=== PATIENT | male | born 1950 | race Caucasian/White ===

== ENCOUNTER 2019-04-25 06:00 | Outpatient (RCR) | payer OTHER, SELFPAY | END 2019-05-25 00:01 | LOC: SPT 06:00 | PROVIDERS: Family Provider Internal Medicine; Visit Provider Internal Medicine | DX: M62.81 Muscle weakness (generalized) (principal) | CPT/HCPCS: 97110 ×7; 97112 ×4 ==

== ENCOUNTER 2019-04-26 06:08 | Outpatient (RCR) | payer OTHER, SELFPAY | END 2019-05-25 00:01 | LOC: ONCMED 06:08 | PROVIDERS: Family Provider Internal Medicine; Visit Provider Internal Medicine Medical Oncology | DX: C82.38 Follicular lymphoma grade IIIa, lymph nodes of multiple sites (principal); D80.1 Nonfamilial hypogammaglobulinemia; K21.9 Gastro-esophageal reflux disease without esophagitis; N18.9 Chronic kidney disease, unspecified; D63.1 Anemia in chronic kidney disease; F32.9 Major depressive disorder, single episode, unspecified; Z94.84 Stem cells transplant status; Z86.718 Personal history of other venous thrombosis and embolism; Z79.01 Long term (current) use of anticoagulants; Z92.22 Personal history of monoclonal drug therapy ==

== ENCOUNTER 2019-05-26 06:00 | Outpatient (RCR) | payer OTHER, SELFPAY | END 2019-06-25 23:59 | disposition home or self-care (01) | LOC: SPT 06:00 | PROVIDERS: Family Provider Internal Medicine; PCP Internal Medicine; Visit Provider Internal Medicine | DX: M62.81 Muscle weakness (generalized) (principal) ==

== ENCOUNTER 2019-05-28 05:54 | Outpatient (RCR) | payer OTHER, SELFPAY | END 2019-06-25 23:59 | disposition home or self-care (01) | LOC: ONCMED 05:54 | PROVIDERS: Family Provider Internal Medicine; PCP Internal Medicine; Visit Provider Internal Medicine Medical Oncology | DX: Z45.2 Encounter for adjustment and management of vascular access device (principal) | CPT/HCPCS: 36591 ==

== ENCOUNTER 2019-06-26 06:00 | Outpatient (RCR) | payer OTHER, SELFPAY | END 2019-07-24 23:59 | disposition home or self-care (01) | LOC: SPT 06:00 | PROVIDERS: Family Provider Internal Medicine; PCP Internal Medicine; Visit Provider Internal Medicine | DX: M62.81 Muscle weakness (generalized) (principal) | CPT/HCPCS: 97110; 97112 ==

== ENCOUNTER 2019-07-02 10:22 | Outpatient (CLI) | payer OTHER, SELFPAY ==
--- NOTE | 2019-07-02 10:33 | US_ITS ---
WS: [id number] ULTRASOUND SOFT TISSUES LEFT posterior thigh HISTORY: L POSTERIOR THIGH NODULE-BRUISING, PAIN COMPARISON: None available. TECHNIQUE: 2-D and color Doppler imaging is submitted. Complex mass with cystic and solid component in the posterior LEFT thigh just above the popliteal fos sa. Thick echogenic wall with complex cystic material centrally. Mass extends over length of 3.3 cm x 1.8 x 1.0 cm. No increased vascularity. Mass is just superficial to the saphenous vein. US/US soft tissue/extremity [id number] IMPRESSION: Soft tissue mass without blood flow in the posterior LEFT thigh. Could be a res olving hematoma. Complex meniscal cyst extruded from the joint space. Metastati c deposit not completely excluded but thought less likely without increased vas cularity. For further evaluation consider follow-up MRI or knee CT.
== END 2019-07-02 10:23 | disposition home or self-care (01) ==
LOC: RAD 10:24
PROVIDERS: Family Provider Internal Medicine; PCP Internal Medicine; Visit Provider Internal Medicine Medical Oncology
DX: R22.42 Localized swelling, mass and lump, left lower limb (principal)
CPT/HCPCS: 76882

== ENCOUNTER 2019-07-05 06:01 | Outpatient (RCR) | payer OTHER, SELFPAY ==
[2019-07-05 10:37] LABS: Basophils % 0.1 %; Eosinophils % 0.4 %; Hematocrit 40.6 % (42.0-52.0); Hemoglobin 13.6 g/dL (11.7-16.6); Lymphocytes % 42.4 %; Mean Corpuscular HGB Conc 33.5 g/dL (30.0-36.0); Mean Corpuscular Hemoglobin 30.4 pg (28.0-34.0); Mean Corpuscular Volume 90.6 fL (80-94); Mean Platelet Volume 9.6 fL (7.4-10.4); Monocytes # 1.3 10^3/uL (0.2-0.9); Monocytes % 18.5 %; Neutrophils # 2.7 10^3/uL (1.8-7.7); Neutrophils % 38.3 %; Nucleated Red Blood Cells % 0 %; Platelet Count 162 10^3/cmm (130-400); Red Blood Count 4.48 10^6/uL (4.1-5.3); Red Cell Distribution Width 13.8 % (12.1-15.1)
[2019-07-05 11:22] LABS: Alanine Aminotransferase 29 U/L (0-41); Albumin Level 4.1 g/dL (3.5-5.2); Alkaline Phosphatase 86 IU/L (40-130); Anion Gap 15.2 (5-19); Aspartate Amino Transferase 17 U/L (0-40); Blood Urea Nitrogen 21 mg/dL (8-23); Calcium 9.7 mg/dL (8.5-10.5); Carbon Dioxide 26 mmol/L (22-29); Chloride 100 mmol/L (98-107); Globulin 1.9 g/dL (1.3-4.6); Glomerular Filtration Rate 50.2 mL/min (90-130); Glucose 93 mg/dL (65-115); Lactate Dehydrogenase 194 U/L (135-225); Potassium 3.2 mmol/L (3.5-5.1); Sodium 138 mmol/L (136-145); Total Bilirubin 0.4 mg/dL (0.15-1.2)
[2019-07-05 11:27] LABS: Erythrocyte Sedimentation Rate 11 mm/hr (0-10)
--- NOTE | 2019-07-05 20:04 | ONC FU_ITS ---
Dr. Mast Patient Follow-Up Note Patient: Conrad Llanos Unit #: [id number]: 1950 Dicatated By: Adrian Mast M.D.Date of Visit:Jul 05, 2019 Onc Med Follow-up/Prog Note Chief Complaint: Lymphoma/hypogammaglobulinemia. History of Present Illness: This is a 68 year-old man with transformed diffuse large B-cell lymphoma. He was also found to have severe hypogammaglobulinemia. He was initially diagnosed with grade 1-2/3 follicular lymphoma by left inguinal lymph node biopsy in 2008. He had at least stage III disease at that time. He achieved a partial response to initial treatment with rituximab, but he then had disease progression and he was treated with 6 cycles of R-CHOP from April 2012 through August 2010. He was then given maintenance rituximab at 6 month intervals, but he then had disease progression again. He had further treatment with 4 cycles of bendamustine/Rituxan from September 2011 through November 2011. He had a good response and was then in remission until April 2013 when he was found to have diffuse hyperactive lymphadenopathy by PET/CT. A left inguinal lymph node biopsy on 05/11/2013 showed grade 1-2/3 follicular lymphoma estimated at 50%, grade 3 follicular lymphoma estimated at 10%, and sheets of necrotic cells which were highly suspicious for diffuse large B-cell lymphoma. Those cells were positive for PAX-5, CD20, and BCL-2, and they were negative for Ki-67. He was then given 2 cycles of R-ESHAP in May 2013 followed by 2 cycles of R-GIFOX in July 2013. In December 2013 he underwent high-dose chemotherapy/stem cell transplant. He was given Revlimid for 3 cycles following the transplant, but he tolerated it poorly. His further treatment has included 9 cycles R-Toston Ox and maintenance rituximab. His most recent course of R-Toston Ox included 5 cycles of treatment from 04/09/2016 through 08/13/2016. He was then transitioned to maintenance rituximab, cycle 1 on 09/24/2016. His maintenance rituximab had been administered at 6-week intervals. 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 He was maintained on chronic anticoagulation with fondaparinux. He had also required treatment for Clostridium difficile colitis, and he had been chronically anemic. He was seen here initially on 11/05/2016 because he had moved back to this area and he desired to continue his treatment closer to home. At that time he complained that he felt run down and very tired. He complained of having a productive cough which had persisted for at least for 5 months. He also reported having diarrhea stools once or twice a day. He did receive his scheduled maintenance rituximab. On further evaluation, his stool was found to be negative for C. diff. A sputum culture, though, did grow beta lactamase negative Haemophilus influenzae, which persisted despite antibiotic therapy. On 12/15/2016 he presented to the emergency room with worsening diarrhea. CT abdomen/pelvis at that time showed mild bowel wall thickening thruout the colon, consistent with mild infectious colitis. There were mild inflammatory changes in the retroperitoneum with small lymph nodes, consistent with treated lymphoma. He was given empiric treatment with oral vancomycin and metronidazole. During subsequent follow-up he was found to have severe hypogammaglobulinemia with IgG 56.00 g/dL, IgA 22.00 mg/dL, and IgM less than 5.30 mg/dL. He began monthly replacement IVIG on 01/06/2017. In view of his declining performance status, I had opted not to continue his maintenance rituximab. A chest CT on 01/24/2017 showed patchy ill defined opacities in the right middle lobe and at the right lung base as well as additional scattered opacities in the left lower lobe, consistent with pneumonitis. There were small but numerous right axillary lymph nodes. There was no mediastinal adenopathy noted. His repeat sputum culture on 02/28/2017 was still positive for Haemophilus influenza. He was then referred to Dr. Johns for infectious disease consultation. He also had ENT consultation with Dr. Ann. His further evaluation included an esophagram on 03/14/2017. It showed moderate esophageal dysmotility with tertiary contractions in the mid and distal esophagus. There was a tiny esophageal hiatal hernia with reflux to the mid esophagus. A CT of the neck showed no cervical lymphadenopathy and there was no evidence of glottic or supraglottic mass. Bilateral parotid soft tissue lesions measuring 10 mm on the right and 13 mm on the left were felt to represent prominent intraparotid lymph nodes versus parotid adenomas. A few prominent right submandibular lymph nodes measuring up to 8 mm were not pathologically enlarged. With those findings, he continued monthly replacement IVIG and he continued prophylactic antibiotic coverage with Augmentin. He remained on observation/expectant management for the lymphoma. Restaging CT scans of the chest, abdomen, and pelvis on 12/03/2017 showed interval increase in size and number of bilateral axillary lymph nodes, largest in the right axilla measuring 17 mm. The abdomen showed slight increase in spleen size 12.5 cm compared to 10.5 cm in November 2016. There was also new adenopathy in the mesentery, retroperitoneum, pelvis, and inguinal regions. The retroperitoneal adenopathy was noted to encase the proximal ureters, but without evidence of renal obstruction. On 01/01/2018 he returned here for a scheduled IVIG infusion. At that time he reported that he had again been diagnosed with Clostridium difficile colitis. He started treatment with vancomycin 125 mg 4 times a day, and he stopped the Augmentin. PET/CT on 01/17/2018 showed widespread hypermetabolic lymphadenopathy from the head/neck level to the level of the pelvis. Involved areas included submandibular and jugulodigastric nodes bilaterally, axillary nodes bilaterally, superior mediastinal, right paratracheal, subcarinal, paraesophageal and left hilar lymph nodes, and prominent retroperitoneal and mesenteric lymph nodes. There was extension into the common iliac and bilateral pelvic, including inguinal and femoral nodes bilaterally. There was diffusely increased splenic activity consistent with lymphomatous involvement. Increased activity in thickened bilateral renal fascia also was strongly suspicious for lymphomatous infiltration. On 02/02/2018 he underwent right axillary lymph node biopsy. Pathology was consistent with follicular lymphoma, grade 3A. On 03/04/2018 he was seen by Dr. Bonita Garner at [facility]. He was evaluated for possible participation in the clinical trial with a bispecific antibody. He fortunately did not qualify for that particular trial because of his renal function. As an alternative, she recommended a trial therapy with a PI3K inhibitor. On 03/30/2018 he began a trial therapy with idelalisib 150 mg twice a day. With that, he was started on prophylaxis with Bactrim and valacyclovir, and I also had him continue oral vancomycin 125 mg twice a day for the recurrent Clostridium difficile colitis. During subsequent follow-up he continued idelalisib 150 mg twice a day, and he has continued his monthly IVIG infusions. He appeared to have resolution of peripheral lymphadenopathy. Restaging PET/CT on 08/15/2018 the spleen appeared less prominent and it was just slightly more hypermetabolic compared to the liver, consistent with improvement but not resolution of lymphomatous involvement. Extranodal soft tissue of the right posterior abdomen also appeared less hypermetabolic but not completely resolved. Winter improvement was evident in axillary nodes bilaterally, in bilateral inguinal and femoral nodes, and in mediastinal nodes. There was apparent progression of disease in the left perirenal fascia and there was increased activity in the right submandibular node. There was also apparent progression in the upper abdominal nodes in the celiac, gastrosplenic, and gastrohepatic territories. Right external iliac adenopathy also appeared more hypermetabolic. Overall, it was felt to show a mixed response. He was seen for a scheduled visit and an IVIG infusion on 09/14/2018. Subsequent to that treatment, he became profoundly weak, and he also developed fever, chills, sweating, and headache. He was admitted to the hospital on 09/20/2018. His blood counts were adequate and there are no significant changes in his serum chemistry studies. Chest x-ray showed no acute infiltrate. His blood cultures remained negative. His spinal fluid showed 11 WBC, 98% mononuclear cells. The CSF protein was normal. Stool tested negative for C. difficile and stool cultures were negative. Overall, no source of infection was identified. Noncontrast CT abdomen/pelvis on 09/23/2018 showed persistent extensive central mesenteric, celiac axis, retroperitoneal, pelvic and anal lymphadenopathy with marginal improvement compared to a previous CT from November 2017. There was persistent mild splenomegaly. He was discharged home on 09/24/2018. At that time he continued his prophylaxis with Bactrim and he was given empiric treatment with valganciclovir for 7 days. He had no additional antibiotic therapy. He continued to have low-grade fever and other systemic symptoms, but he did have symptomatic improvement on empiric treatment with prednisone. I had seen him for a follow-up visit on 10/14/2018. At that point he was feeling better. I had him continue the idelalisib at 150 mg twice a day and he continued prophylaxis with Bactrim, valacyclovir, and oral vancomycin. The IVIG remained on hold. He was seen for a follow-up visit on 11/02/2018. He was feeling worse. He reported increased weakness and he was having symptoms of orthostatic hypotension. He had stopped the idelalisib. He was given IV hydration, and I did have him keep the idelalisib on hold. His laboratory studies at that time included a sedimentation rate which was markedly elevated 118 mm/hour. His chest x-ray at that time showed poor inspiration with no acute findings. Bilateral renal ultrasound was normal. There was no hydronephrosis. Restaging PET/CT on 11/28/2018 showed evidence of disease progression with increase hypermetabolism within the spleen, and the bilateral retroperitoneal winter mass in the upper abdomen showed increase in SUV to 24.5 compared to 19.6 on the July 2018 study. There was similar progression in mesenteric, bilateral pelvic, gastrohepatic, and gastrosplenic lymph nodes. An index mediastinal lymph node in the subcarinal territory showed SUV 10.4 compared to 4.1 on the previous study. There was also progression evident in bilateral head/neck nodes and bilateral axillary nodes. Diffusely increased marrow activity was felt to be possibly physiologic, but marrow infiltration was not excluded. A cosyntropin stimulation test on 11/30/2018 did show adequate response, but the baseline cortisol level was unusually low at 0.73. As he was clearly showing disease progression, he then began a trial of therapy with rituximab in combination with lenalidomide, cycle 1 beginning on 12/22/2018. The rituximab was dosed at 375 mg/m??? by IV infusion day 1 and the lenalidomide at 20 mg daily on a 21/28 day schedule. He also continued his steroid therapy. He was able to tolerate the rituximab infusion, but the lenalidomide was stopped within a very short time due to multiple side effects. He then returned for cycle 2 on 01/19/2019 with the lenalidomide dosage reduced to 5 mg. He again became extremely fatigued while taking the Revlimid, even at the reduced dosage. At his follow-up visit on 03/16/2019 I opted to put his treatment on hold. Restaging PET/CT on 03/27/2019 showed subcentimeter sized lymph nodes in the cervical, axillary, and mediastinal territories without significant FDG activity. The splenic activity also appeared to have normalized. Mesenteric lymph nodes were noted to be subcentimeter in size and FDG negative. The retroperitoneal mass was seen only has FDG negative fat stranding. Pelvic adenopathy was noted to have resolved. Overall, the findings were consistent with a complete metabolic response to therapy. His other medical illnesses include GERD, chronic kidney disease, and depression. He is a nonsmoker. INTERIM HISTORY: He had called last week to report a new lump in his left leg. He had a firm mass palpable in the posterior left thigh just above the knee. There was associated ecchymosis. Ultrasound showed a complex soft tissue mass with cystic and solid component but without blood flow. The appearance was most consistent with resolving hematoma, though metastatic deposit was not completely excluded. He is seen for a follow-up visit. He has been feeling pretty good generally. He has not really had any pain or other symptoms associated with the leg mass, and he has not been aware of any specific injury in that area. It has not been getting any bigger. He is on chronic anticoagulation with fondaparinux, and he has always been prone to bruising easily, especially in the left leg. His energy has been improving gradually with physical therapy. He is able to do light work. ECOG score is 1. His appetite has been good. He has not had fever or night sweats. He has lightheadedness just occasionally now. He has started to gradually taper off prednisone, and he currently is taking 5 mg in the morning and 5 mg in the early afternoon. He does not complain of shortness of breath, cough, or chest pain. He has no GI complaints. He has frequent urination at night. He has some pain in his back and knees, but that is not new. He has no focal neurologic symptoms. He indicates that he does tend to get blisters in the scrotal area intermittently. They resolve within a few days with acyclovir. Medications: Acetaminophen Extra Strength Tablet Oral PRN, Arixtra 7.5 mg (of 7.5 mg/0.6mL) Subcutaneous daily, Dulcolax 1 Tablet (of 5 mg) Tablet, enteric coated Oral daily PRN, MiraLax Powder Oral PRN, oxyCODONE HCl 5 mg (of 5 mg) Tablet Oral PRN, Potassium Chloride ER 1 Tablet (of 10 meq) Tablet, controlled release Oral daily, predniSONE 1 Tablet (of 5 mg) Oral b.i.d., Prevacid 1 (30 mg) Capsule Delayed Release Oral daily Allergies: Ciprofloxacin HCl Review of Systems: Constitutional - His energy has improved somewhat with physical therapy. His does light work at home. His appetite is good, but his weight is down a couple of pounds. No fever, chills, hot flashes, or night sweats. ECOG score is 1, ENMT - No sinus congestion/drainage. No mouth sores. No sore throat or difficulty swallowing, Hematologic/Lymphatic - He bruises easily, mainly in his left leg, Respiratory - No shortness of breath. No cough. No pleuritic pain or hemoptysis, Cardiovascular - No angina pain. No palpitations, Gastrointestinal - No nausea or vomiting. No heartburn or acid reflux. His bowels are managed well with stool softeners. No blood in the stool or black stools, Genitourinary (M) - No dysuria or hematuria. He has urinary frequency at night. No urgency or incontinence, Musculoskeletal - He has occasional pain in his back and in both knees, Integumentary - No skin complications, Neurologic - No headache. He has occasional spells of light-headedness. No numbness/paresthesias or other focal neurologic symptoms, Psychiatric - He has pretty bad anxiety around crowds. No depression. No insomnia. Vital Signs: Performed on Jul 05, 2019 11:45 Height - 71.00 in Weight - 184.6 lbs (LOW) BSA - 2.04 sq.m BMI - 25.75 Temperature - 98.0 F (LOW) Pulse - 93 /min Respiration - 22 /min BP - 122/72 mm(hg) O2 Sat - 98 % Pain - 4 Physical Examination: Constitutional - He looks pretty good generally. He does appear slightly cushingoid in the face, Eyes - Sclerae nonicteric. Conjunctivae clear, ENMT - There are no lesions noted in the oral cavity, Hematologic/Lymphatic - There is no cervical, clavicular, or axillary adenopathy noted, Respiratory - Lungs sound clear with good air movement bilaterally, Cardiovascular - Heart rhythm is regular. There is no murmur, gallop, or rub noted, Abdomen - Soft. Liver and spleen are not enlarged. There is no abdominal mass or ascites noted. There is no inguinal adenopathy noted, Extremities - No edema. There is a firm mass palpable in the posterior left thigh just above the knee. There is associated ecchymosis, Neurologic - No focal neurologic deficits noted. Lab/Imaging: Test performed on Jul 05, 2019 10:20 LDH (Total) 194 U/L Sodium 138 mmol/L Potassium 3.2 mmol/L Chloride 100 mmol/L CO2 26 mmol/L Anion Gap 15.2 BUN 21 mg/dL Creatinine 1.4 mg/dL Cr Clearance (Est) 54.8300 mL/min eGFR 50.2 mL/min Glucose 93 mg/dL Calcium 9.7 mg/dL Protein, Total 6.0 g/dL Albumin 4.1 g/dL Globulin 1.9 g/dL Bilirubin, Total 0.4 mg/dL ALT (SGPT) 29 U/L AST (SGOT) 17 U/L Alkaline Phosphatase 86 IU/L WBC 7.0 10 3/uL RBC 4.48 10 6/uL HGB 13.6 g/dL HCT 40.6 % MCV 90.6 fL MCH 30.4 pg MCHC 33.5 g/dL RDW 13.8 % Platelet Count 162 10 3/cmm MPV 9.6 fL Neutrophils 2.7 10 3/uL Lymphocytes 3.0 10 3/uL Monocytes 1.3 10 3/uL Eosinophils 0.0 10 3/uL Basophils 0.0 10 3/uL Neutrophil % 38.3 % Lymphocyte % 42.4 % Monocyte % 18.5 % Eosinophil % 0.4 % Basophils % 0.1 % Test performed on Jul 05, 2019 03:18 ESR (Sed Rate) 11 mm/hr Impression: 1. Patient with grade 1-2/3 follicular lymphoma, at least stage III, initially diagnosed by left inguinal lymph node biopsy in 2008. His treatments included rituximab, R-CHOP, and bendamustine/Rituxan. 2. In April 2013 he was confirmed by left inguinal lymph node biopsy to have transformed diffuse large B-cell lymphoma. His disease was again at least stage III. 3. His subsequent treatment included R-ESHAP x 2 and R-GIFOX x 2 followed by stem cell transplant in December 2013. 4. He had 3 cycles of Revlimid following the stem cell transplant, tolerated poorly. 5. His subsequent treatment included R-Toston Ox at 6-week intervals and maintenance rituximab. His final course included 5 cycles of R-Toston Ox from 04/09/2016 through 08/13/2016. 6. He began maintenance rituximab at 6 week intervals beginning 09/24/2016. It was stopped following his treatment in October 2016 due to persistent Haemophilus influenza respiratory tract infection. 7. He was then found to have severe hypogammaglobulinemia, for which he began monthly replacement IVIG in December 2016. 8. He also has had recurrent episodes of Clostridium difficile colitis. His other medical illnesses include: 9. Recurrent episodes of lower extremity deep vein thrombosis and pulmonary emboli, on chronic anticoagulation with fondaparinux. 10. GERD. 11. Chronic anemia. 12. Chronic kidney disease. 13. Depression. He had significant improvement in his performance status after starting replacement IVIG. As of his followup visit in October 2017 he was doing well clinically with gradual improvement in his performance status and no obvious progression of the lymphoma. His restaging CT scans in November 2017 did show significant progression of lymphadenopathy, particularly in the mesenteric/retroperitoneal areas. In the meantime, he was again diagnosed with Clostridium difficile colitis. He had symptomatic improvement on treatment with oral vancomycin, but his diarrhea recurred as his vancomycin dosage was tapered to 125 mg daily. His staging PET/CT on 01/17/2018 showed diffuse lymph node involvement from the head/neck level down to the pelvis as well as suspected involvement in the spleen and in the renal fascia bilaterally. Right axillary lymph node biopsy on 02/02/2018 was consistent with follicular lymphoma grade 3A. On 03/04/2018 he was seen by Dr. Bonita Garner at [facility]. Outside the context of a clinical, she recommended a trial therapy with a PI3K inhibitor. On 03/30/2018 he began a trial therapy with idelalisib 150 mg twice a day. During subsequent follow-up he had been tolerating it well, and by clinical assessment he appeared to be showing a response. He also continued monthly IVIG infusions, though he had complained of increased fatigue for at least a week following the infusions. Restaging PET/CT on 08/15/2018 showed evidence of mixed response. He continued treatment with idelalisib 150 mg twice a day. He received his scheduled IVIG infusion on 09/14/2018. He became profoundly weak following that treatment, and he also developed fever, chills, sweating, and headache. His symptoms were severe enough that he required hospital admission, but there was no source of infection identified. During subsequent follow-up he had gradual improvement in his symptoms on empiric steroid therapy with prednisone, though he still had significant fatigue. As of his follow-up visit on 10/14/2018 he had continued treatment with idelalisib 150 mg twice a day, but the IVIG remained on hold. During follow-up he then felt worse again and he stopped the idelalisib. He continued to have generalized weakness and very limited activity tolerance. He also had symptoms of orthostatic hypotension. He had markedly elevated sedimentation rate. His restaging PET/CT on 11/28/2018 showed evidence of disease progression in multiple areas, though not bulky. He did show some symptomatic improvement on prednisone, but his overall condition at that point was poor, and there was clearly evidence of progression of the underlying lymphoma. On 12/22/2018 he began a trial therapy with rituximab in combination with lenalidomide. He was able to tolerate the initial rituximab infusion, but he had multiple side effects with lenalidomide at the 20 mg dosage, and it was stopped within a short time. He then proceeded with cycle 2 on 01/19/2019 with the lenalidomide dosage reduced to 5 mg. He tolerated it poorly, even at the reduced dosage, and his treatment was put on hold. His restaging PET/CT on 03/27/2019 was consistent with a complete response to treatment. During subsequent follow-up he has been showing some very gradual improvement in his performance status. He has now been able to taper down his prednisone dosage from 15 to 10 mg daily. He presented recently with a palpable mass in the posterior left thigh just above the knee. By ultrasound this appears to me most likely due to hematoma. It is not overtly symptomatic, and there has been no indication that it is progressing. By clinical evaluation, there appears to be no evidence of progression of the lymphoma. Plan: He will remain on observation/expectant management for the lymphoma. He will continue anticoagulation with fondaparinux at the current dosage. He is to call immediately if there is any indication that the left leg hematoma is worsening. He will continue to gradually taper prednisone as he is able to tolerate. I will have him restart acyclovir prophylactically at 400 mg daily. He will return for a port flush in 1 month and for a follow-up visit in 2 months. Signed By: Adrian Mast M.D. <<Signature on File>>
== END 2019-07-24 23:59 | disposition home or self-care (01) ==
LOC: ONCMED 06:01
PROVIDERS: Family Provider Internal Medicine; PCP Internal Medicine; Visit Provider Internal Medicine Medical Oncology
DX: C82.18 Follicular lymphoma grade II, lymph nodes of multiple sites (principal); C80.1 Malignant (primary) neoplasm, unspecified; K21.9 Gastro-esophageal reflux disease without esophagitis; N18.9 Chronic kidney disease, unspecified; F32.9 Major depressive disorder, single episode, unspecified; Z94.84 Stem cells transplant status; Z79.52 Long term (current) use of systemic steroids; Z79.899 Other long term (current) drug therapy; Z79.01 Long term (current) use of anticoagulants; Z79.891 Long term (current) use of opiate analgesic; Z92.21 Personal history of antineoplastic chemotherapy; Z92.25 Personal history of immunosuppression therapy; Z86.718 Personal history of other venous thrombosis and embolism; Z86.711 Personal history of pulmonary embolism
CPT/HCPCS: 36591; 80053; 83615; 85025; 85651; 99214

== ENCOUNTER 2019-08-03 06:03 | Outpatient (RCR) | payer OTHER, SELFPAY | END 2019-08-24 23:59 | disposition home or self-care (01) | LOC: ONCMED 06:03 | PROVIDERS: Family Provider Internal Medicine; PCP Internal Medicine; Visit Provider Internal Medicine Medical Oncology | DX: Z45.2 Encounter for adjustment and management of vascular access device (principal) | CPT/HCPCS: 96523 ==

== ENCOUNTER 2019-09-17 08:01 | Outpatient (RCR) | payer OTHER, SELFPAY ==
[2019-09-02 12:19] LABS: Basophils % 0.4 %; Eosinophils # 0.1 10^3/uL (0.0-0.8); Eosinophils % 0.7 %; Hematocrit 46.2 % (42.0-52.0); Hemoglobin 15.4 g/dL (11.7-16.6); Lymphocytes % 35.6 %; Mean Corpuscular HGB Conc 33.3 g/dL (30.0-36.0); Mean Corpuscular Hemoglobin 30.8 pg (28.0-34.0); Mean Corpuscular Volume 92.4 fL (80-94); Mean Platelet Volume 10.3 fL (7.4-10.4); Monocytes # 1.2 10^3/uL (0.2-0.9); Neutrophils # 4.1 10^3/uL (1.8-7.7); Neutrophils % 48.9 %; Nucleated Red Blood Cells % 0 %; Platelet Count 157 10^3/cmm (130-400); Red Cell Distribution Width 12.6 % (12.1-15.1); White Blood Count 8.4 10^3/uL (4.0-10.0)
[2019-09-02 12:39] LABS: Alanine Aminotransferase 101 U/L (0-41); Albumin Level 4.5 g/dL (3.5-5.2); Alkaline Phosphatase 104 IU/L (40-130); Anion Gap 16.7 (5-19); Aspartate Amino Transferase 44 U/L (0-40); Blood Urea Nitrogen 21 mg/dL (8-23); Calcium 9.9 mg/dL (8.5-10.5); Carbon Dioxide 25 mmol/L (22-29); Chloride 98 mmol/L (98-107); Globulin 1.9 g/dL (1.3-4.6); Glomerular Filtration Rate 46.4 mL/min (90-130); Glucose 117 mg/dL (65-115); Lactate Dehydrogenase 181 U/L (135-225); Osmolality Calculated 280 mOsm/kg (285-295); Potassium 3.7 mmol/L (3.5-5.1); Sodium 136 mmol/L (136-145); Total Bilirubin 0.4 mg/dL (0.15-1.2); Total Protein 6.4 g/dL (6.6-8.7)
--- NOTE | 2019-09-02 14:17 | ONC FU_ITS ---
Dr. Mast Patient Follow-Up Note Patient: Conrad Llanos Unit #: [id number]: 1950 Dicatated By: Adrian Mast M.D.Date of Visit:Sep 02, 2019 Onc Med Follow-up/Prog Note Chief Complaint: Lymphoma/hypogammaglobulinemia. History of Present Illness: This is a 68 year-old man with transformed diffuse large B-cell lymphoma. He was also found to have severe hypogammaglobulinemia. He was initially diagnosed with grade 1-2/3 follicular lymphoma by left inguinal lymph node biopsy in 2008. He had at least stage III disease at that time. He achieved a partial response to initial treatment with rituximab, but he then had disease progression and he was treated with 6 cycles of R-CHOP from April 2012 through August 2010. He was then given maintenance rituximab at 6 month intervals, but he then had disease progression again. He had further treatment with 4 cycles of bendamustine/Rituxan from September 2011 through November 2011. He had a good response and was then in remission until April 2013 when he was found to have diffuse hyperactive lymphadenopathy by PET/CT. A left inguinal lymph node biopsy on 05/11/2013 showed grade 1-2/3 follicular lymphoma estimated at 50%, grade 3 follicular lymphoma estimated at 10%, and sheets of necrotic cells which were highly suspicious for diffuse large B-cell lymphoma. Those cells were positive for PAX-5, CD20, and BCL-2, and they were negative for Ki-67. He was then given 2 cycles of R-ESHAP in May 2013 followed by 2 cycles of R-GIFOX in July 2013. In December 2013 he underwent high-dose chemotherapy/stem cell transplant. He was given Revlimid for 3 cycles following the transplant, but he tolerated it poorly. His further treatment has included 9 cycles R-[place] Ox and maintenance rituximab. His most recent course of R-[place] Ox included 5 cycles of treatment from 04/09/2016 through 08/13/2016. He was then transitioned to maintenance rituximab, cycle 1 on 09/24/2016. His maintenance rituximab had been administered at 6-week intervals. 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 He was maintained on chronic anticoagulation with fondaparinux. He had also required treatment for Clostridium difficile colitis, and he had been chronically anemic. He was seen here initially on 11/05/2016 because he had moved back to this area and he desired to continue his treatment closer to home. At that time he complained that he felt run down and very tired. He complained of having a productive cough which had persisted for at least for 5 months. He also reported having diarrhea stools once or twice a day. He did receive his scheduled maintenance rituximab. On further evaluation, his stool was found to be negative for C. diff. A sputum culture, though, did grow beta lactamase negative Haemophilus influenzae, which persisted despite antibiotic therapy. On 12/15/2016 he presented to the emergency room with worsening diarrhea. CT abdomen/pelvis at that time showed mild bowel wall thickening thruout the colon, consistent with mild infectious colitis. There were mild inflammatory changes in the retroperitoneum with small lymph nodes, consistent with treated lymphoma. He was given empiric treatment with oral vancomycin and metronidazole. During subsequent follow-up he was found to have severe hypogammaglobulinemia with IgG 56.00 g/dL, IgA 22.00 mg/dL, and IgM less than 5.30 mg/dL. He began monthly replacement IVIG on 01/06/2017. In view of his declining performance status, I had opted not to continue his maintenance rituximab. A chest CT on 01/24/2017 showed patchy ill defined opacities in the right middle lobe and at the right lung base as well as additional scattered opacities in the left lower lobe, consistent with pneumonitis. There were small but numerous right axillary lymph nodes. There was no mediastinal adenopathy noted. His repeat sputum culture on 02/28/2017 was still positive for Haemophilus influenza. He was then referred to Dr. Johns for infectious disease consultation. He also had ENT consultation with Dr. Ann. His further evaluation included an esophagram on 03/14/2017. It showed moderate esophageal dysmotility with tertiary contractions in the mid and distal esophagus. There was a tiny esophageal hiatal hernia with reflux to the mid esophagus. A CT of the neck showed no cervical lymphadenopathy and there was no evidence of glottic or supraglottic mass. Bilateral parotid soft tissue lesions measuring 10 mm on the right and 13 mm on the left were felt to represent prominent intraparotid lymph nodes versus parotid adenomas. A few prominent right submandibular lymph nodes measuring up to 8 mm were not pathologically enlarged. With those findings, he continued monthly replacement IVIG and he continued prophylactic antibiotic coverage with Augmentin. He remained on observation/expectant management for the lymphoma. Restaging CT scans of the chest, abdomen, and pelvis on 12/03/2017 showed interval increase in size and number of bilateral axillary lymph nodes, largest in the right axilla measuring 17 mm. The abdomen showed slight increase in spleen size 12.5 cm compared to 10.5 cm in November 2016. There was also new adenopathy in the mesentery, retroperitoneum, pelvis, and inguinal regions. The retroperitoneal adenopathy was noted to encase the proximal ureters, but without evidence of renal obstruction. On 01/01/2018 he returned here for a scheduled IVIG infusion. At that time he reported that he had again been diagnosed with Clostridium difficile colitis. He started treatment with vancomycin 125 mg 4 times a day, and he stopped the Augmentin. PET/CT on 01/17/2018 showed widespread hypermetabolic lymphadenopathy from the head/neck level to the level of the pelvis. Involved areas included submandibular and jugulodigastric nodes bilaterally, axillary nodes bilaterally, superior mediastinal, right paratracheal, subcarinal, paraesophageal and left hilar lymph nodes, and prominent retroperitoneal and mesenteric lymph nodes. There was extension into the common iliac and bilateral pelvic, including inguinal and femoral nodes bilaterally. There was diffusely increased splenic activity consistent with lymphomatous involvement. Increased activity in thickened bilateral renal fascia also was strongly suspicious for lymphomatous infiltration. On 02/02/2018 he underwent right axillary lymph node biopsy. Pathology was consistent with follicular lymphoma, grade 3A. On 03/04/2018 he was seen by Dr. Bonita Garner at [facility]. He was evaluated for possible participation in the clinical trial with a bispecific antibody. He fortunately did not qualify for that particular trial because of his renal function. As an alternative, she recommended a trial therapy with a PI3K inhibitor. On 03/30/2018 he began a trial therapy with idelalisib 150 mg twice a day. With that, he was started on prophylaxis with Bactrim and valacyclovir, and I also had him continue oral vancomycin 125 mg twice a day for the recurrent Clostridium difficile colitis. During subsequent follow-up he continued idelalisib 150 mg twice a day, and he has continued his monthly IVIG infusions. He appeared to have resolution of peripheral lymphadenopathy. Restaging PET/CT on 08/15/2018 the spleen appeared less prominent and it was just slightly more hypermetabolic compared to the liver, consistent with improvement but not resolution of lymphomatous involvement. Extranodal soft tissue of the right posterior abdomen also appeared less hypermetabolic but not completely resolved. Winter improvement was evident in axillary nodes bilaterally, in bilateral inguinal and femoral nodes, and in mediastinal nodes. There was apparent progression of disease in the left perirenal fascia and there was increased activity in the right submandibular node. There was also apparent progression in the upper abdominal nodes in the celiac, gastrosplenic, and gastrohepatic territories. Right external iliac adenopathy also appeared more hypermetabolic. Overall, it was felt to show a mixed response. He was seen for a scheduled visit and an IVIG infusion on 09/14/2018. Subsequent to that treatment, he became profoundly weak, and he also developed fever, chills, sweating, and headache. He was admitted to the hospital on 09/20/2018. His blood counts were adequate and there are no significant changes in his serum chemistry studies. Chest x-ray showed no acute infiltrate. His blood cultures remained negative. His spinal fluid showed 11 WBC, 98% mononuclear cells. The CSF protein was normal. Stool tested negative for C. difficile and stool cultures were negative. Overall, no source of infection was identified. Noncontrast CT abdomen/pelvis on 09/23/2018 showed persistent extensive central mesenteric, celiac axis, retroperitoneal, pelvic and anal lymphadenopathy with marginal improvement compared to a previous CT from November 2017. There was persistent mild splenomegaly. He was discharged home on 09/24/2018. At that time he continued his prophylaxis with Bactrim and he was given empiric treatment with valganciclovir for 7 days. He had no additional antibiotic therapy. He continued to have low-grade fever and other systemic symptoms, but he did have symptomatic improvement on empiric treatment with prednisone. I had seen him for a follow-up visit on 10/14/2018. At that point he was feeling better. I had him continue the idelalisib at 150 mg twice a day and he continued prophylaxis with Bactrim, valacyclovir, and oral vancomycin. The IVIG remained on hold. He was seen for a follow-up visit on 11/02/2018. He was feeling worse. He reported increased weakness and he was having symptoms of orthostatic hypotension. He had stopped the idelalisib. He was given IV hydration, and I did have him keep the idelalisib on hold. His laboratory studies at that time included a sedimentation rate which was markedly elevated 118 mm/hour. His chest x-ray at that time showed poor inspiration with no acute findings. Bilateral renal ultrasound was normal. There was no hydronephrosis. Restaging PET/CT on 11/28/2018 showed evidence of disease progression with increase hypermetabolism within the spleen, and the bilateral retroperitoneal winter mass in the upper abdomen showed increase in SUV to 24.5 compared to 19.6 on the July 2018 study. There was similar progression in mesenteric, bilateral pelvic, gastrohepatic, and gastrosplenic lymph nodes. An index mediastinal lymph node in the subcarinal territory showed SUV 10.4 compared to 4.1 on the previous study. There was also progression evident in bilateral head/neck nodes and bilateral axillary nodes. Diffusely increased marrow activity was felt to be possibly physiologic, but marrow infiltration was not excluded. A cosyntropin stimulation test on 11/30/2018 did show adequate response, but the baseline cortisol level was unusually low at 0.73. As he was clearly showing disease progression, he then began a trial of therapy with rituximab in combination with lenalidomide, cycle 1 beginning on 12/22/2018. The rituximab was dosed at 375 mg/m??? by IV infusion day 1 and the lenalidomide at 20 mg daily on a 21/28 day schedule. He also continued his steroid therapy. He was able to tolerate the rituximab infusion, but the lenalidomide was stopped within a very short time due to multiple side effects. He then returned for cycle 2 on 01/19/2019 with the lenalidomide dosage reduced to 5 mg. He again became extremely fatigued while taking the Revlimid, even at the reduced dosage. At his follow-up visit on 03/16/2019 I opted to put his treatment on hold. Restaging PET/CT on 03/27/2019 showed subcentimeter sized lymph nodes in the cervical, axillary, and mediastinal territories without significant FDG activity. The splenic activity also appeared to have normalized. Mesenteric lymph nodes were noted to be subcentimeter in size and FDG negative. The retroperitoneal mass was seen only has FDG negative fat stranding. Pelvic adenopathy was noted to have resolved. Overall, the findings were consistent with a complete metabolic response to therapy. His other medical illnesses include GERD, chronic kidney disease, and depression. He is a nonsmoker. INTERIM HISTORY: In June 2019 he had presented with a firm mass palpable in the posterior left thigh just above the knee. There was associated ecchymosis. Ultrasound showed a complex soft tissue mass with cystic and solid component but without blood flow. The appearance was most consistent with resolving hematoma, though metastatic deposit was not completely excluded. With those findings, he continued observation/symptomatic management. He is seen for a follow-up visit. He has been feeling okay, recently had developed a cold about 4 months ago. He has had eventually resolved, but then developed cough again about 1 month ago. It has been productive of clear to light yellow sputum. He has not had fever with it. He has been on antibiotic coverage with Augmentin. He says his energy is okay, but not high. ECOG score is 1. He has good appetite. He has not had night sweating. He has had no mouth sores. He has no shortness of breath or chest pain. He has a little bit of nausea at times. His acid reflux is adequately managed with Prevacid. He has had constipation, but bowel function has been adequate with a stool softener. He has not had any diarrhea. Bladder function is the same. He has pain in his right knee. His left hip bothers him occasionally. He does not complain of headache or dizziness. He has no focal neurologic symptoms. He has been able to taper his prednisone to 5 mg in the morning and 2.5 mg at noon. Medications: Acetaminophen Extra Strength Tablet Oral PRN, Arixtra 7.5 mg (of 7.5 mg/0.6mL) Subcutaneous daily, Dulcolax 1 Tablet (of 5 mg) Tablet, enteric coated Oral daily PRN, oxyCODONE HCl 5 mg (of 5 mg) Tablet Oral PRN, Potassium Chloride ER 1 Tablet (of 10 meq) Tablet, controlled release Oral daily, predniSONE 7 mg (of 5 mg) Tablet Oral daily, Prevacid 1 (30 mg) Capsule Delayed Release Oral daily, valACYclovir HCl Tablet Oral PRN Allergies: Ciprofloxacin HCl Review of Systems: Constitutional - His energy level is OK, but not high. He is doing some light work. His appetite is good and weight is stable. No fever, chills, hot flashes, or night sweats. ECOG score is 1, ENMT - No sinus congestion/drainage. No mouth sores. No sore throat or difficulty swallowing, Hematologic/Lymphatic - No abnormal bruising or bleeding, Respiratory - No shortness of breath. He has a cough that produces a clear to yellow phlegm. No pleuritic pain or hemoptysis, Cardiovascular - No angina pain. No palpitations, Gastrointestinal - No nausea or vomiting. His acid reflux is well controlled with Prevacid. No diarrhea. He has had constipation, but bowels are moving adequately with stool softener. No blood in the stool or black stools, Genitourinary (M) - No dysuria or hematuria. No urinary frequency. No urgency or incontinence, Musculoskeletal - His has pain in his right knee and has occasional pain in his left hip, Integumentary - No skin complications, Neurologic - No headache or dizziness. No numbness/paresthesias or other focal neurologic symptoms, Psychiatric - No anxiety or depression. No insomnia. Vital Signs: Performed on Sep 02, 2019 13:36 Height - 71.00 in Weight - 187.6 lbs (HIGH) BSA - 2.05 sq.m BMI - 26.17 Temperature - 98.4 F Pulse - 93 /min Respiration - 24 /min BP - 121/82 mm(hg) O2 Sat - 95 % (LOW) Pain - 0 Physical Examination: Constitutional - He looks pretty good generally, Eyes - Sclerae nonicteric. Conjunctivae clear, ENMT - There are no lesions noted in the oral cavity, Hematologic/Lymphatic - There is no cervical, clavicular, or axillary adenopathy noted, Respiratory - Lungs sound clear with good air movement bilaterally, Cardiovascular - Heart rhythm is regular. There is no murmur, gallop, or rub noted, Abdomen - Soft. Liver and spleen are not enlarged. There is no abdominal mass or ascites noted. There is no inguinal adenopathy noted, Extremities - No edema, Neurologic - No focal neurologic deficits noted. Lab/Imaging: Test performed on Sep 02, 2019 12:00 LDH (Total) 181 U/L Sodium 136 mmol/L Potassium 3.7 mmol/L Chloride 98 mmol/L CO2 25 mmol/L Anion Gap 16.7 BUN 21 mg/dL Creatinine 1.5 mg/dL Cr Clearance (Est) 51.1700 mL/min eGFR 46.4 mL/min Glucose 117 mg/dL Calcium 9.9 mg/dL Protein, Total 6.4 g/dL Albumin 4.5 g/dL Globulin 1.9 g/dL Bilirubin, Total 0.4 mg/dL ALT (SGPT) 101 U/L AST (SGOT) 44 U/L Alkaline Phosphatase 104 IU/L WBC 8.4 10 3/uL RBC 5.00 10 6/uL HGB 15.4 g/dL HCT 46.2 % MCV 92.4 fL MCH 30.8 pg MCHC 33.3 g/dL RDW 12.6 % Platelet Count 157 10 3/cmm MPV 10.3 fL Neutrophils 4.1 10 3/uL Lymphocytes 3.0 10 3/uL Monocytes 1.2 10 3/uL Eosinophils 0.1 10 3/uL Basophils 0.0 10 3/uL Neutrophil % 48.9 % Lymphocyte % 35.6 % Monocyte % 14.0 % Eosinophil % 0.7 % Basophils % 0.4 % Impression: 1. Patient with grade 1-2/3 follicular lymphoma, at least stage III, initially diagnosed by left inguinal lymph node biopsy in 2008. His treatments included rituximab, R-CHOP, and bendamustine/Rituxan. 2. In April 2013 he was confirmed by left inguinal lymph node biopsy to have transformed diffuse large B-cell lymphoma. His disease was again at least stage III. 3. His subsequent treatment included R-ESHAP x 2 and R-GIFOX x 2 followed by stem cell transplant in December 2013. 4. He had 3 cycles of Revlimid following the stem cell transplant, tolerated poorly. 5. His subsequent treatment included R-[place] Ox at 6-week intervals and maintenance rituximab. His final course included 5 cycles of R-[place] Ox from 04/09/2016 through 08/13/2016. 6. He began maintenance rituximab at 6 week intervals beginning 09/24/2016. It was stopped following his treatment in October 2016 due to persistent Haemophilus influenza respiratory tract infection. 7. He was then found to have severe hypogammaglobulinemia, for which he began monthly replacement IVIG in December 2016. 8. He also has had recurrent episodes of Clostridium difficile colitis. His other medical illnesses include: 9. Recurrent episodes of lower extremity deep vein thrombosis and pulmonary emboli, on chronic anticoagulation with fondaparinux. 10. GERD. 11. Chronic anemia. 12. Chronic kidney disease. 13. Depression. He had significant improvement in his performance status after starting replacement IVIG. As of his followup visit in October 2017 he was doing well clinically with gradual improvement in his performance status and no obvious progression of the lymphoma. His restaging CT scans in November 2017 did show significant progression of lymphadenopathy, particularly in the mesenteric/retroperitoneal areas. In the meantime, he was again diagnosed with Clostridium difficile colitis. He had symptomatic improvement on treatment with oral vancomycin, but his diarrhea recurred as his vancomycin dosage was tapered to 125 mg daily. His staging PET/CT on 01/17/2018 showed diffuse lymph node involvement from the head/neck level down to the pelvis as well as suspected involvement in the spleen and in the renal fascia bilaterally. Right axillary lymph node biopsy on 02/02/2018 was consistent with follicular lymphoma grade 3A. On 03/04/2018 he was seen by Dr. Bonita Garner at [facility]. Outside the context of a clinical, she recommended a trial therapy with a PI3K inhibitor. On 03/30/2018 he began a trial therapy with idelalisib 150 mg twice a day. During subsequent follow-up he had been tolerating it well, and by clinical assessment he appeared to be showing a response. He also continued monthly IVIG infusions, though he had complained of increased fatigue for at least a week following the infusions. Restaging PET/CT on 08/15/2018 showed evidence of mixed response. He continued treatment with idelalisib 150 mg twice a day. He received his scheduled IVIG infusion on 09/14/2018. He became profoundly weak following that treatment, and he also developed fever, chills, sweating, and headache. His symptoms were severe enough that he required hospital admission, but there was no source of infection identified. During subsequent follow-up he had gradual improvement in his symptoms on empiric steroid therapy with prednisone, though he still had significant fatigue. As of his follow-up visit on 10/14/2018 he had continued treatment with idelalisib 150 mg twice a day, but the IVIG remained on hold. During follow-up he then felt worse again and he stopped the idelalisib. He continued to have generalized weakness and very limited activity tolerance. He also had symptoms of orthostatic hypotension. He had markedly elevated sedimentation rate. His restaging PET/CT on 11/28/2018 showed evidence of disease progression in multiple areas, though not bulky. He did show some symptomatic improvement on prednisone, but his overall condition at that point was poor, and there was clearly evidence of progression of the underlying lymphoma. On 12/22/2018 he began a trial therapy with rituximab in combination with lenalidomide. He was able to tolerate the initial rituximab infusion, but he had multiple side effects with lenalidomide at the 20 mg dosage, and it was stopped within a short time. He then proceeded with cycle 2 on 01/19/2019 with the lenalidomide dosage reduced to 5 mg. He tolerated it poorly, even at the reduced dosage, and his treatment was put on hold. His restaging PET/CT on 03/27/2019 was consistent with a complete response to treatment. During subsequent follow-up he had very gradual improvement in his performance status. In June 2019 he had presented with a palpable mass in the posterior left thigh just above the knee. By ultrasound this appeared to me most likely due to hematoma. His only other significant complaint is that for the past month he has been having cough again. His current laboratory studies show mildly elevated liver enzymes. The cause/clinical significance is uncertain. Overall, he appears stable clinically with no obvious progression of the lymphoma. Plan: For now he will continue antibiotic coverage with Augmentin. He will remain on observation/expectant management for the lymphoma. He continues anticoagulation with fondaparinux. For the time being he will continue prednisone at the same dosage. I will continue to monitor his lab studies monthly. I will just plan to see him again in 3 months. Signed By: Adrian Mast M.D. <<Signature on File>>
== END 2019-09-23 23:59 | disposition home or self-care (01) ==
LOC: ONCMED 08:01
PROVIDERS: Family Provider Internal Medicine; PCP Internal Medicine; Visit Provider Internal Medicine Medical Oncology
DX: C82.18 Follicular lymphoma grade II, lymph nodes of multiple sites (principal); D80.1 Nonfamilial hypogammaglobulinemia; I82.509 Chronic embolism and thrombosis of unspecified deep veins of unspecified lower extremity; K21.9 Gastro-esophageal reflux disease without esophagitis; D64.9 Anemia, unspecified; N18.9 Chronic kidney disease, unspecified; F32.9 Major depressive disorder, single episode, unspecified; Z79.01 Long term (current) use of anticoagulants; Z92.21 Personal history of antineoplastic chemotherapy; Z79.899 Other long term (current) drug therapy
CPT/HCPCS: 36591; 80053; 83615; 85025; 99214

== ENCOUNTER 2019-09-17 08:33 | Outpatient (CLI) | payer OTHER, SELFPAY ==
--- NOTE | 2019-09-17 08:45 | XR_ITS ---
WS: [id number] PROCEDURE: XR chest 2V* [id number] CLINICAL INFORMATION: COUGHING COMPARISON: November 02, 2018 FINDINGS: Left Port-A-Cath with tip in the SVC. Cholecystectomy clips. Heart: Normal cardiac silhouette. Lungs: Lungs are clear. No consolidation or pleural fluid. Bones: Normal visualized bony structures. XR/XR chest 2V* [id number] IMPRESSION: Left Port-A-Cath with tip in the SVC. No acute parenchymal infiltrates.
== END 2019-09-17 08:34 | disposition home or self-care (01) ==
LOC: RAD 08:40
PROVIDERS: Family Provider Internal Medicine; PCP Internal Medicine; Visit Provider Internal Medicine Medical Oncology
DX: Z45.2 Encounter for adjustment and management of vascular access device (principal); R05 Cough
CPT/HCPCS: 71046; 87070; 87205

== ENCOUNTER 2019-10-01 06:59 | Outpatient (RCR) | payer OTHER, SELFPAY ==
[2019-10-01 10:22] LABS: Basophils % 0.2 %; Eosinophils # 0.2 10^3/uL (0.0-0.8); Eosinophils % 1.7 %; Hematocrit 42.1 % (42.0-52.0); Hemoglobin 14.1 g/dL (11.7-16.6); Lymphocytes # 3.3 10^3/uL (0.8-4.8); Lymphocytes % 36.8 %; Mean Corpuscular HGB Conc 33.5 g/dL (30.0-36.0); Mean Corpuscular Hemoglobin 30.1 pg (28.0-34.0); Mean Corpuscular Volume 89.8 fL (80-94); Mean Platelet Volume 10.8 fL (7.4-10.4); Monocytes # 1.7 10^3/uL (0.2-0.9); Monocytes % 19.1 %; Neutrophils # 3.7 10^3/uL (1.8-7.7); Neutrophils % 41.7 %; Nucleated Red Blood Cells % 0 %; Platelet Count 186 10^3/cmm (130-400); Red Blood Count 4.69 10^6/uL (4.1-5.3); Red Cell Distribution Width 12.1 % (12.1-15.1); White Blood Count 8.8 10^3/uL (4.0-10.0)
[2019-10-01 10:52] LABS: Alanine Aminotransferase 26 U/L (0-41); Albumin Level 4.2 g/dL (3.5-5.2); Alkaline Phosphatase 88 IU/L (40-130); Anion Gap 16.2 (5-19); Aspartate Amino Transferase 18 U/L (0-40); Blood Urea Nitrogen 17 mg/dL (8-23); Calcium 9.1 mg/dL (8.5-10.5); Carbon Dioxide 26 mmol/L (22-29); Chloride 98 mmol/L (98-107); Globulin 1.8 g/dL (1.3-4.6); Glomerular Filtration Rate 46.4 mL/min (90-130); Glucose 96 mg/dL (65-115); Osmolality Calculated 280 mOsm/kg (285-295); Potassium 3.2 mmol/L (3.5-5.1); Sodium 137 mmol/L (136-145); Total Bilirubin 0.4 mg/dL (0.15-1.2)
== END 2019-10-24 23:59 | disposition home or self-care (01) ==
LOC: ONCMED 06:59
PROVIDERS: PCP Internal Medicine; Visit Provider Internal Medicine Medical Oncology
DX: C82.18 Follicular lymphoma grade II, lymph nodes of multiple sites (principal); D80.1 Nonfamilial hypogammaglobulinemia
CPT/HCPCS: 36415; 36591; 80053; 85025

== ENCOUNTER 2019-11-01 06:01 | Outpatient (RCR) | payer OTHER, SELFPAY ==
[2019-11-01 13:20] LABS: Basophils # 0.1 10^3/uL (0.0-0.1); Basophils % 0.5 %; Eosinophils # 0.3 10^3/uL (0.0-0.8); Eosinophils % 2.7 %; Hematocrit 41.8 % (42.0-52.0); Hemoglobin 13.7 g/dL (11.7-16.6); Lymphocytes # 3.1 10^3/uL (0.8-4.8); Lymphocytes % 32.4 %; Mean Corpuscular HGB Conc 32.8 g/dL (30.0-36.0); Mean Corpuscular Hemoglobin 29.7 pg (28.0-34.0); Mean Corpuscular Volume 90.5 fL (80-94); Mean Platelet Volume 10.4 fL (7.4-10.4); Neutrophils # 5.2 10^3/uL (1.8-7.7); Neutrophils % 54.1 %; Nucleated Red Blood Cells % 0 %; Platelet Count 195 10^3/cmm (130-400); Red Blood Count 4.62 10^6/uL (4.1-5.3); Red Cell Distribution Width 13.2 % (12.1-15.1); White Blood Count 9.5 10^3/uL (4.0-10.0)
[2019-11-01 13:42] LABS: Alanine Aminotransferase 33 U/L (0-41); Albumin Level 4.2 g/dL (3.5-5.2); Alkaline Phosphatase 94 IU/L (40-130); Anion Gap 16.5 (5-19); Aspartate Amino Transferase 25 U/L (0-40); Blood Urea Nitrogen 16 mg/dL (8-23); Carbon Dioxide 27 mmol/L (22-29); Chloride 97 mmol/L (98-107); Glomerular Filtration Rate 50.2 mL/min (90-130); Glucose 133 mg/dL (65-115); Osmolality Calculated 282 mOsm/kg (285-295); Potassium 3.5 mmol/L (3.5-5.1); Sodium 137 mmol/L (136-145); Total Bilirubin 0.4 mg/dL (0.15-1.2); Total Protein 6.2 g/dL (6.6-8.7)
== END 2019-11-23 23:59 | disposition home or self-care (01) ==
LOC: ONCMED 06:01
PROVIDERS: PCP Internal Medicine; Visit Provider Internal Medicine Medical Oncology
DX: C82.18 Follicular lymphoma grade II, lymph nodes of multiple sites (principal); D80.1 Nonfamilial hypogammaglobulinemia
CPT/HCPCS: 36591; 80053; 85025

== ENCOUNTER 2019-12-02 07:02 | Outpatient (RCR) | payer OTHER, SELFPAY ==
[2019-12-02 11:56] LABS: Basophils % 0.4 %; Eosinophils # 0.2 10^3/uL (0.0-0.8); Eosinophils % 2.2 %; Hematocrit 41.9 % (42.0-52.0); Hemoglobin 13.4 g/dL (11.7-16.6); Mean Corpuscular Hemoglobin 29.3 pg (28.0-34.0); Mean Corpuscular Volume 91.5 fL (80-94); Mean Platelet Volume 10.9 fL (7.4-10.4); Monocytes # 1.4 10^3/uL (0.2-0.9); Monocytes % 13.2 %; Neutrophils # 6.01 10^3/uL (1.8-7.7); Neutrophils % 55.8 %; Nucleated Red Blood Cells % 0 %; Platelet Count 194 10^3/cmm (130-400); Red Blood Count 4.58 10^6/uL (4.1-5.3); Red Cell Distribution Width 13.1 % (12.1-15.1); White Blood Count 10.8 10^3/uL (4.0-10.0)
[2019-12-02 12:12] LABS: Alanine Aminotransferase 22 U/L (0-41); Albumin Level 4.3 g/dL (3.5-5.2); Alkaline Phosphatase 84 IU/L (40-130); Anion Gap 15.1 (5-19); Aspartate Amino Transferase 17 U/L (0-40); Blood Urea Nitrogen 15 mg/dL (8-23); Calcium 10.2 mg/dL (8.5-10.5); Carbon Dioxide 28 mmol/L (22-29); Chloride 97 mmol/L (98-107); Glomerular Filtration Rate 54.6 mL/min (90-130); Glucose 155 mg/dL (65-115); Lactate Dehydrogenase 169 U/L (135-225); Osmolality Calculated 283 mOsm/kg (285-295); Potassium 3.1 mmol/L (3.5-5.1); Sodium 137 mmol/L (136-145); Total Bilirubin 0.5 mg/dL (0.15-1.2); Total Protein 6.3 g/dL (6.6-8.7)
--- NOTE | 2019-12-04 15:28 | ONC FU_ITS ---
Dr. Mast Patient Follow-Up Note Patient: Conrad Llanos Unit #: [id number]: 1950 Dicatated By: Adrian Mast M.D.Date of Visit:Dec 02, 2019 Onc Med Follow-up/Prog Note Chief Complaint: Lymphoma/hypogammaglobulinemia. History of Present Illness: This is a 69 year-old man with transformed diffuse large B-cell lymphoma. He was also found to have severe hypogammaglobulinemia. He was initially diagnosed with grade 1-2/3 follicular lymphoma by left inguinal lymph node biopsy in 2008. He had at least stage III disease at that time. He achieved a partial response to initial treatment with rituximab, but he then had disease progression and he was treated with 6 cycles of R-CHOP from April 2012 through August 2010. He was then given maintenance rituximab at 6 month intervals, but he then had disease progression again. He had further treatment with 4 cycles of bendamustine/Rituxan from September 2011 through November 2011. He had a good response and was then in remission until April 2013 when he was found to have diffuse hyperactive lymphadenopathy by PET/CT. A left inguinal lymph node biopsy on 05/11/2013 showed grade 1-2/3 follicular lymphoma estimated at 50%, grade 3 follicular lymphoma estimated at 10%, and sheets of necrotic cells which were highly suspicious for diffuse large B-cell lymphoma. Those cells were positive for PAX-5, CD20, and BCL-2, and they were negative for Ki-67. He was then given 2 cycles of R-ESHAP in May 2013 followed by 2 cycles of R-GIFOX in July 2013. In December 2013 he underwent high-dose chemotherapy/stem cell transplant. He was given Revlimid for 3 cycles following the transplant, but he tolerated it poorly. His further treatment has included 9 cycles R-Hume Ox and maintenance rituximab. His most recent course of R-Hume Ox included 5 cycles of treatment from 04/09/2016 through 08/13/2016. He was then transitioned to maintenance rituximab, cycle 1 on 09/24/2016. His maintenance rituximab had been administered at 6-week intervals. 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 He was maintained on chronic anticoagulation with fondaparinux. He had also required treatment for Clostridium difficile colitis, and he had been chronically anemic. He was seen here initially on 11/05/2016 because he had moved back to this area and he desired to continue his treatment closer to home. At that time he complained that he felt run down and very tired. He complained of having a productive cough which had persisted for at least for 5 months. He also reported having diarrhea stools once or twice a day. He did receive his scheduled maintenance rituximab. On further evaluation, his stool was found to be negative for C. diff. A sputum culture, though, did grow beta lactamase negative Haemophilus influenzae, which persisted despite antibiotic therapy. On 12/15/2016 he presented to the emergency room with worsening diarrhea. CT abdomen/pelvis at that time showed mild bowel wall thickening thruout the colon, consistent with mild infectious colitis. There were mild inflammatory changes in the retroperitoneum with small lymph nodes, consistent with treated lymphoma. He was given empiric treatment with oral vancomycin and metronidazole. During subsequent follow-up he was found to have severe hypogammaglobulinemia with IgG 56.00 g/dL, IgA 22.00 mg/dL, and IgM less than 5.30 mg/dL. He began monthly replacement IVIG on 01/06/2017. In view of his declining performance status, I had opted not to continue his maintenance rituximab. A chest CT on 01/24/2017 showed patchy ill defined opacities in the right middle lobe and at the right lung base as well as additional scattered opacities in the left lower lobe, consistent with pneumonitis. There were small but numerous right axillary lymph nodes. There was no mediastinal adenopathy noted. His repeat sputum culture on 02/28/2017 was still positive for Haemophilus influenza. He was then referred to Dr. Johns for infectious disease consultation. He also had ENT consultation with Dr. Ann. His further evaluation included an esophagram on 03/14/2017. It showed moderate esophageal dysmotility with tertiary contractions in the mid and distal esophagus. There was a tiny esophageal hiatal hernia with reflux to the mid esophagus. A CT of the neck showed no cervical lymphadenopathy and there was no evidence of glottic or supraglottic mass. Bilateral parotid soft tissue lesions measuring 10 mm on the right and 13 mm on the left were felt to represent prominent intraparotid lymph nodes versus parotid adenomas. A few prominent right submandibular lymph nodes measuring up to 8 mm were not pathologically enlarged. With those findings, he continued monthly replacement IVIG and he continued prophylactic antibiotic coverage with Augmentin. He remained on observation/expectant management for the lymphoma. Restaging CT scans of the chest, abdomen, and pelvis on 12/03/2017 showed interval increase in size and number of bilateral axillary lymph nodes, largest in the right axilla measuring 17 mm. The abdomen showed slight increase in spleen size 12.5 cm compared to 10.5 cm in November 2016. There was also new adenopathy in the mesentery, retroperitoneum, pelvis, and inguinal regions. The retroperitoneal adenopathy was noted to encase the proximal ureters, but without evidence of renal obstruction. On 01/01/2018 he returned here for a scheduled IVIG infusion. At that time he reported that he had again been diagnosed with Clostridium difficile colitis. He started treatment with vancomycin 125 mg 4 times a day, and he stopped the Augmentin. PET/CT on 01/17/2018 showed widespread hypermetabolic lymphadenopathy from the head/neck level to the level of the pelvis. Involved areas included submandibular and jugulodigastric nodes bilaterally, axillary nodes bilaterally, superior mediastinal, right paratracheal, subcarinal, paraesophageal and left hilar lymph nodes, and prominent retroperitoneal and mesenteric lymph nodes. There was extension into the common iliac and bilateral pelvic, including inguinal and femoral nodes bilaterally. There was diffusely increased splenic activity consistent with lymphomatous involvement. Increased activity in thickened bilateral renal fascia also was strongly suspicious for lymphomatous infiltration. On 02/02/2018 he underwent right axillary lymph node biopsy. Pathology was consistent with follicular lymphoma, grade 3A. On 03/04/2018 he was seen by Dr. Bonita Garner at [facility]. He was evaluated for possible participation in the clinical trial with a bispecific antibody. He fortunately did not qualify for that particular trial because of his renal function. As an alternative, she recommended a trial therapy with a PI3K inhibitor. On 03/30/2018 he began a trial therapy with idelalisib 150 mg twice a day. With that, he was started on prophylaxis with Bactrim and valacyclovir, and I also had him continue oral vancomycin 125 mg twice a day for the recurrent Clostridium difficile colitis. During subsequent follow-up he continued idelalisib 150 mg twice a day, and he has continued his monthly IVIG infusions. He appeared to have resolution of peripheral lymphadenopathy. Restaging PET/CT on 08/15/2018 the spleen appeared less prominent and it was just slightly more hypermetabolic compared to the liver, consistent with improvement but not resolution of lymphomatous involvement. Extranodal soft tissue of the right posterior abdomen also appeared less hypermetabolic but not completely resolved. Winter improvement was evident in axillary nodes bilaterally, in bilateral inguinal and femoral nodes, and in mediastinal nodes. There was apparent progression of disease in the left perirenal fascia and there was increased activity in the right submandibular node. There was also apparent progression in the upper abdominal nodes in the celiac, gastrosplenic, and gastrohepatic territories. Right external iliac adenopathy also appeared more hypermetabolic. Overall, it was felt to show a mixed response. He was seen for a scheduled visit and an IVIG infusion on 09/14/2018. Subsequent to that treatment, he became profoundly weak, and he also developed fever, chills, sweating, and headache. He was admitted to the hospital on 09/20/2018. His blood counts were adequate and there are no significant changes in his serum chemistry studies. Chest x-ray showed no acute infiltrate. His blood cultures remained negative. His spinal fluid showed 11 WBC, 98% mononuclear cells. The CSF protein was normal. Stool tested negative for C. difficile and stool cultures were negative. Overall, no source of infection was identified. Noncontrast CT abdomen/pelvis on 09/23/2018 showed persistent extensive central mesenteric, celiac axis, retroperitoneal, pelvic and anal lymphadenopathy with marginal improvement compared to a previous CT from November 2017. There was persistent mild splenomegaly. He was discharged home on 09/24/2018. At that time he continued his prophylaxis with Bactrim and he was given empiric treatment with valganciclovir for 7 days. He had no additional antibiotic therapy. He continued to have low-grade fever and other systemic symptoms, but he did have symptomatic improvement on empiric treatment with prednisone. I had seen him for a follow-up visit on 10/14/2018. At that point he was feeling better. I had him continue the idelalisib at 150 mg twice a day and he continued prophylaxis with Bactrim, valacyclovir, and oral vancomycin. The IVIG remained on hold. He was seen for a follow-up visit on 11/02/2018. He was feeling worse. He reported increased weakness and he was having symptoms of orthostatic hypotension. He had stopped the idelalisib. He was given IV hydration, and I did have him keep the idelalisib on hold. His laboratory studies at that time included a sedimentation rate which was markedly elevated 118 mm/hour. His chest x-ray at that time showed poor inspiration with no acute findings. Bilateral renal ultrasound was normal. There was no hydronephrosis. Restaging PET/CT on 11/28/2018 showed evidence of disease progression with increase hypermetabolism within the spleen, and the bilateral retroperitoneal winter mass in the upper abdomen showed increase in SUV to 24.5 compared to 19.6 on the July 2018 study. There was similar progression in mesenteric, bilateral pelvic, gastrohepatic, and gastrosplenic lymph nodes. An index mediastinal lymph node in the subcarinal territory showed SUV 10.4 compared to 4.1 on the previous study. There was also progression evident in bilateral head/neck nodes and bilateral axillary nodes. Diffusely increased marrow activity was felt to be possibly physiologic, but marrow infiltration was not excluded. A cosyntropin stimulation test on 11/30/2018 did show adequate response, but the baseline cortisol level was unusually low at 0.73. As he was clearly showing disease progression, he then began a trial of therapy with rituximab in combination with lenalidomide, cycle 1 beginning on 12/22/2018. The rituximab was dosed at 375 mg/m??? by IV infusion day 1 and the lenalidomide at 20 mg daily on a 21/28 day schedule. He also continued his steroid therapy. He was able to tolerate the rituximab infusion, but the lenalidomide was stopped within a very short time due to multiple side effects. He then returned for cycle 2 on 01/19/2019 with the lenalidomide dosage reduced to 5 mg. He again became extremely fatigued while taking the Revlimid, even at the reduced dosage. At his follow-up visit on 03/16/2019 I opted to put his treatment on hold. Restaging PET/CT on 03/27/2019 showed subcentimeter sized lymph nodes in the cervical, axillary, and mediastinal territories without significant FDG activity. The splenic activity also appeared to have normalized. Mesenteric lymph nodes were noted to be subcentimeter in size and FDG negative. The retroperitoneal mass was seen only has FDG negative fat stranding. Pelvic adenopathy was noted to have resolved. Overall, the findings were consistent with a complete metabolic response to therapy. His other medical illnesses include GERD, chronic kidney disease, and depression. He is a nonsmoker. INTERIM HISTORY: In June 2019 he had presented with a firm mass palpable in the posterior left thigh just above the knee. There was associated ecchymosis. Ultrasound showed a complex soft tissue mass with cystic and solid component but without blood flow. The appearance was most consistent with resolving hematoma, though metastatic deposit was not completely excluded. With those findings, he continued observation/symptomatic management. He is seen for a follow-up visit. He has now been able to taper his prednisone to 2.5 mg twice daily. He initially had significant decline in his energy/activity tolerance, but that has been getting better. He is able to do some light work now, for 1-1/2 to 2 hours. His ECOG score is 1. He has good appetite, but his weight is down 7 pounds. He occasionally has light fever. He has not been having night sweating. He still has cough. He had gone back on antibiotic therapy, but that did not help. He has had some improvement, though, taking Claritin. He does not complain of shortness of breath or chest pain. He occasionally has nausea. His acid reflux is managed adequately with Prevacid. He has having diarrhea, though not severe. He has some urinary frequency and nocturia, which is unchanged. He has pain in his right knee, but that is not new. He occasionally has light headache. He has no focal neurologic symptoms. Medications: Acetaminophen Extra Strength Tablet Oral PRN, Arixtra 7.5 mg (of 7.5 mg/0.6mL) Subcutaneous daily, Claritin 1 Tablet (of 10 mg) Oral daily, Dulcolax 1 Tablet (of 5 mg) Tablet, enteric coated Oral daily PRN, oxyCODONE HCl 5 mg (of 5 mg) Tablet Oral PRN, Potassium Chloride ER 1 Tablet (of 10 meq) Tablet, controlled release Oral daily on Every Other Day, predniSONE 1 Tablet (of 2.5 mg) Oral b.i.d., Prevacid 1 (30 mg) Capsule Delayed Release Oral daily Allergies: Ciprofloxacin HCl Review of Systems: Constitutional - He feels okay, his energy is okay but he does get tired more quickly since decreasing his prednisone. His appetite is good, but his weight is down 7 pounds from last visit. No fever, night sweats, or hot flashes. ECOG score is 1, ENMT - He has constant sinus congestion/drainage, he is using Claritin daily. No mouth sores. No sore throat or difficulty swallowing, Hematologic/Lymphatic - No abnormal bruising or bleeding, Respiratory - No shortness of breath. No cough. No pleuritic pain or hemoptysis, Cardiovascular - No angina pain. No palpitations, Gastrointestinal - No nausea or vomiting. His heartburn is adequately managed with Prevacid. He is having loose stools. No constipation. No blood in the stool or black stools, Genitourinary (M) - No dysuria or hematuria. No urinary frequency. No urgency or incontinence, Musculoskeletal - No joint or bone pain, Integumentary - No skin complications, Neurologic - No headache. He has occasional dizziness. No numbness or tingling. No other focal neurologic symptoms, Psychiatric - No anxiety or depression. He does not sleep well. Vital Signs: Performed on Dec 02, 2019 12:49 Height - 71.00 in Weight - 180.4 lbs (LOW) BSA - 2.02 sq.m BMI - 25.16 Temperature - 97.9 F (LOW) Pulse - 90 /min Respiration - 20 /min BP - 95/63 mm(hg) O2 Sat - 98 % Pain - 4 Physical Examination: Constitutional - He looks pretty good generally, Eyes - Sclerae nonicteric. Conjunctivae clear, ENMT - There are no lesions noted in the oral cavity, Hematologic/Lymphatic - There is no cervical, clavicular, or axillary adenopathy noted, Respiratory - Lungs sound clear but with some decrease in air movement bilaterally, Cardiovascular - Heart rhythm is regular. There is no murmur, gallop, or rub noted, Abdomen - Soft. Liver and spleen are not enlarged. There is no abdominal mass or ascites noted. There is no inguinal adenopathy noted, Extremities - No edema, Neurologic - No focal neurologic deficits noted. Lab/Imaging: Test performed on Dec 02, 2019 11:25 LDH (Total) 169 U/L Sodium 137 mmol/L Potassium 3.1 mmol/L Chloride 97 mmol/L CO2 28 mmol/L Anion Gap 15.1 BUN 15 mg/dL Creatinine 1.3 mg/dL Cr Clearance (Est) 58.2100 mL/min eGFR 54.6 mL/min Glucose 155 mg/dL Calcium 10.2 mg/dL Protein, Total 6.3 g/dL Albumin 4.3 g/dL Globulin 2.0 g/dL Bilirubin, Total 0.5 mg/dL ALT (SGPT) 22 U/L AST (SGOT) 17 U/L Alkaline Phosphatase 84 IU/L WBC 10.8 10 3/uL RBC 4.58 10 6/uL HGB 13.4 g/dL HCT 41.9 % MCV 91.5 fL MCH 29.3 pg MCHC 32.0 g/dL RDW 13.1 % Platelet Count 194 10 3/cmm MPV 10.9 fL Neutrophils 6.01 10 3/uL Lymphocytes 3.0 10 3/uL Monocytes 1.4 10 3/uL Eosinophils 0.2 10 3/uL Basophils 0.0 10 3/uL Neutrophil % 55.8 % Lymphocyte % 28.0 % Monocyte % 13.2 % Eosinophil % 2.2 % Basophils % 0.4 % NRBC % 0 % Impression: 1. Patient with grade 1-2/3 follicular lymphoma, at least stage III, initially diagnosed by left inguinal lymph node biopsy in 2008. His treatments included rituximab, R-CHOP, and bendamustine/Rituxan. 2. In April 2013 he was confirmed by left inguinal lymph node biopsy to have transformed diffuse large B-cell lymphoma. His disease was again at least stage III. 3. His subsequent treatment included R-ESHAP x 2 and R-GIFOX x 2 followed by stem cell transplant in December 2013. 4. He had 3 cycles of Revlimid following the stem cell transplant, tolerated poorly. 5. His subsequent treatment included R-Hume Ox at 6-week intervals and maintenance rituximab. His final course included 5 cycles of R-Hume Ox from 04/09/2016 through 08/13/2016. 6. He began maintenance rituximab at 6 week intervals beginning 09/24/2016. It was stopped following his treatment in October 2016 due to persistent Haemophilus influenza respiratory tract infection. 7. He was then found to have severe hypogammaglobulinemia, for which he began monthly replacement IVIG in December 2016. 8. He also has had recurrent episodes of Clostridium difficile colitis. His other medical illnesses include: 9. Recurrent episodes of lower extremity deep vein thrombosis and pulmonary emboli, on chronic anticoagulation with fondaparinux. 10. GERD. 11. Chronic anemia. 12. Chronic kidney disease. 13. Depression. He had significant improvement in his performance status after starting replacement IVIG. As of his followup visit in October 2017 he was doing well clinically with gradual improvement in his performance status and no obvious progression of the lymphoma. His restaging CT scans in November 2017 did show significant progression of lymphadenopathy, particularly in the mesenteric/retroperitoneal areas. In the meantime, he was again diagnosed with Clostridium difficile colitis. He had symptomatic improvement on treatment with oral vancomycin, but his diarrhea recurred as his vancomycin dosage was tapered to 125 mg daily. His staging PET/CT on 01/17/2018 showed diffuse lymph node involvement from the head/neck level down to the pelvis as well as suspected involvement in the spleen and in the renal fascia bilaterally. Right axillary lymph node biopsy on 02/02/2018 was consistent with follicular lymphoma grade 3A. On 03/04/2018 he was seen by Dr. Bonita Garner at [facility]. Outside the context of a clinical, she recommended a trial therapy with a PI3K inhibitor. On 03/30/2018 he began a trial therapy with idelalisib 150 mg twice a day. During subsequent follow-up he had been tolerating it well, and by clinical assessment he appeared to be showing a response. He also continued monthly IVIG infusions, though he had complained of increased fatigue for at least a week following the infusions. Restaging PET/CT on 08/15/2018 showed evidence of mixed response. He continued treatment with idelalisib 150 mg twice a day. He received his scheduled IVIG infusion on 09/14/2018. He became profoundly weak following that treatment, and he also developed fever, chills, sweating, and headache. His symptoms were severe enough that he required hospital admission, but there was no source of infection identified. During subsequent follow-up he had gradual improvement in his symptoms on empiric steroid therapy with prednisone, though he still had significant fatigue. As of his follow-up visit on 10/14/2018 he had continued treatment with idelalisib 150 mg twice a day, but the IVIG remained on hold. During follow-up he then felt worse again and he stopped the idelalisib. He continued to have generalized weakness and very limited activity tolerance. He also had symptoms of orthostatic hypotension. He had markedly elevated sedimentation rate. His restaging PET/CT on 11/28/2018 showed evidence of disease progression in multiple areas, though not bulky. He did show some symptomatic improvement on prednisone, but his overall condition at that point was poor, and there was clearly evidence of progression of the underlying lymphoma. On 12/22/2018 he began a trial therapy with rituximab in combination with lenalidomide. He was able to tolerate the initial rituximab infusion, but he had multiple side effects with lenalidomide at the 20 mg dosage, and it was stopped within a short time. He then proceeded with cycle 2 on 01/19/2019 with the lenalidomide dosage reduced to 5 mg. He tolerated it poorly, even at the reduced dosage, and his treatment was put on hold. His restaging PET/CT on 03/27/2019 was consistent with a complete response to treatment. During subsequent follow-up he has continued to have very limited activity tolerance. He has been able to gradually taper his prednisone, now to 2.5 mg twice daily. He has had recurrence of cough, but thus far with no documented pneumonia/bacterial infection. He also is having some diarrhea again. Thus far there has been no obvious progression of his lymphoma. Plan: He remains on observation/expectant management for the lymphoma. He continues anticoagulation with fondaparinux. He will continue prednisone 2.5 mg bid. He will now start taking his potassium supplement every day. I will see him again in 3 months, or sooner as needed. Signed By: Adrian Mast M.D. <<Signature on File>>
== END 2019-12-24 23:59 | disposition home or self-care (01) ==
LOC: ONCMED 07:02
PROVIDERS: PCP Internal Medicine; Visit Provider Internal Medicine Medical Oncology
DX: Z08 Encounter for follow-up examination after completed treatment for malignant neoplasm (principal); Z85.72 Personal history of non-Hodgkin lymphomas; D80.1 Nonfamilial hypogammaglobulinemia; D64.9 Anemia, unspecified; K21.9 Gastro-esophageal reflux disease without esophagitis; N18.9 Chronic kidney disease, unspecified; F32.9 Major depressive disorder, single episode, unspecified; Z94.84 Stem cells transplant status; Z92.25 Personal history of immunosuppression therapy; Z86.718 Personal history of other venous thrombosis and embolism; Z86.711 Personal history of pulmonary embolism; Z79.01 Long term (current) use of anticoagulants; Z79.52 Long term (current) use of systemic steroids; Z79.891 Long term (current) use of opiate analgesic; Z92.21 Personal history of antineoplastic chemotherapy
CPT/HCPCS: 36591; 80053; 83615; 85025; 99214

== ENCOUNTER 2020-01-06 08:54 | Outpatient (RCR) | payer OTHER, SELFPAY | END 2020-01-24 23:59 | disposition home or self-care (01) | LOC: ONCMED 08:54 | PROVIDERS: PCP Internal Medicine; Visit Provider Internal Medicine Medical Oncology | DX: C82.18 Follicular lymphoma grade II, lymph nodes of multiple sites (principal); D80.1 Nonfamilial hypogammaglobulinemia; Z45.2 Encounter for adjustment and management of vascular access device | CPT/HCPCS: 87070; 87077; 87186; 96523 ==

== ENCOUNTER 2020-01-28 06:18 | Outpatient (RCR) | payer OTHER, SELFPAY | END 2020-02-23 23:59 | disposition home or self-care (01) | LOC: ONCMED 06:18 | PROVIDERS: PCP Internal Medicine; Visit Provider Internal Medicine Medical Oncology | DX: Z45.2 Encounter for adjustment and management of vascular access device (principal) | CPT/HCPCS: 96523 ==

== ENCOUNTER 2020-02-10 12:56 | Outpatient (CLI) | payer OTHER, SELFPAY ==
--- NOTE | 2020-02-10 13:19 | CT_ITS ---
WS: [id number] CT CHEST WITHOUT INTRAVENOUS CONTRAST HISTORY: CHRONIC COUGH TECHNIQUE: Contiguous 5 mm axial imaging performed on the thorax. Coronal and sagittal reformats are submitted. All CT scans at [facility] use at least one of these dose optimization techniq ues: automated exposure control; mA and/or kV adjustment per patient size (includes targeted exams wh ere dose is matched to clinical indication); or iterative reconstruction. CONTRAST: None DLP: 625.71 mGy.cm COMPARISON: 12/03/2017 and 01/24/2017 Lungs and central airway: Tree-in-bud airspace disease at the RIGHT lung base. Small layering LEFT pl eural effusion is new. LEFT subclavian Port-A-Cath with tip in the distal SVC. No enlarging mediastin al or hilar lymph nodes. There are small shoddy lymph nodes in the axilla bilaterally decreased in si ze since the prior study. Mild atherosclerosis aorta. Normal size pulmonary artery. Coronary artery c alcifications. Pleura: Small layering LEFT pleural effusion. Heart and pericardium: Normal size heart with coronary artery calcifications and probable stents. Mediastinum and alice: No adenopathy. Vessels: Mild atherosclerosis aorta. Chest wall and lower neck: Left-sided Port-A-Cath. Upper abdomen: There is soft tissue thickening in the retrocrural region. This is in the area of prio r lymphoma and treated disease. This may be residual and treated lymphoma. Cannot exclude recurrent d isease as there have been no interval studies since the PET/CT of 11/28/2018. Cholecystectomy. Osseous structures: No destructive process. CT/CT chest wo con [id number] IMPRESSION: 1. Small new LEFT pleural effusion. 2. Soft tissue retrocrural thickening bilaterally. This is in the area of a tr eated lymphoma. This may be treated residual disease. No prior studies since e PET/CT of 11/28/2018. As the soft tissue thickening appears slightly more promi nent and the effusion is new follow-up with oncology and PET/CT should be consi dered for recurrent disease. 3. Endobronchial tree-in-bud inflammatory disease RIGHT lower lobe.
== END 2020-02-10 12:57 | disposition home or self-care (01) ==
LOC: RAD 12:58
PROVIDERS: PCP Internal Medicine; Visit Provider Student in an Organized Health Care Education/Training Program
DX: R05 Cough (principal); J90 Pleural effusion, not elsewhere classified
CPT/HCPCS: 71250

== ENCOUNTER 2020-03-13 05:26 | Outpatient (RCR) | payer OTHER, SELFPAY ==
[2020-03-06 13:40] LABS: Basophils % 0.3 %; Eosinophils # 0.1 10^3/uL (0.0-0.8); Eosinophils % 0.6 %; Hematocrit 40.4 % (42.0-52.0); Lymphocytes # 2.5 10^3/uL (0.8-4.8); Lymphocytes % 21.6 %; Mean Corpuscular HGB Conc 32.2 g/dL (30.0-36.0); Mean Corpuscular Hemoglobin 29.3 pg (28.0-34.0); Mean Platelet Volume 10.4 fL (7.4-10.4); Monocytes # 1.2 10^3/uL (0.2-0.9); Monocytes % 10.2 %; Neutrophils # 7.59 10^3/uL (1.8-7.7); Neutrophils % 65.7 %; Nucleated Red Blood Cells % 0 %; Platelet Count 213 10^3/cmm (130-400); Red Blood Count 4.44 10^6/uL (4.1-5.3); Red Cell Distribution Width 13.1 % (12.1-15.1); White Blood Count 11.5 10^3/uL (4.0-10.0)
[2020-03-06 14:02] LABS: Alanine Aminotransferase 16 U/L (0-41); Albumin Level 4.3 g/dL (3.5-5.2); Alkaline Phosphatase 77 IU/L (40-130); Anion Gap 15.7 (5-19); Aspartate Amino Transferase 18 U/L (0-40); Blood Urea Nitrogen 24 mg/dL (8-23); Calcium 10.2 mg/dL (8.5-10.5); Carbon Dioxide 26 mmol/L (22-29); Chloride 99 mmol/L (98-107); Globulin 1.8 g/dL (1.3-4.6); Glucose 131 mg/dL (65-115); Lactate Dehydrogenase 284 U/L (135-225); Osmolality Calculated 290 mOsm/kg (285-295); Potassium 3.7 mmol/L (3.5-5.1); Sodium 137 mmol/L (136-145); Total Bilirubin 0.4 mg/dL (0.15-1.2); Total Protein 6.1 g/dL (6.6-8.7)
--- NOTE | 2020-03-17 17:06 | ONC FU_ITS ---
Dr. Mast Patient Follow-Up Note Patient: Conrad Llanos Unit #: [id number]: 1950 Dicatated By: Adrian Mast M.D.Date of Visit:Mar 13, 2020 Onc Med Follow-up/Prog Note Chief Complaint: Lymphoma/hypogammaglobulinemia. History of Present Illness: This is a 69 year-old man with transformed diffuse large B-cell lymphoma. He was also found to have severe hypogammaglobulinemia. He was initially diagnosed with grade 1-2/3 follicular lymphoma by left inguinal lymph node biopsy in 2008. He had at least stage III disease at that time. He achieved a partial response to initial treatment with rituximab, but he then had disease progression and he was treated with 6 cycles of R-CHOP from April 2012 through August 2010. He was then given maintenance rituximab at 6 month intervals, but he then had disease progression again. He had further treatment with 4 cycles of bendamustine/Rituxan from September 2011 through November 2011. He had a good response and was then in remission until April 2013 when he was found to have diffuse hyperactive lymphadenopathy by PET/CT. A left inguinal lymph node biopsy on 05/11/2013 showed grade 1-2/3 follicular lymphoma estimated at 50%, grade 3 follicular lymphoma estimated at 10%, and sheets of necrotic cells which were highly suspicious for diffuse large B-cell lymphoma. Those cells were positive for PAX-5, CD20, and BCL-2, and they were negative for Ki-67. He was then given 2 cycles of R-ESHAP in May 2013 followed by 2 cycles of R-GIFOX in July 2013. In December 2013 he underwent high-dose chemotherapy/stem cell transplant. He was given Revlimid for 3 cycles following the transplant, but he tolerated it poorly. His further treatment has included 9 cycles R-[facility] Johns Ox and maintenance rituximab. His most recent course of R-[facility] Johns Ox included 5 cycles of treatment from 04/09/2016 through 08/13/2016. He was then transitioned to maintenance rituximab, cycle 1 on 09/24/2016. His maintenance rituximab had been administered at 6-week intervals. 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 He was maintained on chronic anticoagulation with fondaparinux. He had also required treatment for Clostridium difficile colitis, and he had been chronically anemic. He was seen here initially on 11/05/2016 because he had moved back to this area and he desired to continue his treatment closer to home. At that time he complained that he felt run down and very tired. He complained of having a productive cough which had persisted for at least for 5 months. He also reported having diarrhea stools once or twice a day. He did receive his scheduled maintenance rituximab. On further evaluation, his stool was found to be negative for C. diff. A sputum culture, though, did grow beta lactamase negative Haemophilus influenzae, which persisted despite antibiotic therapy. On 12/15/2016 he presented to the emergency room with worsening diarrhea. CT abdomen/pelvis at that time showed mild bowel wall thickening thruout the colon, consistent with mild infectious colitis. There were mild inflammatory changes in the retroperitoneum with small lymph nodes, consistent with treated lymphoma. He was given empiric treatment with oral vancomycin and metronidazole. During subsequent follow-up he was found to have severe hypogammaglobulinemia with IgG 56.00 g/dL, IgA 22.00 mg/dL, and IgM less than 5.30 mg/dL. He began monthly replacement IVIG on 01/06/2017. In view of his declining performance status, I had opted not to continue his maintenance rituximab. A chest CT on 01/24/2017 showed patchy ill defined opacities in the right middle lobe and at the right lung base as well as additional scattered opacities in the left lower lobe, consistent with pneumonitis. There were small but numerous right axillary lymph nodes. There was no mediastinal adenopathy noted. His repeat sputum culture on 02/28/2017 was still positive for Haemophilus influenza. He was then referred to Dr. Johns for infectious disease consultation. He also had ENT consultation with Dr. Ann. His further evaluation included an esophagram on 03/14/2017. It showed moderate esophageal dysmotility with tertiary contractions in the mid and distal esophagus. There was a tiny esophageal hiatal hernia with reflux to the mid esophagus. A CT of the neck showed no cervical lymphadenopathy and there was no evidence of glottic or supraglottic mass. Bilateral parotid soft tissue lesions measuring 10 mm on the right and 13 mm on the left were felt to represent prominent intraparotid lymph nodes versus parotid adenomas. A few prominent right submandibular lymph nodes measuring up to 8 mm were not pathologically enlarged. With those findings, he continued monthly replacement IVIG and he continued prophylactic antibiotic coverage with Augmentin. He remained on observation/expectant management for the lymphoma. Restaging CT scans of the chest, abdomen, and pelvis on 12/03/2017 showed interval increase in size and number of bilateral axillary lymph nodes, largest in the right axilla measuring 17 mm. The abdomen showed slight increase in spleen size 12.5 cm compared to 10.5 cm in November 2016. There was also new adenopathy in the mesentery, retroperitoneum, pelvis, and inguinal regions. The retroperitoneal adenopathy was noted to encase the proximal ureters, but without evidence of renal obstruction. On 01/01/2018 he returned here for a scheduled IVIG infusion. At that time he reported that he had again been diagnosed with Clostridium difficile colitis. He started treatment with vancomycin 125 mg 4 times a day, and he stopped the Augmentin. PET/CT on 01/17/2018 showed widespread hypermetabolic lymphadenopathy from the head/neck level to the level of the pelvis. Involved areas included submandibular and jugulodigastric nodes bilaterally, axillary nodes bilaterally, superior mediastinal, right paratracheal, subcarinal, paraesophageal and left hilar lymph nodes, and prominent retroperitoneal and mesenteric lymph nodes. There was extension into the common iliac and bilateral pelvic, including inguinal and femoral nodes bilaterally. There was diffusely increased splenic activity consistent with lymphomatous involvement. Increased activity in thickened bilateral renal fascia also was strongly suspicious for lymphomatous infiltration. On 02/02/2018 he underwent right axillary lymph node biopsy. Pathology was consistent with follicular lymphoma, grade 3A. On 03/04/2018 he was seen by Dr. Bonita Garner at [facility]. He was evaluated for possible participation in the clinical trial with a bispecific antibody. He fortunately did not qualify for that particular trial because of his renal function. As an alternative, she recommended a trial therapy with a PI3K inhibitor. On 03/30/2018 he began a trial therapy with idelalisib 150 mg twice a day. With that, he was started on prophylaxis with Bactrim and valacyclovir, and I also had him continue oral vancomycin 125 mg twice a day for the recurrent Clostridium difficile colitis. During subsequent follow-up he continued idelalisib 150 mg twice a day, and he has continued his monthly IVIG infusions. He appeared to have resolution of peripheral lymphadenopathy. Restaging PET/CT on 08/15/2018 the spleen appeared less prominent and it was just slightly more hypermetabolic compared to the liver, consistent with improvement but not resolution of lymphomatous involvement. Extranodal soft tissue of the right posterior abdomen also appeared less hypermetabolic but not completely resolved. Winter improvement was evident in axillary nodes bilaterally, in bilateral inguinal and femoral nodes, and in mediastinal nodes. There was apparent progression of disease in the left perirenal fascia and there was increased activity in the right submandibular node. There was also apparent progression in the upper abdominal nodes in the celiac, gastrosplenic, and gastrohepatic territories. Right external iliac adenopathy also appeared more hypermetabolic. Overall, it was felt to show a mixed response. He was seen for a scheduled visit and an IVIG infusion on 09/14/2018. Subsequent to that treatment, he became profoundly weak, and he also developed fever, chills, sweating, and headache. He was admitted to the hospital on 09/20/2018. His blood counts were adequate and there are no significant changes in his serum chemistry studies. Chest x-ray showed no acute infiltrate. His blood cultures remained negative. His spinal fluid showed 11 WBC, 98% mononuclear cells. The CSF protein was normal. Stool tested negative for C. difficile and stool cultures were negative. Overall, no source of infection was identified. Noncontrast CT abdomen/pelvis on 09/23/2018 showed persistent extensive central mesenteric, celiac axis, retroperitoneal, pelvic and anal lymphadenopathy with marginal improvement compared to a previous CT from November 2017. There was persistent mild splenomegaly. He was discharged home on 09/24/2018. At that time he continued his prophylaxis with Bactrim and he was given empiric treatment with valganciclovir for 7 days. He had no additional antibiotic therapy. He continued to have low-grade fever and other systemic symptoms, but he did have symptomatic improvement on empiric treatment with prednisone. I had seen him for a follow-up visit on 10/14/2018. At that point he was feeling better. I had him continue the idelalisib at 150 mg twice a day and he continued prophylaxis with Bactrim, valacyclovir, and oral vancomycin. The IVIG remained on hold. He was seen for a follow-up visit on 11/02/2018. He was feeling worse. He reported increased weakness and he was having symptoms of orthostatic hypotension. He had stopped the idelalisib. He was given IV hydration, and I did have him keep the idelalisib on hold. His laboratory studies at that time included a sedimentation rate which was markedly elevated 118 mm/hour. His chest x-ray at that time showed poor inspiration with no acute findings. Bilateral renal ultrasound was normal. There was no hydronephrosis. Restaging PET/CT on 11/28/2018 showed evidence of disease progression with increase hypermetabolism within the spleen, and the bilateral retroperitoneal winter mass in the upper abdomen showed increase in SUV to 24.5 compared to 19.6 on the July 2018 study. There was similar progression in mesenteric, bilateral pelvic, gastrohepatic, and gastrosplenic lymph nodes. An index mediastinal lymph node in the subcarinal territory showed SUV 10.4 compared to 4.1 on the previous study. There was also progression evident in bilateral head/neck nodes and bilateral axillary nodes. Diffusely increased marrow activity was felt to be possibly physiologic, but marrow infiltration was not excluded. A cosyntropin stimulation test on 11/30/2018 did show adequate response, but the baseline cortisol level was unusually low at 0.73. As he was clearly showing disease progression, he then began a trial of therapy with rituximab in combination with lenalidomide, cycle 1 beginning on 12/22/2018. The rituximab was dosed at 375 mg/m??? by IV infusion day 1 and the lenalidomide at 20 mg daily on a 21/28 day schedule. He also continued his steroid therapy. He was able to tolerate the rituximab infusion, but the lenalidomide was stopped within a very short time due to multiple side effects. He then returned for cycle 2 on 01/19/2019 with the lenalidomide dosage reduced to 5 mg. He again became extremely fatigued while taking the Revlimid, even at the reduced dosage. At his follow-up visit on 03/16/2019 I opted to put his treatment on hold. Restaging PET/CT on 03/27/2019 showed subcentimeter sized lymph nodes in the cervical, axillary, and mediastinal territories without significant FDG activity. The splenic activity also appeared to have normalized. Mesenteric lymph nodes were noted to be subcentimeter in size and FDG negative. The retroperitoneal mass was seen only has FDG negative fat stranding. Pelvic adenopathy was noted to have resolved. Overall, the findings were consistent with a complete metabolic response to therapy. His other medical illnesses include GERD, chronic kidney disease, and depression. He is a nonsmoker. INTERIM HISTORY: In June 2019 he had presented with a firm mass palpable in the posterior left thigh just above the knee. There was associated ecchymosis. Ultrasound showed a complex soft tissue mass with cystic and solid component but without blood flow. The appearance was most consistent with resolving hematoma, though metastatic deposit was not completely excluded. With those findings, he continued observation/symptomatic management. During subsequent follow-up he had complained of worsening cough. Chest x-ray on 09/17/2019 was unrevealing. However, sputum culture at that time grew moderate mixed upper respiratory cornelia. A repeat sputum culture on 01/06/2020 grew Pseudomonas aeruginosa. It was quinolone sensitive, but he was not able to be treated with oral therapy due to quinolone allergy. His chest CT on 02/10/2020 showed a new small left pleural effusion. There was evidence of soft tissue retrocrural thickening bilaterally in the area of treated lymphoma, possibly due to residual disease. It appeared slightly more prominent compared to the PET/CT from November 2018. The effusion was noted to be new. There was evidence of endobronchial tree in bud inflammatory disease in the right lower lobe. During this time, he did see Dr. Alicia for infectious disease consultation. Thus far he has not had any antibiotic therapy other than Augmentin. He is seen for a follow-up visit. He has been steadily feeling worse. He has no energy and his activity now is very limited, basically confined to bed and recliner. ECOG score is 3. Appetite is poor. His weight is down about 10 pounds. He intermittently has low-grade fever up to 100 degrees. He does not have night sweating. He continues to have cough productive of sticky yellow mucus. The cough does keep him up at night. He does not complain of shortness of breath or chest pain. He does have some nausea with the cough and he continues to have acid reflux despite taking Prevacid. His bowel function is variable. Bladder function remains adequate, though he has some hesitancy he also is having nocturia. He has some joint pain in the right knee and right hip, which is not new. He has been having headache and he is prone to having lightheadedness. He has no focal neurologic symptoms. Medications: Acetaminophen Extra Strength Tablet Oral PRN, Amoxicillin-Pot Clavulanate 1 Tablet (of 875-125 mg) Oral b.i.d., Arixtra 7.5 mg (of 7.5 mg/0.6mL) Subcutaneous daily, Benzonatate 1 Capsule (of 200 mg) Oral t.i.d., Claritin 1 Tablet (of 10 mg) Oral daily, Dulcolax 1 Tablet (of 5 mg) Tablet, enteric coated Oral daily PRN, Latanoprost 1 Drop(s) (of 0.005 %) Solution Ophthalmic at bedtime, oxyCODONE HCl 5 mg (of 5 mg) Tablet Oral PRN, Potassium Chloride ER 1 Tablet (of 10 meq) Tablet, controlled release Oral daily on Every Other Day, predniSONE 1 Tablet (of 2.5 mg) Oral b.i.d., Prevacid 1 (30 mg) Capsule Delayed Release Oral daily, Promethazine HCl 1 - 2 tsp (of 6.25 mg/5mL) Syrup Oral q 6 to 8 hours PRN, Timolol Hemihydrate 1 Drop(s) (of 0.5 %) Solution Ophthalmic b.i.d. Allergies: Ciprofloxacin HCl Review of Systems: Constitutional - He has no energy and his activity now is the limited. He is basically restricted to his bed and recliner. Appetite is poor. His weight is down about 10 pounds. He intermittently has low-grade fever up to 100 degrees. He is not having night sweating. ECOG score is 3, ENMT - No sinus congestion/drainage. No mouth sores. He occasionally has sore throat. No difficulty swallowing, Hematologic/Lymphatic - No abnormal bruising or bleeding, Respiratory - No shortness of breath. He has persistent cough productive of sticky, yellow mucus. No pleuritic pain or hemoptysis, Cardiovascular - No angina pain. No palpitations, Gastrointestinal - He has nausea with prolonged coughing. He still has acid reflux despite taking Prevacid. Bowel function is variable. No blood in the stool or black stools, Genitourinary (M) - No dysuria or hematuria. He has some hesitancy and he has nocturia. No urgency or incontinence, Musculoskeletal - He has pain in his right knee and hip, Integumentary - No skin rash, Neurologic - He has headaches and he has episodes of lightheadedness. No numbness or tingling. No other focal neurologic symptoms, Psychiatric - No anxiety or depression. He is having difficulty sleeping because of the cough. Vital Signs: Performed on Mar 13, 2020 15:59 Height - 71.00 in Weight - 176.0 lbs (LOW) BSA - 2.00 sq.m BMI - 24.55 Temperature - 98.8 F Pulse - 90 /min Respiration - 18 /min BP - 123/69 mm(hg) O2 Sat - 98 % Pain - 5 Physical Examination: Constitutional - He appears generally weak, Eyes - Sclerae nonicteric. Conjunctivae clear, ENMT - There are no lesions noted in the oral cavity, Hematologic/Lymphatic - There is no cervical, clavicular, or axillary adenopathy noted, Respiratory - Lungs show some decrease in air movement bilaterally. There are bibasilar rales present, more prominent on the right than the left, Cardiovascular - Heart rhythm is regular. There is no murmur, gallop, or rub noted, Abdomen - Soft. Liver and spleen are not enlarged. There is no abdominal mass or ascites noted. There is no inguinal adenopathy noted, Extremities - No edema, Neurologic - No focal neurologic deficits noted. Lab/Imaging: Test performed on Mar 06, 2020 13:29 LDH (Total) 284 U/L Sodium 137 mmol/L Potassium 3.7 mmol/L Chloride 99 mmol/L CO2 26 mmol/L Anion Gap 15.7 BUN 24 mg/dL Creatinine 1.7 mg/dL Cr Clearance (Est) 44.5200 mL/min eGFR 40.0 mL/min Glucose 131 mg/dL Osmolality - Calculated 290 mOsm/kg Calcium 10.2 mg/dL Protein, Total 6.1 g/dL Albumin 4.3 g/dL Globulin 1.8 g/dL Bilirubin, Total 0.4 mg/dL ALT (SGPT) 16 U/L AST (SGOT) 18 U/L Alkaline Phosphatase 77 IU/L WBC 11.5 10 3/uL RBC 4.44 10 6/uL HGB 13.0 g/dL HCT 40.4 % MCV 91.0 fL MCH 29.3 pg MCHC 32.2 g/dL RDW 13.1 % Platelet Count 213 10 3/cmm MPV 10.4 fL Neutrophils 7.59 10 3/uL Lymphocytes 2.5 10 3/uL Monocytes 1.2 10 3/uL Eosinophils 0.1 10 3/uL Basophils 0.0 10 3/uL Neutrophil % 65.7 % Lymphocyte % 21.6 % Monocyte % 10.2 % Eosinophil % 0.6 % Basophils % 0.3 % NRBC % 0 % Impression: 1. Patient with grade 1-2/3 follicular lymphoma, at least stage III, initially diagnosed by left inguinal lymph node biopsy in 2008. His treatments included rituximab, R-CHOP, and bendamustine/Rituxan. 2. In April 2013 he was confirmed by left inguinal lymph node biopsy to have transformed diffuse large B-cell lymphoma. His disease was again at least stage III. 3. His subsequent treatment included R-ESHAP x 2 and R-GIFOX x 2 followed by stem cell transplant in December 2013. 4. He had 3 cycles of Revlimid following the stem cell transplant, tolerated poorly. 5. His subsequent treatment included R-[facility] Johns Ox at 6-week intervals and maintenance rituximab. His final course included 5 cycles of R-[facility] Johns Ox from 04/09/2016 through 08/13/2016. 6. He began maintenance rituximab at 6 week intervals beginning 09/24/2016. It was stopped following his treatment in October 2016 due to persistent Haemophilus influenza respiratory tract infection. 7. He was then found to have severe hypogammaglobulinemia, for which he began monthly replacement IVIG in December 2016. 8. He also has had recurrent episodes of Clostridium difficile colitis. His other medical illnesses include: 9. Recurrent episodes of lower extremity deep vein thrombosis and pulmonary emboli, on chronic anticoagulation with fondaparinux. 10. GERD. 11. Chronic anemia. 12. Chronic kidney disease. 13. Depression. He had significant improvement in his performance status after starting replacement IVIG. As of his followup visit in October 2017 he was doing well clinically with gradual improvement in his performance status and no obvious progression of the lymphoma. His restaging CT scans in November 2017 did show significant progression of lymphadenopathy, particularly in the mesenteric/retroperitoneal areas. In the meantime, he was again diagnosed with Clostridium difficile colitis. He had symptomatic improvement on treatment with oral vancomycin, but his diarrhea recurred as his vancomycin dosage was tapered to 125 mg daily. His staging PET/CT on 01/17/2018 showed diffuse lymph node involvement from the head/neck level down to the pelvis as well as suspected involvement in the spleen and in the renal fascia bilaterally. Right axillary lymph node biopsy on 02/02/2018 was consistent with follicular lymphoma grade 3A. On 03/04/2018 he was seen by Dr. Bonita Garner at [facility]. Outside the context of a clinical, she recommended a trial therapy with a PI3K inhibitor. On 03/30/2018 he began a trial therapy with idelalisib 150 mg twice a day. During subsequent follow-up he had been tolerating it well, and by clinical assessment he appeared to be showing a response. He also continued monthly IVIG infusions, though he had complained of increased fatigue for at least a week following the infusions. Restaging PET/CT on 08/15/2018 showed evidence of mixed response. He continued treatment with idelalisib 150 mg twice a day. He received his scheduled IVIG infusion on 09/14/2018. He became profoundly weak following that treatment, and he also developed fever, chills, sweating, and headache. His symptoms were severe enough that he required hospital admission, but there was no source of infection identified. During subsequent follow-up he had gradual improvement in his symptoms on empiric steroid therapy with prednisone, though he still had significant fatigue. As of his follow-up visit on 10/14/2018 he had continued treatment with idelalisib 150 mg twice a day, but the IVIG remained on hold. During follow-up he then felt worse again and he stopped the idelalisib. He continued to have generalized weakness and very limited activity tolerance. He also had symptoms of orthostatic hypotension. He had markedly elevated sedimentation rate. His restaging PET/CT on 11/28/2018 showed evidence of disease progression in multiple areas, though not bulky. He did show some symptomatic improvement on prednisone, but his overall condition at that point was poor, and there was clearly evidence of progression of the underlying lymphoma. On 12/22/2018 he began a trial therapy with rituximab in combination with lenalidomide. He was able to tolerate the initial rituximab infusion, but he had multiple side effects with lenalidomide at the 20 mg dosage, and it was stopped within a short time. He then proceeded with cycle 2 on 01/19/2019 with the lenalidomide dosage reduced to 5 mg. He tolerated it poorly, even at the reduced dosage, and his treatment was put on hold. His restaging PET/CT on 03/27/2019 was consistent with a complete response to treatment. During subsequent follow-up he has developed persistent cough and his sputum cultures have grown Pseudomonas aeruginosa. It is reportedly quinolone sensitive, but he has been unable to treated with oral therapy due to quinolone allergy. Thus far there has been no obvious progression of his lymphoma, but his chest CT in January did show some tree-in-bud inflammatory changes in the right lower lobe, which does correlate with his physical findings. Plan: We unfortunately have limited ability to treat this respiratory infection with oral antibiotic, but I do not think that is really the major issue, as the underlying problem is likely the hypogammaglobulinemia/immunodeficiency. His further management will be problematic, as he had previously developed significant side effects on his replacement IVIG. At this point I would like to repeat his sputum culture to verify that he still has a Pseudomonas infection. If that is the case I will talk to Dr. Alicia about options for antibiotic therapy and I also look into the possibility of a trial of replacement IVIG by subcutaneous rather than IV infusion. Signed By: Adrian Mast M.D. <<Signature on File>>
== END 2020-03-25 23:59 | disposition home or self-care (01) ==
LOC: ONCMED 05:26
PROVIDERS: PCP Internal Medicine; Visit Provider Internal Medicine Medical Oncology
DX: D80.1 Nonfamilial hypogammaglobulinemia (principal); C83.38 Diffuse large B-cell lymphoma, lymph nodes of multiple sites; R06.02 Shortness of breath; R53.83 Other fatigue; J98.8 Other specified respiratory disorders; B96.5 Pseudomonas (aeruginosa) (mallei) (pseudomallei) as the cause of diseases classified elsewhere; K21.9 Gastro-esophageal reflux disease without esophagitis; N18.9 Chronic kidney disease, unspecified; D63.1 Anemia in chronic kidney disease; F32.9 Major depressive disorder, single episode, unspecified; Z86.718 Personal history of other venous thrombosis and embolism; Z79.01 Long term (current) use of anticoagulants
CPT/HCPCS: 36591; 80053; 83615; 85025; 87070; 87077; 87186; 99214

== ENCOUNTER → 2020-04-04 09:03 | Day surgery (SDC) | payer OTHER, SELFPAY ==
[2020-04-04 10:23] VITALS: BP 131/73; PULSE 85; RESP 18; TEMP 37.1; O2SAT 97; BMI 25.1
== END ==
PROVIDERS: PCP Internal Medicine; Visit Provider Family Medicine
DX: C83.38 Diffuse large B-cell lymphoma, lymph nodes of multiple sites (principal); B96.5 Pseudomonas (aeruginosa) (mallei) (pseudomallei) as the cause of diseases classified elsewhere
CPT/HCPCS: 96365; J0743

== ENCOUNTER → 2020-06-20 08:24 | Outpatient (BNVA) | payer OTHER, SELFPAY | PROVIDERS: PCP Family Medicine; Visit Provider Urology | DX: R97.20 Elevated prostate specific antigen [PSA] (principal); R35.1 Nocturia | CPT/HCPCS: 81003; 84153 ==

== ENCOUNTER → 2020-08-10 11:06 | Outpatient (BNVA) | payer OTHER, SELFPAY | PROVIDERS: PCP Family Medicine; Referring Provider Family Medicine; Visit Provider Specialist | DX: M25.561 Pain in right knee (principal); M17.11 Unilateral primary osteoarthritis, right knee | CPT/HCPCS: 73560; 73565 ==

== ENCOUNTER 2020-08-28 14:06 | Outpatient (CLI) | payer OTHER, SELFPAY | END 2020-08-28 14:07 | disposition home or self-care (01) | LOC: SPT 14:07 | PROVIDERS: PCP Family Medicine; Visit Provider Specialist | DX: Z46.89 Encounter for fitting and adjustment of other specified devices (principal); M25.561 Pain in right knee | CPT/HCPCS: 97760; L1851 ==

== ENCOUNTER 2020-09-25 08:27 | Outpatient (CLI) | payer OTHER, SELFPAY ==
[2020-09-25 09:07] LABS: Basophils % 0.4 %; Eosinophils # 0.1 10^3/uL (0.0-0.8); Hematocrit 42.2 % (42.0-52.0); Hemoglobin 13.6 g/dL (11.7-16.6); Lymphocytes # 2.6 10^3/uL (0.8-4.8); Lymphocytes % 36.7 %; Mean Corpuscular HGB Conc 32.2 g/dL (30.0-36.0); Mean Corpuscular Hemoglobin 29.9 pg (28.0-34.0); Mean Corpuscular Volume 92.7 fL (80-94); Monocytes # 1.2 10^3/uL (0.2-0.9); Monocytes % 16.3 %; Neutrophils # 3.17 10^3/uL (1.8-7.7); Neutrophils % 44.2 %; Nucleated Red Blood Cells % 0 %; Platelet Count 92 10^3/cmm (130-400); Red Blood Count 4.55 10^6/uL (4.1-5.3); Red Cell Distribution Width 14.1 % (12.1-15.1); White Blood Count 7.2 10^3/uL (4.0-10.0)
[2020-09-25 09:41] LABS: Alanine Aminotransferase 18 U/L (0-41); Albumin Level 3.8 g/dL (3.5-5.2); Alkaline Phosphatase 68 IU/L (40-130); Anion Gap 13.7 (5-19); Aspartate Amino Transferase 20 U/L (0-40); Blood Urea Nitrogen 21 mg/dL (8-23); Calcium 10.1 mg/dL (8.5-10.5); Carbon Dioxide 27 mmol/L (22-29); Chloride 101 mmol/L (98-107); Globulin 2.8 g/dL (1.3-4.6); Glomerular Filtration Rate 54.6 mL/min (90-130); Glucose 83 mg/dL (65-115); Osmolality Calculated 288 mOsm/kg (285-295); Potassium 3.7 mmol/L (3.5-5.1); Sodium 138 mmol/L (136-145); Total Bilirubin 0.4 mg/dL (0.15-1.2); Total Protein 6.6 g/dL (6.6-8.7)
[2020-09-25 13:34] LABS: Lactate Dehydrogenase 124 U/L (135-225)
--- NOTE | 2020-09-28 07:51 | ONC FU_ITS ---
Dr. Mast Patient Follow-Up Note Patient: Conrad Llanos Unit #: [id number]: 1950 Dicatated By: Adrian Mast M.D.Date of Visit:September 25, 2020 Onc Med Follow-up/Prog Note Chief Complaint: Lymphoma/hypogammaglobulinemia. History of Present Illness: This is a 69 year-old man with transformed diffuse large B-cell lymphoma. He was also found to have severe hypogammaglobulinemia. He was initially diagnosed with grade 1-2/3 follicular lymphoma by left inguinal lymph node biopsy in 2008. He had at least stage III disease at that time. He achieved a partial response to initial treatment with rituximab, but he then had disease progression and he was treated with 6 cycles of R-CHOP from April 2012 through August 2010. He was then given maintenance rituximab at 6 month intervals, but he then had disease progression again. He had further treatment with 4 cycles of bendamustine/Rituxan from September 2011 through November 2011. He had a good response and was then in remission until April 2013 when he was found to have diffuse hyperactive lymphadenopathy by PET/CT. A left inguinal lymph node biopsy on 05/11/2013 showed grade 1-2/3 follicular lymphoma estimated at 50%, grade 3 follicular lymphoma estimated at 10%, and sheets of necrotic cells which were highly suspicious for diffuse large B-cell lymphoma. Those cells were positive for PAX-5, CD20, and BCL-2, and they were negative for Ki-67. He was then given 2 cycles of R-ESHAP in May 2013 followed by 2 cycles of R-GIFOX in July 2013. In December 2013 he underwent high-dose chemotherapy/stem cell transplant. He was given Revlimid for 3 cycles following the transplant, but he tolerated it poorly. His further treatment has included 9 cycles R-Garita Ox and maintenance rituximab. His most recent course of R-Garita Ox included 5 cycles of treatment from 04/09/2016 through 08/13/2016. He was then transitioned to maintenance rituximab, cycle 1 on 09/24/2016. His maintenance rituximab had been administered at 6-week intervals. 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 He was maintained on chronic anticoagulation with fondaparinux. He had also required treatment for Clostridium difficile colitis, and he had been chronically anemic. He was seen here initially on 11/05/2016 because he had moved back to this area and he desired to continue his treatment closer to home. At that time he complained that he felt run down and very tired. He complained of having a productive cough which had persisted for at least for 5 months. He also reported having diarrhea stools once or twice a day. He did receive his scheduled maintenance rituximab. On further evaluation, his stool was found to be negative for C. diff. A sputum culture, though, did grow beta lactamase negative Haemophilus influenzae, which persisted despite antibiotic therapy. On 12/15/2016 he presented to the emergency room with worsening diarrhea. CT abdomen/pelvis at that time showed mild bowel wall thickening thruout the colon, consistent with mild infectious colitis. There were mild inflammatory changes in the retroperitoneum with small lymph nodes, consistent with treated lymphoma. He was given empiric treatment with oral vancomycin and metronidazole. During subsequent follow-up he was found to have severe hypogammaglobulinemia with IgG 56.00 g/dL, IgA 22.00 mg/dL, and IgM less than 5.30 mg/dL. He began monthly replacement IVIG on 01/06/2017. In view of his declining performance status, I had opted not to continue his maintenance rituximab. During subsequent follow-up he had gradual improvement in his performance status. He initially continued expectant management for the lymphoma. Restaging CT scans of the chest, abdomen, and pelvis on 12/03/2017 showed interval increase in size and number of bilateral axillary lymph nodes, largest in the right axilla measuring 17 mm. The abdomen showed slight increase in spleen size 12.5 cm compared to 10.5 cm in November 2016. There was also new adenopathy in the mesentery, retroperitoneum, pelvis, and inguinal regions. The retroperitoneal adenopathy was noted to encase the proximal ureters, but without evidence of renal obstruction. On 01/01/2018 he returned here for a scheduled IVIG infusion. At that time he reported that he had again been diagnosed with Clostridium difficile colitis. He started treatment with vancomycin 125 mg 4 times a day, and he stopped the Augmentin. PET/CT on 01/17/2018 showed widespread hypermetabolic lymphadenopathy from the head/neck level to the level of the pelvis. Involved areas included submandibular and jugulodigastric nodes bilaterally, axillary nodes bilaterally, superior mediastinal, right paratracheal, subcarinal, paraesophageal and left hilar lymph nodes, and prominent retroperitoneal and mesenteric lymph nodes. There was extension into the common iliac and bilateral pelvic, including inguinal and femoral nodes bilaterally. There was diffusely increased splenic activity consistent with lymphomatous involvement. Increased activity in thickened bilateral renal fascia also was strongly suspicious for lymphomatous infiltration. On 02/02/2018 he underwent right axillary lymph node biopsy. Pathology was consistent with follicular lymphoma, grade 3A. On 03/04/2018 he was seen by Dr. Bonita Garner at [facility]. He was evaluated for possible participation in the clinical trial with a bispecific antibody. He fortunately did not qualify for that particular trial because of his renal function. As an alternative, she recommended a trial therapy with a PI3K inhibitor. On 03/30/2018 he began treatment with idelalisib 150 mg twice a day. With that, he was started on prophylaxis with Bactrim and valacyclovir, and I also had him continue oral vancomycin 125 mg twice a day for the recurrent Clostridium difficile colitis. During subsequent follow-up he continued idelalisib 150 mg twice a day, and he has continued his monthly IVIG infusions. He appeared to have resolution of peripheral lymphadenopathy. Restaging PET/CT on 08/15/2018 the spleen appeared less prominent and it was just slightly more hypermetabolic compared to the liver, consistent with improvement but not resolution of lymphomatous involvement. Extranodal soft tissue of the right posterior abdomen also appeared less hypermetabolic but not completely resolved. Winter improvement was evident in axillary nodes bilaterally, in bilateral inguinal and femoral nodes, and in mediastinal nodes. There was apparent progression of disease in the left perirenal fascia and there was increased activity in the right submandibular node. There was also apparent progression in the upper abdominal nodes in the celiac, gastrosplenic, and gastrohepatic territories. Right external iliac adenopathy also appeared more hypermetabolic. Overall, it was felt to show a mixed response. He was seen for a scheduled visit and an IVIG infusion on 09/14/2018. Subsequent to that treatment, he became profoundly weak, and he also developed fever, chills, sweating, and headache. He was admitted to the hospital on 09/20/2018. His blood counts were adequate and there are no significant changes in his serum chemistry studies. Chest x-ray showed no acute infiltrate. His blood cultures remained negative. His spinal fluid showed 11 WBC, 98% mononuclear cells. The CSF protein was normal. Stool tested negative for C. difficile and stool cultures were negative. Overall, no source of infection was identified. Noncontrast CT abdomen/pelvis on 09/23/2018 showed persistent extensive central mesenteric, celiac axis, retroperitoneal, pelvic and anal lymphadenopathy with marginal improvement compared to a previous CT from November 2017. There was persistent mild splenomegaly. He was discharged home on 09/24/2018. At that time he continued his prophylaxis with Bactrim and he was given empiric treatment with valganciclovir for 7 days. He had no additional antibiotic therapy. He continued to have low-grade fever and other systemic symptoms, but he did have symptomatic improvement on empiric treatment with prednisone. I had seen him for a follow-up visit on 10/14/2018. At that point he was feeling better. I had him continue the idelalisib at 150 mg twice a day and he continued prophylaxis with Bactrim, valacyclovir, and oral vancomycin. The IVIG remained on hold. He was seen for a follow-up visit on 11/02/2018. He was feeling worse. He reported increased weakness and he was having symptoms of orthostatic hypotension. He had stopped the idelalisib. He was given IV hydration, and I did have him keep the idelalisib on hold. His laboratory studies at that time included a sedimentation rate which was markedly elevated 118 mm/hour. His chest x-ray at that time showed poor inspiration with no acute findings. Bilateral renal ultrasound was normal. There was no hydronephrosis. Restaging PET/CT on 11/28/2018 showed evidence of disease progression with increase hypermetabolism within the spleen, and the bilateral retroperitoneal winter mass in the upper abdomen showed increase in SUV to 24.5 compared to 19.6 on the July 2018 study. There was similar progression in mesenteric, bilateral pelvic, gastrohepatic, and gastrosplenic lymph nodes. An index mediastinal lymph node in the subcarinal territory showed SUV 10.4 compared to 4.1 on the previous study. There was also progression evident in bilateral head/neck nodes and bilateral axillary nodes. Diffusely increased marrow activity was felt to be possibly physiologic, but marrow infiltration was not excluded. A cosyntropin stimulation test on 11/30/2018 did show adequate response, but the baseline cortisol level was unusually low at 0.73. As he was clearly showing disease progression, he then began a trial of therapy with rituximab in combination with lenalidomide, cycle 1 beginning on 12/22/2018. The rituximab was dosed at 375 mg/m??? by IV infusion day 1 and the lenalidomide at 20 mg daily on a 21/ day schedule. He also continued his steroid therapy. He was able to tolerate the rituximab infusion, but the lenalidomide was stopped within a very short time due to multiple side effects. He then returned for cycle 2 on 01/19/2019 with the lenalidomide dosage reduced to 5 mg. He again became extremely fatigued while taking the Revlimid, even at the reduced dosage. At his follow-up visit on 03/16/2019 I opted to put his treatment on hold. Restaging PET/CT on 03/27/2019 showed subcentimeter sized lymph nodes in the cervical, axillary, and mediastinal territories without significant FDG activity. The splenic activity also appeared to have normalized. Mesenteric lymph nodes were noted to be subcentimeter in size and FDG negative. The retroperitoneal mass was seen only has FDG negative fat stranding. Pelvic adenopathy was noted to have resolved. Overall, the findings were consistent with a complete metabolic response to therapy. His other medical illnesses include GERD, chronic kidney disease, and depression. He is a nonsmoker. INTERIM HISTORY: In June 2019 he had presented with a firm mass palpable in the posterior left thigh just above the knee. There was associated ecchymosis. Ultrasound showed a complex soft tissue mass with cystic and solid component but without blood flow. The appearance was most consistent with resolving hematoma, though metastatic deposit was not completely excluded. With those findings, he continued observation/symptomatic management. During subsequent follow-up he had complained of worsening cough. Chest x-ray on 09/17/2019 was unrevealing. However, sputum culture at that time grew moderate mixed upper respiratory cornelia. A repeat sputum culture on 01/06/2020 grew Pseudomonas aeruginosa. It was quinolone sensitive, but he was not able to be treated with oral therapy due to quinolone allergy. His chest CT on 02/10/2020 showed a new small left pleural effusion. There was evidence of soft tissue retrocrural thickening bilaterally in the area of treated lymphoma, possibly due to residual disease. It appeared slightly more prominent compared to the PET/CT from November 2018. The effusion was noted to be new. There was evidence of endobronchial tree in bud inflammatory disease in the right lower lobe. During this time, he did see Dr. Alicia for infectious disease consultation. He ultimately [facility] and he also restarted replacement IVIG, but with subcutaneous administration as opposed to IV infusion, which he has been able to tolerate better. He is seen for a follow-up visit. He indicates that 2 months ago he had to have treatment again for Clostridium difficile. However, with the antibiotic therapy and IVIG, his cough has resolved and his breathing is better. He still has limited activity tolerance. He is able to do some work, but he gets exhausted after about an hour and a half of activity. He also says he falls asleep very easily. His ECOG score is 1. He has pretty good appetite. He is not having fever or night sweats. He does not, complain of sinus congestion or drainage, and he has not having sore mouth or throat. He does have ongoing stomach problems, a tends to blow up in the late evening. He still has a lot of diarrhea, up to 4 stools a day. Bladder function has been okay. He has pain in his right hip and right knee, but that is chronic. He does not complain of headache. He has just occasional lightheadedness. He has no focal neurologic symptoms. Medications: Acetaminophen Extra Strength Tablet Oral PRN, Amoxicillin-Pot Clavulanate 1 Tablet (of 875-125 mg) Oral b.i.d., Arixtra 7.5 mg (of 7.5 mg/0.6mL) Subcutaneous daily, Benzonatate 1 Capsule (of 200 mg) Oral t.i.d., Claritin 1 Tablet (of 10 mg) Oral daily, Dulcolax 1 Tablet (of 5 mg) Tablet, enteric coated Oral daily PRN, Latanoprost 1 Drop(s) (of 0.005 %) Solution Ophthalmic at bedtime, oxyCODONE HCl 5 mg (of 5 mg) Tablet Oral PRN, Potassium Chloride ER 1 Tablet (of 10 meq) Tablet, controlled release Oral daily on Every Other Day, predniSONE 1 Tablet (of 2.5 mg) Oral b.i.d., Prevacid 1 (30 mg) Capsule Delayed Release Oral daily, Promethazine HCl 1 - 2 tsp (of 6.25 mg/5mL) Syrup Oral q 6 to 8 hours PRN, Timolol Hemihydrate 1 Drop(s) (of 0.5 %) Solution Ophthalmic b.i.d. Allergies: Ciprofloxacin HCl Vital Signs: Performed on September 25, 2020 10:13 Height - 71.00 in Weight - 177.8 lbs (HIGH) BSA - 2.01 sq.m BMI - 24.80 Temperature - 98.1 F (LOW) Pulse - 100 /min Respiration - 18 /min BP - 123/71 mm(hg) O2 Sat - 99 % Pain - 4 Fatigue - 8 Physical Examination: Constitutional - He appears somewhat weak generally, Eyes - Sclerae nonicteric. Conjunctivae clear, ENMT - No lesions noted in the oral cavity, Hematologic/Lymphatic - There is no cervical, clavicular, or axillary adenopathy noted, Respiratory - Lungs sound clear at this time, Cardiovascular - Heart rhythm is regular. There is no murmur, gallop, or rub noted, Abdomen - Soft. Liver and spleen are not enlarged. There is no abdominal mass or ascites noted. There is no inguinal adenopathy noted, Extremities - No edema, Neurologic - No focal neurologic deficits noted. Lab/Imaging: Test performed on September 25, 2020 08:45 LDH (Total) 124 U/L Sodium 138 mmol/L Potassium 3.7 mmol/L Chloride 101 mmol/L CO2 27 mmol/L Anion Gap 13.7 BUN 21 mg/dL Creatinine 1.3 mg/dL Cr Clearance (Est) 58.2100 mL/min eGFR 54.6 mL/min Glucose 83 mg/dL Osmolality - Calculated 288 mOsm/kg Calcium 10.1 mg/dL Protein, Total 6.6 g/dL Albumin 3.8 g/dL Globulin 2.8 g/dL Bilirubin, Total 0.4 mg/dL ALT (SGPT) 18 U/L AST (SGOT) 20 U/L Alkaline Phosphatase 68 IU/L WBC 7.2 10 3/uL RBC 4.55 10 6/uL HGB 13.6 g/dL HCT 42.2 % MCV 92.7 fL MCH 29.9 pg MCHC 32.2 g/dL RDW 14.1 % Platelet Count 92 10 3/cmm MPV 11.0 fL Neutrophils 3.17 10 3/uL Lymphocytes 2.6 10 3/uL Monocytes 1.2 10 3/uL Eosinophils 0.1 10 3/uL Basophils 0.0 10 3/uL Neutrophil % 44.2 % Lymphocyte % 36.7 % Monocyte % 16.3 % Eosinophil % 2.0 % Basophils % 0.4 % NRBC % 0 % Problem List: 1. Grade 1-2/3 follicular lymphoma, at least stage III, initially diagnosed by left inguinal lymph node biopsy in 2008. 2. In April 2013 he was confirmed by left inguinal lymph node biopsy to have transformed diffuse large B-cell lymphoma. His disease was at least stage III. 3. He was found to have severe hypogammaglobulinemia, for which he began monthly replacement IVIG in December 2016. 4. He has had recurrent episodes of Clostridium difficile colitis. 5. 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 6. GERD. 7. Chronic anemia. 8. Chronic kidney disease. 9. Depression. Problems Addressed with this Encounter and Plan: 1. Patient with grade 1-2/3 follicular lymphoma, at least stage III, initially diagnosed by left inguinal lymph node biopsy in 2008. His treatments included rituximab, R-CHOP, and bendamustine/Rituxan. In April 2013 he was confirmed by left inguinal lymph node biopsy to have transformed diffuse large B-cell lymphoma. His disease was at least stage III. His subsequent treatment included R-ESHAP x 2 and R-GIFOX x 2 followed by stem cell transplant in December 2013. He had 3 cycles of Revlimid following the stem cell transplant, tolerated poorly. His subsequent treatment included R-Garita Ox at 6-week intervals and maintenance rituximab. His final course included 5 cycles of R-Garita Ox from 04/09/2016 through 08/13/2016. He began maintenance rituximab at 6 week intervals beginning 09/24/2016. It was stopped following his treatment in October 2016 due to persistent Haemophilus influenza respiratory tract infection. His staging PET/CT on 01/17/2018 showed diffuse lymph node involvement from the head/neck level down to the pelvis as well as suspected involvement in the spleen and in the renal fascia bilaterally. Right axillary lymph node biopsy on 02/02/2018 was consistent with follicular lymphoma grade 3A. On 03/30/2018 he began a trial therapy with idelalisib 150 mg twice a day in March 2018. During subsequent follow-up he had been tolerating it well, and by clinical assessment he appeared to be showing a response. Restaging PET/CT on 08/15/2018 showed evidence of mixed response. He continued treatment with idelalisib 150 mg twice a day. It was stopped as of October 2018 following a hospitalization for a febrile illness the preceding month. His restaging PET/CT on 11/28/2018 showed evidence of disease progression in multiple areas, though not bulky. He did show some symptomatic improvement on prednisone, but his overall condition at that point was poor, and there was clearly evidence of progression of the underlying lymphoma. On 12/22/2018 he began a trial therapy with rituximab in combination with lenalidomide. He was able to tolerate the initial rituximab infusion, but he had multiple side effects with lenalidomide at the 20 mg dosage, and it was stopped within a short time. He then proceeded with cycle 2 on 01/19/2019 with the lenalidomide dosage reduced to 5 mg. He tolerated it poorly, even at the reduced dosage, and his treatment was put on hold. However, his restaging PET/CT on 03/27/2019 was consistent with a complete response to treatment. He has since then remained on expectant management.. At this point he continues to have marginal performance status, but thus far there has been no documented progression of the lymphoma. As such, he will continue on observation/expectant management. He will return monthly for port flushes. I will see him again in 3 months, or sooner as needed. 2. He has severe hypogammaglobulinemia. He initially had significant improvement in his performance status after restarting replacement IVIG. He eventually began having significant side effects following the IV infusions and his replacement therapy was put on hold. During subsequent follow-up he developed recurrence of persistent cough, and in December 2019 he was confirmed to have a positive sputum culture for Pseudomonas aeruginosa. He eventually had improvement with additional [facility] and with resumption of replacement IVIG administered by subcutaneous infusion. As long as he is able to tolerate it, he will continue the IVIG by subcutaneous infusion at the same dosage and schedule. 3. He has had recurrent episodes of C. difficile colitis. At this point he is continuing to have diarrhea. I recommended that he go back on his oral vancomycin, initially at 125 mg 4 times daily for 2 weeks, then tapering to twice daily for 2 weeks and then to 125 mg daily. He also will continue colestipol for symptomatic management. Signed By: Adrian Mast M.D. <<Signature on File>>
== END 2020-09-25 08:28 | disposition home or self-care (01) ==
LOC: ONCMED 08:29
PROVIDERS: PCP Family Medicine; Visit Provider Internal Medicine Medical Oncology
DX: C83.35 Diffuse large B-cell lymphoma, lymph nodes of inguinal region and lower limb (principal); D80.1 Nonfamilial hypogammaglobulinemia; A04.71 Enterocolitis due to Clostridium difficile, recurrent; I26.99 Other pulmonary embolism without acute cor pulmonale; K21.9 Gastro-esophageal reflux disease without esophagitis; D50.9 Iron deficiency anemia, unspecified; N18.9 Chronic kidney disease, unspecified; F32.9 Major depressive disorder, single episode, unspecified; Z79.01 Long term (current) use of anticoagulants; Z79.899 Other long term (current) drug therapy
CPT/HCPCS: 36591; 80053; 83615; 85025; 99214

== ENCOUNTER 2020-10-30 13:48 | Outpatient (CLI) | payer OTHER, SELFPAY ==
[2020-10-30 14:40] LABS: Basophils % 0.2 %; Eosinophils # 0.1 10^3/uL (0.0-0.8); Eosinophils % 0.9 %; Hematocrit 40.5 % (42.0-52.0); Hemoglobin 13.3 g/dL (11.7-16.6); Lymphocytes # 2.7 10^3/uL (0.8-4.8); Lymphocytes % 26.8 %; Mean Corpuscular HGB Conc 32.8 g/dL (30.0-36.0); Mean Corpuscular Hemoglobin 30.4 pg (28.0-34.0); Mean Corpuscular Volume 92.7 fL (80-94); Mean Platelet Volume 11.9 fL (7.4-10.4); Monocytes # 1.1 10^3/uL (0.2-0.9); Monocytes % 10.5 %; Neutrophils # 6.22 10^3/uL (1.8-7.7); Neutrophils % 61.2 %; Nucleated Red Blood Cells % 0 %; Platelet Count 124 10^3/cmm (130-400); Red Blood Count 4.37 10^6/uL (4.1-5.3); Red Cell Distribution Width 13.7 % (12.1-15.1); White Blood Count 10.2 10^3/uL (4.0-10.0)
== END 2020-10-30 13:49 | disposition home or self-care (01) ==
LOC: ONCMED 13:50
PROVIDERS: PCP Family Medicine; Visit Provider Nurse Practitioner
DX: C83.30 Diffuse large B-cell lymphoma, unspecified site (principal); D80.1 Nonfamilial hypogammaglobulinemia
CPT/HCPCS: 36591; 85025

== ENCOUNTER 2020-11-28 13:45 | Outpatient (CLI) | payer OTHER, SELFPAY ==
[2020-11-28 14:53] LABS: Basophils # 0.1 10^3/uL (0.0-0.1); Basophils % 0.5 %; Eosinophils # 0.1 10^3/uL (0.0-0.8); Eosinophils % 0.9 %; Hematocrit 41.7 % (42.0-52.0); Hemoglobin 13.7 g/dL (11.7-16.6); Lymphocytes # 3.2 10^3/uL (0.8-4.8); Lymphocytes % 30.8 %; Mean Corpuscular HGB Conc 32.9 g/dL (30.0-36.0); Mean Corpuscular Hemoglobin 30.4 pg (28.0-34.0); Mean Corpuscular Volume 92.5 fL (80-94); Mean Platelet Volume 11.4 fL (7.4-10.4); Monocytes # 1.5 10^3/uL (0.2-0.9); Neutrophils # 5.55 10^3/uL (1.8-7.7); Neutrophils % 53.3 %; Nucleated Red Blood Cells % 0 %; Platelet Count 135 10^3/cmm (130-400); Red Blood Count 4.51 10^6/uL (4.1-5.3); Red Cell Distribution Width 13.2 % (12.1-15.1); White Blood Count 10.4 10^3/uL (4.0-10.0)
== END 2020-11-28 13:46 | disposition home or self-care (01) ==
LOC: ONCMED 13:49
PROVIDERS: PCP Family Medicine; Visit Provider Nurse Practitioner
DX: C83.30 Diffuse large B-cell lymphoma, unspecified site (principal); D80.1 Nonfamilial hypogammaglobulinemia
CPT/HCPCS: 36415; 36591; 85025

== ENCOUNTER 2021-01-01 12:56 | Outpatient (CLI) | payer OTHER, SELFPAY ==
[2021-01-01 13:44] LABS: Basophils % 0.3 %; Eosinophils # 0.1 10^3/uL (0.0-0.8); Eosinophils % 0.7 %; Hematocrit 43.3 % (42.0-52.0); Hemoglobin 13.8 g/dL (11.7-16.6); Lymphocytes # 2.8 10^3/uL (0.8-4.8); Lymphocytes % 24.8 %; Mean Corpuscular HGB Conc 31.9 g/dL (30.0-36.0); Mean Corpuscular Hemoglobin 30.2 pg (28.0-34.0); Mean Corpuscular Volume 94.7 fL (80-94); Mean Platelet Volume 11.9 fL (7.4-10.4); Monocytes # 1.4 10^3/uL (0.2-0.9); Monocytes % 12.6 %; Neutrophils # 6.81 10^3/uL (1.8-7.7); Neutrophils % 61.1 %; Nucleated Red Blood Cells % 0 %; Platelet Count 107 10^3/cmm (130-400); Red Blood Count 4.57 10^6/uL (4.1-5.3); Red Cell Distribution Width 13.3 % (12.1-15.1); White Blood Count 11.2 10^3/uL (4.0-10.0)
[2021-01-01 13:56] LABS: Alanine Aminotransferase 52 U/L (0-41); Albumin Level 3.9 g/dL (3.5-5.2); Alkaline Phosphatase 105 IU/L (40-130); Anion Gap 12.3 (5-19); Aspartate Amino Transferase 38 U/L (0-40); Blood Urea Nitrogen 24 mg/dL (8-23); Carbon Dioxide 28 mmol/L (22-29); Chloride 98 mmol/L (98-107); Globulin 2.4 g/dL (1.3-4.6); Glucose 103 mg/dL (65-115); Lactate Dehydrogenase 144 U/L (135-225); Osmolality Calculated 282 mOsm/kg (285-295); Potassium 4.3 mmol/L (3.5-5.1); Sodium 134 mmol/L (136-145); Total Bilirubin 0.3 mg/dL (0.15-1.2); Total Protein 6.3 g/dL (6.6-8.7)
[2021-01-01 16:46] LABS: Erythrocyte Sedimentation Rate 31 mm/hr (0-10)
--- NOTE | 2021-01-01 17:23 | ONC FU_ITS ---
Dr. Mast Patient Follow-Up Note Patient: Conrad Llanos Unit #: [id number]: 1950 Dicatated By: Adrian Mast M.D.Date of Visit:Jan 01, 2021 Onc Med Follow-up/Prog Note Chief Complaint: Lymphoma/hypogammaglobulinemia. History of Present Illness: This is a 70 year-old man with transformed diffuse large B-cell lymphoma. He was also found to have severe hypogammaglobulinemia. He was initially diagnosed with grade 1-2/3 follicular lymphoma by left inguinal lymph node biopsy in 2008. He had at least stage III disease at that time. He achieved a partial response to initial treatment with rituximab, but he then had disease progression and he was treated with 6 cycles of R-CHOP from April 2012 through August 2010. He was then given maintenance rituximab at 6 month intervals, but he then had disease progression again. He had further treatment with 4 cycles of bendamustine/Rituxan from September 2011 through November 2011. He had a good response and was then in remission until April 2013 when he was found to have diffuse hyperactive lymphadenopathy by PET/CT. A left inguinal lymph node biopsy on 05/11/2013 showed grade 1-2/3 follicular lymphoma estimated at 50%, grade 3 follicular lymphoma estimated at 10%, and sheets of necrotic cells which were highly suspicious for diffuse large B-cell lymphoma. Those cells were positive for PAX-5, CD20, and BCL-2, and they were negative for Ki-67. He was then given 2 cycles of R-ESHAP in May 2013 followed by 2 cycles of R-GIFOX in July 2013. In December 2013 he underwent high-dose chemotherapy/stem cell transplant. He was given Revlimid for 3 cycles following the transplant, but he tolerated it poorly. His further treatment has included 9 cycles R-[place] Ox and maintenance rituximab. His most recent course of R-[place] Ox included 5 cycles of treatment from 04/09/2016 through 08/13/2016. He was then transitioned to maintenance rituximab, cycle 1 on 09/24/2016. His maintenance rituximab had been administered at 6-week intervals. 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 He was maintained on chronic anticoagulation with fondaparinux. He had also required treatment for Clostridium difficile colitis, and he had been chronically anemic. He was seen here initially on 11/05/2016 because he had moved back to this area and he desired to continue his treatment closer to home. At that time he complained that he felt run down and very tired. He complained of having a productive cough which had persisted for at least for 5 months. He also reported having diarrhea stools once or twice a day. He did receive his scheduled maintenance rituximab. On further evaluation, his stool was found to be negative for C. diff. A sputum culture, though, did grow beta lactamase negative Haemophilus influenzae, which persisted despite antibiotic therapy. On 12/15/2016 he presented to the emergency room with worsening diarrhea. CT abdomen/pelvis at that time showed mild bowel wall thickening thruout the colon, consistent with mild infectious colitis. There were mild inflammatory changes in the retroperitoneum with small lymph nodes, consistent with treated lymphoma. He was given empiric treatment with oral vancomycin and metronidazole. During subsequent follow-up he was found to have severe hypogammaglobulinemia with IgG 56.00 g/dL, IgA 22.00 mg/dL, and IgM less than 5.30 mg/dL. He began monthly replacement IVIG on 01/06/2017. In view of his declining performance status, I had opted not to continue his maintenance rituximab. During subsequent follow-up he had gradual improvement in his performance status. He initially continued expectant management for the lymphoma. Restaging CT scans of the chest, abdomen, and pelvis on 12/03/2017 showed interval increase in size and number of bilateral axillary lymph nodes, largest in the right axilla measuring 17 mm. The abdomen showed slight increase in spleen size 12.5 cm compared to 10.5 cm in November 2016. There was also new adenopathy in the mesentery, retroperitoneum, pelvis, and inguinal regions. The retroperitoneal adenopathy was noted to encase the proximal ureters, but without evidence of renal obstruction. On 01/01/2018 he returned here for a scheduled IVIG infusion. At that time he reported that he had again been diagnosed with Clostridium difficile colitis. He started treatment with vancomycin 125 mg 4 times a day, and he stopped the Augmentin. PET/CT on 01/17/2018 showed widespread hypermetabolic lymphadenopathy from the head/neck level to the level of the pelvis. Involved areas included submandibular and jugulodigastric nodes bilaterally, axillary nodes bilaterally, superior mediastinal, right paratracheal, subcarinal, paraesophageal and left hilar lymph nodes, and prominent retroperitoneal and mesenteric lymph nodes. There was extension into the common iliac and bilateral pelvic, including inguinal and femoral nodes bilaterally. There was diffusely increased splenic activity consistent with lymphomatous involvement. Increased activity in thickened bilateral renal fascia also was strongly suspicious for lymphomatous infiltration. On 02/02/2018 he underwent right axillary lymph node biopsy. Pathology was consistent with follicular lymphoma, grade 3A. On 03/04/2018 he was seen by Dr. Bonita Garner at [facility]. He was evaluated for possible participation in the clinical trial with a bispecific antibody. He fortunately did not qualify for that particular trial because of his renal function. As an alternative, she recommended a trial therapy with a PI3K inhibitor. On 03/30/2018 he began treatment with idelalisib 150 mg twice a day. With that, he was started on prophylaxis with Bactrim and valacyclovir, and I also had him continue oral vancomycin 125 mg twice a day for the recurrent Clostridium difficile colitis. During subsequent follow-up he continued idelalisib 150 mg twice a day, and he has continued his monthly IVIG infusions. He appeared to have resolution of peripheral lymphadenopathy. Restaging PET/CT on 08/15/2018 the spleen appeared less prominent and it was just slightly more hypermetabolic compared to the liver, consistent with improvement but not resolution of lymphomatous involvement. Extranodal soft tissue of the right posterior abdomen also appeared less hypermetabolic but not completely resolved. Winter improvement was evident in axillary nodes bilaterally, in bilateral inguinal and femoral nodes, and in mediastinal nodes. There was apparent progression of disease in the left perirenal fascia and there was increased activity in the right submandibular node. There was also apparent progression in the upper abdominal nodes in the celiac, gastrosplenic, and gastrohepatic territories. Right external iliac adenopathy also appeared more hypermetabolic. Overall, it was felt to show a mixed response. He was seen for a scheduled visit and an IVIG infusion on 09/14/2018. Subsequent to that treatment, he became profoundly weak, and he also developed fever, chills, sweating, and headache. He was admitted to the hospital on 09/20/2018. His blood counts were adequate and there are no significant changes in his serum chemistry studies. Chest x-ray showed no acute infiltrate. His blood cultures remained negative. His spinal fluid showed 11 WBC, 98% mononuclear cells. The CSF protein was normal. Stool tested negative for C. difficile and stool cultures were negative. Overall, no source of infection was identified. Noncontrast CT abdomen/pelvis on 09/23/2018 showed persistent extensive central mesenteric, celiac axis, retroperitoneal, pelvic and anal lymphadenopathy with marginal improvement compared to a previous CT from November 2017. There was persistent mild splenomegaly. He was discharged home on 09/24/2018. At that time he continued his prophylaxis with Bactrim and he was given empiric treatment with valganciclovir for 7 days. He had no additional antibiotic therapy. He continued to have low-grade fever and other systemic symptoms, but he did have symptomatic improvement on empiric treatment with prednisone. I had seen him for a follow-up visit on 10/14/2018. At that point he was feeling better. I had him continue the idelalisib at 150 mg twice a day and he continued prophylaxis with Bactrim, valacyclovir, and oral vancomycin. The IVIG remained on hold. He was seen for a follow-up visit on 11/02/2018. He was feeling worse. He reported increased weakness and he was having symptoms of orthostatic hypotension. He had stopped the idelalisib. He was given IV hydration, and I did have him keep the idelalisib on hold. His laboratory studies at that time included a sedimentation rate which was markedly elevated 118 mm/hour. His chest x-ray at that time showed poor inspiration with no acute findings. Bilateral renal ultrasound was normal. There was no hydronephrosis. Restaging PET/CT on 11/28/2018 showed evidence of disease progression with increase hypermetabolism within the spleen, and the bilateral retroperitoneal winter mass in the upper abdomen showed increase in SUV to 24.5 compared to 19.6 on the July 2018 study. There was similar progression in mesenteric, bilateral pelvic, gastrohepatic, and gastrosplenic lymph nodes. An index mediastinal lymph node in the subcarinal territory showed SUV 10.4 compared to 4.1 on the previous study. There was also progression evident in bilateral head/neck nodes and bilateral axillary nodes. Diffusely increased marrow activity was felt to be possibly physiologic, but marrow infiltration was not excluded. A cosyntropin stimulation test on 11/30/2018 did show adequate response, but the baseline cortisol level was unusually low at 0.73. As he was clearly showing disease progression, he then began a trial of therapy with rituximab in combination with lenalidomide, cycle 1 beginning on 12/22/2018. The rituximab was dosed at 375 mg/m??? by IV infusion day 1 and the lenalidomide at 20 mg daily on a 21/ day schedule. He also continued his steroid therapy. He was able to tolerate the rituximab infusion, but the lenalidomide was stopped within a very short time due to multiple side effects. He then returned for cycle 2 on 01/19/2019 with the lenalidomide dosage reduced to 5 mg. He again became extremely fatigued while taking the Revlimid, even at the reduced dosage. At his follow-up visit on 03/16/2019 I opted to put his treatment on hold. Restaging PET/CT on 03/27/2019 showed subcentimeter sized lymph nodes in the cervical, axillary, and mediastinal territories without significant FDG activity. The splenic activity also appeared to have normalized. Mesenteric lymph nodes were noted to be subcentimeter in size and FDG negative. The retroperitoneal mass was seen only has FDG negative fat stranding. Pelvic adenopathy was noted to have resolved. Overall, the findings were consistent with a complete metabolic response to therapy. His other medical illnesses include GERD, chronic kidney disease, and depression. He is a nonsmoker. INTERIM HISTORY: In June 2019 he had presented with a firm mass palpable in the posterior left thigh just above the knee. There was associated ecchymosis. Ultrasound showed a complex soft tissue mass with cystic and solid component but without blood flow. The appearance was most consistent with resolving hematoma, though metastatic deposit was not completely excluded. With those findings, he continued observation/symptomatic management. During subsequent follow-up he had complained of worsening cough. Chest x-ray on 09/17/2019 was unrevealing. However, sputum culture at that time grew moderate mixed upper respiratory cornelia. A repeat sputum culture on 01/06/2020 grew Pseudomonas aeruginosa. It was quinolone sensitive, but he was not able to be treated with oral therapy due to quinolone allergy. His chest CT on 02/10/2020 showed a new small left pleural effusion. There was evidence of soft tissue retrocrural thickening bilaterally in the area of treated lymphoma, possibly due to residual disease. It appeared slightly more prominent compared to the PET/CT from November 2018. The effusion was noted to be new. There was evidence of endobronchial tree in bud inflammatory disease in the right lower lobe. During this time, he did see Dr. Alicia for infectious disease consultation. He ultimately [facility] and he also restarted replacement IVIG, but with subcutaneous administration as opposed to IV infusion, which he was able to tolerate better. In July he was again treated for Clostridium difficile. He is seen for a follow-up visit. He has not been feeling good. He says that he now has major weakness and fatigue. His activity is very limited. He is still getting physical therapy twice a week and doing some exercises, but he is mostly sedentary. He has been prone to falling. He is not sure exactly why he falls, but in addition to the weakness he does have some balance issues, and he also complains that his right knee has a tendency to give out. His ECOG score is 3. Appetite is not good. He has been supplementing with boost daily. He does not have fever or night sweats. He says his mouth has been kind of sore and that his tongue cherry. He has no difficulty swallowing. He has no shortness of breath, cough, or chest pain. He does not complain of nausea. His acid reflux is adequately managed with Prevacid. He still has some diarrhea, but not as much since he has been taking colestipol. Bladder function is the same. He has urinary frequency and nocturia. He has some pain in his right knee and right hip. He has no other joint or bone pain. He has been having a lot of headaches, mainly in the frontal area. He has no numbness/paresthesia or other focal neurologic symptoms. He has some anxiety/depression, but not bad. Medications: Acetaminophen Extra Strength Tablet Oral PRN, Amoxicillin-Pot Clavulanate 1 Tablet (of 875-125 mg) Oral b.i.d., Arixtra 7.5 mg (of 7.5 mg/0.6mL) Subcutaneous daily, Benzonatate 1 Capsule (of 200 mg) Oral t.i.d., Claritin 1 Tablet (of 10 mg) Oral daily, Dulcolax 1 Tablet (of 5 mg) Tablet, enteric coated Oral daily PRN, Latanoprost 1 Drop(s) (of 0.005 %) Solution Ophthalmic at bedtime, oxyCODONE HCl 5 mg (of 5 mg) Tablet Oral PRN, Potassium Chloride ER 1 Tablet (of 10 meq) Tablet, controlled release Oral daily on Every Other Day, predniSONE 1 Tablet (of 2.5 mg) Oral b.i.d., Prevacid 1 (30 mg) Capsule Delayed Release Oral daily, Promethazine HCl 1 - 2 tsp (of 6.25 mg/5mL) Syrup Oral q 6 to 8 hours PRN, Timolol Hemihydrate 1 Drop(s) (of 0.5 %) Solution Ophthalmic b.i.d. Allergies: Ciprofloxacin HCl Vital Signs: Performed on Jan 01, 2021 14:40 Height - 71.00 in Weight - 175.6 lbs (LOW) BSA - 2.00 sq.m BMI - 24.49 Temperature - 98.2 F (LOW) Pulse - 97 /min Respiration - 18 /min BP - 137/72 mm(hg) O2 Sat - 97 % Pain - 5 Fatigue - 2 Physical Examination: Constitutional - He appears generally weak, Eyes - Sclerae nonicteric. Conjunctivae clear, ENMT - No lesions noted in the oral cavity, Hematologic/Lymphatic - I do not feel any cervical, clavicular, or axillary lymphadenopathy, Respiratory - Lungs sound clear, Cardiovascular - Heart rhythm is regular. There is no murmur, gallop, or rub noted, Abdomen - Soft. Liver and spleen are not enlarged. There is no abdominal mass or ascites noted. There is no inguinal adenopathy noted, Extremities - No edema, Neurologic - No focal neurologic deficits noted. Lab/Imaging: Test performed on Jan 01, 2021 13:11 LDH (Total) 144 U/L Sodium 134 mmol/L Potassium 4.3 mmol/L Chloride 98 mmol/L CO2 28 mmol/L Anion Gap 12.3 BUN 24 mg/dL Creatinine 1.4 mg/dL Cr Clearance (Est) 53.2800 mL/min Glucose 103 mg/dL Osmolality - Calculated 282 mOsm/kg Calcium 12.0 mg/dL Protein, Total 6.3 g/dL Albumin 3.9 g/dL Globulin 2.4 g/dL Bilirubin, Total 0.3 mg/dL ALT (SGPT) 52 U/L AST (SGOT) 38 U/L Alkaline Phosphatase 105 IU/L WBC 11.2 10 3/uL RBC 4.57 10 6/uL HGB 13.8 g/dL HCT 43.3 % MCV 94.7 fL MCH 30.2 pg MCHC 31.9 g/dL RDW 13.3 % Platelet Count 107 10 3/cmm MPV 11.9 fL Neutrophils 6.81 10 3/uL Lymphocytes 2.8 10 3/uL Monocytes 1.4 10 3/uL Eosinophils 0.1 10 3/uL Basophils 0.0 10 3/uL Neutrophil % 61.1 % Lymphocyte % 24.8 % Monocyte % 12.6 % Eosinophil % 0.7 % Basophils % 0.3 % NRBC % 0 % Problem List: 1. Grade 1-2/3 follicular lymphoma, at least stage III, initially diagnosed by left inguinal lymph node biopsy in 2008. 2. In April 2013 he was confirmed by left inguinal lymph node biopsy to have transformed diffuse large B-cell lymphoma. His disease was at least stage III. 3. He was found to have severe hypogammaglobulinemia, for which he began monthly replacement IVIG in December 2016. 4. He has had recurrent episodes of Clostridium difficile colitis. 5. 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 6. GERD. 7. Chronic anemia. 8. Chronic kidney disease. 9. Depression. Problems Addressed with this Encounter and Plan: 1. Patient with grade 1-2/3 follicular lymphoma, at least stage III, initially diagnosed by left inguinal lymph node biopsy in 2008. His treatments included rituximab, R-CHOP, and bendamustine/Rituxan. In April 2013 he was confirmed by left inguinal lymph node biopsy to have transformed diffuse large B-cell lymphoma. His disease was at least stage III. His subsequent treatment included R-ESHAP x 2 and R-GIFOX x 2 followed by stem cell transplant in December 2013. He had 3 cycles of Revlimid following the stem cell transplant, tolerated poorly. His subsequent treatment included R-[place] Ox at 6-week intervals and maintenance rituximab. His final course included 5 cycles of R-[place] Ox from 04/09/2016 through 08/13/2016. He began maintenance rituximab at 6 week intervals beginning 09/24/2016. It was stopped following his treatment in October 2016 due to persistent Haemophilus influenza respiratory tract infection. His staging PET/CT on 01/17/2018 showed diffuse lymph node involvement from the head/neck level down to the pelvis as well as suspected involvement in the spleen and in the renal fascia bilaterally. Right axillary lymph node biopsy on 02/02/2018 was consistent with follicular lymphoma grade 3A. On 03/30/2018 he began a trial therapy with idelalisib 150 mg twice a day in March 2018. During subsequent follow-up he had been tolerating it well, and by clinical assessment he appeared to be showing a response. Restaging PET/CT on 08/15/2018 showed evidence of mixed response. He continued treatment with idelalisib 150 mg twice a day. It was stopped as of October 2018 following a hospitalization for a febrile illness the preceding month. His restaging PET/CT on 11/28/2018 showed evidence of disease progression in multiple areas, though not bulky. He did show some symptomatic improvement on prednisone, but his overall condition at that point was poor, and there was clearly evidence of progression of the underlying lymphoma. On 12/22/2018 he began a trial therapy with rituximab in combination with lenalidomide. He was able to tolerate the initial rituximab infusion, but he had multiple side effects with lenalidomide at the 20 mg dosage, and it was stopped within a short time. He then proceeded with cycle 2 on 01/19/2019 with the lenalidomide dosage reduced to 5 mg. He tolerated it poorly, even at the reduced dosage, and his treatment was put on hold. However, his restaging PET/CT on 03/27/2019 was consistent with a complete response to treatment. He was then followed on expectant management. During followup he has continued to have somewhat marginal performance status, and that now appears to be declining even further. As yet he has not had any obvious recurrence of peripheral lymphadenopathy, and his blood counts and renal function have remained stable. However, he has now developed significant hypercalcemia, which is very worrisome for progression of the lymphoma. He is having frequent headaches, which is also very concerning. He will be scheduled for restaging PET/CT and he will then have further evaluation as indicated. In the meantime, I will give him a temporary increase in his steroid dosage with prednisone 10 mg twice daily for 1 week then decreasing to 10 mg in the morning and 5 mg in the evening. 2. He has severe hypogammaglobulinemia. He initially had significant improvement in his performance status after restarting replacement IVIG. He eventually began having significant side effects following the IV infusions and his replacement therapy was put on hold. During subsequent follow-up he developed recurrence of persistent cough, and in December 2019 he was confirmed to have a positive sputum culture for Pseudomonas aeruginosa. He eventually had improvement with additional [facility] and with resumption of replacement IVIG administered by subcutaneous infusion. He continues IVIG by subcutaneous infusion at the same dosage and schedule. 3. He has chronic diarrhea. He is getting some symptomatic benefit with colestipol. 4. He has a history of recurrent thromboembolism. He has been stable on chronic anticoagulation with fondaparinux, but he would like to change to an oral medication. [facility] will check with [facility] and see if we get him transitioned to apixaban or rivaroxaban. Signed By: Adrian Mast M.D. <<Signature on File>>
== END 2021-01-01 12:57 | disposition home or self-care (01) ==
LOC: ONCMED 13:00
PROVIDERS: PCP Family Medicine; Visit Provider Internal Medicine Medical Oncology
DX: Z08 Encounter for follow-up examination after completed treatment for malignant neoplasm (principal); Z85.72 Personal history of non-Hodgkin lymphomas; D80.1 Nonfamilial hypogammaglobulinemia; A04.71 Enterocolitis due to Clostridium difficile, recurrent; I82.593 Chronic embolism and thrombosis of other specified deep vein of lower extremity, bilateral; Z79.01 Long term (current) use of anticoagulants; K21.9 Gastro-esophageal reflux disease without esophagitis; D64.9 Anemia, unspecified; N18.9 Chronic kidney disease, unspecified; F32.9 Major depressive disorder, single episode, unspecified; Z79.899 Other long term (current) drug therapy; Z92.21 Personal history of antineoplastic chemotherapy
CPT/HCPCS: 36415; 36591; 80053; 83615; 85025; 85651; 99215

== ENCOUNTER → 2021-01-25 09:33 | Outpatient (BNVA) | payer OTHER, SELFPAY | PROVIDERS: PCP Family Medicine; Visit Provider Specialist | DX: M17.11 Unilateral primary osteoarthritis, right knee (principal); M25.561 Pain in right knee | CPT/HCPCS: 73560; 73565 ==

== ENCOUNTER 2021-01-25 11:41 | Outpatient (CLI) | payer OTHER, SELFPAY | END 2021-01-25 11:42 | disposition home or self-care (01) | LOC: SPT 11:41 | PROVIDERS: PCP Family Medicine; Visit Provider Specialist | DX: Z46.89 Encounter for fitting and adjustment of other specified devices (principal); M17.11 Unilateral primary osteoarthritis, right knee | CPT/HCPCS: 97760; L1812 ==

== ENCOUNTER 2021-02-20 05:58 | Day surgery (SDC) | payer OTHER, SELFPAY ==
[2021-02-16 11:27] VITALS: BMI 24.3
[2021-02-20] VITALS (10 sets, daily range): BP systolic 117–136; BP diastolic 67–79; PULSE 74–83; RESP 14–18; TEMP 36.1–36.6; O2SAT 97–100
[2021-02-20] MEDS: sodium chloride 0.9% 1,000 ML 30 ML IV (06:11)
--- NOTE | 2021-02-20 06:24 | US_ITS ---
WS: [id number] ULTRASOUND GUIDED BIOPSY MESENTERIC LYMPH NODE. HISTORY: History of B-cell lymphoma. Possible recurrence. Procedure, risks, and complications are explained to the patient. Consent was obtained. Skin is clean sed with ChloraPrep and anesthetized with 1% buffered lidocaine. Lymph nodes are identified within the central mesentery. There is a superficial lymph node which will be safe to biopsy. Multiple core biopsies are performed with 20-gauge Temno needle. Specimen is plac ed in saline. No complications throughout the examination. Patient will be discharged and one hour if no complications. US/US biopsy lymph node [id number] IMPRESSION: 1. Uncomplicated ultrasound-guided biopsy of a mesenteric lymph node. Multiple biopsies are performed with specimen placed in saline. 2. If this specimen does not yield sufficient material for pathology endoscopi c biopsy may be necessary.
[2021-02-20 06:38] LABS: INR 0.87 (0.8-1.2)
[2021-02-20] MEDS: midazolam 1 mg/mL INJ 2 mL IVP (08:00)
[2021-02-20] MEDS: fentaNYL 50 mcg/mL INJ 2mL 25 MCG IVP ×2 (08:01→08:14)
--- NOTE | 2021-02-20 08:07 | SUR.OPER ---
patient having ultrasound bx patient was given 17 ml of lidocaine for local per radiologist.
--- NOTE | 2021-02-20 08:15 | SUR.OPER ---
During procedure total of 50 mcg Fentanyl 1 mg Versed given to the patient.
--- NOTE | 2021-02-20 08:31 | PC.NURSE ---
patient has dressing on LLQ no sign of bleeding. Dressing is intact. Patient will be monitored for an hour if vital signs are stable and no bleeding patient may leave.
== END 2021-02-20 09:25 | disposition home or self-care (01) ==
PROVIDERS: Radiology Diagnostic Radiology; PCP Family Medicine; Visit Provider Internal Medicine Medical Oncology
DX: C85.10 Unspecified B-cell lymphoma, unspecified site (principal)
CPT/HCPCS: 36415; 38505; 76942; 85610; 88305; 96361; 96374; 96375; J2250; J3010; J7030

== ENCOUNTER 2021-02-20 13:20 | Outpatient (CLI) | payer OTHER, SELFPAY ==
[2021-02-22 09:13] LABS: Miscellaneous Test See Scanned Lab Rpt
== END 2021-02-20 13:21 | disposition home or self-care (01) ==
PROVIDERS: PCP Family Medicine; Visit Provider Internal Medicine Medical Oncology
DX: Z45.2 Encounter for adjustment and management of vascular access device (principal)
CPT/HCPCS: 88184; 88185; 96523

== ENCOUNTER 2021-05-10 12:18 | Outpatient (CLI) | payer OTHER, SELFPAY ==
[2021-05-10 13:24] LABS: Basophils % 0.1 %; Eosinophils % 0.5 %; Hematocrit 38.2 % (42.0-52.0); Hemoglobin 12.6 g/dL (11.7-16.6); Lymphocytes # 2.1 10^3/uL (0.8-4.8); Lymphocytes % 24.8 %; Mean Corpuscular Hemoglobin 30.4 pg (28.0-34.0); Mean Corpuscular Volume 92.3 fl (80-94); Mean Platelet Volume 11.5 fL (7.4-10.4); Monocytes # 1.1 10^3/uL (0.2-0.9); Monocytes % 13.3 %; Neutrophils # 5.22 10^3/uL (1.8-7.7); Neutrophils % 60.9 %; Nucleated Red Blood Cells % 0 %; Platelet Count 75 10^3/cmm (130-400); Red Blood Count 4.14 10^6/uL (4.1-5.3); Red Cell Distribution Width 13.2 % (12.1-15.1); White Blood Count 8.6 10^3/uL (4.0-10.0)
[2021-05-10 13:40] LABS: Alanine Aminotransferase 18 U/L (0-41); Albumin Level 3.6 g/dL (3.5-5.2); Alkaline Phosphatase 80 IU/L (40-130); Anion Gap 18.5 (5-19); Aspartate Amino Transferase 21 U/L (0-40); Blood Urea Nitrogen 22 mg/dL (8-23); Calcium 9.4 mg/dL (8.5-10.5); Carbon Dioxide 22 mmol/L (22-29); Chloride 99 mmol/L (98-107); Glucose 84 mg/dL (65-115); Osmolality Calculated 285 mOsm/kg (285-295); Potassium 3.5 mmol/L (3.5-5.1); Sodium 136 mmol/L (136-145); Total Bilirubin 0.2 mg/dL (0.15-1.2); Total Protein 5.6 g/dL (6.6-8.7)
== END 2021-05-10 12:19 | disposition home or self-care (01) ==
PROVIDERS: PCP Family Medicine; Visit Provider Nurse Practitioner Family
DX: M17.11 Unilateral primary osteoarthritis, right knee (principal); R35.1 Nocturia; R97.20 Elevated prostate specific antigen [PSA]; K21.9 Gastro-esophageal reflux disease without esophagitis; I82.409 Acute embolism and thrombosis of unspecified deep veins of unspecified lower extremity; D80.1 Nonfamilial hypogammaglobulinemia; C82.90 Follicular lymphoma, unspecified, unspecified site; R05.3 Chronic cough
CPT/HCPCS: 36591; 80053; 85025; 99214

== ENCOUNTER 2021-05-24 10:53 | Outpatient (CLI) | payer OTHER, SELFPAY ==
[2021-05-24 11:42] LABS: Basophils % 0.2 %; Eosinophils # 0.1 10^3/uL (0.0-0.8); Eosinophils % 0.9 %; Lymphocytes # 2.7 10^3/uL (0.8-4.8); Lymphocytes % 27.7 %; Mean Corpuscular HGB Conc 32.5 g/dL (30.0-36.0); Mean Corpuscular Hemoglobin 29.6 pg (28.0-34.0); Mean Corpuscular Volume 91.1 fl (80-94); Mean Platelet Volume 10.1 fL (7.4-10.4); Monocytes # 1.3 10^3/uL (0.2-0.9); Neutrophils # 5.62 10^3/uL (1.8-7.7); Neutrophils % 57.5 %; Nucleated Red Blood Cells % 0 %; Platelet Count 93 10^3/cmm (130-400); Red Blood Count 4.39 10^6/uL (4.1-5.3); White Blood Count 9.8 10^3/uL (4.0-10.0)
[2021-05-24 12:03] LABS: Alanine Aminotransferase 28 U/L (0-41); Albumin Level 3.8 g/dL (3.5-5.2); Alkaline Phosphatase 103 IU/L (40-130); Anion Gap 17.7 (5-19); Aspartate Amino Transferase 27 U/L (0-40); Blood Urea Nitrogen 22 mg/dL (8-23); Calcium 10.4 mg/dL (8.5-10.5); Carbon Dioxide 24 mmol/L (22-29); Chloride 100 mmol/L (98-107); Globulin 2.6 g/dL (1.3-4.6); Glucose 89 mg/dL (65-115); Osmolality Calculated 289 mOsm/kg (285-295); Potassium 3.7 mmol/L (3.5-5.1); Sodium 138 mmol/L (136-145); Total Bilirubin 0.3 mg/dL (0.15-1.2); Total Protein 6.4 g/dL (6.6-8.7)
== END 2021-05-24 10:54 | disposition home or self-care (01) ==
LOC: ONCMED 10:58
PROVIDERS: Internal Medicine Medical Oncology; PCP Family Medicine; Visit Provider Nurse Practitioner Family
DX: C82.25 Follicular lymphoma grade III, unspecified, lymph nodes of inguinal region and lower limb (principal); D80.1 Nonfamilial hypogammaglobulinemia; A04.71 Enterocolitis due to Clostridium difficile, recurrent; I82.503 Chronic embolism and thrombosis of unspecified deep veins of lower extremity, bilateral; I26.99 Other pulmonary embolism without acute cor pulmonale; K21.9 Gastro-esophageal reflux disease without esophagitis; N18.9 Chronic kidney disease, unspecified; D63.1 Anemia in chronic kidney disease; F32.9 Major depressive disorder, single episode, unspecified; Z79.01 Long term (current) use of anticoagulants; Z79.899 Other long term (current) drug therapy; Z79.811 Long term (current) use of aromatase inhibitors
CPT/HCPCS: 36591; 80053; 85025; 99214

== ENCOUNTER 2021-06-14 11:56 | Outpatient (CLI) | payer OTHER, SELFPAY ==
[2021-06-14 12:31] LABS: Eosinophils # 0.1 10^3/uL (0.0-0.8); Eosinophils % 0.6 %; Hematocrit 35.1 % (42.0-52.0); Hemoglobin 11.5 g/dL (11.7-16.6); Lymphocytes % 25.6 %; Mean Corpuscular HGB Conc 32.8 g/dL (30.0-36.0); Mean Corpuscular Hemoglobin 29.9 pg (28.0-34.0); Mean Corpuscular Volume 91.4 fl (80-94); Mean Platelet Volume 10.5 fL (7.4-10.4); Monocytes # 0.6 10^3/uL (0.2-0.9); Monocytes % 7.3 %; Neutrophils # 5.15 10^3/uL (1.8-7.7); Neutrophils % 66.1 %; Nucleated Red Blood Cells % 0 %; Platelet Count 97 10^3/cmm (130-400); Red Blood Count 3.84 10^6/uL (4.1-5.3); Red Cell Distribution Width 13.5 % (12.1-15.1); White Blood Count 7.8 10^3/uL (4.0-10.0)
[2021-06-14 13:09] LABS: Alanine Aminotransferase 56 U/L (0-41); Albumin Level 3.8 g/dL (3.5-5.2); Alkaline Phosphatase 122 IU/L (40-130); Anion Gap 18.5 (5-19); Aspartate Amino Transferase 42 U/L (0-40); Blood Urea Nitrogen 21 mg/dL (8-23); Calcium 9.1 mg/dL (8.5-10.5); Carbon Dioxide 21 mmol/L (22-29); Chloride 102 mmol/L (98-107); Globulin 2.3 g/dL (1.3-4.6); Glucose 89 mg/dL (65-115); Osmolality Calculated 288 mOsm/kg (285-295); Potassium 3.5 mmol/L (3.5-5.1); Sodium 138 mmol/L (136-145); Total Bilirubin 0.2 mg/dL (0.15-1.2); Total Protein 6.1 g/dL (6.6-8.7)
--- NOTE | 2021-06-18 08:23 | ONC FU_ITS ---
Dr. Mast Patient Follow-Up Note Patient: Conrad Llanos Unit #: [id number]: 1950 Dicatated By: Adrian Mast M.D.Date of Visit:Jun 14, 2021 Onc Med Follow-up/Prog Note Chief Complaint: Lymphoma/hypogammaglobulinemia. History of Present Illness: This is a 70 year-old man with transformed diffuse large B-cell lymphoma. He was also found to have severe hypogammaglobulinemia. He was initially diagnosed with grade 1-2/3 follicular lymphoma by left inguinal lymph node biopsy in 2008. His treatments included: rituximab monotherapy with partial response R-CHOP for 6 cycles, completed in August 2020 bendamustine/Rituxan for 4 cycles, completed in November 2011, reportedly with good response In April 2013 he was found to have diffuse hyperactive lymphadenopathy by PET/CT. A left inguinal lymph node biopsy on 05/11/2013 showed grade 1-2/3 follicular lymphoma estimated at 50%, grade 3 follicular lymphoma estimated at 10%, and sheets of necrotic cells which were highly suspicious for diffuse large B-cell lymphoma. Those cells were positive for PAX-5, CD20, and BCL-2, and they were negative for Ki-67. His disease was at least stage III. His subsequent treatment included: R-ESHAP x 2 and R-GIFOX x 2 followed by stem cell transplant in December 2013. Revlimid monotherapy for 3 cycles, tolerated poorly R-[place] Ox at 6-week intervals for a total of 9 cycles of R-[place] Ox, completed in July 2016 He then began maintenance rituximab. 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 He was maintained on chronic anticoagulation with fondaparinux. He had also required treatment for Clostridium difficile colitis, and he had been chronically anemic. Following his treatment in October 2016 his maintenance rituximab was put on hold, as he had been having recurrent/persistent Haemophilus influenza pneumonia, and that that point he was also found to have severe hypogammaglobulinemia. In December 2016 he began replacement IVIG, and he continued expectant management for the lymphoma. He had significant improvement in his performance status, but during that time he continued to have recurrent episodes of C. difficile colitis. Restaging PET/CT on 01/17/2018 showed widespread hypermetabolic lymphadenopathy from the head/neck level to the level of the pelvis. Involved areas included submandibular and jugulodigastric nodes bilaterally, axillary nodes bilaterally, superior mediastinal, right paratracheal, subcarinal, paraesophageal and left hilar lymph nodes, and prominent retroperitoneal and mesenteric lymph nodes. There was extension into the common iliac and bilateral pelvic, including inguinal and femoral nodes bilaterally. There was diffusely increased splenic activity consistent with lymphomatous involvement. Increased activity in thickened bilateral renal fascia also was strongly suspicious for lymphomatous infiltration. Right axillary lymph node biopsy on 02/02/2018 was consistent with follicular lymphoma, grade 3A. In March 2018 he began treatment with idelalisib 150 mg twice a day. It was stopped in October 2018 following a hospitalization for a febrile illness the preceding month. A specific cause for diagnosis was never determined, but it resulted in a significant decline in his performance status. He did show some improvement on empiric steroid therapy with prednisone. A cosyntropin stimulation test showed adequate adrenal response, but his baseline cortisol level was low. At that point his IVIG infusions were also put on hold, as he was having increasing side effects with him He then had further treatment with rituximab in combination with lenalidomide beignning in December 2018. It was stopped after 3 cycles due to poor tolerance for lenalidomide, even at reduced dosage (5mg). However, his restaging PET/CT on 03/27/2019 was consistent with a complete response to treatment, and he was then followed on expectant management. During subsequent follow-up he had complained of worsening cough. Chest x-ray on 09/17/2019 was unrevealing. However, sputum culture at that time grew moderate mixed upper respiratory cornelia. A repeat sputum culture on 01/06/2020 grew Pseudomonas aeruginosa. It was quinolone sensitive, but he was not able to be treated with oral therapy due to quinolone allergy. His chest CT on 02/10/2020 showed a new small left pleural effusion. There was evidence of soft tissue retrocrural thickening bilaterally in the area of treated lymphoma, possibly due to residual disease. It appeared slightly more prominent compared to the PET/CT from November 2018. The effusion was noted to be new. There was evidence of endobronchial tree in bud inflammatory disease in the right lower lobe. During this time, he was seen by Dr. Alicia for infectious disease consultation. He ultimately did [facility] and he also restarted replacement IVIG, but with weekly subcutaneous administration as opposed to monthly IV infusions, which he was able to tolerate better. Restaging PET/CT on 01/06/2021 showed extensive FDG positive lymph nodes from the level of the head/neck to the level of the pelvis, consistent with recurrent malignancy. A dominant, poorly defined central mesenteric mass measured 3.9 x 10.2 cm with SUV 25.4. An FDG positive focus in the proximal right femur was felt to be consistent with extranodal disease, SUV 6.1. There were similar but less prominent lesions present in the humeral heads bilaterally. An ultrasound directed core needle biopsy of the mesenteric mass was attempted on 02/20/2021, but there was no malignancy identified in the specimen. He was then seen for follow-up by Dr. Garner at [facility] on 04/12/2021. He was not eligible for clinical trial due to his renal function. As such, he was given the option to have a trial of therapy with the oral EZH2 inhibitor, tazemetostat. He was also recommended to see Dr. Schilling for consideration of CAR-T therapy. His other medical illnesses include GERD, chronic kidney disease, and depression. He is a nonsmoker. INTERIM HISTORY: Following his visit on 05/10/2021 he began treatment with tazemetostat at the standard dosage of 800 mg twice daily. Initially he had tolerated it well, but he then had to stop taking it due to severe diarrhea. With the diarrhea resolved, he tried going back on the medication at 400 mg twice daily, but it again caused severe diarrhea, and he then remained off treatment. He is seen now for a followup visit. He says his energy is not bad. He does have limited activity tolerance, but he is doing some exercising and some light work. ECOG score is 1. He has pretty good appetite. He has not had fever or night sweats. He has had some soreness on his tongue, and he is sensitive to specific foods, particularly tomatoes. He has not had sore throat or difficulty swallowing. He does not complain of cough, and he has not been having shortness of breath or chest pain. He has had abdominal cramping with the diarrhea, but since he has been off the tazemetostat the diarrhea is controlled. Bladder function remains the same. He has pain in his right knee and right hip. He has headaches. He has not been dizzy or lightheaded. He has no numbness/paresthesia or other focal neurologic symptoms. Medications: Acetaminophen Extra Strength Tablet Oral PRN, Amoxicillin-Pot Clavulanate 1 Tablet (of 875-125 mg) Oral b.i.d., Arixtra 7.5 mg (of 7.5 mg/0.6mL) Subcutaneous daily, Benzonatate 1 Capsule (of 200 mg) Oral t.i.d., Claritin 1 Tablet (of 10 mg) Oral daily, Dulcolax 1 Tablet (of 5 mg) Tablet, enteric coated Oral daily PRN, Latanoprost 1 Drop(s) (of 0.005 %) Solution Ophthalmic at bedtime, oxyCODONE HCl 5 mg (of 5 mg) Tablet Oral PRN, Potassium Chloride ER 1 Tablet (of 10 meq) Tablet, controlled release Oral daily on Every Other Day, predniSONE 1 Tablet (of 2.5 mg) Oral b.i.d., Prevacid 1 (30 mg) Capsule Delayed Release Oral daily, Promethazine HCl 1 - 2 tsp (of 6.25 mg/5mL) Syrup Oral q 6 to 8 hours PRN, Rivaroxaban 1 Tablet (of 20 mg) Oral daily, Timolol Hemihydrate 1 Drop(s) (of 0.5 %) Solution Ophthalmic b.i.d. Allergies: Ciprofloxacin HCl Vital Signs: Performed on Jun 14, 2021 14:08 Height - 71.00 in Weight - 177.2 lbs (LOW) BSA - 2.00 sq.m BMI - 24.71 Temperature - 98.0 F (LOW) Pulse - 102 /min (HIGH) Respiration - 18 /min BP - 129/68 mm(hg) O2 Sat - 98 % Pain - 5 Fatigue - 3 Physical Examination: Constitutional - He appears somewhat weak generally, Eyes - Sclerae nonicteric. Conjunctivae clear, ENMT - No lesions noted in the oral cavity, Hematologic/Lymphatic - I do not feel any cervical, clavicular, or axillary lymphadenopathy, Respiratory - Lungs sound clear, Cardiovascular - Heart rhythm is regular. There is no murmur, gallop, or rub noted, Abdomen - Soft. Liver and spleen are not enlarged. There is no abdominal mass or ascites noted. There is no inguinal adenopathy noted, Extremities - No edema, Neurologic - No focal neurologic deficits noted. Lab/Imaging: Test performed on Jun 14, 2021 12:20 Sodium 138 mmol/L Potassium 3.5 mmol/L Chloride 102 mmol/L CO2 21 mmol/L Anion Gap 18.5 BUN 21 mg/dL Creatinine 1.1 mg/dL Cr Clearance (Est) 70.03 mL/min Glucose 89 mg/dL Osmolality - Calculated 288 mOsm/kg Calcium 9.1 mg/dL Protein, Total 6.1 g/dL Albumin 3.8 g/dL Globulin 2.3 g/dL Bilirubin, Total 0.2 mg/dL ALT (SGPT) 56 U/L AST (SGOT) 42 U/L Alkaline Phosphatase 122 IU/L WBC 7.8 10 3/uL RBC 3.84 10 6/uL HGB 11.5 g/dL HCT 35.1 % MCV 91.4 fl MCH 29.9 pg MCHC 32.8 g/dL RDW 13.5 % Platelet Count 97 10 3/cmm MPV 10.5 fL Neutrophils 5.15 10 3/uL Lymphocytes 2.0 10 3/uL Monocytes 0.6 10 3/uL Eosinophils 0.1 10 3/uL Basophils 0.0 10 3/uL Neutrophil % 66.1 % Lymphocyte % 25.6 % Monocyte % 7.3 % Eosinophil % 0.6 % Basophils % 0.0 % NRBC % 0 % Problem List: 1. Grade 1-2/3 follicular lymphoma, at least stage III, initially diagnosed by left inguinal lymph node biopsy in 2008. 2. In April 2013 he was confirmed by left inguinal lymph node biopsy to have transformed diffuse large B-cell lymphoma. His disease was at least stage III. 3. He was found to have severe hypogammaglobulinemia, for which he began monthly replacement IVIG in December 2016. 4. He has had recurrent episodes of Clostridium difficile colitis. 5. 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 6. GERD. 7. Chronic anemia. 8. Chronic kidney disease. 9. Depression. Problems Addressed with this Encounter and Plan: 1. Patient with grade 1-2/3 follicular lymphoma, at least stage III, initially diagnosed by left inguinal lymph node biopsy in 2008. His treatments included: rituximab monotherapy R-CHOP for 6 cycles, completed in August 2020 bendamustine/Rituxan for 4 cycles, completed in November 2011 In April 2013 he was confirmed by left inguinal lymph node biopsy to have transformed diffuse large B-cell lymphoma. His disease was at least stage III. His subsequent treatment included: R-ESHAP x 2 and R-GIFOX x 2 followed by stem cell transplant in December 2013. Revlimid monotherapy for 3 cycles, tolerated poorly R-[place] Ox at 6-week intervals for a total of 9 cycles of R-[place] Ox, completed in July 2016 maintenance rituximab until October 2016, stopped due to persistent Haemophilus influenza respiratory tract infectiion idelalisib 150 mg twice a day from March 2018 until October 2018, stopped due to a decline in performance status following a febrile illness the preceding month rituximab in combination with lenalidomide beignning in December 2018, stopped after 3 cycles due to poor tolerance for lenalidomide, even at reduced dosage (5mg) His restaging PET/CT on 03/27/2019 was consistent with a complete response to treatment. He was then followed on expectant management. Restaging PET/CT on 01/06/2021 showed extensive FDG positive lymph nodes from the level of the head/neck to the level of the pelvis, consistent with recurrent malignancy. A dominant, poorly defined central mesenteric mass measured 3.9 x 10.2 cm with SUV 25.4. An FDG positive focus in the proximal right femur was felt to be consistent with extranodal disease, SUV 6.1. There were similar but less prominent lesions present in the humeral heads bilaterally. An ultrasound directed core needle biopsy of the mesenteric mass was attempted on 02/20/2021, but there was no malignancy identified in the specimen. He was then seen for follow-up by Dr. Garner at [facility] on 04/12/2021. He was given the option to have a trial of therapy with the oral EZH2 inhibitor, tazemetostat. Following his visit here on 05/10/2021 he began treatment with tazemetostat at the standard dosage of 800 mg twice daily. Initially he appeared to be tolerating it well, but he subsequently had to stop treatment due to diarrhea. The situation is complicated due to his having pre-existing chronic diarrhea, but he was unable to tolerate the tazemetostat even with the dosage reduced to 400 mg twice daily. Since he has been off treatment, the diarrhea has been adequately managed with colestipol. With limited options for further treatment, I am going to have him try the tazemetostat at least one more time at the 400 mg twice daily dosage, as further dose reductions are not recommended. I will tentatively plan a follow-up visit in 1 month. 2. He has severe hypogammaglobulinemia. He continues IVIG by subcutaneous infusion at the same dosage and schedule. 3. He had a significant decline in performance status following a hospital admission for febrile illness in September 2018. A specific cause for the illness was not determined, but he had symptomatic improvement with empiric steroid therapy. A cosyntropin stimulation test did show adequate adrenal response, but his baseline cortisol level was low. He has since then continued on maintenance prednisone, currently 5 mg twice daily. 4. He has a history of recurrent thromboembolism. He has been stable on chronic anticoagulation with fondaparinux, but he would like to change to an oral medication. [facility] get him transitioned to apixaban or rivaroxaban. Signed By: Adrian Mast M.D. <<Signature on File>>
== END 2021-06-14 11:57 | disposition home or self-care (01) ==
PROVIDERS: PCP Family Medicine; Visit Provider Internal Medicine Medical Oncology
DX: C83.35 Diffuse large B-cell lymphoma, lymph nodes of inguinal region and lower limb (principal); D80.1 Nonfamilial hypogammaglobulinemia; K21.9 Gastro-esophageal reflux disease without esophagitis; N18.9 Chronic kidney disease, unspecified; F32.A Depression, unspecified; Z79.899 Other long term (current) drug therapy; Z79.01 Long term (current) use of anticoagulants; Z86.711 Personal history of pulmonary embolism; Z86.718 Personal history of other venous thrombosis and embolism
CPT/HCPCS: 36591; 80053; 85025; 99215

== ENCOUNTER 2021-07-17 13:45 | Outpatient (CLI) | payer OTHER, SELFPAY ==
--- NOTE | 2021-07-17 14:43 | ONC FU_ITS ---
Clarice Eric Progress Note Patient: Conrad Llanos Unit #: [id number]: 1950 Dicatated By: Clarice Eric N.P.Date of Visit:Jul 17, 2021 Onc MED Follow-up/Prog Note Chief Complaint: Lymphoma/hypogammaglobulinemia. History of Present Illness: This is a 70 year-old man with transformed diffuse large B-cell lymphoma. He was also found to have severe hypogammaglobulinemia. He was initially diagnosed with grade 1-2/3 follicular lymphoma by left inguinal lymph node biopsy in 2008. His treatments included: rituximab monotherapy with partial response R-CHOP for 6 cycles, completed in August 2020 bendamustine/Rituxan for 4 cycles, completed in November 2011, reportedly with good response In April 2013 he was found to have diffuse hyperactive lymphadenopathy by PET/CT. A left inguinal lymph node biopsy on 05/11/2013 showed grade 1-2/3 follicular lymphoma estimated at 50%, grade 3 follicular lymphoma estimated at 10%, and sheets of necrotic cells which were highly suspicious for diffuse large B-cell lymphoma. Those cells were positive for PAX-5, CD20, and BCL-2, and they were negative for Ki-67. His disease was at least stage III. His subsequent treatment included: R-ESHAP x 2 and R-GIFOX x 2 followed by stem cell transplant in December 2013. Revlimid monotherapy for 3 cycles, tolerated poorly R-[place] Ox at 6-week intervals for a total of 9 cycles of R-[place] Ox, completed in July 2016 He then began maintenance rituximab. 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 He was maintained on chronic anticoagulation with fondaparinux. He had also required treatment for Clostridium difficile colitis, and he had been chronically anemic. Following his treatment in October 2016 his maintenance rituximab was put on hold, as he had been having recurrent/persistent Haemophilus influenza pneumonia, and that that point he was also found to have severe hypogammaglobulinemia. In December 2016 he began replacement IVIG, and he continued expectant management for the lymphoma. He had significant improvement in his performance status, but during that time he continued to have recurrent episodes of C. difficile colitis. Restaging PET/CT on 01/17/2018 showed widespread hypermetabolic lymphadenopathy from the head/neck level to the level of the pelvis. Involved areas included submandibular and jugulodigastric nodes bilaterally, axillary nodes bilaterally, superior mediastinal, right paratracheal, subcarinal, paraesophageal and left hilar lymph nodes, and prominent retroperitoneal and mesenteric lymph nodes. There was extension into the common iliac and bilateral pelvic, including inguinal and femoral nodes bilaterally. There was diffusely increased splenic activity consistent with lymphomatous involvement. Increased activity in thickened bilateral renal fascia also was strongly suspicious for lymphomatous infiltration. Right axillary lymph node biopsy on 02/02/2018 was consistent with follicular lymphoma, grade 3A. In March 2018 he began treatment with idelalisib 150 mg twice a day. It was stopped in October 2018 following a hospitalization for a febrile illness the preceding month. A specific cause for diagnosis was never determined, but it resulted in a significant decline in his performance status. He did show some improvement on empiric steroid therapy with prednisone. A cosyntropin stimulation test showed adequate adrenal response, but his baseline cortisol level was low. At that point his IVIG infusions were also put on hold, as he was having increasing side effects with him He then had further treatment with rituximab in combination with lenalidomide beignning in December 2018. It was stopped after 3 cycles due to poor tolerance for lenalidomide, even at reduced dosage (5mg). However, his restaging PET/CT on 03/27/2019 was consistent with a complete response to treatment, and he was then followed on expectant management. During subsequent follow-up he had complained of worsening cough. Chest x-ray on 09/17/2019 was unrevealing. However, sputum culture at that time grew moderate mixed upper respiratory cornelia. A repeat sputum culture on 01/06/2020 grew Pseudomonas aeruginosa. It was quinolone sensitive, but he was not able to be treated with oral therapy due to quinolone allergy. His chest CT on 02/10/2020 showed a new small left pleural effusion. There was evidence of soft tissue retrocrural thickening bilaterally in the area of treated lymphoma, possibly due to residual disease. It appeared slightly more prominent compared to the PET/CT from November 2018. The effusion was noted to be new. There was evidence of endobronchial tree in bud inflammatory disease in the right lower lobe. During this time, he was seen by Dr. Alicia for infectious disease consultation. He ultimately did [facility] and he also restarted replacement IVIG, but with weekly subcutaneous administration as opposed to monthly IV infusions, which he was able to tolerate better. Restaging PET/CT on 01/06/2021 showed extensive FDG positive lymph nodes from the level of the head/neck to the level of the pelvis, consistent with recurrent malignancy. A dominant, poorly defined central mesenteric mass measured 3.9 x 10.2 cm with SUV 25.4. An FDG positive focus in the proximal right femur was felt to be consistent with extranodal disease, SUV 6.1. There were similar but less prominent lesions present in the humeral heads bilaterally. An ultrasound directed core needle biopsy of the mesenteric mass was attempted on 02/20/2021, but there was no malignancy identified in the specimen. He was then seen for follow-up by Dr. Garner at [facility] on 04/12/2021. He was not eligible for clinical trial due to his renal function. As such, he was given the option to have a trial of therapy with the oral EZH2 inhibitor, tazemetostat. He was also recommended to see Dr. Schilling for consideration of CAR-T therapy. His other medical illnesses include GERD, chronic kidney disease, and depression. He is a nonsmoker. INTERIM HISTORY: Following his visit on 05/10/2021 he began treatment with tazemetostat at the standard dosage of 800 mg twice daily. Initially he had tolerated it well, but he then had to stop taking it due to severe diarrhea. With the diarrhea resolved, he tried going back on the medication at 400 mg twice daily, but it again caused severe diarrhea, and he then remained off treatment. Patient presents today accompanied by his for follow-up. He states he has been feeling well. He has been having a good appetite. No shortness of breath, cough, chest pain. He is having right knee pain that radiates into the hip. This is a chronic condition and he has been wearing a knee brace and also having to use a cane for ambulation. His diarrhea has been well controlled since stopping tazemetostat. He initially was prescribed tazemetostat at 800 mg twice daily but due to diarrhea it was decreased to 400 mg twice daily and eventually had to be stopped. After diarrhea subsided it was decided to try tazemetostat again at 400 mg twice daily. Review Of Symptoms: See above. Past Medical History: Anemia C. difficile colitis Chronic kidney disease Depression Gastroesophageal reflux disease Lower extremity deep vein thrombosis and pulmonary emboli Non-Hodgkin's lymphoma Past Surgical History: Cholecystectomy Partial replacement of the right knee Cancer cell removal in 2018 Left hip bone biopsy in 2018 Under right arm lymphnode biopsy in 2018 Lymph node biopsy under right arm in 2018 Stem cell transplant in 2013 Surgery for facial injuries in 2009 Left inguinal node biopsy in 2008 Cataract excision from the right eye in 1994 Partial bowel resection for shrapnel injury in 1968 Allergies: Ciprofloxacin HCl Medications: Acetaminophen Extra Strength Tablet Oral PRN Amoxicillin-Pot Clavulanate 1 Tablet (of 875-125 mg) Oral b.i.d. Arixtra 7.5 mg (of 7.5 mg/0.6mL) Subcutaneous daily Benzonatate 1 Capsule (of 200 mg) Oral t.i.d. Claritin 1 Tablet (of 10 mg) Oral daily Dulcolax 1 Tablet (of 5 mg) Tablet, enteric coated Oral daily PRN Latanoprost 1 Drop(s) (of 0.005 %) Solution Ophthalmic at bedtime oxyCODONE HCl 5 mg (of 5 mg) Tablet Oral PRN Potassium Chloride ER 1 Tablet (of 10 meq) Tablet, controlled release Oral daily on Every Other Day predniSONE 1 Tablet (of 2.5 mg) Oral b.i.d. Prevacid 1 (30 mg) Capsule Delayed Release Oral daily Promethazine HCl 1 - 2 tsp (of 6.25 mg/5mL) Syrup Oral q 6 to 8 hours PRN Rivaroxaban 1 Tablet (of 20 mg) Oral daily Timolol Hemihydrate 1 Drop(s) (of 0.5 %) Solution Ophthalmic b.i.d. Family History: Mr. Llanos's mother at age 79: Parkinson's disease. Mr. Llanos's father at age 49: coronary artery disease, and heart attack, and squamous cell skin cancer. His paternal grandfather is : squamous cell skin cancer. Mr. Llanos has 2 brothers: 2 alive. Mr. Llanos's first brother's diabetes. He has 1 sister who is alive: diabetes. Father of heart attack age 49. Mother with Parkinson's disease at age 79. One brother and one sister have diabetes. Social History: Mr. Llanos is and he is retired. Mr. Llanos has never smoked. He has no history of drinking. He is a nonsmoker. He does not drink alcohol. Physical Examination: Performed on Jul 17, 2021 14:15: Height - 71.00 in, Weight - 182.0 lbs (HIGH), BSA - 2.03 sq.m, BMI - 25.38, Temperature - 98.2 F (LOW), Pulse - 110 /min (HIGH), Respiration - 18 /min, BP - 128/67 mm(hg), O2 Sat - 97 %, Pain - 7, and Fatigue - 8. Performance Status: 1 - No physically strenuous activity, but ambulatory and able to carry out light or sedentary work (e.g. office work, light house work). (ECOG) Constitutional Alert, cooperative, oriented. Mood and affect appropriate. Appears close to chronological age. Well nourished. Well developed. Head Normocephalic; no scars. ENMT Sinuses are nontender. No oral exudates, ulcers, masses, thrush or mucositis. Oropharynx clear. Tongue normal. Respiratory Lungs are clear to auscultation without rhonchi or wheezing. Cardiovascular Regular rate and rhythm of heart without murmurs, gallops or rubs. Abdomen Non-tender, non-distended, no masses, ascites or hepatosplenomegaly. Good bowel sounds. No guarding or rebound tenderness. Extremities No visible deformities, no cyanosis, clubbing or edema. Pulses 3+ and equal bilaterally. Musculoskeletal Tenderness right knee requiring brace and cane for ambulation Psychiatric Alert and oriented times three. Coherent speech. Verbalizes understanding of our discussions today. Laboratory: Test performed on Jun 14, 2021 12:20 Sodium 138 mmol/L Potassium 3.5 mmol/L Chloride 102 mmol/L CO2 21 mmol/L Anion Gap 18.5 BUN 21 mg/dL Creatinine 1.1 mg/dL Cr Clearance (Est) 70.03 mL/min Glucose 89 mg/dL Osmolality - Calculated 288 mOsm/kg Calcium 9.1 mg/dL Protein, Total 6.1 g/dL Albumin 3.8 g/dL Globulin 2.3 g/dL Bilirubin, Total 0.2 mg/dL ALT (SGPT) 56 U/L AST (SGOT) 42 U/L Alkaline Phosphatase 122 IU/L WBC 7.8 10 3/uL RBC 3.84 10 6/uL HGB 11.5 g/dL HCT 35.1 % MCV 91.4 fl MCH 29.9 pg MCHC 32.8 g/dL RDW 13.5 % Platelet Count 97 10 3/cmm MPV 10.5 fL Neutrophils 5.15 10 3/uL Lymphocytes 2.0 10 3/uL Monocytes 0.6 10 3/uL Eosinophils 0.1 10 3/uL Basophils 0.0 10 3/uL Neutrophil % 66.1 % Lymphocyte % 25.6 % Monocyte % 7.3 % Eosinophil % 0.6 % Basophils % 0.0 % NRBC % 0 % Test performed on May 10, 2021 14:29 NRBC 0 /100 WBC Impression: 1. Grade 1-2/3 follicular lymphoma, at least stage III, initially diagnosed by left inguinal lymph node biopsy in 2008. 2. In April 2013 he was confirmed by left inguinal lymph node biopsy to have transformed diffuse large B-cell lymphoma. His disease was at least stage III. 3. He was found to have severe hypogammaglobulinemia, for which he began monthly replacement IVIG in December 2016. 4. He has had recurrent episodes of Clostridium difficile colitis. 5. 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 6. GERD. 7. Chronic anemia. 8. Chronic kidney disease. 9. Depression. Plan: 1. Patient with grade 1-2/3 follicular lymphoma, at least stage III, initially diagnosed by left inguinal lymph node biopsy in 2008. His treatments included: rituximab monotherapy R-CHOP for 6 cycles, completed in August 2020 bendamustine/Rituxan for 4 cycles, completed in November 2011 In April 2013 he was confirmed by left inguinal lymph node biopsy to have transformed diffuse large B-cell lymphoma. His disease was at least stage III. His subsequent treatment included: R-ESHAP x 2 and R-GIFOX x 2 followed by stem cell transplant in December 2013. Revlimid monotherapy for 3 cycles, tolerated poorly R-[place] Ox at 6-week intervals for a total of 9 cycles of R-[place] Ox, completed in July 2016 maintenance rituximab until October 2016, stopped due to persistent Haemophilus influenza respiratory tract infectiion idelalisib 150 mg twice a day from March 2018 until October 2018, stopped due to a decline in performance status following a febrile illness the preceding month rituximab in combination with lenalidomide beignning in December 2018, stopped after 3 cycles due to poor tolerance for lenalidomide, even at reduced dosage (5mg) His restaging PET/CT on 03/27/2019 was consistent with a complete response to treatment. He was then followed on expectant management. Restaging PET/CT on 01/06/2021 showed extensive FDG positive lymph nodes from the level of the head/neck to the level of the pelvis, consistent with recurrent malignancy. A dominant, poorly defined central mesenteric mass measured 3.9 x 10.2 cm with SUV 25.4. An FDG positive focus in the proximal right femur was felt to be consistent with extranodal disease, SUV 6.1. There were similar but less prominent lesions present in the humeral heads bilaterally. An ultrasound directed core needle biopsy of the mesenteric mass was attempted on 02/20/2021, but there was no malignancy identified in the specimen. He was then seen for follow-up by Dr. Garner at [facility] on 04/12/2021. He was given the option to have a trial of therapy with the oral EZH2 inhibitor, tazemetostat. Following his visit here on 05/10/2021 he began treatment with tazemetostat at the standard dosage of 800 mg twice daily. Initially he appeared to be tolerating it well, but he subsequently had to stop treatment due to diarrhea. The situation is complicated due to his having pre-existing chronic diarrhea, but he was unable to tolerate the tazemetostat even with the dosage reduced to 400 mg twice daily. Since he has been off treatment, the diarrhea has been adequately managed with colestipol. Although the patient has had difficulty with the tazemetostat in the past including problems with diarrhea, it was restarted at 400 mg twice a day hoping that he would have a tolerance for at this time. At this point he is tolerating it well. He has chronic diarrhea and it is managed with colestipol. At this point the diarrhea has not became any worse since starting tazemetostat. We will continue at 400 mg twice a day and reevaluate him in 1 month. 2. He has severe hypogammaglobulinemia. He continues IVIG by subcutaneous infusion at the same dosage and schedule. 3. He had a significant decline in performance status following a hospital admission for febrile illness in September 2018. A specific cause for the illness was not determined, but he had symptomatic improvement with empiric steroid therapy. A cosyntropin stimulation test did show adequate adrenal response, but his baseline cortisol level was low. He has since then continued on maintenance prednisone, currently 5 mg twice daily. 4. He has a history of recurrent thromboembolism. He has been stable on chronic anticoagulation with fondaparinux, but he would like to change to an oral medication. [facility] and [facility] get him transitioned to apixaban or rivaroxaban. Signed By: Clarice Eric N.P. <<Signature on File>>
[2021-07-17 14:51] LABS: Basophils % 0.1 %; Eosinophils % 0.3 %; Hematocrit 36.2 % (42.0-52.0); Hemoglobin 11.3 g/dL (11.7-16.6); Lymphocytes # 1.8 10^3/uL (0.8-4.8); Lymphocytes % 24.3 %; Mean Corpuscular HGB Conc 31.2 g/dL (30.0-36.0); Mean Corpuscular Hemoglobin 28.3 pg (28.0-34.0); Mean Corpuscular Volume 90.7 fl (80-94); Mean Platelet Volume 11.1 fL (7.4-10.4); Neutrophils # 4.65 10^3/uL (1.8-7.7); Neutrophils % 61.6 %; Nucleated Red Blood Cells % 0 %; Platelet Count 71 10^3/cmm (130-400); Red Blood Count 3.99 10^6/uL (4.1-5.3); Red Cell Distribution Width 13.3 % (12.1-15.1); White Blood Count 7.5 10^3/uL (4.0-10.0)
[2021-07-17 15:42] LABS: Alanine Aminotransferase 22 U/L (0-41); Alkaline Phosphatase 120 IU/L (40-130); Aspartate Amino Transferase 29 U/L (0-40); Blood Urea Nitrogen 21 mg/dL (8-23); Calcium 10.8 mg/dL (8.5-10.5); Carbon Dioxide 26 mmol/L (22-29); Chloride 101 mmol/L (98-107); Globulin 2.2 g/dL (1.3-4.6); Glucose 98 mg/dL (65-115); Osmolality Calculated 289 mOsm/kg (285-295); Sodium 138 mmol/L (136-145); Total Bilirubin 0.3 mg/dL (0.15-1.2); Total Protein 6.2 g/dL (6.6-8.7)
[2021-07-17 15:44] LABS: Anion Gap 14.8 (5-19); Potassium 3.8 mmol/L (3.5-5.1)
== END 2021-07-17 13:46 | disposition home or self-care (01) ==
PROVIDERS: PCP Family Medicine; Visit Provider Nurse Practitioner Family
DX: D80.1 Nonfamilial hypogammaglobulinemia (principal); C82.90 Follicular lymphoma, unspecified, unspecified site; K21.9 Gastro-esophageal reflux disease without esophagitis; N18.9 Chronic kidney disease, unspecified; F32.A Depression, unspecified; Z79.899 Other long term (current) drug therapy
CPT/HCPCS: 36591; 80053; 85025; 99214

== ENCOUNTER 2021-07-24 12:57 | Outpatient (CLI) | payer OTHER, SELFPAY ==
[2021-07-24 13:39] LABS: Basophils % 0.1 %; Eosinophils % 0.2 %; Hematocrit 35.7 % (42.0-52.0); Hemoglobin 11.2 g/dL (11.7-16.6); Lymphocytes # 2.5 10^3/uL (0.8-4.8); Lymphocytes % 29.3 %; Mean Corpuscular HGB Conc 31.4 g/dL (30.0-36.0); Mean Corpuscular Hemoglobin 28.4 pg (28.0-34.0); Mean Corpuscular Volume 90.4 fl (80-94); Mean Platelet Volume 10.8 fL (7.4-10.4); Monocytes # 0.8 10^3/uL (0.2-0.9); Monocytes % 8.8 %; Neutrophils % 61.2 %; Nucleated Red Blood Cells % 0 %; Platelet Count 87 10^3/cmm (130-400); Red Blood Count 3.95 10^6/uL (4.1-5.3); Red Cell Distribution Width 13.5 % (12.1-15.1); White Blood Count 8.5 10^3/uL (4.0-10.0)
[2021-07-24 13:56] LABS: Alanine Aminotransferase 20 U/L (0-41); Albumin Level 3.8 g/dL (3.5-5.2); Alkaline Phosphatase 105 IU/L (40-130); Anion Gap 14.6 (5-19); Aspartate Amino Transferase 28 U/L (0-40); Blood Urea Nitrogen 21 mg/dL (8-23); Carbon Dioxide 26 mmol/L (22-29); Chloride 100 mmol/L (98-107); Globulin 2.3 g/dL (1.3-4.6); Glucose 109 mg/dL (65-115); Osmolality Calculated 288 mOsm/kg (285-295); Potassium 3.6 mmol/L (3.5-5.1); Sodium 137 mmol/L (136-145); Total Bilirubin 0.3 mg/dL (0.15-1.2); Total Protein 6.1 g/dL (6.6-8.7)
== END 2021-07-24 12:58 | disposition home or self-care (01) ==
LOC: ONCMED 13:01
PROVIDERS: PCP Family Medicine; Visit Provider Nurse Practitioner Family
DX: C83.30 Diffuse large B-cell lymphoma, unspecified site (principal); D80.1 Nonfamilial hypogammaglobulinemia
CPT/HCPCS: 36591; 80053; 85025

== ENCOUNTER 2021-07-30 10:36 | Outpatient (CLI) | payer OTHER, SELFPAY ==
[2021-07-30 11:10] LABS: Basophils % 0.3 %; Eosinophils % 0.4 %; Hematocrit 34.5 % (42.0-52.0); Hemoglobin 10.9 g/dL (11.7-16.6); Lymphocytes % 27.8 %; Mean Corpuscular HGB Conc 31.6 g/dL (30.0-36.0); Mean Corpuscular Volume 91.8 fl (80-94); Mean Platelet Volume 10.9 fL (7.4-10.4); Monocytes # 0.7 10^3/uL (0.2-0.9); Monocytes % 9.9 %; Neutrophils # 4.31 10^3/uL (1.8-7.7); Nucleated Red Blood Cells % 0 %; Platelet Count 86 10^3/cmm (130-400); Red Blood Count 3.76 10^6/uL (4.1-5.3); Red Cell Distribution Width 13.6 % (12.1-15.1); White Blood Count 7.1 10^3/uL (4.0-10.0)
== END 2021-07-30 10:37 | disposition home or self-care (01) ==
LOC: ONCMED 10:37
PROVIDERS: PCP Family Medicine; Visit Provider Internal Medicine Medical Oncology
DX: C83.35 Diffuse large B-cell lymphoma, lymph nodes of inguinal region and lower limb (principal); D80.1 Nonfamilial hypogammaglobulinemia; K21.9 Gastro-esophageal reflux disease without esophagitis; N18.9 Chronic kidney disease, unspecified; F32.A Depression, unspecified; Z79.899 Other long term (current) drug therapy
CPT/HCPCS: 36591; 85025

== ENCOUNTER 2021-08-07 13:47 | Outpatient (CLI) | payer OTHER, SELFPAY ==
[2021-08-07 14:59] LABS: Basophils % 0.2 %; Eosinophils % 0.5 %; Hematocrit 34.9 % (42.0-52.0); Lymphocytes # 2.7 10^3/uL (0.8-4.8); Lymphocytes % 32.5 %; Mean Corpuscular HGB Conc 31.5 g/dL (30.0-36.0); Mean Corpuscular Hemoglobin 28.9 pg (28.0-34.0); Mean Corpuscular Volume 91.6 fl (80-94); Mean Platelet Volume 10.9 fL (7.4-10.4); Monocytes # 0.8 10^3/uL (0.2-0.9); Monocytes % 9.6 %; Neutrophils # 4.62 10^3/uL (1.8-7.7); Neutrophils % 56.6 %; Nucleated Red Blood Cells % 0 %; Platelet Count 85 10^3/cmm (130-400); Red Blood Count 3.81 10^6/uL (4.1-5.3); Red Cell Distribution Width 14.2 % (12.1-15.1); White Blood Count 8.2 10^3/uL (4.0-10.0)
== END 2021-08-07 13:48 | disposition home or self-care (01) ==
PROVIDERS: PCP Family Medicine; Visit Provider Internal Medicine Medical Oncology
DX: C83.30 Diffuse large B-cell lymphoma, unspecified site (principal); D80.1 Nonfamilial hypogammaglobulinemia
CPT/HCPCS: 36591; 85025

== ENCOUNTER 2021-08-15 09:18 | Outpatient (CLI) | payer OTHER, SELFPAY ==
[2021-08-15 09:53] LABS: Basophils % 0.1 %; Eosinophils # 0.1 10^3/uL (0.0-0.8); Eosinophils % 1.1 %; Hematocrit 35.1 % (42.0-52.0); Hemoglobin 11.1 g/dL (11.7-16.6); Lymphocytes # 1.9 10^3/uL (0.8-4.8); Lymphocytes % 26.8 %; Mean Corpuscular HGB Conc 31.6 g/dL (30.0-36.0); Mean Corpuscular Hemoglobin 28.5 pg (28.0-34.0); Mean Platelet Volume 9.9 fL (7.4-10.4); Monocytes # 0.7 10^3/uL (0.2-0.9); Monocytes % 10.2 %; Neutrophils # 4.37 10^3/uL (1.8-7.7); Neutrophils % 61.2 %; Nucleated Red Blood Cells % 0 %; Platelet Count 75 10^3/cmm (130-400); Red Cell Distribution Width 14.8 % (12.1-15.1); White Blood Count 7.1 10^3/uL (4.0-10.0)
[2021-08-15 10:12] LABS: Alanine Aminotransferase 18 U/L (0-41); Alkaline Phosphatase 108 IU/L (40-130); Anion Gap 13.8 (5-19); Aspartate Amino Transferase 27 U/L (0-40); Blood Urea Nitrogen 23 mg/dL (8-23); Carbon Dioxide 25 mmol/L (22-29); Chloride 102 mmol/L (98-107); Globulin 2.4 g/dL (1.3-4.6); Glucose 91 mg/dL (65-115); Osmolality Calculated 287 mOsm/kg (285-295); Potassium 3.8 mmol/L (3.5-5.1); Sodium 137 mmol/L (136-145); Total Bilirubin 0.4 mg/dL (0.15-1.2); Total Protein 6.4 g/dL (6.6-8.7)
--- NOTE | 2021-08-19 10:30 | ONC FU_ITS ---
Dr. Mast Patient Follow-Up Note Patient: Conrad Llanos Unit #: [id number]: 1950 Dicatated By: Adrian Mast M.D.Date of Visit:Aug 15, 2021 Onc Med Follow-up/Prog Note Chief Complaint: Lymphoma/hypogammaglobulinemia. History of Present Illness: This is a 70 year-old man with transformed diffuse large B-cell lymphoma. He was also found to have severe hypogammaglobulinemia. He was initially diagnosed with grade 1-2/3 follicular lymphoma by left inguinal lymph node biopsy in 2008. His treatments included: rituximab monotherapy with partial response R-CHOP for 6 cycles, completed in August 2020 bendamustine/Rituxan for 4 cycles, completed in November 2011, reportedly with good response In April 2013 he was found to have diffuse hyperactive lymphadenopathy by PET/CT. A left inguinal lymph node biopsy on 05/11/2013 showed grade 1-2/3 follicular lymphoma estimated at 50%, grade 3 follicular lymphoma estimated at 10%, and sheets of necrotic cells which were highly suspicious for diffuse large B-cell lymphoma. Those cells were positive for PAX-5, CD20, and BCL-2, and they were negative for Ki-67. His disease was at least stage III. His subsequent treatment included: R-ESHAP x 2 and R-GIFOX x 2 followed by stem cell transplant in December 2013. Revlimid monotherapy for 3 cycles, tolerated poorly R-Willacy Ox at 6-week intervals for a total of 9 cycles of R-Willacy Ox, completed in July 2016 He then began maintenance rituximab. 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 He was maintained on chronic anticoagulation with fondaparinux. He had also required treatment for Clostridium difficile colitis, and he had been chronically anemic. Following his treatment in October 2016 his maintenance rituximab was put on hold, as he had been having recurrent/persistent Haemophilus influenza pneumonia, and that that point he was also found to have severe hypogammaglobulinemia. In December 2016 he began replacement IVIG, and he continued expectant management for the lymphoma. He had significant improvement in his performance status, but during that time he continued to have recurrent episodes of C. difficile colitis. Restaging PET/CT on 01/17/2018 showed widespread hypermetabolic lymphadenopathy from the head/neck level to the level of the pelvis. Involved areas included submandibular and jugulodigastric nodes bilaterally, axillary nodes bilaterally, superior mediastinal, right paratracheal, subcarinal, paraesophageal and left hilar lymph nodes, and prominent retroperitoneal and mesenteric lymph nodes. There was extension into the common iliac and bilateral pelvic, including inguinal and femoral nodes bilaterally. There was diffusely increased splenic activity consistent with lymphomatous involvement. Increased activity in thickened bilateral renal fascia also was strongly suspicious for lymphomatous infiltration. Right axillary lymph node biopsy on 02/02/2018 was consistent with follicular lymphoma, grade 3A. In March 2018 he began treatment with idelalisib 150 mg twice a day. It was stopped in October 2018 following a hospitalization for a febrile illness the preceding month. A specific cause for diagnosis was never determined, but it resulted in a significant decline in his performance status. He did show some improvement on empiric steroid therapy with prednisone. A cosyntropin stimulation test showed adequate adrenal response, but his baseline cortisol level was low. At that point his IVIG infusions were also put on hold, as he was having increasing side effects with him He then had further treatment with rituximab in combination with lenalidomide beignning in December 2018. It was stopped after 3 cycles due to poor tolerance for lenalidomide, even at reduced dosage (5mg). However, his restaging PET/CT on 03/27/2019 was consistent with a complete response to treatment, and he was then followed on expectant management. During subsequent follow-up he had complained of worsening cough. Chest x-ray on 09/17/2019 was unrevealing. However, sputum culture at that time grew moderate mixed upper respiratory cornelia. A repeat sputum culture on 01/06/2020 grew Pseudomonas aeruginosa. It was quinolone sensitive, but he was not able to be treated with oral therapy due to quinolone allergy. His chest CT on 02/10/2020 showed a new small left pleural effusion. There was evidence of soft tissue retrocrural thickening bilaterally in the area of treated lymphoma, possibly due to residual disease. It appeared slightly more prominent compared to the PET/CT from November 2018. The effusion was noted to be new. There was evidence of endobronchial tree in bud inflammatory disease in the right lower lobe. During this time, he was seen by Dr. Alicia for infectious disease consultation. He ultimately did [facility] and he also restarted replacement IVIG, but with weekly subcutaneous administration as opposed to monthly IV infusions, which he was able to tolerate better. Restaging PET/CT on 01/06/2021 showed extensive FDG positive lymph nodes from the level of the head/neck to the level of the pelvis, consistent with recurrent malignancy. A dominant, poorly defined central mesenteric mass measured 3.9 x 10.2 cm with SUV 25.4. An FDG positive focus in the proximal right femur was felt to be consistent with extranodal disease, SUV 6.1. There were similar but less prominent lesions present in the humeral heads bilaterally. An ultrasound directed core needle biopsy of the mesenteric mass was attempted on 02/20/2021, but there was no malignancy identified in the specimen. He was then seen for follow-up by Dr. Garner at [facility] on 04/12/2021. He was not eligible for clinical trial due to his renal function. As such, he was given the option to have a trial of therapy with the oral EZH2 inhibitor, tazemetostat. He was also recommended to see Dr. Schilling for consideration of CAR-T therapy. His other medical illnesses include GERD, chronic kidney disease, and depression. He is a nonsmoker. INTERIM HISTORY: Following his visit on 05/10/2021 he began treatment with tazemetostat at the standard dosage of 800 mg twice daily. Initially he had tolerated it well, but he then had to stop taking it due to severe diarrhea. With the diarrhea resolved, he tried going back on the medication at 400 mg twice daily. It again had to be stopped because of diarrhea, but ultimately he was able to restart it and tolerate it at a reduced dosage of 400 mg daily. He is seen for a follow-up visit. During follow-up he has continued to have some diarrhea, though manageable. Recently, though, he had reported having blood in his stool, enough that he was recommended to stop the apixaban. Since then he has continued to have some slight diarrhea, but with no further bleeding. He says his energy is low, but he is able to do some light work. ECOG score is 1. He has good appetite. He has no fever or night sweats. He complains that his tongue cherry like fire. He has had some soreness on the right side of his throat. He occasionally has a little cough. He does not complain of shortness of breath or chest pain. He has no other GI complaints. Bladder function remains adequate, though he does have enlarged prostate. He has had ongoing problems with his right knee. He has been prone to falling, but he also has issues with equilibrium. He has had some headaches, attributable to bad weather. He has no numbness/paresthesia or other focal neurologic symptoms. Medications: Acetaminophen Extra Strength Tablet Oral PRN, Colestipol HCl 4 Tablet (of 1 g) Oral daily, Cuvitru Subcutaneous Take as Directed, Latanoprost 1 Drop(s) (of 0.005 %) Solution Ophthalmic at bedtime, oxyCODONE HCl 5 mg (of 5 mg) Tablet Oral PRN, Potassium Chloride ER 1 Tablet (of 10 meq) Tablet, controlled release Oral daily, predniSONE 1 Tablet (of 10 mg) Oral daily, Prevacid 1 (30 mg) Capsule Delayed Release Oral daily, Tazverik 4 Tablet (of 200 mg) Oral daily, Timolol Hemihydrate 1 Drop(s) (of 0.5 %) Solution Ophthalmic b.i.d., Vitamin D 2 Tablet (of 25 mcg ) Oral daily, Zinc 1 Tablet (of 50 mg) Oral daily Allergies: Acyclovir, Ciprofloxacin HCl, and levoFLOXacin. Vital Signs: Performed on Aug 15, 2021 11:01 Height - 71.00 in BP - 144/80 mm(hg) (HIGH) Performed on Aug 15, 2021 11:01 Height - 71.00 in Weight - 179.4 lbs (LOW) BSA - 2.01 sq.m BMI - 25.02 Temperature - 97.7 F (LOW) Pulse - 99 /min Respiration - 18 /min BP - 149/70 mm(hg) (HIGH) O2 Sat - 97 % Pain - 5 Fatigue - 10 Physical Examination: Constitutional - He appears somewhat weak generally, Eyes - Sclerae nonicteric. Conjunctivae clear, ENMT - No lesions noted in the oral cavity, Hematologic/Lymphatic - No cervical, clavicular, or axillary adenopathy noted, Respiratory - Lungs sound clear, Cardiovascular - Heart rhythm is regular. There is no murmur, gallop, or rub noted, Abdomen - Soft. Liver and spleen are not enlarged. There is no abdominal mass or ascites noted. There is no inguinal adenopathy noted, Extremities - No edema, Neurologic - No focal neurologic deficits noted. Lab/Imaging: Test performed on Aug 15, 2021 09:45 Sodium 137 mmol/L Potassium 3.8 mmol/L Chloride 102 mmol/L CO2 25 mmol/L Anion Gap 13.8 BUN 23 mg/dL Creatinine 1.2 mg/dL Cr Clearance (Est) 64.99 mL/min Glucose 91 mg/dL Osmolality - Calculated 287 mOsm/kg Calcium 11.0 mg/dL Protein, Total 6.4 g/dL Albumin 4.0 g/dL Globulin 2.4 g/dL Bilirubin, Total 0.4 mg/dL ALT (SGPT) 18 U/L AST (SGOT) 27 U/L Alkaline Phosphatase 108 IU/L WBC 7.1 10 3/uL RBC 3.90 10 6/uL HGB 11.1 g/dL HCT 35.1 % MCV 90.0 fl MCH 28.5 pg MCHC 31.6 g/dL RDW 14.8 % Platelet Count 75 10 3/cmm MPV 9.9 fL Neutrophils 4.37 10 3/uL Lymphocytes 1.9 10 3/uL Monocytes 0.7 10 3/uL Eosinophils 0.1 10 3/uL Basophils 0.0 10 3/uL Neutrophil % 61.2 % Lymphocyte % 26.8 % Monocyte % 10.2 % Eosinophil % 1.1 % Basophils % 0.1 % NRBC % 0 % Problem List: 1. Grade 1-2/3 follicular lymphoma, at least stage III, initially diagnosed by left inguinal lymph node biopsy in 2008. 2. In April 2013 he was confirmed by left inguinal lymph node biopsy to have transformed diffuse large B-cell lymphoma. His disease was at least stage III. 3. He was found to have severe hypogammaglobulinemia, for which he began monthly replacement IVIG in December 2016. 4. He has had recurrent episodes of Clostridium difficile colitis. 5. 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 6. GERD. 7. Chronic anemia. 8. Chronic kidney disease. 9. Depression. Problems Addressed with this Encounter and Plan: 1. Patient with grade 1-2/3 follicular lymphoma, at least stage III, initially diagnosed by left inguinal lymph node biopsy in 2008. His treatments included: rituximab monotherapy R-CHOP for 6 cycles, completed in August 2020 bendamustine/Rituxan for 4 cycles, completed in November 2011 In April 2013 he was confirmed by left inguinal lymph node biopsy to have transformed diffuse large B-cell lymphoma. His disease was at least stage III. His subsequent treatment included: R-ESHAP x 2 and R-GIFOX x 2 followed by stem cell transplant in December 2013. Revlimid monotherapy for 3 cycles, tolerated poorly R-Willacy Ox at 6-week intervals for a total of 9 cycles of R-Willacy Ox, completed in July 2016 maintenance rituximab until October 2016, stopped due to persistent Haemophilus influenza respiratory tract infectiion idelalisib 150 mg twice a day from March 2018 until October 2018, stopped due to a decline in performance status following a febrile illness the preceding month rituximab in combination with lenalidomide beignning in December 2018, stopped after 3 cycles due to poor tolerance for lenalidomide, even at reduced dosage (5mg) His restaging PET/CT on 03/27/2019 was consistent with a complete response to treatment. He was then followed on expectant management. Restaging PET/CT on 01/06/2021 showed extensive FDG positive lymph nodes from the level of the head/neck to the level of the pelvis, consistent with recurrent malignancy. A dominant, poorly defined central mesenteric mass measured 3.9 x 10.2 cm with SUV 25.4. An FDG positive focus in the proximal right femur was felt to be consistent with extranodal disease, SUV 6.1. There were similar but less prominent lesions present in the humeral heads bilaterally. An ultrasound directed core needle biopsy of the mesenteric mass was attempted on 02/20/2021, but there was no malignancy identified in the specimen. He was then seen for follow-up by Dr. Garner at [facility] on 04/12/2021. He was given the option to have a trial of therapy with the oral EZH2 inhibitor, tazemetostat. Following his visit here on 05/10/2021 he began treatment with tazemetostat at the standard dosage of 800 mg twice daily. Initially he appeared to be tolerating it well, but he subsequently had to stop treatment due to diarrhea. The situation is complicated due to his having pre-existing chronic diarrhea, but he was unable to tolerate the tazemetostat even with the dosage reduced to 400 mg twice daily. Ultimately, he was able to tolerate it with the dosage reduced to 400 mg daily. Since then he has continued to have some diarrhea. He recently reported having significant amounts of blood in the stool, but that seems to have resolved after stopping apixaban. At least for now he will continue tazemetostat at 400 mg daily. He is scheduled to have a colonoscopy in the first week of August. Until then he will remain off anticoagulation. I will temporally plan a follow-up visit in 1 month. 2. He has severe hypogammaglobulinemia. He continues IVIG by subcutaneous infusion at the same dosage and schedule. 3. He had a significant decline in performance status following a hospital admission for febrile illness in September 2018. A specific cause for the illness was not determined, but he had symptomatic improvement with empiric steroid therapy. A cosyntropin stimulation test did show adequate adrenal response, but his baseline cortisol level was low. He has since then continued on maintenance prednisone at 5 mg twice daily. 4. He has a history of recurrent thromboembolism. He had been stable on chronic anticoagulation, previously with fondaparinux and more recently with apixaban. His anticoagulation is currently on hold. Signed By: Adrian Mast M.D. <<Signature on File>>
== END 2021-08-15 09:19 | disposition home or self-care (01) ==
PROVIDERS: PCP Family Medicine; Visit Provider Internal Medicine Medical Oncology
DX: C83.30 Diffuse large B-cell lymphoma, unspecified site (principal); D80.1 Nonfamilial hypogammaglobulinemia; Z79.899 Other long term (current) drug therapy
CPT/HCPCS: 36591; 80053; 85025; 99214

== ENCOUNTER 2021-08-21 12:29 | Outpatient (CLI) | payer OTHER, SELFPAY ==
[2021-08-21 13:02] LABS: Basophils % 0.1 %; Eosinophils % 0.3 %; Hematocrit 35.3 % (42.0-52.0); Hemoglobin 10.7 g/dL (11.7-16.6); Lymphocytes # 2.5 10^3/uL (0.8-4.8); Lymphocytes % 26.2 %; Mean Corpuscular HGB Conc 30.3 g/dL (30.0-36.0); Mean Corpuscular Hemoglobin 27.9 pg (28.0-34.0); Mean Corpuscular Volume 92.2 fl (80-94); Mean Platelet Volume 10.5 fL (7.4-10.4); Monocytes # 0.8 10^3/uL (0.2-0.9); Neutrophils # 6.21 10^3/uL (1.8-7.7); Neutrophils % 64.9 %; Nucleated Red Blood Cells % 0 %; Platelet Count 85 10^3/cmm (130-400); Red Blood Count 3.83 10^6/uL (4.1-5.3); Red Cell Distribution Width 15.3 % (12.1-15.1); White Blood Count 9.6 10^3/uL (4.0-10.0)
== END 2021-08-21 12:30 | disposition home or self-care (01) ==
PROVIDERS: PCP Family Medicine; Visit Provider Internal Medicine Medical Oncology
DX: D80.1 Nonfamilial hypogammaglobulinemia (principal)
CPT/HCPCS: 36591; 85025

== ENCOUNTER 2021-08-30 06:13 | Day surgery (SDC) | payer OTHER, SELFPAY ==
[2021-08-28 10:10] VITALS: BMI 24.4
[2021-08-30 06:31] VITALS: BP 146/81; PULSE 96; RESP 20; TEMP 36.3; O2SAT 98
--- NOTE | 2021-08-30 06:34 | W.PM.OPSUD ---
Surgery/Procedure H&P Update DATE OF PROCEDURE: August 30, 2021 DATE H&P PERFORMED: 08/01/21 H&P UPDATE INFORMATION: I have reviewed H&P completed within last 30 days, I have examined patient prior to procedure and No changes to prior documentation PREOP DIAGNOSIS: Bloody diarrhea PRIMARY INDICATION FOR PROCEDURE: The same PLANNED PROCEDURE: Operation Date: 08/30/21 07:30 Proposed Procedures p EGD [id number](Not Applicable) - Dat Bautista MD s Colonoscopy(Not Applicable) - Dat Bautista MD
[2021-08-30] MEDS: sodium chloride 0.9% 1,000 ML 30 ML IV (06:40)
--- NOTE | 2021-08-30 06:42 | ANES.PREANE2 ---
Pre-Anesthetic Assessment Height/Weight: Height 1.8 m Weight 79.379 kg Temp Pulse Resp BP Pulse Ox 97.4 F L 96 20 H 146/81 98 08/30/21 06:31 08/30/21 06:31 08/30/21 06:31 08/30/21 06:31 08/30/21 06:31 Preop Diagnosis: Bloody diarrhea Operation Date: 08/30/21 07:30 Proposed Procedures p EGD [id number](Not Applicable) - Dat Bautista MD s Colonoscopy(Not Applicable) - Dat Bautista MD Familial anesthetic complications: NOne Was Beta Luisa taken within 24 hours: N/A Was Clonidine taken within 24 hours: N/A Last intake: Intake Last Liquid Date 08/29/21 Last Liquid Time 21:30 Last Solid Date 08/28/21 Last Solid Time 18:00 Social No alcohol and No tobacco Exam alert, oriented x 3, clear to auscultation bilaterally and regular rate & rhythm Airway Mallampati: Class III Dentition: full Pulmonary None reported CV/HEM None reported GI Gastroesophageal Reflux Disease Metabolic NHL - prednisone Anesthetic Plan ASA status: 4 Anesthesia: MAC Risk of > 500 ml blood loss (7ml/kg in children): No Medications/Allergies Home Medications Medication Instructions Recorded Confirmed Last Taken Type lansoprazole 30 mg capsule,delayed 30 mg PO DAILY 02/01/20 08/28/21 08/29/21 History release (Prevacid) potassium chloride 10 mEq 10 meq PO DAILY 02/01/20 08/28/21 08/29/21 History capsule,extended release prednisone 5 mg tablet 10 mg PO DAILY 02/01/20 08/28/21 08/29/21 History oxycodone 5 mg capsule 5 mg PO DAILY PRN cap 07/05/20 08/30/21 08/24/21 History zinc 50 mg tablet 50 mg PO DAILY 07/05/20 08/28/21 08/29/21 History colestipol 1 gram tablet 1 g PO TID 02/16/21 08/28/21 08/28/21 History rivaroxaban 20 mg tablet 20 mg PO DAILY 02/19/21 08/28/21 08/14/21 History latanoprost 0.005 % eye drops 1 drp OPHTHALMIC (EYE) DAILY 03/06/21 08/28/21 08/28/21 History timolol 0.5 % eye drops 1 drp OPHTHALMIC (EYE) BID 03/06/21 08/28/21 08/28/21 History tazemetostat 200 mg tablet 400 mg PO BID tab 07/12/21 08/28/21 08/19/21 History Allergies Allergy/AdvReac Type Severity Reaction Status Date / Time acyclovir Allergy Severe swelling Verified 08/28/21 10:02 ciprofloxacin [From Cipro] Allergy Intermediate facial Verified 08/28/21 10:02 swelling levofloxacin [From Levaquin] Allergy Intermediate very Verified 08/28/21 10:02 sleepy, eyes irritated Current Medications Generic Name Dose Route Start Last Admin Trade Name Freq PRN Reason Stop Dose Admin Sodium Chloride 1,000 mls @ 30 mls/hr 08/30/21 06:30 08/30/21 06:40 Sodium Chloride 0.9% IV 08/31/21 06:29 30 mls/hr .Q24H FROILAN Administration PFSH Anesthesia Medical History Benign prostatic hyperplasia with lower urinary tract symptoms DVT (deep venous thrombosis) Elevated PSA Follicular lymphoma GERD (gastroesophageal reflux disease) Hiatal hernia Hypogammaglobulinaemia, unspecified Lymphoma Muscle injury Non-Hodgkin lymphoma Post traumatic stress disorder Pulmonary vascular disease Surgical History Autologous bone marrow transplantation status H/O abdominal surgery History of cholecystectomy History of eye surgery History of left knee replacement History of shoulder surgery Social History Smoking and tobacco status: never smoked Alcohol intake: never Lives independently: Yes Household members: spouse Marital status: Current occupational status: retired History of recent travel: No Data Anesthesia Cardiac Studies: No Data to Display
[2021-08-30 08:09] VITALS: BP 105/68; PULSE 96; RESP 12; TEMP 36.9; O2SAT 100
[2021-08-30 08:27] VITALS: BP 130/76; PULSE 86; RESP 16; O2SAT 97
--- NOTE | 2021-08-30 13:36 | ANE.PACU2 ---
Inpatient post-anesthesia follow up: Airway intact: Yes Vital signs: Temperature 98.4 F Pulse Rate 86 Respiratory Rate 16 Blood Pressure 130/76 Pulse Oximetry 97 Oxygen Delivery Me thod Room Air Oxygen Flow Rate 2 Fraction of Inspir ed Oxygen Hydration adequate: Yes Nausea and vomiting: No Pain level: 1 Mental status: Baseline
== END 2021-08-30 08:43 | disposition home or self-care (01) ==
PROVIDERS: PCP Family Medicine; Visit Provider Surgery
PROC: 0DJ08ZZ Inspection of Upper Intestinal Tract, Via Natural or Artificial Opening Endoscopic (ICD-10-PCS; CPT 43235; principal; 2021-08-30 07:30)
PROC: 0DJD8ZZ Inspection of Lower Intestinal Tract, Via Natural or Artificial Opening Endoscopic (ICD-10-PCS; CPT 45378; 2021-08-30 07:30)
DX: K62.5 Hemorrhage of anus and rectum (principal); D12.2 Benign neoplasm of ascending colon; K21.00 Gastro-esophageal reflux disease with esophagitis, without bleeding; K29.70 Gastritis, unspecified, without bleeding; K57.30 Diverticulosis of large intestine without perforation or abscess without bleeding; Z79.52 Long term (current) use of systemic steroids; N40.1 Benign prostatic hyperplasia with lower urinary tract symptoms
CPT/HCPCS: 43239; 45385; 82274; 83630; 87493; 87506; 88305; J2704; J7030

== ENCOUNTER 2021-09-04 13:40 | Outpatient (CLI) | payer OTHER, SELFPAY ==
[2021-09-04 14:23] LABS: Basophils % 0.1 %; Eosinophils % 0.5 %; Hematocrit 34.9 % (42.0-52.0); Hemoglobin 11.1 g/dL (11.7-16.6); Lymphocytes # 2.2 10^3/uL (0.8-4.8); Lymphocytes % 27.1 %; Mean Corpuscular HGB Conc 31.8 g/dL (30.0-36.0); Mean Corpuscular Hemoglobin 28.3 pg (28.0-34.0); Mean Platelet Volume 11.7 fL (7.4-10.4); Monocytes # 0.8 10^3/uL (0.2-0.9); Neutrophils % 61.8 %; Nucleated Red Blood Cells % 0 %; Platelet Count 126 10^3/cmm (130-400); Red Blood Count 3.92 10^6/uL (4.1-5.3); Red Cell Distribution Width 15.3 % (12.1-15.1); White Blood Count 7.9 10^3/uL (4.0-10.0)
[2021-09-04 14:45] LABS: Ferritin 52 ng/mL (30-400); Iron 33 ug/dL (59-158); Percent Saturation 8.6 % (20-50); Total Iron Binding Capacity 380 mcg/dl; Unsaturated Iron Binding 347 ug/dL (112-347)
[2021-09-04 15:01] LABS: Vitamin B12 450 pg/mL (232-1245)
== END 2021-09-04 13:41 | disposition home or self-care (01) ==
LOC: ONCMED 13:43
PROVIDERS: PCP Family Medicine; Visit Provider Internal Medicine Medical Oncology
DX: C83.35 Diffuse large B-cell lymphoma, lymph nodes of inguinal region and lower limb (principal); D80.1 Nonfamilial hypogammaglobulinemia; K21.9 Gastro-esophageal reflux disease without esophagitis; D64.9 Anemia, unspecified; N18.9 Chronic kidney disease, unspecified; F32.A Depression, unspecified; Z79.01 Long term (current) use of anticoagulants
CPT/HCPCS: 36591; 82607; 82728; 83540; 83550; 85025; 87070; 87077; 87186

== ENCOUNTER → 2021-09-13 14:38 | Outpatient (BNVA) | payer OTHER, SELFPAY | PROVIDERS: PCP Family Medicine; Visit Provider Surgery | DX: Z09 Encounter for follow-up examination after completed treatment for conditions other than malignant neoplasm (principal); K57.90 Diverticulosis of intestine, part unspecified, without perforation or abscess without bleeding; K63.5 Polyp of colon; K29.70 Gastritis, unspecified, without bleeding | CPT/HCPCS: 99213 ==

== ENCOUNTER 2021-09-18 13:21 | Outpatient (CLI) | payer OTHER, SELFPAY ==
[2021-09-18 14:29] LABS: Basophils % 0.2 %; Eosinophils % 0.5 %; Hematocrit 36.4 % (42.0-52.0); Hemoglobin 11.1 g/dL (11.7-16.6); Lymphocytes # 2.5 10^3/uL (0.8-4.8); Lymphocytes % 38.3 %; Mean Corpuscular HGB Conc 30.5 g/dL (30.0-36.0); Mean Corpuscular Volume 91.7 fl (80-94); Monocytes # 1.1 10^3/uL (0.2-0.9); Monocytes % 16.3 %; Neutrophils # 2.87 10^3/uL (1.8-7.7); Neutrophils % 44.1 %; Nucleated Red Blood Cells % 0 %; Platelet Count 78 10^3/cmm (130-400); Red Blood Count 3.97 10^6/uL (4.1-5.3); Red Cell Distribution Width 14.7 % (12.1-15.1); White Blood Count 6.5 10^3/uL (4.0-10.0)
[2021-09-18 14:45] LABS: Alanine Aminotransferase 24 U/L (0-41); Alkaline Phosphatase 123 IU/L (40-130); Anion Gap 17.7 (5-19); Aspartate Amino Transferase 34 U/L (0-40); Blood Urea Nitrogen 23 mg/dL (8-23); Calcium 10.7 mg/dL (8.5-10.5); Carbon Dioxide 26 mmol/L (22-29); Chloride 97 mmol/L (98-107); Globulin 2.6 g/dL (1.3-4.6); Glucose 91 mg/dL (65-115); Lactate Dehydrogenase 146 U/L (135-225); Osmolality Calculated 287 mOsm/kg (285-295); Potassium 3.7 mmol/L (3.5-5.1); Sodium 137 mmol/L (136-145); Total Bilirubin 0.3 mg/dL (0.15-1.2); Total Protein 6.6 g/dL (6.6-8.7)
[2021-09-18 15:34] LABS: 25 Hydroxy Vitamin D 50 ng/mL (30-100)
--- NOTE | 2021-09-18 20:09 | ONC FU_ITS ---
Clarice Eric Progress Note Patient: Conrad Llanos Unit #: [id number]: 1950 Dicatated By: Clarice Eric N.P.Date of Visit:Sep 18, 2021 Onc MED Follow-up/Prog Note Chief Complaint: Lymphoma/hypogammaglobulinemia. History of Present Illness: This is a 70 year-old man with transformed diffuse large B-cell lymphoma. He was also found to have severe hypogammaglobulinemia. He was initially diagnosed with grade 1-2/3 follicular lymphoma by left inguinal lymph node biopsy in 2008. His treatments included: rituximab monotherapy with partial response R-CHOP for 6 cycles, completed in August 2020 bendamustine/Rituxan for 4 cycles, completed in November 2011, reportedly with good response In April 2013 he was found to have diffuse hyperactive lymphadenopathy by PET/CT. A left inguinal lymph node biopsy on 05/11/2013 showed grade 1-2/3 follicular lymphoma estimated at 50%, grade 3 follicular lymphoma estimated at 10%, and sheets of necrotic cells which were highly suspicious for diffuse large B-cell lymphoma. Those cells were positive for PAX-5, CD20, and BCL-2, and they were negative for Ki-67. His disease was at least stage III. His subsequent treatment included: R-ESHAP x 2 and R-GIFOX x 2 followed by stem cell transplant in December 2013. Revlimid monotherapy for 3 cycles, tolerated poorly R-Rusk Ox at 6-week intervals for a total of 9 cycles of R-Rusk Ox, completed in July 2016 He then began maintenance rituximab. 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 He was maintained on chronic anticoagulation with fondaparinux. He had also required treatment for Clostridium difficile colitis, and he had been chronically anemic. Following his treatment in October 2016 his maintenance rituximab was put on hold, as he had been having recurrent/persistent Haemophilus influenza pneumonia, and that that point he was also found to have severe hypogammaglobulinemia. In December 2016 he began replacement IVIG, and he continued expectant management for the lymphoma. He had significant improvement in his performance status, but during that time he continued to have recurrent episodes of C. difficile colitis. Restaging PET/CT on 01/17/2018 showed widespread hypermetabolic lymphadenopathy from the head/neck level to the level of the pelvis. Involved areas included submandibular and jugulodigastric nodes bilaterally, axillary nodes bilaterally, superior mediastinal, right paratracheal, subcarinal, paraesophageal and left hilar lymph nodes, and prominent retroperitoneal and mesenteric lymph nodes. There was extension into the common iliac and bilateral pelvic, including inguinal and femoral nodes bilaterally. There was diffusely increased splenic activity consistent with lymphomatous involvement. Increased activity in thickened bilateral renal fascia also was strongly suspicious for lymphomatous infiltration. Right axillary lymph node biopsy on 02/02/2018 was consistent with follicular lymphoma, grade 3A. In March 2018 he began treatment with idelalisib 150 mg twice a day. It was stopped in October 2018 following a hospitalization for a febrile illness the preceding month. A specific cause for diagnosis was never determined, but it resulted in a significant decline in his performance status. He did show some improvement on empiric steroid therapy with prednisone. A cosyntropin stimulation test showed adequate adrenal response, but his baseline cortisol level was low. At that point his IVIG infusions were also put on hold, as he was having increasing side effects with him He then had further treatment with rituximab in combination with lenalidomide beignning in December 2018. It was stopped after 3 cycles due to poor tolerance for lenalidomide, even at reduced dosage (5mg). However, his restaging PET/CT on 03/27/2019 was consistent with a complete response to treatment, and he was then followed on expectant management. During subsequent follow-up he had complained of worsening cough. Chest x-ray on 09/17/2019 was unrevealing. However, sputum culture at that time grew moderate mixed upper respiratory cornelia. A repeat sputum culture on 01/06/2020 grew Pseudomonas aeruginosa. It was quinolone sensitive, but he was not able to be treated with oral therapy due to quinolone allergy. His chest CT on 02/10/2020 showed a new small left pleural effusion. There was evidence of soft tissue retrocrural thickening bilaterally in the area of treated lymphoma, possibly due to residual disease. It appeared slightly more prominent compared to the PET/CT from November 2018. The effusion was noted to be new. There was evidence of endobronchial tree in bud inflammatory disease in the right lower lobe. During this time, he was seen by Dr. Alicia for infectious disease consultation. He ultimately [facility] and he also restarted replacement IVIG, but with weekly subcutaneous administration as opposed to monthly IV infusions, which he was able to tolerate better. Restaging PET/CT on 01/06/2021 showed extensive FDG positive lymph nodes from the level of the head/neck to the level of the pelvis, consistent with recurrent malignancy. A dominant, poorly defined central mesenteric mass measured 3.9 x 10.2 cm with SUV 25.4. An FDG positive focus in the proximal right femur was felt to be consistent with extranodal disease, SUV 6.1. There were similar but less prominent lesions present in the humeral heads bilaterally. An ultrasound directed core needle biopsy of the mesenteric mass was attempted on 02/20/2021, but there was no malignancy identified in the specimen. He was then seen for follow-up by Dr. Garner at [facility] on 04/12/2021. He was not eligible for clinical trial due to his renal function. As such, he was given the option to have a trial of therapy with the oral EZH2 inhibitor, tazemetostat. He was also recommended to see Dr. Schilling for consideration of CAR-T therapy. His other medical illnesses include GERD, chronic kidney disease, and depression. He is a nonsmoker. INTERIM HISTORY: Following his visit on 05/10/2021 he began treatment with tazemetostat at the standard dosage of 800 mg twice daily. Initially he had tolerated it well, but he then had to stop taking it due to severe diarrhea. With the diarrhea resolved, he tried going back on the medication at 400 mg twice daily. It again had to be stopped because of diarrhea, but ultimately he was able to restart it and tolerate it at a reduced dosage of 400 mg daily. Patient presents today for follow-up. He had continued to have bloody diarrhea and was tested for C. difficile which was positive. He was started on vancomycin 125 mg p.o. daily x30 days. He currently has 11 days of therapy left. He also had a colonoscopy and an EGD performed by Dr. Bautista on 08/30/2021. He had been on Xarelto 10 mg p.o. daily which was put on hold due to the bleeding. He has been having increased fatigue. His appetite is good. He denies fever, chills, night sweats. No sinus drainage or mouth sores. No shortness of breath or wheezing. He has a cough on and off it is usually worse in the morning but subsides during the day. He has had no nausea or vomiting. His diarrhea has decreased to 1 or 2 times per day and he has occasional abdominal cramping. He has right knee pain and is planning to have a total knee replacement in the future. It is very painful and at times his knee gives out and he falls. He does currently use a cane for ambulation. He denies headaches or dizziness. No numbness or tingling. Review Of Symptoms: See above Past Medical History: Anemia C. difficile colitis Chronic kidney disease Depression Gastroesophageal reflux disease Lower extremity deep vein thrombosis and pulmonary emboli Non-Hodgkin's lymphoma Past Surgical History: Cholecystectomy Partial replacement of the right knee Cancer cell removal in 2018 Left hip bone biopsy in 2018 Under right arm lymphnode biopsy in 2018 Lymph node biopsy under right arm in 2018 Stem cell transplant in 2013 Surgery for facial injuries in 2009 Left inguinal node biopsy in 2008 Cataract excision from the right eye in 1994 Partial bowel resection for shrapnel injury in 1968 Allergies: Acyclovir, Ciprofloxacin HCl, and levoFLOXacin. Medications: Acetaminophen Extra Strength Tablet Oral PRN Colestipol HCl 4 Tablet (of 1 g) Oral daily Cuvitru Subcutaneous Take as Directed Latanoprost 1 Drop(s) (of 0.005 %) Solution Ophthalmic at bedtime oxyCODONE HCl 5 mg (of 5 mg) Tablet Oral PRN Pantoprazole Sodium 1 Tablet (of 40 mg) Tablet, enteric coated Oral daily Potassium Chloride ER 1 Tablet (of 10 meq) Tablet, controlled release Oral daily predniSONE 1 Tablet (of 10 mg) Oral daily Prevacid 1 (30 mg) Capsule Delayed Release Oral daily Tazverik 4 Tablet (of 200 mg) Oral daily Timolol Hemihydrate 1 Drop(s) (of 0.5 %) Solution Ophthalmic b.i.d. Vancomycin HCl 1 Capsule (of 125 mg) Oral four times a day for 11 days Vitamin D 2 Tablet (of 25 mcg ) Oral daily Zinc 1 Tablet (of 50 mg) Oral daily Family History: Mr. Valderramas mother at age 79: Parkinson's disease. Mr. Valderramas father at age 49: coronary artery disease, and heart attack, and squamous cell skin cancer. His paternal grandfather is : squamous cell skin cancer. Mr. Llanos has 2 brothers: 2 alive. Mr. Llanos's first brother's diabetes. He has 1 sister who is alive: diabetes. Father of heart attack age 49. Mother with Parkinson's disease at age 79. One brother and one sister have diabetes. Social History: Mr. Llanos is and he is retired. Mr. Llanos has never smoked. He has no history of drinking. He is a nonsmoker. He does not drink alcohol. Physical Examination: Performed on Sep 18, 2021 14:59: Height - 71.00 in, Weight - 176.4 lbs (LOW), BSA - 2.00 sq.m, BMI - 24.60, Temperature - 97.7 F (LOW), Pulse - 104 /min (HIGH), Respiration - 18 /min, BP - 146/79 mm(hg) (HIGH), O2 Sat - 97 %, Pain - 8, and Fatigue - 8. Performance Status: 1 - No physically strenuous activity, but ambulatory and able to carry out light or sedentary work (e.g. office work, light house work). (ECOG) Constitutional Alert, cooperative, oriented. Mood and affect appropriate. Appears close to chronological age. Well nourished. Well developed. Head Normocephalic; no scars. Respiratory Lungs are clear to auscultation without rhonchi or wheezing. Cardiovascular Regular rate and rhythm of heart without murmurs, gallops or rubs. Abdomen Non-tender, non-distended, no masses, ascites or hepatosplenomegaly. Good bowel sounds. No guarding or rebound tenderness. Extremities No visible deformities, no cyanosis, clubbing or edema. Pulses 3+ and equal bilaterally. Musculoskeletal No tenderness or swelling, normal range of motion without obvious weakness. Psychiatric Alert and oriented times three. Coherent speech. Verbalizes understanding of our discussions today. Laboratory: Test performed on Sep 18, 2021 14:00 LDH (Total) 146 U/L Sodium 137 mmol/L Vitamin D (25-Hydroxy), Total 50 ng/mL Potassium 3.7 mmol/L Chloride 97 mmol/L CO2 26 mmol/L Anion Gap 17.7 BUN 23 mg/dL Creatinine 1.4 mg/dL Cr Clearance (Est) 54.77 mL/min Glucose 91 mg/dL Osmolality - Calculated 287 mOsm/kg Calcium 10.7 mg/dL Protein, Total 6.6 g/dL Albumin 4.0 g/dL Globulin 2.6 g/dL Bilirubin, Total 0.3 mg/dL ALT (SGPT) 24 U/L AST (SGOT) 34 U/L Alkaline Phosphatase 123 IU/L WBC 6.5 10 3/uL RBC 3.97 10 6/uL HGB 11.1 g/dL HCT 36.4 % MCV 91.7 fl MCH 28.0 pg MCHC 30.5 g/dL RDW 14.7 % Platelet Count 78 10 3/cmm MPV 11.0 fL Neutrophils 2.87 10 3/uL Lymphocytes 2.5 10 3/uL Monocytes 1.1 10 3/uL Eosinophils 0.0 10 3/uL Basophils 0.0 10 3/uL Neutrophil % 44.1 % Lymphocyte % 38.3 % Monocyte % 16.3 % Eosinophil % 0.5 % Basophils % 0.2 % NRBC % 0 % Test performed on Sep 04, 2021 14:10 Ferritin 52 ng/mL Iron 33 mcg/dL Vitamin B12 450 pg/mL Iron Binding Capacity (TIBC) 380 mcg/dl % Iron Saturation 8.6 % UIBC 347 mcg/dL Test performed on Sep 04, 2021 00:00 Sputum Culture O:MORMOR MORMOR Sputum Culture G Sputum Culture F Amikacin Amoxicillin/Clavulanate Ampicillin Ampicillin/Sulbactam Aztreonam Cefepime Ceftriaxone Cefuroxime Ciprofloxacin Gentamicin Imipenem Levofloxacin Tetracycline Tobramycin Trimethoprim/Sulfamethoxazole Piperacillin/Tazobactam Test performed on May 10, 2021 14:29 NRBC 0 /100 WBC Impression: 1. Grade 1-2/3 follicular lymphoma, at least stage III, initially diagnosed by left inguinal lymph node biopsy in 2008. 2. In April 2013 he was confirmed by left inguinal lymph node biopsy to have transformed diffuse large B-cell lymphoma. His disease was at least stage III. 3. He was found to have severe hypogammaglobulinemia, for which he began monthly replacement IVIG in December 2016. 4. He has had recurrent episodes of Clostridium difficile colitis. 5. 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 6. GERD. 7. Chronic anemia. 8. Chronic kidney disease. 9. Depression. Plan: 1. Patient with grade 1-2/3 follicular lymphoma, at least stage III, initially diagnosed by left inguinal lymph node biopsy in 2008. His treatments included: rituximab monotherapy R-CHOP for 6 cycles, completed in August 2020 bendamustine/Rituxan for 4 cycles, completed in November 2011 In April 2013 he was confirmed by left inguinal lymph node biopsy to have transformed diffuse large B-cell lymphoma. His disease was at least stage III. His subsequent treatment included: R-ESHAP x 2 and R-GIFOX x 2 followed by stem cell transplant in December 2013. Revlimid monotherapy for 3 cycles, tolerated poorly R-Rusk Ox at 6-week intervals for a total of 9 cycles of R-Rusk Ox, completed in July 2016 maintenance rituximab until October 2016, stopped due to persistent Haemophilus influenza respiratory tract infectiion idelalisib 150 mg twice a day from March 2018 until October 2018, stopped due to a decline in performance status following a febrile illness the preceding month rituximab in combination with lenalidomide beignning in December 2018, stopped after 3 cycles due to poor tolerance for lenalidomide, even at reduced dosage (5mg) His restaging PET/CT on 03/27/2019 was consistent with a complete response to treatment. He was then followed on expectant management. Restaging PET/CT on 01/06/2021 showed extensive FDG positive lymph nodes from the level of the head/neck to the level of the pelvis, consistent with recurrent malignancy. A dominant, poorly defined central mesenteric mass measured 3.9 x 10.2 cm with SUV 25.4. An FDG positive focus in the proximal right femur was felt to be consistent with extranodal disease, SUV 6.1. There were similar but less prominent lesions present in the humeral heads bilaterally. An ultrasound directed core needle biopsy of the mesenteric mass was attempted on 02/20/2021, but there was no malignancy identified in the specimen. He was then seen for follow-up by Dr. Garner at [facility] on 04/12/2021. He was given the option to have a trial of therapy with the oral EZH2 inhibitor, tazemetostat. Following his visit here on 05/10/2021 he began treatment with tazemetostat at the standard dosage of 800 mg twice daily. Initially he appeared to be tolerating it well, but he subsequently had to stop treatment due to diarrhea. The situation is complicated due to his having pre-existing chronic diarrhea, but he was unable to tolerate the tazemetostat even with the dosage reduced to 400 mg twice daily. It was then further decreased to 400 mg daily. Patient started having bloody diarrhea so his tazemetostat was put on hold along with his Xarelto. He was diagnosed with C. difficile and was started on vancomycin 125 mg p.o. daily x30 days. He has 11 days left of therapy with the vancomycin. He will return to the clinic in 4 weeks and possibly restart tazemetostat at 400 mg p.o. daily if diarrhea has been resolved. He had a colonoscopy and EGD performed by Dr. Bautista on 08/30/2021. It was determined on EGD that he had reflux esophagitis, GERD, intraluminal gastric blood, and gastritis. The colonoscopy showed a semipedunculated polyp in the proximal ascending colon and was excised by cold snare. In the distal sigmoid colon a single small diverticulum was present. There was no active bleeding noted in the colon. Due to the cough and sputum culture was obtained which indicated Morganella. It is highly resistant to many antibiotics. Because patient has no other symptoms other than a slight cough that comes and goes and because he is currently being treated for C. difficile we will just monitor for now. It was recommended that he take Claritin for possible allergies related to the cough. 2. He has severe hypogammaglobulinemia. He continues IVIG by subcutaneous infusion at the same dosage and schedule. 3. He had a significant decline in performance status following a hospital admission for febrile illness in September 2018. A specific cause for the illness was not determined, but he had symptomatic improvement with empiric steroid therapy. A cosyntropin stimulation test did show adequate adrenal response, but his baseline cortisol level was low. He has since then continued on maintenance prednisone at 5 mg twice daily. 4. He has a history of recurrent thromboembolism. He had been stable on chronic anticoagulation, previously with fondaparinux and more recently with Xarelto his anticoagulation therapy will be restarted today with Xarelto at 2.5 mg p.o. at bedtime. Signed By: Clarice Eric N.P. <<Signature on File>>
== END 2021-09-18 13:22 | disposition home or self-care (01) ==
LOC: ONCMED 13:23
PROVIDERS: PCP Family Medicine; Visit Provider Nurse Practitioner Family
DX: C83.35 Diffuse large B-cell lymphoma, lymph nodes of inguinal region and lower limb (principal); D80.1 Nonfamilial hypogammaglobulinemia; K21.9 Gastro-esophageal reflux disease without esophagitis; D64.9 Anemia, unspecified; N18.9 Chronic kidney disease, unspecified; F32.A Depression, unspecified; Z79.01 Long term (current) use of anticoagulants
CPT/HCPCS: 36415; 80053; 82306; 83615; 85025; 99215

== ENCOUNTER 2021-10-18 12:00 | Oncology outpatient (recurring) (ONCR) | payer OTHER, SELFPAY ==
[2021-10-10 14:56] LABS: Basophils % 0.1 %; Eosinophils % 0.1 %; Hematocrit 38.6 % (42.0-52.0); Hemoglobin 12.4 g/dL (11.7-16.6); Lymphocytes # 2.6 10^3/uL (0.8-4.8); Lymphocytes % 33.9 %; Mean Corpuscular HGB Conc 32.1 g/dL (30.0-36.0); Mean Corpuscular Hemoglobin 29.7 pg (28.0-34.0); Mean Corpuscular Volume 92.3 fl (80-94); Mean Platelet Volume 11.8 fL (7.4-10.4); Monocytes % 12.8 %; Neutrophils # 3.98 10^3/uL (1.8-7.7); Neutrophils % 52.3 %; Nucleated Red Blood Cells % 0 %; Platelet Count 81 10^3/cmm (130-400); Red Blood Count 4.18 10^6/uL (4.1-5.3); Red Cell Distribution Width 15.9 % (12.1-15.1); White Blood Count 7.6 10^3/uL (4.0-10.0)
[2021-10-10 15:16] LABS: Erythrocyte Sedimentation Rate 3 mm/hr (0-10)
[2021-10-10 15:26] LABS: Alanine Aminotransferase 20 U/L (0-41); Albumin Level 3.8 g/dL (3.5-5.2); Alkaline Phosphatase 106 IU/L (40-130); Anion Gap 16.5 (5-19); Aspartate Amino Transferase 23 U/L (0-40); Blood Urea Nitrogen 21 mg/dL (8-23); Calcium 11.8 mg/dL (8.5-10.5); Carbon Dioxide 26 mmol/L (22-29); Chloride 100 mmol/L (98-107); Globulin 1.8 g/dL (1.3-4.6); Glucose 98 mg/dL (65-115); Lactate Dehydrogenase 121 U/L (135-225); Osmolality Calculated 291 mOsm/kg (285-295); Potassium 3.5 mmol/L (3.5-5.1); Sodium 139 mmol/L (136-145); Total Bilirubin 0.3 mg/dL (0.15-1.2); Total Protein 5.6 g/dL (6.6-8.7)
== END 2021-10-23 23:59 | disposition home or self-care (01) ==
PROVIDERS: PCP Family Medicine; Visit Provider Internal Medicine Medical Oncology
DX: Z53.9 Procedure and treatment not carried out, unspecified reason (principal)
CPT/HCPCS: 36591; 80053; 83615; 85025; 85651; 99215; 99999

== ENCOUNTER → 2021-10-31 11:34 | Day surgery (SDC) | payer OTHER, SELFPAY ==
[2021-10-31 12:07] VITALS: BP 133/78; PULSE 82; RESP 18; TEMP 36.5; O2SAT 98
[2021-10-31] MEDS: cefepime 2,000 MG in sodium chloride 0.9% (plus) 50 ML 100 MG IV (12:26)
== END ==
PROVIDERS: PCP Family Medicine; Visit Provider Internal Medicine Medical Oncology
DX: J18.9 Pneumonia, unspecified organism (principal)
CPT/HCPCS: 96365; J0692

== ENCOUNTER 2021-11-22 11:49 | Oncology outpatient (recurring) (ONCR) | payer OTHER, SELFPAY ==
[2021-11-22 12:30] LABS: Basophils % 0.1 %; Eosinophils % 0.1 %; Hemoglobin 13.7 g/dL (11.7-16.6); Lymphocytes % 21.4 %; Mean Corpuscular HGB Conc 33.4 g/dL (30.0-36.0); Mean Corpuscular Hemoglobin 30.6 pg (28.0-34.0); Mean Corpuscular Volume 91.7 fl (80-94); Mean Platelet Volume 11.4 fL (7.4-10.4); Monocytes # 1.1 10^3/uL (0.2-0.9); Monocytes % 11.2 %; Neutrophils # 6.27 10^3/uL (1.8-7.7); Nucleated Red Blood Cells % 0 %; Platelet Count 80 10^3/cmm (130-400); Red Blood Count 4.47 10^6/uL (4.1-5.3); Red Cell Distribution Width 13.8 % (12.1-15.1); White Blood Count 9.5 10^3/uL (4.0-10.0)
[2021-11-22 13:21] LABS: Alanine Aminotransferase 38 U/L (0-41); Albumin Level 3.8 g/dL (3.5-5.2); Alkaline Phosphatase 112 IU/L (40-130); Blood Urea Nitrogen 23 mg/dL (8-23); Calcium 10.8 mg/dL (8.5-10.5); Carbon Dioxide 26 mmol/L (22-29); Chloride 97 mmol/L (98-107); Glucose 93 mg/dL (65-115); Osmolality Calculated 283 mOsm/kg (285-295); Sodium 135 mmol/L (136-145); Total Bilirubin 0.3 mg/dL (0.15-1.2); Total Protein 5.8 g/dL (6.6-8.7)
[2021-11-22 13:25] LABS: Aspartate Amino Transferase 32 U/L (0-40); Lactate Dehydrogenase 199 U/L (135-225)
== END 2021-11-22 23:59 | disposition home or self-care (01) ==
PROVIDERS: Nurse Practitioner Family; PCP Family Medicine; Visit Provider Internal Medicine Medical Oncology
DX: C82.30 Follicular lymphoma grade IIIa, unspecified site (principal); D80.1 Nonfamilial hypogammaglobulinemia; J15.9 Unspecified bacterial pneumonia; D50.0 Iron deficiency anemia secondary to blood loss (chronic); D69.6 Thrombocytopenia, unspecified; E83.52 Hypercalcemia
CPT/HCPCS: 36591; 80053; 83615; 85025; 99214

== ENCOUNTER 2021-12-07 08:39 | Oncology outpatient (recurring) (ONCR) | payer OTHER, SELFPAY | END 2021-12-23 23:59 | disposition home or self-care (01) | PROVIDERS: PCP Family Medicine; Visit Provider Internal Medicine Medical Oncology | DX: A04.71 Enterocolitis due to Clostridium difficile, recurrent (principal) | CPT/HCPCS: 87070; 87077; 87186; 87493 ==

== ENCOUNTER 2022-01-04 10:54 | Oncology outpatient (recurring) (ONCR) | payer OTHER, SELFPAY ==
[2021-12-24 13:11] LABS: Basophils % 0.1 %; Hematocrit 41.6 % (42.0-52.0); Hemoglobin 13.7 g/dL (11.7-16.6); Lymphocytes # 1.9 10^3/uL (0.8-4.8); Lymphocytes % 26.8 %; Mean Corpuscular HGB Conc 32.9 g/dL (30.0-36.0); Mean Corpuscular Hemoglobin 30.8 pg (28.0-34.0); Mean Corpuscular Volume 93.5 fl (80-94); Mean Platelet Volume 12.2 fL (7.4-10.4); Monocytes # 0.7 10^3/uL (0.2-0.9); Monocytes % 9.3 %; Neutrophils # 4.32 10^3/uL (1.8-7.7); Neutrophils % 62.1 %; Nucleated Red Blood Cells % 0 %; Platelet Count 72 10^3/cmm (130-400); Red Blood Count 4.45 10^6/uL (4.1-5.3); Red Cell Distribution Width 13.9 % (12.1-15.1)
[2021-12-24 13:31] LABS: Alanine Aminotransferase 58 U/L (0-41); Albumin Level 3.7 g/dL (3.5-5.2); Alkaline Phosphatase 122 IU/L (40-130); Aspartate Amino Transferase 33 U/L (0-40); Blood Urea Nitrogen 24 mg/dL (8-23); Calcium 11.3 mg/dL (8.5-10.5); Carbon Dioxide 26 mmol/L (22-29); Chloride 100 mmol/L (98-107); Glucose 122 mg/dL (65-115); Osmolality Calculated 285 mOsm/kg (285-295); Sodium 135 mmol/L (136-145); Total Bilirubin 0.3 mg/dL (0.15-1.2); Total Protein 5.7 g/dL (6.6-8.7)
[2021-12-24 13:42] LABS: Anion Gap 13.2 (5-19); Lactate Dehydrogenase 219 U/L (135-225); Potassium 4.2 mmol/L (3.5-5.1)
== END 2022-01-23 23:59 | disposition home or self-care (01) ==
PROVIDERS: Nurse Practitioner Family; PCP Family Medicine; Visit Provider Internal Medicine Medical Oncology
DX: C82.30 Follicular lymphoma grade IIIa, unspecified site (principal); J15.9 Unspecified bacterial pneumonia
CPT/HCPCS: 36591; 80053; 83615; 85025; 87070; 87077; 87186; 99214; 99215

== ENCOUNTER 2022-01-26 08:20 | Inpatient (IN) | payer OTHER, MEDICARE, SELFPAY ==
[2022-01-26] VITALS (35 sets, daily range): BP systolic 90–152; BP diastolic 57–84; PULSE 78–137; RESP 0–25; TEMP 36.4–38.6; O2SAT 93–100; BMI 24.7; BMI 24.3
--- NOTE | 2022-01-26 08:39 | CTR_ITS ---
PROCEDURE INFORMATION: Exam: CT Head Without Contrast Exam date and time: 01/26/2022 9:09 AM Age: 71 years old Clinical indication: Injury or trauma; Fall; Blunt trauma (contusions or hematomas); Prior surgery; Surgery date: 6+ months; Surgery type: Trauma from 1968; Patient HX: Lymphoma; Additional info: Fall closed head injury anticoagulants TECHNIQUE: Imaging protocol: Computed tomography of the head without contrast. Radiation optimization: All CT scans at this facility use at least one of these dose optimization techniques: automated exposure control; mA and/or kV adjustment per patient size (includes targeted exams where dose is matched to clinical indication); or iterative reconstruction. COMPARISON: CT head wo con* [id number] 09/20/2018 6:44 PM RADIATION DOSE METRICS: Total DLP (mGy-cm): 1067.3 FINDINGS: Brain: There is generalized brain parenchymal atrophy related to the patient's age. Unchanged moderate nonspecific white matter changes are seen, consistent with small vessel disease. Unchanged bilateral inferior frontal low-attenuation areas are seen. There are no intracranial masses, mass effect or midline shift. There is no cerebral edema. There is no subarachnoid hemorrhage. There are no intra-or extra-axial fluid collections, intraventricular or intraparenchymal hemorrhage. No definite areas of low attenuation or bucio-white matter junction obscuration seen on the noncontrast CT to suggest definite subacute stroke - although the white matter disease limits assessment. Unchanged bilateral vertebral intracranial atherosclerotic vascular calcifications are seen. Cerebral ventricles: The lateral, third and fourth ventricles appear unremarkable. The suprasellar and basilar cisterns appear unremarkable. Paranasal sinuses: The visualized sinuses are unremarkable. Postsurgical changes of the right anterior maxillary sinus region are seen. Mastoid air cells: The visualized mastoids are unremarkable. Orbital cavities: The visualized orbits are unremarkable. Bones/joints: No definite acute osseous or skull abnormalities seen. Soft tissues: Unremarkable. Notes: If there is further clinical concern for intracranial pathology, MRI of the brain may be performed for further assessment. CT/CT head wo con* [id number] IMPRESSION: 1. No noncontrast CT evidence of acute posttraumatic intracranial abnormality.
--- NOTE | 2022-01-26 08:56 | ECG_ITS ---
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 Measurements Intervals [place] Rate: 103 P: 47 FL: 147 QRS: -21 QRSD: 77 T: 52 QT: 283 QTc: 371 Interpretive Statements SINUS TACHYCARDIA WITH OCCASIONAL VENTRICULAR PREMATURE COMPLEXES POSSIBLE LEFT ATRIAL ENLARGEMENT [-0.1mV P-WAVE IN V1/V2] BORDERLINE LEFT AXIS DEVIATION [QRS AXIS < -20] LOW QRS VOLTAGE IN PRECORDIAL LEADS POSSIBLE LEFT VENTRICULAR HYPERTROPHY Compared to ECG 09/20/2018 22:21:41 Ventricular premature complex(es) now present Low QRS voltage now present Sinus rhythm no longer present Electronically Signed On 01-26-2022 13:13:12 CDT by Natividad Alvarez M.D. [email or web address]
--- NOTE | 2022-01-26 08:59 | ED_ITS ---
HPI - Fall General: Chief Complaint: ER Hold Stated Complaint: WEAKNESS; FALL Time Seen by Provider: 01/26/22 08:39 Source: patient Mode of arrival: ambulatory History of Present Illness: 71-year-old male with history of Hodgkin's lymphoma. Has been increasingly weak and falling frequently the last 2 days unable to bear weight. He is on Eliquis. Fell yesterday and hit his head, no LOC. He denies chest pain denies fever sweats chills abdominal pain dysuria urgency or frequency no hematochezia melena hematemesis or coffee-ground emesis no excessive shortness of breath. He is still getting treatment for his lymphoma he is getting immunoglobulins. MD complaint: fall Onset (ago): day(s) (2) Fall from: standing Place fall occurred: home Loss of consciousness: None Prolonged down time: no Symptoms prior to fall: none Location of injury: head and other Associated symptoms-after fall: Reports difficulty walking, lightheadedness and weakness; Denies abdominal pain Review of Systems ENMT: Denies: throat pain, ear or mastoid pain, nasal discharge or nasal congestion Card: Reports: lightheadedness Resp: Denies: dyspnea, productive cough or non-productive cough GI: Denies: abdominal pain, nausea, vomiting, hematemesis, coffee ground emesis, diarrhea, constipation, bloating, hematochezia or melena : Denies: flank pain, dysuria, urinary frequency or urinary urgency Skin/Breast: Denies: rash or pruritus Neuro: Reports: difficulty walking PFSH ED PFSH: Medical History Benign prostatic hyperplasia with lower urinary tract symptoms Chronic kidney disease Elevated PSA 4-5 range with benign feeling, 3+ prostate. 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 History of follicular lymphoma (2008) grade 1-2 follicular lymphoma History of pulmonary embolism History of recurrent deep vein thrombosis (DVT) Hypogammaglobulinaemia, unspecified Port-A-Cath in place (Unknown) Post traumatic stress disorder Primary osteoarthritis of right knee Recurrent bacterial pneumonia Recurrent colitis due to Clostridioides difficile Thrombocytopenia Surgical History Autologous bone marrow transplantation status H/O abdominal surgery H/O lymph node biopsy multiple lymph node biopsies History of cholecystectomy History of colonoscopy (08/30/21) History of esophagogastroduodenoscopy (08/30/21) History of eye surgery History of left knee replacement History of shoulder surgery Family History Father , AT AGE 49 CAD (coronary artery disease) Mother , AT AGE 79 Dementia Other Cancer Clotting disorder Denies family history of Diabetes Hyperlipidemia Psychiatric illness Chronic kidney disease (CKD) Suicide Anesthesia complication Bleeding disorder Lung disease Hypertension Stroke Social History Smoking and tobacco status: never smoked Alcohol intake: never Lives independently: Yes Household members: spouse Marital status: Current occupational status: retired History of recent travel: No Physical Exam Const: COMMON NORMALS: no acute distress GENERAL APPEARANCE: cooperative and comfortable ORIENTATION/CONSCIOUSNESS: Yes awake, Yes oriented to person, Yes oriented to place and Yes oriented to time HENMT: COMMON NORMALS: normocephalic, atraumatic, hearing grossly normal bilaterally, external ears normal, EAC's normal, TM's normal bilaterally, Normal nasal mucous membranes and turbinates present, moist oral mucous membranes and oropharynx normal HEAD & SCALP: normocephalic and atraumatic NOSE: Normal nasal mucous membranes and turbinates present EXTERNAL EAR: Yes external ears normal EXTERNAL AUDITORY CANAL: EAC's normal TYMPANIC MEMBRANE: TM's normal bilaterally Eye: COMMON NORMALS: Equal, round and reactive pupils present, EOMs intact bilaterally, conjunctivae normal and no scleral icterus CONJUNCTIVA: Yes conjunctivae normal PUPIL: Yes Equal, round and reactive pupils present Neck/C-Spine: COMMON NORMALS: full ROM, supple and no JVD Resp: COMMON NORMALS: normal respiratory effort, No retractions, No use of accessory muscles and clear to auscultation bilaterally AUSCULTATION: clear to auscultation bilaterally Cardio: COMMON NORMALS: no JVD, regular rate, regular rhythm and No murmurs present (Cardio) RATE: regular rate RHYTHM: regular rhythm GI: COMMON NORMALS: Soft to palpation and No hepatosplenomegaly present AUSCULTATION: Yes normoactive bowel sounds PALPATION: Yes Soft to palpation, No Tenderness to palpation present (GI), No Guarding due to palpation present (GI) and Yes No hepatosplenomegaly present Extremity: COMMON NORMALS: normal to inspection, capillary refill normal, no clubbing, cyanosis or edema, no calf tenderness and no pedal edema Neuro: SENSORIUM/ORIENTATION: Yes oriented to person, Yes oriented to place and Yes oriented to time Skin: COMMON NORMALS: no rashes or lesions noted GENERAL SKIN EXAM: no rashes or lesions noted Course Vital Signs: Vital signs: Vital Signs Temperature 98.2 F 01/30/22 15:14 Pulse Rate 116 H 01/30/22 15:14 Respiratory Rate 18 01/30/22 15:14 Blood Pressure 138/82 01/30/22 15:14 Pulse Oximetry 95 01/30/22 15:14 Oxygen Delivery Me thod 01/30/22 12:00 MDM - Fall Medical Decision Making labs and imaging reviewed. Discused with pt. NASIMA and hypercalcemia. WEakness with inability to ambulate that is relatively new. Discussed with hospitalist and will admit. Orders written. Medical Records I reviewed the patient's medical records. Lab Data I reviewed the patient's lab results. : 01/30/22 05:33 01/30/22 05:[address] 01/26/22 08:39 IMPRESSION: 1. No noncontrast CT evidence of acute posttraumatic intracranial abnormality. Chest X-Ray 01/26/22 10:07 IMPRESSION: No chest radiographic evidence of acute cardiopulmonary disease. Renal Ultrasound 01/26/22 15:06 IMPRESSION: 1. Aqta-lx-wjvfxinv right hydronephrosis. 2. 6.8 x 5.8 x 6.3 cm postvoid urinary bladder with estimated volume 131 cc. 3. Echogenic right renal cortex compared to the liver consistent with moderate bilateral medical renal disease. Gallbladder Ultrasound 01/26/22 17:46 IMPRESSION: 1. Gallbladder is not visualized. 2. Mild right hydronephrosis suspected without obstructing lesion. Abdomen/Pelvis CT 01/27/22 13:14 IMPRESSION: 1. Chopra balloon catheter in the urinary bladder. 2. Interval appearance of 5 mm right mid ureteral stone at the level of L4-L5 with mild to moderate right hydronephrosis. 3. Increased moderate to severe mesenteric adenopathy with additional cemb-pd-jbzdekuc adenopathy in the inguinal/groin bilaterally, pelvis, retroperitoneum and upper abdomen/inferior thorax. Differential diagnosis includes lymphoma versus metastatic disease versus infectious process versus autoimmune disease. Pulmonary Perfusion Imaging 01/27/22 15:13 IMPRESSION: Low likelihood ratio for pulmonary embolism. KUB X-Ray 01/29/22 06:00 IMPRESSION: Nonobstructive bowel gas pattern. Mild constipation. ADDENDUM: 01/29/22 0708 The right ureteral calculus seen on the prior CT dated 01/27/2022 is not definitively visualized. This may be related to bowel gas. Head MRI 01/29/22 09:30 IMPRESSION: 1. No acute infarct or hemorrhage. 2. Progression of confluent periventricular ischemic type changes in the white matter. 3. Mild progression of the abnormal T2 and FLAIR signal abnormalities in the an terior inferior frontal lobes and the anterior RIGHT temporal lobe. Mild progression since 2019. Probably posttraumatic in etiology. 4. Mild small vessel ischemic disease in the elizabeth. 5. Study performed without IV contrast. Cannot exclude areas of enhancement. Laboratory Results WBC 9.2 10^3/uL (4.0-10.0) 01/26/22 08:50 RBC 4.80 10^6/uL (4.1-5.3) 01/26/22 08:50 Hgb 14.9 g/dL (11.7-16.6) 01/26/22 08:50 Hct 45.3 % (42.0-52.0) 01/26/22 08:50 MCV 94.4 fl (80-94) H 01/26/22 08:50 MCH 31.0 pg (28.0-34.0) 01/26/22 08:50 MCHC 32.9 g/dL (30.0-36.0) 01/26/22 08:50 RDW 13.2 % (12.1-15.1) 01/26/22 08:50 Plt Count 105 10^3/cmm (130-400) L 01/26/22 08:50 MPV 10.9 fL (7.4-10.4) H 01/26/22 08:50 Neut % (Auto) 54.6 % 01/26/22 08:50 Lymph % (Auto) 30.6 % 01/26/22 08:50 [place] % (Auto) 12.4 % 01/26/22 08:50 Eos % (Auto) 0.0 % 01/26/22 08:50 Baso % (Auto) 0.3 % 01/26/22 08:50 Neut # (Auto) 5.00 10^3/uL (1.8-7.7) 01/26/22 08:50 Lymph # (Auto) 2.8 10^3/uL (0.8-4.8) 01/26/22 08:50 [place] # (Auto) 1.1 10^3/uL (0.2-0.9) H 01/26/22 08:50 Eos # (Auto) 0.0 10^3/uL (0.0-0.8) 01/26/22 08:50 Baso # (Auto) 0.0 10^3/uL (0.0-0.1) 01/26/22 08:50 Nucleated RBC % (auto) 0 % 01/26/22 08:50 Nucleated RBCs # 0.0 /100WBC 01/26/22 08:50 Specimen Type Arterial 01/26/22 19:50 Sample Site Brachial, right 01/26/22 19:50 ABG pH 7.42 (7.35-7.45) 01/26/22 19:50 ABG pCO2 32.9 mmHg (35-45) L 01/26/22 19:50 ABG pO2 69.3 mmHg (80.0-100.0) L 01/26/22 19:50 ABG HCO3 21.3 mmol/L (22-26) L 01/26/22 19:50 ABG O2 Saturation 94.4 01/26/22 19:50 ABG Base Excess -2.3 mmol/L (-2.0-2.0) L 01/26/22 19:50 Kenny Test N/a 01/26/22 19:50 A-a O2 Gradient 5.1 mmHg (5-10) 01/26/22 19:50 Hematocrit 45.8 % (42-52) 01/26/22 19:50 Hgb O2 Saturation 92.2 % (95-100) L 01/26/22 19:50 Carboxyhemoglobin 1.6 %THgb (0.4-20.1) 01/26/22 19:50 Methemoglobin 0.7 % (0.4-1.5) 01/26/22 19:50 Total Hemoglobin 14.9 g/dL (14-18) 01/26/22 19:50 Sodium 135.0 mmol/L (131-143) 01/26/22 19:50 Potassium 4.3 mmol/L (3.5-5.0) 01/26/22 19:50 Glucose 103.0 mg/dL (70-115) 01/26/22 19:50 Ionized Calcium 1.6 mmol/L (1.1-1.4) H 01/26/22 19:50 O2 Delivery Device Room air 01/26/22 19:50 Internal Combustion Engine Assembler ID Hinja 01/26/22 19:50 Sodium 134 mmol/L (136-145) L 01/26/22 18:26 Potassium 4.4 mmol/L (3.5-5.1) 01/26/22 18:26 Chloride 99 mmol/L (98-107) 01/26/22 18:26 Carbon Dioxide 22 mmol/L (22-29) 01/26/22 18:26 Anion Gap 17.4 (5-19) 01/26/22 18:26 BUN 51 mg/dL (8-23) H 01/26/22 18:26 Creatinine 2.4 mg/dL (0.7-1.2) H 01/26/22 18:26 GFR Calculation Not Reportable 01/26/22 18:26 Glucose 98 mg/dL (65-115) 01/26/22 18:26 POC Glucose 104 mg/dL (70-110) 01/26/22 19:42 Calculated Osmolality 292 mOsm/kg (285-295) 01/26/22 18:26 Lactic Acid 2.6 mmol/L (0.5-2.2) H 01/26/22 08:30 Lactic Acid (Sepsis) 1.8 mmol/L (0.5-2.2) 01/26/22 12:27 Calcium 11.8 mg/dL (8.5-10.5) H 01/26/22 18:26 Phosphorus 3.2 mg/dL (2.5-4.5) 01/26/22 18:26 Total Bilirubin 0.5 mg/dL (0.15-1.2) 01/26/22 18:26 AST 49 U/L (0-40) H 01/26/22 18:26 ALT 86 U/L (0-41) H 01/26/22 18:26 Alkaline Phosphatase 241 U/L (40-130) H 01/26/22 18:26 Creatine Kinase 10 U/L (39-308) L 01/26/22 08:35 Troponin T Baseline 49 ng/L (0-15) H 01/26/22 08:30 Troponin T 120 Minute 51.42 ng/L (0-15) H 01/26/22 10:54 Delta Troponin T 2.42 ABS# (0-10) 01/26/22 10:54 Troponin T Hi Sens 6Hr 47.28 ng/L (0-15) H 01/26/22 14:48 Troponin T Hi Sens 6Hr Delta -1.72 ng/L (0-12) L 01/26/22 14:48 Total Protein 5.6 g/dL (6.6-8.7) L 01/26/22 18:26 Albumin 3.0 g/dL (3.5-5.2) L 01/26/22 18:26 Globulin 2.6 g/dL (1.3-4.6) 01/26/22 18:26 Lipase 38 U/L (13-60) 01/26/22 08:30 25-OH Vitamin D Total 42 ng/mL (30-100) 01/26/22 18:26 TSH 3.62 uIU/mL (0.27-4.20) 01/26/22 14:48 Urine Color Yellow (Yellow) 01/26/22 09:50 Urine Appearance Clear (CLEAR) 01/26/22 09:50 Urine pH 5 (5-7) 01/26/22 09:50 Ur Specific [place] 1.020 (1.005-1.030) 01/26/22 09:50 Urine Protein Trace (Negative) 01/26/22 09:50 Urine Glucose (UA) Norm (Normal) 01/26/22 09:50 Urine Ketones Negative (Negative) 01/26/22 09:50 Urine Blood 2+ (Negative) H 01/26/22 09:50 Urine Nitrate Negative (Negative) 01/26/22 09:50 Urine Bilirubin Neg (Negative) 01/26/22 09:50 Urine Urobilinogen Norm mg/dL (Negative) 01/26/22 09:50 Ur Leukocyte Esterase Negative (Negative) 01/26/22 09:50 Urine RBC 0-4 /hpf (0-2) H 01/26/22 09:50 Urine WBC 0-4 /hpf (0-5) H 01/26/22 09:50 Ur Squamous Epith Cells 0-4 /hpf (0-5) H 01/26/22 09:50 Amorphous Sediment 1+ /hpf 01/26/22 09:50 Urine Bacteria Trace /hpf (NONE) 01/26/22 09:50 Discharge Plan Discharge Patient Disposition: Admitted As Inpatient Admit Provider: Tristan Dumont Clinical Impression: Hypogammaglobulinaemia, unspecified, Follicular lymphoma grade 3a, Hypercalcemia, Fall, Acute kidney injury, Weakness Condition: Stable Discharge Diet: Usual diet Discharge Activity: Increase activity as tolerated Coding Level of Care Code ED Prototype Machine Operator for Lashaun Dueñas
[2022-01-26 09:10] LABS: Lactic Sepsis W/Reflex 2.6 mmol/L (0.5-2.2)
[2022-01-26 09:13] LABS: Basophils % 0.3 %; Hematocrit 45.3 % (42.0-52.0); Hemoglobin 14.9 g/dL (11.7-16.6); Lymphocytes # 2.8 10^3/uL (0.8-4.8); Lymphocytes % 30.6 %; Mean Corpuscular HGB Conc 32.9 g/dL (30.0-36.0); Mean Corpuscular Volume 94.4 fl (80-94); Mean Platelet Volume 10.9 fL (7.4-10.4); Monocytes # 1.1 10^3/uL (0.2-0.9); Monocytes % 12.4 %; Neutrophils % 54.6 %; Nucleated Red Blood Cells % 0 %; Platelet Count 105 10^3/cmm (130-400); Red Cell Distribution Width 13.2 % (12.1-15.1); White Blood Count 9.2 10^3/uL (4.0-10.0)
[2022-01-26 09:17] LABS: Alanine Aminotransferase 83 U/L (0-41); Albumin Level 3.1 g/dL (3.5-5.2); Alkaline Phosphatase 231 U/L (40-130); Anion Gap 17.5 (5-19); Aspartate Amino Transferase 47 U/L (0-40); Blood Urea Nitrogen 56 mg/dL (8-23); Calcium 12.6 mg/dL (8.5-10.5); Carbon Dioxide 25 mmol/L (22-29); Chloride 95 mmol/L (98-107); Globulin 2.4 g/dL (1.3-4.6); Glucose 82 mg/dL (65-115); Lipase 38 U/L (13-60); Osmolality Calculated 291 mOsm/kg (285-295); Potassium 4.5 mmol/L (3.5-5.1); Sodium 133 mmol/L (136-145); Total Bilirubin 0.5 mg/dL (0.15-1.2); Total Protein 5.5 g/dL (6.6-8.7); Troponin(5th) Baseline 49 ng/L (0-15)
[2022-01-26 09:32] LABS: Slide Review Slide Review Perform
[2022-01-26 09:35] LABS: Reflex Lactate Order REFLEX LACTIC ORDERD
[2022-01-26 10:03] LABS: Bilirubin Urine Neg (Negative); Blood Urine 2+ (Negative); Glucose Urine UA Norm (Normal); Ketones Urine Negative (Negative); Leukocyte Esterase Urine Negative (Negative); Nitrate Urine Negative (Negative); Protein Urine Trace (Negative); Urine Appearance Clear (CLEAR); Urine Color Yellow (Yellow); Urobilinogen Urine Norm (Negative); pH Urine 5 (5-7)
[2022-01-26 10:04] LABS: Add Urine Culture? No; Add Urine Microscopic? YES; Amorphous Sediment Urine 1+ /hpf; Bacteria Urine TRACE /hpf; RBC Urine 0-4 /hpf (0-2); Squamous Epithelial Cell Urine 0-4 /hpf (0-5); WBC Urine 0-4 /hpf (0-5)
--- NOTE | 2022-01-26 10:07 | XRR_ITS ---
PROCEDURE INFORMATION: Exam: XR Chest Exam date and time: 01/26/2022 10:15 AM Age: 71 years old Clinical indication: Dyspnea; Additional info: Dyspnea/cough TECHNIQUE: Imaging protocol: Radiologic exam of the chest. Views: 1 view. COMPARISON: CT chest wo con [id number] 02/10/2020 1:31 PM FINDINGS: Tubes, catheters and devices: Left internal jugular Port-A-Cath is seen with tip overlying the right atrium. Lungs: There are normal lung volumes without interstitial or airspace opacities. Pleural spaces: There are no pleural effusions or pneumothorax. Heart/Mediastinum: The heart size is normal. The mediastinal contour is normal. The trachea is in the midline. Bones/joints: No acute abnormalities. Soft tissues: Multiple external densities are seen overlying the chest, limiting assessment. XR/XR chest 1V portable [id number] IMPRESSION: No chest radiographic evidence of acute cardiopulmonary disease.
[2022-01-26 10:31] LABS: Creatine Phosphokinase 10 U/L (39-308)
--- NOTE | 2022-01-26 10:41 | ECG_ITS ---
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 Measurements Intervals [place] Rate: 103 P: 39 SD: 137 QRS: -19 QRSD: 89 T: 54 QT: 299 QTc: 392 Interpretive Statements SINUS TACHYCARDIA LOW QRS VOLTAGE IN PRECORDIAL LEADS Compared to ECG 01/26/2022 08:56:14 Ventricular premature complex(es) no longer present Electronically Signed On 01-26-2022 13:17:37 CDT by Natividad Alvarez M.D. [id number]
[2022-01-26] MEDS: sodium chloride 0.9% 1,000 ML 999 ML IV ×2 (11:00→14:00)
[2022-01-26 11:22] LABS: Troponin 5 2HR 51.42 ng/L (0-15)
[2022-01-26 11:26] LABS: Troponin 5 2HR Delta 2.42 ABS# (0-10)
--- NOTE | 2022-01-26 12:09 | PC.NURSE ---
Report received from OSEAS Malone
[2022-01-26 12:46] LABS: Lactic Acid level (Lactate) 1.8 mmol/L (0.5-2.2)
--- NOTE | 2022-01-26 14:30 | PC.NURSE ---
Patient arrived via stretcher. Patient appears weak but is alert and able to answer questions appropriately. Patient has been educated infantry weapons officer miller use and safety measures. Will continue with further orders.
--- NOTE | 2022-01-26 14:50 | ECG_ITS ---
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 Measurements Intervals [place] Rate: 101 P: [place]: QRS: -28 QRSD: 70 T: 15 QT: 266 QTc: 345 Interpretive Statements Possibly sinus TACHYCARDIA Baseline artifact BORDERLINE LEFT AXIS DEVIATION [QRS AXIS < -20] LOW QRS VOLTAGE IN PRECORDIAL LEADS [QRS DEFLECTION < 1.0 mV IN CHEST LEADS] MODERATE VOLTAGE CRITERIA FOR LVH, CONSIDER NORMAL VARIANT Compared to ECG 01/26/2022 10:41:17 Sinus tachycardia no longer present Electronically Signed On 01-30-2022 17:39:05 CDT by Natividad Alvarez M.D. [id number]
--- NOTE | 2022-01-26 14:50 | PM.HP ---
Providers/Chief Complaint Admitting Physician: Tristan Dumont Primary Care Provider: Catrina Farley MD Chief Complaint: WEAKNESS; FALL History of Present Illness Pleasant 71-year-old gentleman came into ER for evaluation after collapse at home with generalized weakness. 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 Previously also with history of recurrent respiratory infections, including with Pseudomonas. As well as C. difficile infection. Reports his oral intake has not been the best. He has been managing to eat and drink some fluids. He reports due to multifocal pain he has been taking ibuprofen over the past month or so as well as Tylenol and oxycodone. He denies any diarrhea. Denies any worsening in his breathing. Denies any productive cough. He currently follows with hematology with expectant management for lymphoma due to be following up beginning of January. After a fall at home he states he stayed down for a while. In ER he is noted to with some dehydration, but also with acute kidney injury on chronic kidney disease, BUN 56, creatinine 2.7. Head CT nonacute. Chest x-ray without evidence of acute cardiopulmonary disease. Noted chronic mild sinus tachycardia unchanged. Saturation 95% on room air. He is afebrile. No erythema or swelling or abnormal appearance of left chest port. Blood cultures collected in ER. Calcium is noted elevated 12.6. CK not elevated. Troponin with mild to moderate elevation 49-51. He is not having any chest pain or pressure. Review of Systems Const: Reports: fatigue (Long standing general weakness) and other (Frail); Denies: fever(s), chills, body aches or malaise Eyes: Denies: change in vision, eye discomfort or eye redness ENMT: Denies: throat pain, oral sores or ear or mastoid pain Card: Denies: chest pain, edema, pre-syncope or dyspnea on exertion Resp: Denies: dyspnea, productive cough, change in phlegm color or hemoptysis GI: Denies: abdominal pain, nausea, vomiting, diarrhea, constipation, hematochezia or melena : Denies: flank pain, difficulty urinating, urinary frequency or hematuria Musc: Denies: back pain, joint swelling or joint redness Skin/Breast: Denies: rash or new lesions Neuro: Denies: headache(s), numbness in extremities, weakness in extremities, dizziness, confusion or seizure-like activity Endo: Denies: polyuria or polydipsia Van/Lymph: Denies: easy bleeding or tender lymph nodes All/Imm: Denies: urticaria or tongue swelling Medications/Allergies Home Medications Medication Instructions Recorded Confirmed Last Taken Type potassium chloride 10 mEq 10 meq PO DAILY 02/01/20 01/26/22 01/25/22 History capsule,extended release oxycodone 5 mg capsule 5 mg PO DAILY PRN Pain 07/05/20 01/26/22 01/26/22 History zinc 50 mg tablet 50 mg PO DAILY 07/05/20 01/26/22 01/25/22 History latanoprost 0.005 % eye drops 1 drp ophthalmic (eye) DAILY 03/06/21 01/26/22 01/25/22 History timolol 0.5 % eye drops 1 drp ophthalmic (eye) BID 03/06/21 01/26/22 01/25/22 History colestipol 1 gram tablet 1 g PO TID 09/13/21 01/26/22 01/25/22 History cholecalciferol (vitamin D3) 25 25 mcg PO DAILY 10/10/21 01/26/22 01/25/22 History mcg (1,000 unit) tablet ferrous sulfate 325 mg (65 mg 325 mg PO EVERY OTHER DAY 10/10/21 01/26/22 01/25/22 History iron) tablet (iron) Prevacid 30 mg capsule,delayed 30 mg PO BID #60 caps 11/15/21 01/26/22 01/26/22 Rx release (lansoprazole) prednisone 5 mg tablet 15 mg PO BID 11/22/21 01/26/22 01/25/22 History Allergies Allergy/AdvReac Type Severity Reaction Status Date / Time acyclovir Allergy Severe swelling Verified 12/24/21 14:17 ciprofloxacin [From Cipro] Allergy Intermediate facial Verified 12/24/21 14:17 swelling levofloxacin [From Levaquin] Allergy Intermediate very Verified 12/24/21 14:17 sleepy, eyes irritated trazodone Allergy Unknown Unknown Unverified 12/24/21 14:17 warfarin Allergy Unknown Unknown Unverified 12/24/21 14:17 Prozac Allergy Unknown ALGY-Joint Uncoded 12/24/21 14:17 Pain PFSH Acute PFSH: Medical History Benign prostatic hyperplasia with lower urinary tract symptoms Chronic kidney disease Elevated PSA Follicular lymphoma grade 3a Follicular lymphoma grade ii, lymph nodes of multiple sites GERD (gastroesophageal reflux disease) Hiatal hernia 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 History of follicular lymphoma (2008) grade 1-2 follicular lymphoma History of pulmonary embolism History of recurrent deep vein thrombosis (DVT) Hypogammaglobulinaemia, unspecified Port-A-Cath in place (Unknown) Post traumatic stress disorder Primary osteoarthritis of right knee Recurrent bacterial pneumonia Recurrent colitis due to Clostridioides difficile Thrombocytopenia Surgical History Autologous bone marrow transplantation status H/O abdominal surgery H/O lymph node biopsy multiple lymph node biopsies History of cholecystectomy History of colonoscopy (08/30/21) History of esophagogastroduodenoscopy (08/30/21) History of eye surgery History of left knee replacement History of shoulder surgery Family History Father CAD (coronary artery disease) Mother Dementia Other Cancer Clotting disorder Denies family history of Diabetes Hyperlipidemia Psychiatric illness Chronic kidney disease (CKD) Suicide Anesthesia complication Bleeding disorder Lung disease Hypertension Stroke Social History Smoking and tobacco status: never smoked Alcohol intake: never Lives independently: Yes Household members: spouse Marital status: Current occupational status: retired History of recent travel: No Vitals/I&O/Wt Last Vital Signs Temp 97.9 F 01/26/22 08:22 Pulse 102 H 01/26/22 13:07 Resp 18 01/26/22 13:07 BP 120/71 01/26/22 13:07 Pulse Ox 98 01/26/22 14:47 O2 Del Method 01/26/22 14:47 01/25/22 01/26/22 01/26/22 22:59 06:59 14:59 Intake Total 1000 / 1000 Balance 1000 / 1000 Weight last 48 hrs Weight 76.799 kg Weight 78.018 kg Physical Exam Const: COMMON NORMALS: patient oriented x3 and alert GENERAL APPEARANCE: cooperative and frail appearing ORIENTATION/CONSCIOUSNESS: Yes awake HENMT: COMMON NORMALS: oropharynx normal Neck/C-Spine: COMMON NORMALS: no JVD Chest: OTHER: L chest port w normal appearance Resp: COMMON NORMALS: normal respiratory effort and clear to auscultation bilaterally AUSCULTATION: clear to auscultation bilaterally Cardio: COMMON NORMALS: no JVD, regular rhythm, S1 normal heart sound present, S2 normal heart sound present and No murmurs present (Cardio) RHYTHM: regular rhythm HEART SOUNDS: S1 normal heart sound present and S2 normal heart sound present GI: COMMON NORMALS: Normal to inspection, nondistended, normoactive bowel sounds present, Soft to palpation and non-tender PALPATION: Yes Soft to palpation Extremity: COMMON NORMALS: no joint enlargement and no pedal edema Neuro: COMMON NORMALS: patient oriented x3 and moves all extremities SENSORIUM/ORIENTATION: Yes alert Skin: COMMON NORMALS: no rashes or lesions noted GENERAL SKIN EXAM: no rashes or lesions noted Data : 01/26/22 08:50 01/26/22 08:30 Micro: Microbiology 01/26/22 08:50 Blood Culture - Preliminary Blood SPECIMEN COLLECTED 01/26/22 09:02 Blood Culture - Preliminary Blood SPECIMEN COLLECTED A&P Assessment and plan (1) Acute kidney injury superimposed on CKD: Possibly secondary to hypercalcemia, possibly NSAID use. Possibly a component of dehydration/low oral intake. Received fluid challenge, continue with IV hydration. Treat hypercalcemia. Discussed with him to avoid NSAIDs. Recheck renal function. Check kidney ultrasound. Status: Acute (2) Hypercalcemia: Worsening of hypercalcemia to moderate, received fluid challenge, continue NS. Continue steroid due to lymphoma. Calcitonin due to NASIMA. Symptoms. Reassess renal function with consideration of bisphosphonate versus denosumab given NASIMA. Check TSH. Status: Acute (3) Fall: Protracted weakness, borderline functional status, but worsening, likely due to hypercalcemia. Reports fall was more like collapse due to weakness. Treat hypercalcemia as above. Reassess renal function. PT and OT assessment. Status: Acute (4) Generalized weakness: As above. Check TSH. Status: Acute (5) Follicular lymphoma grade 3a: Continue follow-up with hematology. Managed expectantly. Status: Acute Plan Hypogammaglobulinemia, in the past on IVIG infusions but developed intolerance. History of recurrent respiratory infections: Currently denies any worse respiratory symptoms than usual. Chest x-ray nonacute. Saturating well on room air. History of C. difficile: Denies diarrhea. More constipation. BPH CKD GERD Hiatal hernia Remote history of PE: We will assess with VQ scan, although symptoms otherwise not suggestive of PE. History of recurrent DVT Port-A-Cath in place PTSD OA Chronic thrombocytopenia Other chronic medical pulm as noted Attestations Medical Necessity Statement*: Place in observation for additional assessment management of NASIMA, dehydration, hypercalcemia, worsened generalized weakness, fall and gentleman with underlying multifocal recurrent focal lymphoma. Coding Level of Care Code Acute Safety Inspector for Chg Fwd Exam Comprehensive Diagnoses Acute kidney injury superimposed on CKD N17.9; N18.9 Hypercalcemia E83.52 Fall W19.XXXA Generalized weakness R53.1 Follicular lymphoma grade 3a C82.30
--- NOTE | 2022-01-26 15:06 | USR_ITS ---
PROCEDURE INFORMATION: Exam: US Retroperitoneal; Complete; Kidneys and Bladder Exam date and time: 01/26/2022 4:14 PM Age: 71 years old Clinical indication: Other: A; Additional info: Esau, prostate carcinoma. TECHNIQUE: Imaging protocol: Real-time ultrasound of the retroperitoneum with image documentation. Complete exam focused on the kidneys and bladder. COMPARISON: US Renal Kidney Structu* [id number] 11/03/2018 10:43 AM FINDINGS: Right kidney: [id number] right hydronephrosis. 10.5 x 5.2 x 5.7 cm right kidney with 1.5 cm right renal cortex. Echogenic right renal cortex compared to the liver consistent with moderate bilateral medical renal disease. Left kidney: 10.2 x 4.5 x 4.3 cm left kidney with 1.4 cm left renal cortex. Urinary bladder: 6.8 x 5.8 x 6.3 cm postvoid urinary bladder with estimated volume 131 cc. US/US renal BI* [id number] IMPRESSION: 1. [id number] right hydronephrosis. 2. 6.8 x 5.8 x 6.3 cm postvoid urinary bladder with estimated volume 131 cc. 3. Echogenic right renal cortex compared to the liver consistent with moderate bilateral medical renal disease.
[2022-01-26 15:15] LABS: Troponin 5 6HR 47.28 ng/L (0-15)
[2022-01-26 15:20] LABS: Troponin 5 6HR Delta -1.72 ng/L (0-12)
[2022-01-26 15:32] LABS: Thyroid Stimulating Hormone 3.62 uIU/mL (0.27-4.20)
[2022-01-26] MEDS: sodium chloride 0.9% 1,000 ML 150 ML IV (15:32)
[2022-01-26] MEDS: enoxaparin 40 mg/0.4 mL Syringe SUBCUT (15:33)
[2022-01-26] MEDS: calcitonin,salmon 200 unit/mL SDV 2mL 300 UNIT SUBCUT (15:34)
--- NOTE | 2022-01-26 16:45 | PC.NURSE ---
Physician notified of patients intense tremors, tachycardia, and increasing weakness. Physician ordered a 12 lead ekg.
--- NOTE | 2022-01-26 17:26 | ECG_ITS ---
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 Measurements Intervals Mckenney Rate: 125 P: 23 MA: 128 QRS: -16 QRSD: 72 T: 56 QT: 272 QTc: 393 Interpretive Statements SINUS TACHYCARDIA LOW QRS VOLTAGE IN PRECORDIAL LEADS NONSPECIFIC ST & T-WAVE ABNORMALITY Compared to ECG 01/26/2022 14:50:06 T-wave abnormality now present Supraventricular tachycardia no longer present Electronically Signed On 01-27-2022 13:16:27 CDT by Natividad Alvarez M.D. [id number]
--- NOTE | 2022-01-26 17:30 | PC.NURSE ---
Physician notified of patients decreased LOC, decreased ability to follow instruction and overall evidence of some confusion. Physician evaluated patient and ordered keppra IV, vancomyacin, and a steroid. Nurse will continue to monitor.
--- NOTE | 2022-01-26 17:46 | USR_ITS ---
PROCEDURE INFORMATION: Exam: US Abdomen, Limited; Right Upper Quadrant Exam date and time: 01/26/2022 9:43 PM Age: 71 years old Clinical indication: Abnormal findings; Abnormal lab test; Abnormal function test of other organs/systems; Additional info: Ap elev, poss sepsis TECHNIQUE: Imaging protocol: Real time ultrasound of the abdomen with image documentation. Limited exam focused on the right upper quadrant. COMPARISON: US renal BI* [id number] 01/26/2022 4:14 PM FINDINGS: Liver: Normal. No masses. Gallbladder: Gallbladder is not visualized. Biliary ducts: Normal. No stones. No dilation. Pancreas: Visualized pancreas is unremarkable. Right kidney: Mild right hydronephrosis suspected without obstructing lesion. US/US gall bladder [id number] IMPRESSION: 1. Gallbladder is not visualized. 2. Mild right hydronephrosis suspected without obstructing lesion.
[2022-01-26 18:05] LABS: SARS Covid-2 Antigen Negative (Negative)
--- NOTE | 2022-01-26 18:11 | PC.PHAR ---
Vancomycin is dosed at 750mg IVPB every 24 hours to produce a predicted trough level of 16.28 (population based phaarmacokinetic analysis). A trough level has been ordered from the lab to be obtained before the fourth dose to confirm and adjust if needed.
[2022-01-26] MEDS: timolol 0.5% Op Soln 5 mL Btl 1 DROP EYEAFF (18:24)
[2022-01-26] MEDS: vancomycin 750 MG in sodium chloride 0.9% 250 ML 250 MG IV (18:24)
--- NOTE | 2022-01-26 18:51 | PC.NURSE ---
Patient vomited a yellow colored emesis that appeared to be bile. Physician notified.
[2022-01-26 19:18] LABS: Alanine Aminotransferase 86 U/L (0-41); Alkaline Phosphatase 241 U/L (40-130); Anion Gap 17.4 (5-19); Aspartate Amino Transferase 49 U/L (0-40); Blood Urea Nitrogen 51 mg/dL (8-23); Calcium 11.8 mg/dL (8.5-10.5); Carbon Dioxide 22 mmol/L (22-29); Chloride 99 mmol/L (98-107); Globulin 2.6 g/dL (1.3-4.6); Glucose 98 mg/dL (65-115); Osmolality Calculated 292 mOsm/kg (285-295); Phosphorus 3.2 mg/dL (2.5-4.5); Potassium 4.4 mmol/L (3.5-5.1); Sodium 134 mmol/L (136-145); Total Bilirubin 0.5 mg/dL (0.15-1.2); Total Protein 5.6 g/dL (6.6-8.7)
[2022-01-26 19:45] LABS: Glucose Point of Care 104 mg/dL (70-110)
--- NOTE | 2022-01-26 19:45 | PC.NURSE ---
Patient LOC has severely decompensated sense arriving to the floor. Patient was able to lift both arms and hold them up upon arrival to the floor. Patient was able to lift right leg off of the bed but not left leg. Patient was alert and oriented. Now patient is unable to speak clearly, can not follow basic commands, or life either arm. Patient is responsive to verbal stimulation, however, does not always answer appropriately. Patient is very lethargic. Physician was called and received orders to transfer patient to ICU.
--- NOTE | 2022-01-26 19:51 | PC.NURSE ---
Physician orders: Narcan 0.4mg IVP ONCE
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
[2022-01-26] MEDS: sodium chloride 0.9% 1,000 ML 100 ML IV (20:44)
[2022-01-26] MEDS: naloxone 0.4 mg/ml SDV IVP (21:01)
[2022-01-26 21:52] LABS: 25 Hydroxy Vitamin D 42 ng/mL (30-100)
[2022-01-26] MEDS: AMPICILLIN IV (23:21)
[2022-01-26] MEDS: SODIUM CHLORIDE 0.9% IV (23:21)
[2022-01-26] MEDS: cefepime 1,000 MG in sodium chloride 0.9% (plus) 50 ML 100 MG IV (23:26)
[2022-01-27] VITALS (34 sets, daily range): BP systolic 97–139; BP diastolic 62–87; PULSE 85–128; RESP 4–31; TEMP 36.3–37.8; O2SAT 84–98; BMI 24.3
[2022-01-27] MEDS: acetaminophen 650 mg Supp PR (02:21)
[2022-01-27] MEDS: AMPICILLIN IV (04:08)
[2022-01-27] MEDS: SODIUM CHLORIDE 0.9% IV (04:08)
[2022-01-27 05:06] LABS: Basophils % 0.1 %; Hematocrit 41.3 % (42.0-52.0); Hemoglobin 13.2 g/dL (11.7-16.6); Lymphocytes # 1.7 10^3/uL (0.8-4.8); Lymphocytes % 15.2 %; Mean Corpuscular Hemoglobin 30.9 pg (28.0-34.0); Mean Corpuscular Volume 96.7 fl (80-94); Mean Platelet Volume 11.2 fL (7.4-10.4); Monocytes # 0.6 10^3/uL (0.2-0.9); Monocytes % 5.4 %; Neutrophils # 8.59 10^3/uL (1.8-7.7); Neutrophils % 77.5 %; Nucleated Red Blood Cells % 0 %; Platelet Count 110 10^3/cmm (130-400); Red Blood Count 4.27 10^6/uL (4.1-5.3); Red Cell Distribution Width 13.5 % (12.1-15.1); White Blood Count 11.1 10^3/uL (4.0-10.0)
[2022-01-27 05:43] LABS: Alanine Aminotransferase 99 U/L (0-41); Albumin Level 2.5 g/dL (3.5-5.2); Alkaline Phosphatase 287 U/L (40-130); Aspartate Amino Transferase 70 U/L (0-40); Blood Urea Nitrogen 54 mg/dL (8-23); Calcium 10.7 mg/dL (8.5-10.5); Carbon Dioxide 20 mmol/L (22-29); Chloride 104 mmol/L (98-107); Globulin 2.5 g/dL (1.3-4.6); Glucose 94 mg/dL (65-115); Osmolality Calculated 299 mOsm/kg (285-295); Phosphorus 4.4 mg/dL (2.5-4.5); Sodium 137 mmol/L (136-145); Total Bilirubin 0.3 mg/dL (0.15-1.2)
[2022-01-27 05:55] LABS: Calcium 10.4 mg/dL (8.5-10.5); Parathyroid Hormone 60.3 pg/mL (15-65)
--- NOTE | 2022-01-27 07:26 | PC.NURSE ---
6 am meds not charted nurse in report handed me cierra toth said it would not scan
[2022-01-27] MEDS: cefepime 1,000 MG in sodium chloride 0.9% (plus) 50 ML 100 MG IV ×2 (08:09→21:12)
[2022-01-27] MEDS: timolol 0.5% Op Soln 5 mL Btl 1 DROP EYEAFF ×2 (08:28→17:43)
[2022-01-27] MEDS: latanoprost 0.005% Op Soln 2.5 mL Btl 1 DROP EYE-BOTH (08:28)
[2022-01-27] MEDS: sodium chloride 0.9% 1,000 ML 100 ML IV (08:30)
--- NOTE | 2022-01-27 09:49 | PC.NURSE ---
at bedside nuro per doctor with minimal sensory deprivation , relates that he has been having progressive weakness and to the point now states that is difficult for him to do at this point and that is why he is here .. to vq scan per bed at this time
--- NOTE | 2022-01-27 10:09 | PC.OT ---
OT evaluation attempted. Patient is currently off unit. Nursing states that he will be transferred to [facility]-surg. Will attempt again later.
[2022-01-27] MEDS: zinc gluconate 50 mg Tablet PO (11:52)
[2022-01-27] MEDS: pantoprazole DR 40 mg Tablet PO (11:52)
--- NOTE | 2022-01-27 12:43 | PC.OT ---
Patient being transferred to [facility] floor today. Will evaluate tomorrow.
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
--- NOTE | 2022-01-27 13:14 | CTR_ITS ---
PROCEDURE INFORMATION: Exam: CT Abdomen And Pelvis Without Contrast Exam date and time: 01/27/2022 2:28 PM Age: 71 years old Clinical indication: Other: Hydronephrosis? TECHNIQUE: Imaging protocol: Computed tomography of the abdomen and pelvis without contrast. Radiation optimization: All CT scans at this facility use at least one of these dose optimization techniques: automated exposure control; mA and/or kV adjustment per patient size (includes targeted exams where dose is matched to clinical indication); or iterative reconstruction. COMPARISON: CT abdomen pelvis wo con [id number] 09/23/2018 3:36 PM RADIATION DOSE METRICS: Total DLP (mGy-cm): 574.75 FINDINGS: Heart: Severe calcified coronary artery disease. Liver: Normal. No mass. Gallbladder and bile ducts: Surgical clips in the gallbladder fossa consistent with cholecystectomy. Pancreas: Normal. No ductal dilation. Spleen: Normal. No splenomegaly. Adrenal glands: Normal. No mass. Kidneys and ureters: One or more nonobstructing right renal calyceal stones. Interval appearance of 5 mm right mid ureteral stone at the level of L4-L5 with mild to moderate right hydronephrosis. Stomach and bowel: Moderate descending and/or sigmoid colon diverticulosis without diverticulitis. Appendix: No evidence of appendicitis. Intraperitoneal space: Unremarkable. No free air. No significant fluid collection. Vasculature: Unremarkable. No abdominal aortic aneurysm. Lymph nodes: Moderate bilateral inguinal adenopathy. Moderate pelvic sidewall adenopathy. Moderate adenopathy surrounding the aorta and vena cava. Moderate to large adenopathy involving the small bowel mesentery. Mild gastrohepatic ligament adenopathy. Mild middle mediastinal adenopathy in the paraesophageal region. Abnormal 1.6 x 1.0 cm right pericardiac lymph node. Whyf-[id number] celiac axis lymphadenopathy. Urinary bladder: Chopra balloon catheter in the urinary bladder. Reproductive: Unremarkable as visualized. Bones/joints: Unremarkable. No acute fracture. Soft tissues: Unremarkable. Other findings: Severe calcified peripheral vascular disease. CT/CT kidney stone [id number] IMPRESSION: 1. Chopra balloon catheter in the urinary bladder. 2. Interval appearance of 5 mm right mid ureteral stone at the level of L4-L5 with mild to moderate right hydronephrosis. 3. Increased moderate to severe mesenteric adenopathy with additional qqhj-pl-qqwgekib adenopathy in the inguinal/groin bilaterally, pelvis, retroperitoneum and upper abdomen/inferior thorax. Differential diagnosis includes lymphoma versus metastatic disease versus infectious process versus autoimmune disease.
[2022-01-27] MEDS: enoxaparin 40 mg/0.4 mL Syringe SUBCUT (14:41)
[2022-01-27] MEDS: aspirin 81 mg EC Tablet PO (14:41)
--- NOTE | 2022-01-27 15:13 | NMR_ITS ---
PROCEDURE INFORMATION: Exam: SC Lung Ventilation and Perfusion Imaging Exam date and time: 01/27/2022 9:40 AM Age: 71 years old Clinical indication: Shortness of breath; Patient HX: SOB, HX pe, dvt; Additional info: Weak, sinus tachy, HX pe, assess poss pe. Esau. TECHNIQUE: Imaging protocol: Nuclear pulmonary ventilation with aerosol or gas was performed followed by perfusion. Views: Ventilation acquired with multiple projections. Perfusion acquired with multiple projections. The ventilation images were obtained in the anterior, posterior, LPO, RPO, left lateral and right lateral plane after DTPA aerosol inhalation. The perfusion images were obtained immediately after MAA administration sequentially in the anterior, posterior, LT lateral, RT lateral, LPO and RPO projections. Radiopharmaceutical: 5.1 mCi Tc-99m MAA (Macroaggregated Albumin), IV. 28.9 mCi Tc-99m DTPA (DTPA Aerosol), Inhalation. COMPARISON: CR (CHEST, ) 01/26/2022 10:15 AM FINDINGS: Comparison chest radiograph is unremarkable. The Tc99m DTPA aerosol images show distribution of the radiotracer to both lungs. There are no definite ventilation abnormalities seen. The pulmonary perfusion images with Tc99m MAA particles show no significant perfusion defects. Some minimal heterogeneity of perfusion is seen in the posterior lower lobe regions, right more than left. If there is further concern, CT pulmonary embolism protocol would be helpful for complete assessment. SC/SC pul vent and perfus* [id number] IMPRESSION: Low likelihood ratio for pulmonary embolism.
--- NOTE | 2022-01-27 16:42 | PC.NURSE ---
notified of transfer to room 269
--- NOTE | 2022-01-27 17:04 | PC.NURSE ---
Patient brought to floor at 1630 by ICU nurse. Patient is alert and oriented, lung sounds clear, bowel sounds present, heart tones and rhythm wnl. Call light within reach.
[2022-01-27] MEDS: vancomycin 750 MG in sodium chloride 0.9% 250 ML 250 MG IV (17:57)
[2022-01-27 22:32] LABS: Add Urine Microscopic? YES; Bilirubin Urine Neg (Negative); Blood Urine 3+ (Negative); Glucose Urine UA 2+ (Normal); Ketones Urine 1+ (Negative); Leukocyte Esterase Urine Negative (Negative); Nitrate Urine Negative (Negative); Protein Urine Trace (Negative); Urine Appearance Clear (CLEAR); Urine Color Yellow (Yellow); Urobilinogen Urine Neg (Negative); pH Urine 5 (5-7)
[2022-01-27 22:33] LABS: Add Urine Culture? No; Amorphous Sediment Urine 1+ /hpf; Bacteria Urine TRACE /hpf; Coarse Granular Casts Urine 0-4 /lpf; Mucus Urine TRACE /hpf; Squamous Epithelial Cell Urine 0-4 /hpf (0-5); WBC Urine 0-4 /hpf (0-5)
[2022-01-28] VITALS (7 sets, daily range): BP systolic 120–157; BP diastolic 66–80; PULSE 81–94; RESP 16–20; TEMP 36.4–36.8; O2SAT 93–98
[2022-01-28 05:28] LABS: Basophils % 0.1 %; Hematocrit 37.7 % (42.0-52.0); Hemoglobin 11.9 g/dL (11.7-16.6); Lymphocytes # 1.4 10^3/uL (0.8-4.8); Lymphocytes % 14.4 %; Mean Corpuscular HGB Conc 31.6 g/dL (30.0-36.0); Mean Corpuscular Hemoglobin 30.7 pg (28.0-34.0); Mean Corpuscular Volume 97.4 fl (80-94); Mean Platelet Volume 11.2 fL (7.4-10.4); Monocytes # 0.7 10^3/uL (0.2-0.9); Monocytes % 7.6 %; Neutrophils # 7.42 10^3/uL (1.8-7.7); Neutrophils % 76.9 %; Nucleated Red Blood Cells % 0 %; Platelet Count 116 10^3/cmm (130-400); Red Blood Count 3.87 10^6/uL (4.1-5.3); Red Cell Distribution Width 13.2 % (12.1-15.1); White Blood Count 9.7 10^3/uL (4.0-10.0)
[2022-01-28 05:45] LABS: Alanine Aminotransferase 76 U/L (0-41); Albumin Level 2.5 g/dL (3.5-5.2); Alkaline Phosphatase 227 U/L (40-130); Anion Gap 19.9 (5-19); Aspartate Amino Transferase 43 U/L (0-40); Blood Urea Nitrogen 60 mg/dL (8-23); Calcium 10.7 mg/dL (8.5-10.5); Carbon Dioxide 18 mmol/L (22-29); Chloride 104 mmol/L (98-107); Globulin 2.7 g/dL (1.3-4.6); Glucose 120 mg/dL (65-115); Osmolality Calculated 302 mOsm/kg (285-295); Phosphorus 4.9 mg/dL (2.5-4.5); Potassium 4.9 mmol/L (3.5-5.1); Sodium 137 mmol/L (136-145); Total Bilirubin 0.2 mg/dL (0.15-1.2); Total Protein 5.2 g/dL (6.6-8.7)
[2022-01-28] MEDS: pantoprazole DR 40 mg Tablet PO (08:51)
[2022-01-28] MEDS: aspirin 81 mg EC Tablet PO (08:51)
[2022-01-28] MEDS: ferrous sulfate EC 325 mg Tablet PO (08:51)
[2022-01-28] MEDS: latanoprost 0.005% Op Soln 2.5 mL Btl 1 DROP EYE-BOTH (08:52)
[2022-01-28] MEDS: zinc gluconate 50 mg Tablet PO (08:52)
[2022-01-28] MEDS: timolol 0.5% Op Soln 5 mL Btl 1 DROP EYEAFF ×2 (08:52→17:54)
[2022-01-28] MEDS: cefepime 1,000 MG in sodium chloride 0.9% (plus) 50 ML 100 MG IV (08:56)
--- NOTE | 2022-01-28 09:52 | XRR_ITS ---
PROCEDURE INFORMATION: Exam: XR Abdomen Exam date and time: 01/28/2022 10:29 AM Age: 71 years old Clinical indication: Abdominal pain; Flank; Right; Additional info: Right ureteral stone, followup CT 01/27 TECHNIQUE: Imaging protocol: Radiologic exam of the abdomen. Views: Frontal supine view of the abdomen. 1 View. COMPARISON: CT kidney stone [id number] 01/27/2022 2:28 PM FINDINGS: Gastrointestinal tract: No abnormally dilated air-filled bowel loops identified. Intraperitoneal space: Surgical clips in the right upper quadrant noted. Bones/joints: Previously noted right-sided mid ureteral stone is not radiographically evident or may be overlying the adjacent lower lumbar vertebral bodies. Soft tissues: Metallic foreign body in the superficial fat overlying the right anterior abdominal wall again noted in the right pelvis. Surgical clips in the left inguinal region. XR/XR KUB [id number] IMPRESSION: Previously noted right-sided mid ureteral stone is not radiographically evident. The stone may be overlying the adjacent lower lumbar vertebral bodies.
--- NOTE | 2022-01-28 09:54 | P.CONIM_ITS ---
Providers/Reason For Consult Consulting Physician/Specialty*: Urology/[place] Reason for Consult*: Right ureteral calculus, elevated creatinine Requesting Physician: Dr. Dumont Attending Physician: Tristan Dumont Primary Care Provider: Catrina Farley MD History of Present Illness History of Present Illness Conrad Llanos is a 71 year old male who I have seen once in the past and January 2018 at the request of Dr. Landrum from the [facility] for mildly elevated PSA. At that point his PSAs were running in the 5.5 range. Repeat PSA was 4.9 and BENTLEY was 3+ with benign characteristics. Overall it was felt that he was low risk for prostate cancer concerns given his longstanding history of lymphoma. He was scheduled on return to clinic as needed basis. I saw him again in May 2020 with a repeat PSA at the [facility] showing 9.7. His BENTLEY was still benign feeling. We discussed risk assessment and ultimately felt that his risk was still low and recommended repeating his PSA in 2 years. He has a scheduled appointment in May 2022. He did report that he had a recent PSA at the [facility] and it was high . Number was not remembered. This hospitalization began yesterday via an emergency department visit for increasing weakness and falling. Developed rigors. No evidence of UTI or obvious respiratory infection. Did have a history of Pseudomonas pulmonary infection and C. difficile infection. No symptoms of that currently. Baseline creatinine was 1.0 and in the emergency department it was 2.7. CT scan demonstrated evidence of increased lymphoma activity with moderate to severe mesenteric adenopathy, inguinal and pelvic as well as retroperitoneal upper abdomen and inferior thorax lymphadenopathy. This was compared though to a CT scan of 2019 and he has been under treatment for his lymphoma and followed closely by Dr. Mast. A surprise finding on the CT scan was a 5 mm right ureteral calculus located at the junction L4-L5 with mild obstructive changes. No evidence of obstructive pyelonephritis on urinalysis. His white count was mildly elevated. Was placed on empiric antibiotic therapy and hydration. This morning his creatinine had decreased to 2.2. He was feeling much better. I was consulted for evaluation of the stone. Recommended a KUB. I could see the stone I believe on the KUB from 01/26/2022. I could not see a calcification in that area today. I also could not see anything further down the likely track of the ureter distally. He is denying any right flank pain now. No fever. Chills have stopped. Recommendations: 1. Repeat KUB in the morning 2. Close monitoring of creatinine 3. Feed 4. Can schedule intervention for change in clinical status or worsening in creatinine. He has a very good chance of passing stone spontaneously based on his size. I explained all the above details to the patient and his and they are comfortable with this approach. Review of Systems Const: Reports: chills, fatigue and malaise; Denies: fever(s) Eyes: Denies: change in vision or yellow eyes ENMT: Denies: hoarseness Card: Denies: chest pain Resp: Denies: dyspnea or productive cough GI: Denies: abdominal pain : Reports: flank pain (Reports about a week before his admission he had some mild right flank pain) and difficulty urinating Musc: Denies: joint warmth Skin/Breast: Denies: rash Neuro: Reports: difficulty walking and frequent falls; Denies: confusion or Slurred speech present Psych: Denies: anxiety Endo: Denies: flushing Van/Lymph: Denies: easy bleeding All/Imm: Denies: urticaria or acute wheezing Medications/Allergies Home Medications Medication Instructions Recorded Confirmed Last Taken Type potassium chloride 10 mEq 10 meq PO DAILY 02/01/20 01/26/22 01/25/22 History capsule,extended release oxycodone 5 mg capsule 5 mg PO DAILY PRN Pain 07/05/20 01/26/22 01/26/22 History zinc 50 mg tablet 50 mg PO DAILY 07/05/20 01/26/22 01/25/22 History latanoprost 0.005 % eye drops 1 drp ophthalmic (eye) DAILY 03/06/21 01/26/22 01/25/22 History timolol 0.5 % eye drops 1 drp ophthalmic (eye) BID 03/06/21 01/26/22 01/25/22 History colestipol 1 gram tablet 1 g PO TID 09/13/21 01/26/22 01/25/22 History cholecalciferol (vitamin D3) 25 25 mcg PO DAILY 10/10/21 01/26/22 01/25/22 History mcg (1,000 unit) tablet ferrous sulfate 325 mg (65 mg 325 mg PO EVERY OTHER DAY 10/10/21 01/26/22 01/25/22 History iron) tablet (iron) Prevacid 30 mg capsule,delayed 30 mg PO BID #60 caps 11/15/21 01/26/22 01/26/22 Rx release (lansoprazole) prednisone 5 mg tablet 15 mg PO BID 11/22/21 01/26/22 01/25/22 History Allergies Allergy/AdvReac Type Severity Reaction Status Date / Time acyclovir Allergy Severe swelling Verified 12/24/21 14:17 ciprofloxacin [From Cipro] Allergy Intermediate facial Verified 12/24/21 14:17 swelling levofloxacin [From Levaquin] Allergy Intermediate very Verified 12/24/21 14:17 sleepy, eyes irritated trazodone Allergy Unknown Unknown Unverified 12/24/21 14:17 warfarin Allergy Unknown Unknown Unverified 12/24/21 14:17 Prozac Allergy Unknown ALGY-Joint Uncoded 12/24/21 14:17 Pain Current Medications Generic Name Dose Route Start Last Admin Trade Name Freq PRN Reason Stop Dose Admin Acetaminophen 650 mg 01/27/22 01:54 01/27/22 02:21 Acetaminophen 650 Mg Supp MD 650 mg ONCE PRN Administration FEVER Aspirin 81 mg 01/27/22 13:25 01/28/22 08:51 Aspirin 81 Mg Ec Tablet PO 81 mg DAILY FROILAN Administration Enoxaparin Sodium 40 mg 01/26/22 15:00 01/27/22 14:41 Enoxaparin 40 Mg/0.4 Ml Syringe SUBCUT 40 mg Q24H FROILAN Administration Ferrous Sulfate 325 mg 01/28/22 09:00 01/28/22 08:51 Ferrous Sulfate Ec 325 Mg Tablet PO 325 mg EVERY OTHER DAY FROILAN Administration Vancomycin HCl 750 mg/ Sodium 250 mls @ 250 mls/hr 01/26/22 18:00 01/27/22 19:00 Chloride IV Infused Q24H FROILAN Infusion Cefepime HCl 1,000 mg/ Sodium 50 mls @ 100 mls/hr 01/26/22 20:15 01/28/22 08:56 Chloride IV 100 mls/hr Q12H FROILAN Administration Protocol Latanoprost 1 drop 01/27/22 09:00 01/28/22 08:52 Latanoprost 0.005% Op Soln 2.5 Ml Btl EYE-BOTH 1 drop DAILY FROILAN Administration Methylprednisolone Sodium Succinate 30 mg 01/26/22 19:15 01/28/22 03:03 Methylprednisolone Sod Succ 40 Mg/Ml Inj IVP 30 mg Q8H FROILAN Administration Non-Formulary Medication 1 gm 01/26/22 21:00 01/27/22 21:14 Colestipol PO Not Given TID FROILAN Pantoprazole Sodium 40 mg 01/27/22 09:00 01/28/22 08:[address] 40 Mg Tablet PO 40 mg DAILY FROILAN Administration Timolol Maleate 1 drop 01/26/22 18:00 01/28/22 08:52 Timolol 0.5% Op Soln 5 Ml Btl EYEAFF 1 drop BID FROILAN Administration Zinc Gluconate 50 mg 01/27/22 09:00 01/28/22 08:52 Zinc Gluconate 50 Mg Tablet PO 50 mg DAILY FROILAN Administration PFSH Acute PFSH: Medical History (Updated 01/28/22 @ 11:49 by Juan Manuel [place] MD) Benign prostatic hyperplasia with lower urinary tract symptoms Chronic kidney disease Elevated PSA 4-5 range with benign feeling, 3+ prostate. 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 History of follicular lymphoma (2008) grade 1-2 follicular lymphoma History of pulmonary embolism History of recurrent deep vein thrombosis (DVT) Hypogammaglobulinaemia, unspecified Port-A-Cath in place (Unknown) Post traumatic stress disorder Primary osteoarthritis of right knee Recurrent bacterial pneumonia Recurrent colitis due to Clostridioides difficile Thrombocytopenia Surgical History Autologous bone marrow transplantation status H/O abdominal surgery H/O lymph node biopsy multiple lymph node biopsies History of cholecystectomy History of colonoscopy (08/30/21) History of esophagogastroduodenoscopy (08/30/21) History of eye surgery History of left knee replacement History of shoulder surgery Family History Father CAD (coronary artery disease) Mother Dementia Other Cancer Clotting disorder Denies family history of Diabetes Hyperlipidemia Psychiatric illness Chronic kidney disease (CKD) Suicide Anesthesia complication Bleeding disorder Lung disease Hypertension Stroke Social History Smoking and tobacco status: never smoked Alcohol intake: never Lives independently: Yes Household members: spouse Marital status: Current occupational status: retired History of recent travel: No Vitals/I&O/Wt Last Vital Signs Temp 97.5 F L 01/28/22 07:52 Pulse 90 01/28/22 07:52 Resp 18 01/28/22 07:52 BP 128/74 01/28/22 07:52 Pulse Ox 93 01/28/22 07:52 O2 Del Method 01/28/22 07:52 01/27/22 01/28/22 01/28/22 22:59 06:59 14:59 Intake Total 1450 / 3950 720 / 4670 Output Total 1000 / 1000 1100 / 2100 Balance 450 / 2950 -380 / 2570 Weight last 48 hrs Weight 169 lb 5 oz Weight 169 lb 5 oz Physical Exam Const: COMMON NORMALS: no acute distress, alert and well nourished GENERAL APPEARANCE: well kempt and well developed ORIENTATION/CONSCIOUSNESS: not confused HENMT: COMMON NORMALS: normocephalic HEAD & SCALP: normal to inspection and normocephalic Neck/C-Spine: GENERAL: Yes normal visual inspection Resp: COMMON NORMALS: normal respiratory effort EFFORT & INSPECTION: Yes able to speak in complete sentences, No labored and No Actively coughing Neuro: COMMON NORMALS: no focal motor deficits SENSORIUM/ORIENTATION: Yes alert Psych: COMMON NORMALS: mental status grossly normal APPEARANCE: Yes grossly normal and Yes well kempt ATTITUDE: Yes calm and Yes engaged Skin: COMMON NORMALS: no rashes or lesions noted and no jaundice GENERAL SKIN EXAM: no rashes or lesions noted Urinary Catheter Management: Chopra: Cath Placed During This Visit: yes Reason for Continuing Indwelling Catheter: Acute Urinary Retention or Obstruction Urinary Catheter Date of Insertion: 01/26/22 Urinary Catheter Time of Insertion: 18:21 Data : 01/28/22 04:57 01/28/22 04:57 Micro: Microbiology 01/27/22 16:28 Blood Culture - Preliminary Blood SPECIMEN COLLECTED 01/26/22 08:50 Blood Culture - Preliminary Blood NEGATIVE TO DATE 01/26/22 09:02 Blood Culture - Preliminary Blood NEGATIVE TO DATE A&P Assessment and plan (1) Right ureteral calculus: Status: Acute (2) Acute kidney injury superimposed on CKD: Etiology unclear. But could be potentially related to mild obstruction of the right kidney. Status: Acute (3) Elevated PSA: Chronically mildly elevated PSA. Due for follow-up in May. Status: Acute Plan See HPI Consult Attestations Medical Necessity Statement: See attending Coding Level of Care Code Acute Cupola Patcher Helper for Lashaun Dueñas Diagnoses Right ureteral calculus N20.1 Acute kidney injury superimposed on CKD N17.9; N18.9 Elevated PSA R97.20
[2022-01-28] MEDS: tamsulosin 0.4 mg Capsule PO (12:39)
[2022-01-28 13:23] LABS: Quest SARS-CoV-2 RNA NOT DETECTED (NOT DETECTED)
[2022-01-28] MEDS: enoxaparin 40 mg/0.4 mL Syringe SUBCUT (15:43)
[2022-01-28] MEDS: vancomycin 750 MG in sodium chloride 0.9% 250 ML 250 MG IV (17:54)
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
[2022-01-28] MEDS: temazepam 15 mg Capsule PO (21:17)
[2022-01-28] MEDS: oxyCODONE 5 mg IR Tab/Cap PO (21:17)
[2022-01-29] VITALS: BP 128/82; PULSE 96; RESP 18; TEMP 36.7; O2SAT 95
[2022-01-29 04:00] VITALS: BP 136/75; PULSE 95; RESP 22; TEMP 36.3; O2SAT 96
[2022-01-29 05:49] LABS: Basophils % 0.1 %; Hematocrit 42.5 % (42.0-52.0); Hemoglobin 14.3 g/dL (11.7-16.6); Lymphocytes # 1.2 10^3/uL (0.8-4.8); Lymphocytes % 16.4 %; Mean Corpuscular HGB Conc 33.6 g/dL (30.0-36.0); Mean Corpuscular Hemoglobin 30.7 pg (28.0-34.0); Mean Corpuscular Volume 91.2 fl (80-94); Monocytes # 0.7 10^3/uL (0.2-0.9); Monocytes % 9.7 %; Neutrophils # 5.26 10^3/uL (1.8-7.7); Neutrophils % 72.7 %; Nucleated Red Blood Cells % 0 %; Platelet Count 93 10^3/cmm (130-400); Red Blood Count 4.66 10^6/uL (4.1-5.3); White Blood Count 7.2 10^3/uL (4.0-10.0)
--- NOTE | 2022-01-29 06:00 | XRR_ITS ---
PROCEDURE INFORMATION: Exam: XR Abdomen Exam date and time: 01/29/2022 6:16 AM Age: 71 years old Clinical indication: Condition or disease; Kidney or ureter condition; Calculus (stone) in kidney; Prior surgery; Surgery type: Choley; Additional info: Follow-up right ureteral calculus TECHNIQUE: Imaging protocol: Radiologic exam of the abdomen. Views: Frontal supine view of the abdomen. 1 View. COMPARISON: CR (ABDOMEN, ) 01/28/2022 10:29 AM FINDINGS: Gastrointestinal tract: There is a non-obstructive bowel gas pattern. There is no abnormal dilatation of bowel loops. Mildly air distended stomach is seen. Some gas and fecal material is seen throughout the colon, suggestive of mild constipation. There is no pneumatosis or mass effect. There is no organomegaly. Intraperitoneal space: No definite free air on the supine view exam. Bones/joints: There are no acute osseous abnormalities noted. Soft tissues: Surgical clips are seen in the right upper quadrant of the abdomen, likely related to prior cholecystectomy. XR/XR KUB [id number] IMPRESSION: Nonobstructive bowel gas pattern. Mild constipation.
[2022-01-29 06:19] LABS: Alanine Aminotransferase 119 U/L (0-41); Albumin Level 2.7 g/dL (3.5-5.2); Alkaline Phosphatase 291 U/L (40-130); Anion Gap 16.6 (5-19); Aspartate Amino Transferase 79 U/L (0-40); Blood Urea Nitrogen 59 mg/dL (8-23); Carbon Dioxide 20 mmol/L (22-29); Chloride 102 mmol/L (98-107); Globulin 2.6 g/dL (1.3-4.6); Glucose 137 mg/dL (65-115); Osmolality Calculated 297 mOsm/kg (285-295); Phosphorus 4.6 mg/dL (2.5-4.5); Potassium 4.6 mmol/L (3.5-5.1); Sodium 134 mmol/L (136-145); Total Bilirubin 0.2 mg/dL (0.15-1.2); Total Protein 5.3 g/dL (6.6-8.7)
[2022-01-29 08:00] VITALS: BP 154/80; PULSE 86; RESP 18; TEMP 36.3; O2SAT 95
--- NOTE | 2022-01-29 08:01 | PC.NURSE ---
patient complaining of hickups. he stated that his belly is starting to hurt.
[2022-01-29] MEDS: zinc gluconate 50 mg Tablet PO (08:45)
[2022-01-29] MEDS: pantoprazole DR 40 mg Tablet PO (08:45)
[2022-01-29] MEDS: predniSONE 20 mg Tablet PO (08:45)
[2022-01-29] MEDS: tamsulosin 0.4 mg Capsule PO (08:45)
[2022-01-29] MEDS: aspirin 81 mg EC Tablet PO (08:45)
[2022-01-29] MEDS: timolol 0.5% Op Soln 5 mL Btl 1 DROP EYEAFF ×2 (08:46→17:34)
[2022-01-29] MEDS: cefepime 1,000 MG in sodium chloride 0.9% (plus) 50 ML 100 MG IV (08:52)
[2022-01-29] MEDS: acetaminophen 325 mg Tablet 650 MG PO (08:52)
--- NOTE | 2022-01-29 09:30 | MR_ITS ---
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 No evidence for acute infarct or hemorrhage. Garcia-white matter differentiation is normal. Moderate progression of confluent periventricular T2 and FLAIR signal abnormalities. Bilateral symmet dajuan increased T2 signal in the anterior inferior frontal lobes and the anterior RIGHT temporal lobe. This is a distribution suggestive of prior brain trauma, mild progression since the prior study. Smal l vessel ischemic disease in the elizabeth, bilateral. Ventricles and extra-axial spaces are normal. No inferior displacement of cerebellar tonsils. The sella turcica and pituitary gland are unremarkabl e. Dural venous sinuses and [place] of [place] demonstrate no abnormality on this unenhanced studies. Paranasal sinuses: Clear. Mastoid air cells: Normal. Calvarium and scalp: Intact. MR/MR head wo con* [id number] IMPRESSION: 1. No acute infarct or hemorrhage. 2. Progression of confluent periventricular ischemic type changes in the white matter. 3. Mild progression of the abnormal T2 and FLAIR signal abnormalities in the a nterior inferior frontal lobes and the anterior RIGHT temporal lobe. Mild progr ession since 2019. Probably posttraumatic in etiology. 4. Mild small vessel ischemic disease in the elizabeth. 5. Study performed without IV contrast. Cannot exclude areas of enhancement.
--- NOTE | 2022-01-29 10:22 | PC.SOCIAL ---
IMM update IMM updated with patient's . Verbalized an understanding. Copy Pg 2 provided. Initialled, dated, timed, and placed in chart.
[2022-01-29] MEDS: latanoprost 0.005% Op Soln 2.5 mL Btl 1 DROP EYE-BOTH (11:07)
[2022-01-29 12:00] VITALS: BP 127/77; PULSE 89; RESP 18; TEMP 36.4; O2SAT 97
--- NOTE | 2022-01-29 12:27 | P.PN_ITS ---
Subjective Subjective: Urology follow-up: Hospital day #2, right mid ureteral stone Denies any flank pain, gross hematuria, or stone passage. Still with extremity weakness and difficulty trying to stand. Reviewed the MRI of his head. Creatinine has Further decreased today to 2.0. He states that at baseline his creatinine has fluctuated between 1.0 and 1.7. KUB: I think I can see the stone approximately 1.5 to 2 inches more distal than its previous location at L4-5 junction. It appears to be located just above the sacrum. We had a good discussion regarding options related to the stone. We discussed the impact of his elevated creatinine on the decision. With his creatinine decreasing I think the impetus to treat urgently is decreased. Certainly can do it at any time with an upturn in his creatinine or increasingly symptomatic picture. No evidence of any obstructive pyelonephritis. I also reviewed with him that I do not think the stone itself is unlikely to be affecting the more systemic symptoms and his lower extremity weakness. Will discuss with Dr. dumont. Right now the patient is reluctant to consider surgery given the above data. My recommendation to him was to tentatively plan for intervention early or mid next week as long as there is no significant upturn in his creatinine, evidence of infectious concerns, or symptoms. I still think he has a reasonable chance of passing the stone. Vitals/I&O/Wt Last Vital Signs Temp 97.5 F L 01/29/22 12:00 Pulse 89 01/29/22 12:00 Resp 18 01/29/22 12:00 BP 127/77 01/29/22 12:00 Pulse Ox 97 01/29/22 12:00 O2 Del Method 01/29/22 12:00 01/28/22 01/29/22 01/29/22 22:59 06:59 14:59 Intake Total 850 / 1140 120 / 1260 50 / 50 Output Total 725 / 1325 Balance 125 / -185 120 / -65 50 / 50 Weight last 48 hrs Weight 179 lb 9.6 oz Weight 174 lb 14.4 oz Physical Exam Const: COMMON NORMALS: no acute distress, alert and well nourished GENERAL APPEARANCE: well kempt and well developed ORIENTATION/CONSCIOUSNESS: not confused HENMT: COMMON NORMALS: normocephalic HEAD & SCALP: normal to inspection and normocephalic Neck/C-Spine: GENERAL: Yes normal visual inspection Resp: COMMON NORMALS: normal respiratory effort EFFORT & INSPECTION: Yes able to speak in complete sentences, No labored and No Actively coughing Neuro: COMMON NORMALS: no focal motor deficits SENSORIUM/ORIENTATION: Yes alert Psych: COMMON NORMALS: mental status grossly normal APPEARANCE: Yes grossly normal and Yes well kempt ATTITUDE: Yes calm and Yes engaged Skin: COMMON NORMALS: no rashes or lesions noted and no jaundice GENERAL SKIN EXAM: no rashes or lesions noted Urinary Catheter Management: Chopra: Cath Placed During This Visit: yes Reason for Continuing Indwelling Catheter: Other Urinary Catheter Date of Insertion: 01/26/22 Urinary Catheter Time of Insertion: 18:21 Data : 01/29/22 05:09 01/29/22 05:09 Micro: Microbiology 01/27/22 21:50 Urine Culture - Preliminary Urine,Clean Catch 01/27/22 16:28 Blood Culture - Preliminary Blood NEGATIVE TO DATE 01/28/22 09:49 C.difficile Toxin B Gene (PCR) - Final Stool Routine Collection A&P Assessment and plan (1) Right ureteral calculus: On today's KUB it appears that the stone has progressed approximately 1.5 to 2 inches. Still asymptomatic. Creatinine has decreased somewhat. He would like to see if he could pass the stone as long as it would be considered safe. Given the above I think that still a reasonable assessment. Will review with Dr. Dumont. Status: Acute (2) Elevated PSA: Status: Acute Attestations Medical Necessity Statement*: See attending. Coding Level of Care Code Acute Compressed Gases Tester for Lashaun Dueñas Diagnoses Right ureteral calculus N20.1 Elevated PSA R97.20
--- NOTE | 2022-01-29 13:03 | PM.PN ---
Subjective Subjective: Conrad reports his weakness is about the same. is present for our conversation. History and physical was reviewed. He denies any chest discomfort. Medications: Reviewed: Yes Vitals/I&O/Wt Last Vital Signs Temp 97.5 F L 01/29/22 12:00 Pulse 89 01/29/22 12:00 Resp 18 01/29/22 12:00 BP 127/77 01/29/22 12:00 Pulse Ox 97 01/29/22 12:00 O2 Del Method 01/29/22 12:00 01/28/22 01/29/22 01/29/22 22:59 06:59 14:59 Intake Total 850 / 1140 120 / 1260 50 / 50 Output Total 725 / 1325 Balance 125 / -185 120 / -65 50 / 50 Weight last 48 hrs Weight 81.465 kg Weight 79.333 kg Physical Exam Narrative: General exam is a conversant male, in no distress Neck is supple no lymphadenopathy thyromegaly Cardiovascular regular rate and rhythm without murmur Lungs clear no wheezing or crackles Abdomen is soft with positive bowel sounds Extremities no cyanosis clubbing or edema Neuro no obvious focal deficits Urinary Catheter Management: Chopra: Cath Placed During This Visit: yes Reason for Continuing Indwelling Catheter: Other Urinary Catheter Date of Insertion: 01/26/22 Urinary Catheter Time of Insertion: 18:21 Data : 01/29/22 05:09 01/29/22 05:09 Micro: Microbiology 01/27/22 21:50 Urine Culture - Preliminary Urine,Clean Catch 01/27/22 16:28 Blood Culture - Preliminary Blood NEGATIVE TO DATE 01/28/22 09:49 C.difficile Toxin B Gene (PCR) - Final Stool Routine Collection A&P Assessment and plan (1) Sepsis: Appears to be resolved. No obvious source. LFTs elevated, gallbladder ultrasound did not delineate gallbladder well. No obvious duct dilation on CT imaging. We will check hepatitis panel. CT imaging did demonstrate right hydronephrosis and stone, now being followed by urology. This could have contributed. Cultures currently negative. Continue cefepime, vancomycin Status: Acute (2) Focal neurological deficit: Possible focal neurologic deficit. MRI did not demonstrate CVA. Some progression of ischemic changes white matter, anterior inferior frontal lobes and anterior right temporal lobe with slight progression of likely area of old trauma Status: Acute (3) Acute kidney injury superimposed on CKD: Likely secondary to dehydration, anti-inflammatory use Improved with hydration Avoid future anti-inflammatories Status: Acute (4) Hypercalcemia: Improved with hydration. Calcium level now normal TSH was checked and normal Status: Acute (5) Fall: Protracted weakness, borderline functional status, but worsening. Etiology not completely clear Could potentially benefit from outpatient neurologic referral. No etiology found on MRI. Secondary to weakness planning on long term facility placement Status: Acute (6) Generalized weakness: As above. Normal TSH. Status: Acute (7) Follicular lymphoma grade 3a: Continue follow-up with hematology. Status: Acute Plan Tremor episode: On 01/26 evening, significant tremors, lethargy at the same time, with difficult assessment, with calcitonin risk of seizure started empirically on Keppra. Subsequently spiking fever, tremors likely due to high amplitude rigors, no further episodes. Keppra was stopped. No recurrence. Hypogammaglobulinemia, in the past on IVIG infusions but developed intolerance. History of C. difficile. No symptoms currently. Multiple other medical problems as outlined in past medical history Lovenox for DVT prophylaxis Attestations Medical Necessity Statement*: Needs continued hospitalization for IV antibiotics secondary to sepsis, pending placement for severe weakness. Coding Level of Care Code Acute Player Services Representative for [facility] Fwd Diagnoses Sepsis A41.9 Focal neurological deficit R29.818 Acute kidney injury superimposed on CKD N17.9; N18.9 Hypercalcemia E83.52 Fall W19.XXXA Generalized weakness R53.1 Follicular lymphoma grade 3a C82.30
[2022-01-29 13:52] LABS: Hepatitis A Antibody IgM Non-Reactive (Nonreactive); Hepatitis B Core IgM Non-Reactive (Nonreactive); Hepatitis B Surface Antigen Non-Reactive (Nonreactive); Hepatitis C Virus Antibody Non-Reactive (Nonreactive)
[2022-01-29] MEDS: enoxaparin 40 mg/0.4 mL Syringe SUBCUT (15:17)
[2022-01-29 16:00] VITALS: BP 150/81; PULSE 93; RESP 18; TEMP 36.5; O2SAT 99
[2022-01-29 17:47] LABS: Vancomycin Trough 10.7 ug/mL (10-15)
[2022-01-29] MEDS: vancomycin 1,000 MG in sodium chloride 0.9% 250 ML 250 MG IV (19:13)
[2022-01-29 19:37] VITALS: BP 133/79; PULSE 88; RESP 17; TEMP 36.2; O2SAT 96
[2022-01-29] MEDS: temazepam 15 mg Capsule PO (21:10)
[2022-01-29 22:07] LABS: SARS Covid-2 Antigen Negative (Negative)
[2022-01-30] VITALS: BP 131/70; PULSE 95; RESP 17; TEMP 36.7; O2SAT 93
[2022-01-30 04:00] VITALS: BP 137/63; PULSE 97; RESP 17; TEMP 36.5; O2SAT 96
[2022-01-30 05:59] LABS: Basophils % 0.2 %; Hematocrit 35.5 % (42.0-52.0); Lymphocytes # 1.2 10^3/uL (0.8-4.8); Lymphocytes % 22.4 %; Mean Corpuscular HGB Conc 33.8 g/dL (30.0-36.0); Mean Corpuscular Hemoglobin 31.3 pg (28.0-34.0); Mean Corpuscular Volume 92.7 fl (80-94); Mean Platelet Volume 11.6 fL (7.4-10.4); Monocytes # 0.6 10^3/uL (0.2-0.9); Monocytes % 10.3 %; Neutrophils # 3.62 10^3/uL (1.8-7.7); Neutrophils % 65.3 %; Nucleated Red Blood Cells % 0 %; Platelet Count 115 10^3/cmm (130-400); Red Blood Count 3.83 10^6/uL (4.1-5.3); White Blood Count 5.5 10^3/uL (4.0-10.0)
[2022-01-30 06:16] LABS: Alanine Aminotransferase 128 U/L (0-41); Albumin Level 2.7 g/dL (3.5-5.2); Alkaline Phosphatase 301 U/L (40-130); Aspartate Amino Transferase 67 U/L (0-40); Blood Urea Nitrogen 51 mg/dL (8-23); Calcium 11.2 mg/dL (8.5-10.5); Carbon Dioxide 21 mmol/L (22-29); Chloride 99 mmol/L (98-107); Globulin 2.3 g/dL (1.3-4.6); Glucose 95 mg/dL (65-115); Osmolality Calculated 289 mOsm/kg (285-295); Sodium 133 mmol/L (136-145); Total Bilirubin 0.3 mg/dL (0.15-1.2)
[2022-01-30 08:00] VITALS: BP 145/81; PULSE 106; RESP 18; TEMP 36.4; O2SAT 95
[2022-01-30] MEDS: cefepime 1,000 MG in sodium chloride 0.9% (plus) 50 ML 100 MG IV (10:19)
[2022-01-30] MEDS: ferrous sulfate EC 325 mg Tablet PO (10:20)
[2022-01-30] MEDS: tamsulosin 0.4 mg Capsule PO (10:20)
[2022-01-30] MEDS: aspirin 81 mg EC Tablet PO (10:21)
[2022-01-30] MEDS: latanoprost 0.005% Op Soln 2.5 mL Btl 1 DROP EYE-BOTH (10:21)
[2022-01-30] MEDS: zinc gluconate 50 mg Tablet PO (10:21)
[2022-01-30] MEDS: timolol 0.5% Op Soln 5 mL Btl 1 DROP EYEAFF (10:21)
[2022-01-30] MEDS: predniSONE 20 mg Tablet PO (10:21)
--- NOTE | 2022-01-30 10:26 | P.PN_ITS ---
Subjective Subjective: Urology follow-up: Not much is changed since yesterday. Creatinine has stabilized out at 2.0. Still no renal colicky symptoms no gross hematuria and no change from an infectious perspective. We had a good discussion regarding options related to the stone including further conservative options versus intervention. Given the plateau of his creatinine I recommended considering intervention sooner than later if no progress over the next few days. He is comfortable with that option. Will get a KUB in the morning. Continue serial creatinines, accelerate intervention timeline for worsening of renal function, UTI symptoms, or pain. Vitals/I&O/Wt Last Vital Signs Temp 97.6 F 01/30/22 08:00 Pulse 106 H 01/30/22 08:00 Resp 18 01/30/22 08:00 BP 145/81 01/30/22 08:00 Pulse Ox 95 01/30/22 08:00 O2 Del Method 01/30/22 08:00 01/29/22 01/30/22 01/30/22 22:59 06:59 14:59 Intake Total 610 / 1140 360 / 1500 240 / 240 Output Total 1400 / 1400 850 / 2250 Balance -790 / -260 -490 / -750 240 / 240 Weight last 48 hrs Weight 178 lb 6 oz Weight 179 lb 9.6 oz Physical Exam Const: COMMON NORMALS: no acute distress, alert and well nourished GENERAL APPEARANCE: well kempt and well developed ORIENTATION/CONSCIOUSNESS: not confused Resp: COMMON NORMALS: normal respiratory effort EFFORT & INSPECTION: Yes able to speak in complete sentences, No labored and No Actively coughing Neuro: SENSORIUM/ORIENTATION: Yes alert OTHER: Extremity weakness. Slight tremor Psych: COMMON NORMALS: mental status grossly normal APPEARANCE: Yes grossly normal and Yes well kempt ATTITUDE: Yes calm and Yes engaged Skin: COMMON NORMALS: no rashes or lesions noted and no jaundice GENERAL SKIN EXAM: no rashes or lesions noted Urinary Catheter Management: Chopra: Cath Placed During This Visit: yes Reason for Continuing Indwelling Catheter: Acute Urinary Retention or Obstruction Urinary Catheter Date of Insertion: 01/26/22 Urinary Catheter Time of Insertion: 18:21 Data : 01/30/22 05:33 01/30/22 05:33 Micro: Microbiology 01/27/22 21:50 Urine Culture - Preliminary Urine,Clean Catch A&P Assessment and plan (1) Right ureteral calculus: HPI. Repeat KUB in the morning along with serial creatinines. Status: Acute (2) Elevated PSA: Pending further evaluation outpatient basis. Overall considered low risk Status: Acute Attestations Medical Necessity Statement*: See attending Coding Level of Care Code Acute Territory Account Representative for Lashaun Dueñas Diagnoses Right ureteral calculus N20.1 Elevated PSA R97.20
--- NOTE | 2022-01-30 11:58 | P.DS_ITS ---
Discharge Providers Date of Admission: 01/26/22 20:56 Date of Discharge: January 30, 2022 Attending Provider at Admission: Tristan Dumont Attending Provider at Discharge: Dany Yeung MD Primary Care Provider: Catrina Farley MD Diagnoses at Discharge Discharge Diagnosis (1) Right ureteral calculus: Status: Acute (2) Elevated PSA: Status: Acute Permanent problem details: 4-5 range with benign feeling, 3+ prostate. Elected to hold on prostate cancer screening/PSA pursued due to other more significant comorbidities Reason for Visit Reason for Visit: WEAKNESS; FALL Hospital Course Hospital Course Conrad is a 71-year-old white male who presented to the hospital with severe weakness and was found to have acute kidney injury superimposed on chronic kidn ey disease, hypercalcemia. He had had a fall but no loss of consciousness. There was concern of sepsis. He has an underlying history of lymphoma. He was placed on broad-spectrum antibiotics. Miacalcin was initially started for hypercalcemia along with hydration but this had to be discontinued soon thereafter secondary to tremor and question of seizure. He also became fluid overloaded and diuresis was performed. In further work-up, patient was found to have right hydronephrosis in renal stone. Urology was consulted, and followed expectantly. Throughout the rest of the patient's hospital course he had gradual improvement. Mental status was back to baseline at discharge. He was not running any fevers. White blood cell count did return to normal. Cultures were negative. Neurology believed he could be continued to be followed as an outpatient. Creatinine had dropped to 2.0. I discussed his case with both urology and hematology. He was given a dose of pamidronate prior to increase of calcium near end of hospital discharge. He will transition to [facility], for rehabilitation. He will follow-up with urology and hematology on Friday, February 04. He will finish her course of cefdinir. Chopra removed prior to discharge. Laboratory for follow-up in 3 to 4 days. Physical Exam Narrative: General exam is a conversant white male in no apparent distress Neck is supple Cardiovascular regular rate and rhythm Lungs clear Abdomen is soft, positive bowel sounds Extremities no cyanosis clubbing or edema Urinary Catheter Management: Chopra: Cath Placed During This Visit: yes Reason for Continuing Indwelling Catheter: Acute Urinary Retention or Obstruction Urinary Catheter Date of Insertion: 01/26/22 Urinary Catheter Time of Insertion: 18:21 Discharge Data Studies Completed and Pending Completed Studies During Hospitalization Category Date Time Status CT head wo con* [id number] Stat Cat Scan 01/26/22 08:[address] kidney stone [id number] Routine Cat Scan 01/27/22 13:14 Completed XR KUB [id number] Routine Exams 01/28/22 09:52 Completed XR KUB 40711 Routine Exams 01/29/22 06:00 Completed XR KUB portable [id number] Stat Exams 01/26/22 19:58 Completed XR chest 1V portable [id number] Stat Exams 01/26/22 10:07 Completed MR head wo con* [id number] Routine MRI 01/29/22 09:30 Completed NM pul vent and perfus* [id number] Routine Nuc Med 01/27/22 15:13 Completed US gall bladder 16142 Routine Ultrasound 01/26/22 17:46 Completed US renal BI* [id number] Routine Ultrasound 01/26/22 15:06 Completed Pending at discharge Category Date Time Status XR KUB [id number] Routine Exams 01/31/22 06:00 Ordered ABG FULL [Arterial Blood Gas Full] Stat Lab 01/26/22 19:50 Received Blood Culture Stat Lab 01/26/22 08:50 Results Blood Culture Stat Lab 01/27/22 16:28 Results PTH Related Peptide (Protein) Routine Lab 01/27/22 03:25 Received Vancomycin Trough Timed Lab 02/01/22 17:30 Ordered Radiology Impressions Head CT 01/26/22 08:39 IMPRESSION: 1. No noncontrast CT evidence of acute posttraumatic intracranial abnormality. Chest X-Ray 01/26/22 10:07 IMPRESSION: No chest radiographic evidence of acute cardiopulmonary disease. Renal Ultrasound 01/26/22 15:06 IMPRESSION: 1. Wqqn-yh-[id number] right hydronephrosis. 2. 6.8 x 5.8 x 6.3 cm postvoid urinary bladder with estimated volume 131 cc. 3. Echogenic right renal cortex compared to the liver consistent with moderate bilateral medical renal disease. Gallbladder Ultrasound 01/26/22 17:46 IMPRESSION: 1. Gallbladder is not visualized. 2. Mild right hydronephrosis suspected without obstructing lesion. Abdomen/Pelvis CT 01/27/22 13:14 IMPRESSION: 1. Chopra balloon catheter in the urinary bladder. 2. Interval appearance of 5 mm right mid ureteral stone at the level of L4-L5 with mild to moderate right hydronephrosis. 3. Increased moderate to severe mesenteric adenopathy with additional [id number]-[id number] adenopathy in the inguinal/groin bilaterally, pelvis, retroperitoneum and upper abdomen/inferior thorax. Differential diagnosis includes lymphoma versus metastatic disease versus infectious process versus autoimmune disease. Pulmonary Perfusion Imaging 01/27/22 15:13 IMPRESSION: Low likelihood ratio for pulmonary embolism. KUB X-Ray 01/29/22 06:00 IMPRESSION: Nonobstructive bowel gas pattern. Mild constipation. ADDENDUM: 01/29/22 0708 The right ureteral calculus seen on the prior CT dated 01/27/2022 is not definitively visualized. This may be related to bowel gas. Head MRI 01/29/22 09:30 IMPRESSION: 1. No acute infarct or hemorrhage. 2. Progression of confluent periventricular ischemic type changes in the white matter. 3. Mild progression of the abnormal T2 and FLAIR signal abnormalities in the anterior inferior frontal lobes and the anterior RIGHT temporal lobe. Mild progression since 2019. Probably posttraumatic in etiology. 4. Mild small vessel ischemic disease in the elizabeth. 5. Study performed without IV contrast. Cannot exclude areas of enhancement. Laboratory Results WBC 5.5 10^3/uL (4.0-10.0) 01/30/22 05:33 RBC 3.83 10^6/uL (4.1-5.3) L 01/30/22 05:33 Hgb 12.0 g/dL (11.7-16.6) 01/30/22 05:33 Hct 35.5 % (42.0-52.0) L 01/30/22 05:33 MCV 92.7 fl (80-94) 01/30/22 05:33 MCH 31.3 pg (28.0-34.0) 01/30/22 05:33 MCHC 33.8 g/dL (30.0-36.0) 01/30/22 05:33 RDW 13.0 % (12.1-15.1) 01/30/22 05:33 Plt Count 115 10^3/cmm (130-400) L 01/30/22 05:33 MPV 11.6 fL (7.4-10.4) H 01/30/22 05:33 Neut % (Auto) 65.3 % 01/30/22 05:33 Lymph % (Auto) 22.4 % 01/30/22 05:33 [place] % (Auto) 10.3 % 01/30/22 05:33 Eos % (Auto) 0.0 % 01/30/22 05:33 Baso % (Auto) 0.2 % 01/30/22 05:33 Neut # (Auto) 3.62 10^3/uL (1.8-7.7) 01/30/22 05:33 Lymph # (Auto) 1.2 10^3/uL (0.8-4.8) 01/30/22 05:33 [place] # (Auto) 0.6 10^3/uL (0.2-0.9) 01/30/22 05:33 Eos # (Auto) 0.0 10^3/uL (0.0-0.8) 01/30/22 05:33 Baso # (Auto) 0.0 10^3/uL (0.0-0.1) 01/30/22 05:33 Nucleated RBC % (auto) 0 % 01/30/22 05:33 Nucleated RBCs # 0.0 /100WBC 01/30/22 05:33 Sodium 133 mmol/L (136-145) L 01/30/22 05:33 Potassium 4.0 mmol/L (3.5-5.1) 01/30/22 05:33 Chloride 99 mmol/L (98-107) 01/30/22 05:33 Carbon Dioxide 21 mmol/L (22-29) L 01/30/22 05:33 Anion Gap 17.0 (5-19) 01/30/22 05:33 BUN 51 mg/dL (8-23) H 01/30/22 05:33 Creatinine 2.0 mg/dL (0.7-1.2) H 01/30/22 05:33 GFR Calculation Not Reportable 01/30/22 05:33 Glucose 95 mg/dL (65-115) 01/30/22 05:33 POC Glucose 104 mg/dL (70-110) 01/26/22 19:42 Calculated Osmolality 289 mOsm/kg (285-295) 01/30/22 05:33 Lactic Acid 2.6 mmol/L (0.5-2.2) H 01/26/22 08:30 Lactic Acid (Sepsis) 1.8 mmol/L (0.5-2.2) 01/26/22 12:27 Calcium 11.2 mg/dL (8.5-10.5) H 01/30/22 05:33 Phosphorus 4.6 mg/dL (2.5-4.5) H 01/29/22 05:09 Total Bilirubin 0.3 mg/dL (0.15-1.2) 01/30/22 05:33 AST 67 U/L (0-40) H 01/30/22 05:33 ALT 128 U/L (0-41) H 01/30/22 05:33 Alkaline Phosphatase 301 U/L (40-130) H 01/30/22 05:33 Creatine Kinase 10 U/L (39-308) L 01/26/22 08:35 Troponin T Baseline 49 ng/L (0-15) H 01/26/22 08:30 Troponin T 120 Minute 51.42 ng/L (0-15) H 01/26/22 10:54 Delta Troponin T 2.42 ABS# (0-10) 01/26/22 10:54 Troponin T Hi Sens 6Hr 47.28 ng/L (0-15) H 01/26/22 14:48 Troponin T Hi Sens 6Hr Delta -1.72 ng/L (0-12) L 01/26/22 14:48 Total Protein 5.0 g/dL (6.6-8.7) L 01/30/22 05:33 Albumin 2.7 g/dL (3.5-5.2) L 01/30/22 05:33 Globulin 2.3 g/dL (1.3-4.6) 01/30/22 05:33 Lipase 38 U/L (13-60) 01/26/22 08:30 25-OH Vitamin D Total 42 ng/mL (30-100) 01/26/22 18:26 TSH 3.62 uIU/mL (0.27-4.20) 01/26/22 14:48 PTH Intact 60.3 pg/mL (15-65) 01/27/22 03:25 Calcium (PTH Intact) 10.4 mg/dL (8.5-10.5) 01/27/22 03:25 Urine Color Yellow (Yellow) 01/27/22 21:50 Urine Appearance Clear (CLEAR) 01/27/22 21:50 Urine pH 5 (5-7) 01/27/22 21:50 Ur Specific [place] 1.020 (1.005-1.030) 01/27/22 21:50 Urine Protein Trace (Negative) 01/27/22 21:50 Urine Glucose (UA) 2+ (Normal) H 01/27/22 21:50 Urine Ketones 1+ (Negative) H 01/27/22 21:50 Urine Blood 3+ (Negative) H 01/27/22 21:50 Urine Nitrate Negative (Negative) 01/27/22 21:50 Urine Bilirubin Neg (Negative) 01/27/22 21:50 Urine Urobilinogen Neg mg/dL (Negative) 01/27/22 21:50 Ur Leukocyte Esterase Negative (Negative) 01/27/22 21:50 Urine RBC 5-10 /hpf (0-2) H 01/27/22 21:50 Urine WBC 0-4 /hpf (0-5) H 01/27/22 21:50 Ur Squamous Epith Cells 0-4 /hpf (0-5) H 01/27/22 21:50 Amorphous Sediment 1+ /hpf 01/27/22 21:50 Urine Bacteria Trace /hpf (NONE) 01/27/22 21:50 Coarse Granular Casts 0-4 /lpf H 01/27/22 21:50 Urine Mucus Trace /hpf 01/27/22 21:50 Vancomycin Trough 10.7 ug/mL (10-15) 01/29/22 17:07 Hepatitis A IgM Ab Non-reactive (Nonreactive) 01/27/22 03:25 Hep Bs Antigen Non-reactive (Nonreactive) 01/27/22 03:25 Hep B Core IgM Ab Non-reactive (Nonreactive) 01/27/22 03:25 Hepatitis C Antibody Non-reactive (Nonreactive) 01/27/22 03:25 SARS-CoV-2 RNA (RT-PCR) Not detected (NOT DETECTED) 01/26/22 Unknown SARS-CoV-2 Ag (Rapid) Negative (Negative) 01/29/22 20:15 Vitals Last Vital Signs Temp 97.6 F 01/30/22 08:00 Pulse 106 H 01/30/22 08:00 Resp 18 01/30/22 08:00 BP 145/81 01/30/22 08:00 Pulse Ox 95 01/30/22 08:00 O2 Del Method 01/30/22 08:00 Discharge Plan Discharge Patient Disposition: Xfer SNF Condition: Stable Prescriptions: New aspirin 81 mg Tablet,Delayed Release (Dr/Ec) 81 mg PO DAILY Qty: 30 0RF tamsulosin 0.4 mg Capsule 0.4 mg PO DAILY Qty: 30 0RF cefdinir 300 mg capsule 300 mg PO BID 7 Days Qty: 14 0RF Continued zinc 50 mg tablet 50 mg PO DAILY timolol 0.5 % drops 1 drp ophthalmic (eye) BID Rx Instructions: right eye latanoprost 0.005 % drops 1 drp ophthalmic (eye) DAILY Rx Instructions: right eye prednisone 5 mg tablet 15 mg PO BID ferrous sulfate [iron] 325 mg (65 mg iron) tablet 325 mg PO EVERY OTHER DAY cholecalciferol (vitamin D3) 25 mcg (1,000 unit) tablet 25 mcg PO DAILY lansoprazole [Prevacid] 30 mg capsule,delayed release(DR/EC) 30 mg PO BID Qty: 60 3RF colestipol 1 gram tablet 1 g PO TID oxycodone 5 mg capsule 5 mg PO DAILY PRN (Reason: Pain) Qty: 20 0RF Discontinued potassium chloride 10 mEq capsule, extended release 10 meq PO DAILY Discharge Orders: Discharge Order (Routine); Ordered 01/30/22 Ordered By: Dany Yeung Referrals: [facility] [Outside] (CBC, CMP on Friday) Juan Manuel Vail MD [Physician] - 4-7 days Catrina Farley MD [Primary Care Provider] - 4-7 days Adrian Mast MD [Hospitalist] - 4-7 days Discharge Diet: Usual diet Discharge Activity: Increase activity as tolerated Patient Instructions: Aspirin (By mouth), Tamsulosin (By mouth), Cefdinir (By mouth), GERD (Gastroesophageal Reflux Disease) (GEN), Chronic Cough (DC), Opioid Safety Activity Restrictions/Additional Instructions: Take all medicine as prescribed CBC, CMP in 3 days Follow-up with Dr. Pro Miller on Friday Follow-up with your primary care provider Return for any concerns May discharge after pamidronate infusion has been completed Discharge Attestations Time Spent in Discharge Care*: greater than 30 min Quality Metrics Clinical Quality Measures [ No reported AMI, CVA or VTE this stay] Coding Level of Care Code Acute Chg FW DC note Diagnoses Right ureteral calculus N20.1 Elevated PSA R97.20
[2022-01-30 12:00] VITALS: BP 138/82; PULSE 116; RESP 18; TEMP 36.8; O2SAT 95
--- NOTE | 2022-01-30 14:19 | PC.NURSE ---
Home meds returned to .
[2022-01-30 15:14] VITALS: BP 138/82; PULSE 116; RESP 18; TEMP 36.8; O2SAT 95
[2022-01-31 15:10] LABS: ABG PCO2 32.9 mmHg (35-45); ABG PH Result 7.42 (7.35-7.45); Alveolar-Arterial Oxygen Gradi 5.1 mmHg (5-10); Arterial Blood Gas Hematocrit 45.8 % (42-52); Base Excess ABG -2.3 mmol/L (-2.0-2.0); Blood Gas Sample Site Brachial, right; Blood Gas Sample Type Arterial; Carboxyhemoglobin 1.6 %THgb (0.4-20.1); HCO3 ABG 21.3 mmol/L (22-26); HGB O2 Sat 92.2 % (95-100); Ionized Calcium Level - ABG 1.6 mmol/L (1.1-1.4); Methemoglobin 0.7 % (0.4-1.5); Oxygen Device ROOM AIR; Oxygen Saturation ABG 94.4; PO2 ABG 69.3 mmHg (80.0-100.0); Potassium Level - ABG 4.3 mmol/L (3.5-5.0); Total Hemoglobin 14.9 g/dL (14-18)
[2022-02-01 17:22] LABS: PTH Related Peptide (Protein) 13 pg/mL (11-20)
== END 2022-01-30 15:14 | disposition skilled nursing facility (03) | DRG 871 ==
LOC: ER 10:07 → MEDSURG 12:38 → ICU 20:06 → MEDSURG 01-27 16:50
PROVIDERS: Internal Medicine; Admitting Provider Internal Medicine; Emergency Provider Family Medicine; PCP Family Medicine; Visit Provider Internal Medicine
DX: A41.9 Sepsis, unspecified organism (principal); G93.41 Metabolic encephalopathy; N13.2 Hydronephrosis with renal and ureteral calculous obstruction; C82.38 Follicular lymphoma grade IIIa, lymph nodes of multiple sites; Z94.81 Bone marrow transplant status; D80.1 Nonfamilial hypogammaglobulinemia; N17.9 Acute kidney failure, unspecified; R29.6 Repeated falls; N18.9 Chronic kidney disease, unspecified; E86.0 Dehydration; E83.52 Hypercalcemia; K21.9 Gastro-esophageal reflux disease without esophagitis; R25.1 Tremor, unspecified; K59.00 Constipation, unspecified; K44.9 Diaphragmatic hernia without obstruction or gangrene; N40.0 Benign prostatic hyperplasia without lower urinary tract symptoms; R53.1 Weakness; R97.20 Elevated prostate specific antigen [PSA]; W19.XXXA Unspecified fall, initial encounter; D69.6 Thrombocytopenia, unspecified; R79.89 Other specified abnormal findings of blood chemistry; Z79.01 Long term (current) use of anticoagulants; Z91.81 History of falling; Z79.899 Other long term (current) drug therapy; Z86.711 Personal history of pulmonary embolism; Z86.718 Personal history of other venous thrombosis and embolism; Z87.01 Personal history of pneumonia (recurrent); Z96.652 Presence of left artificial knee joint; Z79.52 Long term (current) use of systemic steroids; Z79.891 Long term (current) use of opiate analgesic; Z86.19 Personal history of other infectious and parasitic diseases
CPT/HCPCS: 36415; 36416; 36591; 36600; 51702; 70450; 70551; 71045; 74018; 74176; 76705; 76770; 78014; 80051; 80053; 80074; 80202; 81001; 82306; 82310; 82330; 82542; 82550; 82805; 82962; 83605; 83690; 83970; 84100; 84443; 84484; 85025; 87040; 87086; 87426; 87493; 87635; 92523; 92610; 93005; 96360; 96372; 97110; 97116; 97161; 97166; 97530; 97535; 99285; A9540; A9567; G0378; J0290; J0630; J0692; J1650; J1953; J2310; J2430; J2920; J3370; J7030; J7050; J7512

== ENCOUNTER 2022-02-01 08:30 | Outpatient (CLI) | payer OTHER, SELFPAY ==
--- NOTE | 2022-02-01 08:48 | XR_ITS ---
WS: [id number] KUB, AP view, 02/01/2022 Clinical Data: CALCULUS Comparison: KUB, 01/29/2022. Findings: No abnormal intraabdominal masses or calcifications are seen. There is no dilatated small bowel or ev idence of obstruction. There are clips in the right upper quadrant from a cholecystectomy. There is fecal material throughou t the colon. There is a slight levoscoliosis of the lumbar spine. XR/XR KUB [id number] Impression: Negative KUB.
[2022-02-01 10:40] LABS: Erythrocyte Sedimentation Rate 21 mm/hr (0-10)
[2022-02-01 10:57] LABS: Anion Gap 15.1 (5-19); Blood Urea Nitrogen 44 mg/dL (8-23); Calcium 11.7 mg/dL (8.5-10.5); Carbon Dioxide 24 mmol/L (22-29); Chloride 96 mmol/L (98-107); Glucose 163 mg/dL (65-115); Osmolality Calculated 287 mOsm/kg (285-295); Potassium 4.1 mmol/L (3.5-5.1); Sodium 131 mmol/L (136-145)
[2022-02-01 10:58] LABS: Lactate Dehydrogenase 202 U/L (135-225)
== END 2022-02-01 08:31 | disposition home or self-care (01) ==
LOC: LAB 08:39 → RAD 08:46
PROVIDERS: Internal Medicine Medical Oncology; PCP Family Medicine; Visit Provider Urology
DX: N20.1 Calculus of ureter (principal); C82.18 Follicular lymphoma grade II, lymph nodes of multiple sites; D50.0 Iron deficiency anemia secondary to blood loss (chronic); D80.1 Nonfamilial hypogammaglobulinemia; R97.20 Elevated prostate specific antigen [PSA]; N17.9 Acute kidney failure, unspecified; N18.9 Chronic kidney disease, unspecified
CPT/HCPCS: 36415; 74018; 80048; 83615; 85651; 99214

== ENCOUNTER 2022-02-06 05:45 | Day surgery (SDC) | payer OTHER, SELFPAY ==
[2022-02-05 09:52] VITALS: BMI 24.0
[2022-02-06] VITALS (7 sets, daily range): BP systolic 136–161; BP diastolic 74–84; PULSE 77–89; RESP 12–18; TEMP 36.3–36.6; O2SAT 94–100
--- NOTE | 2022-02-06 | SCC_ITS ---
Procedure done: 1. Cystoscopy, RIGHT retrograde, ureteroscopy, laser, stent 2. Evacuation of multiple spherical bladder debris. Not stone but clearly formed. Possibly related to chemo. 40.5 seconds of fluoroscopic guidance, for a cumulative dose of 7.77 mGy, was provided to Dr. Vail by the radiology department. C-arm images of the abdomen were saved for the patient's permanent record. [facility]
--- NOTE | 2022-02-06 05:49 | SC_ITS ---
WS: [id number] INTRAOPERATIVE TECHNIQUE: 3 Spot fluoroscopic images for intraoperative purposes. FLUOROSCOPY TIME: 40.5 seconds CLINICAL INFORMATION: Right ureteroscopy COMPARISON: None. FINDINGS: RIGHT ureteroscopy with contrast injection. Filling defect in the RIGHT distal ureter. RIGHT double-J ureteral stent. SC/C-arm FL for Urology IMPRESSION: Images obtained for intraoperative purposes.
[2022-02-06] MEDS: sodium chloride 0.9% 1,000 ML 30 ML IV (06:16)
--- NOTE | 2022-02-06 06:26 | P.ANESASSM_ITS ---
Pre-Anesthetic Assessment Height/Weight: Height 1.78 m Weight 76.204 kg Temp Pulse Resp BP Pulse Ox O2 Del Method 97.4 F L 89 16 136/79 95 02/06/22 06:08 02/06/22 06:08 02/06/22 06:08 02/06/22 06:08 02/06/22 06:08 02/06/22 06:08 Preop Diagnosis: Refractory right ureteral calculus Operation Date: 02/06/22 07:10 Proposed Procedures p Cystoscopy, Right, Retrograde ureteroscopy, laser stent 17904, 02759 modified 26, 65728,N20.1(Not Applicable) - Juan Manuel Vail MD s Retrograde Pyelogram(Right) - Juan Manuel Vail MD s Ureteroscopy(Right) - Juan Manuel Vail MD s Laser Lithotripsy(Right) - Juan Manuel Vail MD s Ureteral Stent Placement(Right) - Juan Manuel Vail MD Familial anesthetic complications: None Was Beta Luisa taken within 24 hours: N/A Was Clonidine taken within 24 hours: N/A Last intake: Intake Last Liquid Date 02/05/22 Last Liquid Time 20:00 Last Solid Date 02/03/22 Last Solid Time 08:00 Social No alcohol and No tobacco Exam alert, oriented x 3 and regular rate & rhythm Right sided lungs course with faint crackles Airway Submandibular: within normal limits Cervical ROM: within normal limits Mallampati: Class II Dentition: full Pulmonary Hx of PE Pulmonary Perfusion Imaging 01/27/22 NM/NM pul vent and perfus* [id number] IMPRESSION: Low likelihood ratio for pulmonary embolism. ? 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 difficile Metabolic Takes 30 mg prednisone daily Musc/skel Osteoarthritis/DJD Neuropsych PTSD MRI 01/29/22 MR/MR head wo con* [id number] IMPRESSION: ? 1.? No acute infarct or hemorrhage. 2.? Progression of confluent periventricular ischemic type changes in the white matter. 3.? Mild progression of the abnormal T2 and FLAIR signal abnormalities in the anterior inferior frontal lobes and the anterior RIGHT temporal lobe. Mild progression since 2019. Probably posttraumatic in etiology. 4.? Mild small vessel ischemic disease in the elizabeth. 5.? Study performed without IV contrast. Cannot exclude areas of enhancement. ? ? Anesthetic Plan ASA status: 3 Anesthesia: Anesthesia Evaluation and General Other: We discussed risk and benefits of general anesthesia including PONV, sore throat (sometimes severe), corneal abrasion, positioning and peripheral nerve injuries, life threatening allergic reaction, post operative ICU admission requiring prolonged intubation, aspiration, stroke, heart attack, , and rare incidences of recall. Patient consents to proceed with general anesthesia. Plan general with stress dose hydrocortisone. Risk of > 500 ml blood loss (7ml/kg in children): No Medications/Allergies Home Medications Medication Instructions Recorded Confirmed Last Taken Type zinc 50 mg tablet 50 mg PO DAILY 07/05/20 02/05/22 01/25/22 History latanoprost 0.005 % eye drops 1 drp ophthalmic (eye) DAILY 03/06/21 02/06/22 02/06/22 History timolol 0.5 % eye drops 1 drp ophthalmic (eye) BID 03/06/21 02/05/22 01/25/22 History colestipol 1 gram tablet 1 g PO TID 09/13/21 02/06/22 02/05/22 History cholecalciferol (vitamin D3) 25 25 mcg PO DAILY 10/10/21 02/06/22 02/05/22 History mcg (1,000 unit) tablet ferrous sulfate 325 mg (65 mg 325 mg PO EVERY OTHER DAY 10/10/21 02/06/22 02/05/22 History iron) tablet (iron) prednisone 5 mg tablet 15 mg PO BID 11/22/21 02/05/22 01/25/22 History aspirin 81 mg tablet,delayed 81 mg PO DAILY #30 tabs 01/30/22 02/06/22 02/05/22 Rx release oxycodone 5 mg capsule 5 mg PO DAILY PRN Pain #20 caps 01/30/22 02/06/22 02/06/22 Rx tamsulosin 0.4 mg capsule 0.4 mg PO DAILY #30 caps 01/30/22 02/05/22 Unknown Rx lansoprazole 30 mg capsule,delayed See Rx Instructions PO BID 02/04/22 02/05/22 Unknown History release (Prevacid) nystatin 100,000 unit/mL oral 5 ml PO QID #480 mL 02/05/22 02/06/22 02/06/22 Rx suspension Allergies Allergy/AdvReac Type Severity Reaction Status Date / Time acyclovir Allergy Severe swelling Verified 02/06/22 06:05 ciprofloxacin [From Cipro] Allergy Intermediate facial Verified 02/06/22 06:05 swelling levofloxacin [From Levaquin] Allergy Intermediate very Verified 02/06/22 06:05 sleepy, eyes irritated trazodone Allergy Unknown Unknown Verified 02/06/22 06:05 warfarin Allergy Unknown Unknown Verified 02/06/22 06:05 Prozac Allergy Unknown ALGY-Joint Uncoded 02/06/22 06:05 Pain Current Medications Generic Name Dose Route Start Last Admin Trade Name Freq PRN Reason Stop Dose Admin Sodium Chloride 1,000 mls @ 30 mls/hr 02/06/22 06:00 02/06/22 06:16 Sodium Chloride 0.9% IV 02/07/22 05:59 30 mls/hr .Q24H FROILAN Administration PFSH Anesthesia Medical History Benign prostatic hyperplasia with lower urinary tract symptoms Chronic kidney disease Follicular lymphoma grade 3a GERD (gastroesophageal reflux disease) Hiatal hernia 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 History of follicular lymphoma (2008) grade 1-2 follicular lymphoma History of pulmonary embolism History of recurrent deep vein thrombosis (DVT) Hypogammaglobulinaemia, unspecified Nephrolithiasis Post traumatic stress disorder Primary osteoarthritis of right knee Recurrent bacterial pneumonia Recurrent colitis due to Clostridioides difficile Thrombocytopenia Surgical History H/O abdominal surgery Partial bowel resection per shrapnel injury H/O lymph node biopsy multiple lymph node biopsies History of cataract surgery History of cholecystectomy History of colonoscopy (08/30/21) History of esophagogastroduodenoscopy (08/30/21) History of left knee replacement History of shoulder surgery Port-A-Cath in place (Unknown) Family History Father , AT AGE 49 CAD (coronary artery disease) Mother , AT AGE 79 Dementia Other Cancer Clotting disorder Denies family history of Diabetes Hyperlipidemia Psychiatric illness Chronic kidney disease (CKD) Suicide Anesthesia complication Bleeding disorder Lung disease Hypertension Stroke Social History Smoking and tobacco status: never smoked Alcohol intake: never Lives independently: Yes Household members: spouse Marital status: Current occupational status: retired History of recent travel: No Data Anesthesia Cardiac Studies: No Data to Display
--- NOTE | 2022-02-06 07:03 | P.HPUD_ITS ---
Surgery/Procedure H&P Update DATE OF PROCEDURE: February 06, 2022 DATE H&P PERFORMED: 02/01/22 H&P UPDATE INFORMATION: I have reviewed H&P completed within last 30 days, I have examined patient prior to procedure, No changes to prior documentation and H&P is in [facility] [place] EMR on date indicated CHANGES TO PREVIOUS DOCUMENTATION: Still having intermittent pain on the right side. Has not passed the stone. Voiding better on TAMSULOSIN. Proceed with procedure as scheduled. Anticipate leaving stent. PREOP DIAGNOSIS: Refractory right ureteral calculus PLANNED PROCEDURE: Operation Date: 02/06/22 07:10 Proposed Procedures p Cystoscopy, Right, Retrograde ureteroscopy, laser stent 96300, 74259 modified 26, 70190,N20.1(Not Applicable) - Juan Manuel Vail MD s Retrograde Pyelogram(Right) - Juan Manuel Vail MD s Ureteroscopy(Right) - Juan Manuel Vail MD s Laser Lithotripsy(Right) - Juan Manuel Vail MD s Ureteral Stent Placement(Right) - Juan Manuel Vail MD
[2022-02-06] MEDS: ceFAZolin 2,000 MG in sodium chloride 0.9% (plus) 50 ML 100 MG IV (07:05)
--- NOTE | 2022-02-06 07:10 | P.OP_ITS ---
Operative Report Date of procedure: February 06, 2022 Pre-op diagnosis: Refractory right ureteral calculus, symptomatic Post-op diagnosis: Refractory right ureteral calculus, symptomatic Procedure done: 1. Cystoscopy, RIGHT retrograde, ureteroscopy, laser, stent 2. Evacuation of multiple spherical bladder debris. Not stone but clearly formed. Possibly related to chemo. Implants: Right ureteral stent, 6 [place] by 28 cm double-pigtail without string Specimens removed/disposition: Stone fragments Spherical bladder debris Pathology: Stone fragment Spherical bladder debris Surgeon: Yared Estimated blood loss: Minimal Urine output: Not measured Complications: None Findings: 1. 100s of small and varying sizes of spherical objects in the bladder that appear to be some sort of a debris. Not clearly stone. These were not easily seen on CT scan previously. Flushed easily from the bladder with an Ellik 2. Stone in the expected position in the right ureter. Required fragmentation with laser. 3. Stent left indwelling Brief History: Conrad is a very pleasant 71-year-old white male who was discovered coincid entally to have a right mid ureteral stone during admission for severe debilitation related to lymphoma. There were mild obstructive changes and he had experienced some intermittent right flank pain typical for renal colic for roughly 1 week prior to his admission. He had not paid a whole lot of attention to it though. Complicating this situation was the fact that his creatinine was elevated to 2.7 from a baseline of 1-1.7. A significant portion of that was related to probably NSAID use and his creatinine improved without definitive treatment of the stone. There was no evidence of infection and he was given a trial to see if he could pass the stone to avoid surgical intervention but has failed to do so. As of yesterday he was still having some intermittent severe pain consistent with renal colic. He is admitted for endoscopic treatment of the stone Procedure: After routine preoperative evaluation examination and obtaining of informed consent he was taken to the operating suite on 02/06/2022 where general anesthesia was administered without difficulty. Prepped and draped in usual sterile fashion in dorsolithotomy position. Appropriate timeout was performed, SCDs confirmed to be functioning, preoperative antibiotics administered, beta- matilda protocol confirmed. 21 [place]ian cystoscope was introduced into urethra meatus and advanced into the bladder without difficulty. The bladder was systematically examined and surprisingly had 100s of spherical stones that were evacuated through the scope with an Ellik evacuator. They were not stones though on examination and were relatively soft but definitely intact spherical bodies. Etiology unclear. No other gross abnormality was seen in the bladder. An 8 [place]ian cone-tip catheter was intubated into the right ureteral orifice for right retrograde ureteropyelogram showing: Fairly normal course and caliber of the distal ureter and a filling defect consistent with a stone in the expected position. The ureter proximal to the stone was mildly dilated. Flexible tip guidewire was then advanced up the right ureter to the kidney easily bypassing the stone. The distal ureter was then dilated with a 15 [place]ian 4 cm balloon with no waist. The wire was secured to the drapes as a safety wire. Offset semirigid ureteroscope was advanced into the bladder under videoscopy. It was passed up the right ureter but could not be manipulated all the way to the level of the stone. A second guidewire was then passed through the ureteroscope and the rigid ureteroscope was exchanged for a 7 [place]ian flexible ureteroscope which was able to be passed to the level of the stone. The stone was fragmented to sand utilizing a 200 ?m thulium superpulse laser f iber. Scope was passed all the way to the UPJ and there is no evidence of any migration of any substantial fragments. The ureter was inspected. There is no significant trauma but it was decided to leave a stent in for passive dilation of the area that could not be easily passed with the rigid scope Cystoscope was then backloaded over the safety guidewire and a 6 [place]ian by 28 cm double-pigtail stent was advanced over the guidewire through the cystoscope into appropriate position as confirmed via fluoroscopy and cystoscopy. Bladder was drained with the cystoscope of stone debris as well as a few small clots. Stent was confirmed to be draining. Procedure was completed. He tolerated procedure well without complications and was awakened in the operating room and returned to the recovery room in stable condition. PLANS: 1. Anticipate discharge from outpatient surgery 2. Follow-up in approximately 1 week for cystoscopy and stent removal in the clinic. No x-rays required
[2022-02-06] MEDS: iohexol 300 mg/mL 50 mL Btl (OR ONLY) XX (07:50)
--- NOTE | 2022-02-06 08:46 | SUR.PHASEI ---
PT TO PACU 5 PT AWAKES TO VOICE, MONITOR SR WITH NO ECTOPY NOTED IV TO RT WRIST #20 WITH NS 200ML UP AT KVO RATE ID BRACELET TO LT WRIST PT ID'D WITH 2 IDENTIFIERS , BILAT SCDS ON AND WORKING , ABDOMEN SOFT TO PALPATION. WARM BLANKET TO PT.
--- NOTE | 2022-02-06 08:51 | SUR.PHASEI ---
PT AWAKE ALERT TAKING ICE CHIPS AND VERBALLY REQUESTS DIET SPRITE TO SIP ON, VSS.
--- NOTE | 2022-02-06 11:48 | ANE.PACU2 ---
Inpatient post-anesthesia follow up: Airway intact: Yes Vital signs: Temperature 97.8 F Pulse Rate 84 Respiratory Rate 18 Blood Pressure 145/74 Pulse Oximetry 95 Oxygen Delivery Me thod Room Air Oxygen Flow Rate 8 Fraction of Inspir ed Oxygen Hydration adequate: Yes Nausea and vomiting: No Pain level: 1 Mental status: Baseline
[2022-02-09 17:57] LABS: Stone Source RIGHT URETERAL STONE
== END 2022-02-06 09:29 | disposition home or self-care (01) ==
PROVIDERS: PCP Family Medicine; Visit Provider Urology
PROC: 0TJB8ZZ Inspection of Bladder, Via Natural or Artificial Opening Endoscopic (ICD-10-PCS; CPT 52000; principal; 2022-02-06 07:00)
PROC: (CPT 74420; 2022-02-06 07:00)
PROC: 0TJ98ZZ Inspection of Ureter, Via Natural or Artificial Opening Endoscopic (ICD-10-PCS; CPT 52351; 2022-02-06 07:00)
PROC: (CPT 52356; 2022-02-06 07:00)
PROC: (CPT 50605; 2022-02-06 07:00)
DX: N20.1 Calculus of ureter (principal); N18.9 Chronic kidney disease, unspecified; K21.9 Gastro-esophageal reflux disease without esophagitis; D69.6 Thrombocytopenia, unspecified; Z79.82 Long term (current) use of aspirin; Z79.52 Long term (current) use of systemic steroids; Z88.1 Allergy status to other antibiotic agents
CPT/HCPCS: 52356; 76000; 82365; 88300; 88312; C2625; J1100; J1720; J2370; J2405; J2704; J2930; J3010; J3490; J7030

== ENCOUNTER → 2022-02-18 10:17 | Outpatient (BNVA) | payer OTHER, SELFPAY | PROVIDERS: PCP Family Medicine; Visit Provider Urology | DX: B37.41 Candidal cystitis and urethritis (principal); N20.1 Calculus of ureter; R97.20 Elevated prostate specific antigen [PSA]; Z96.0 Presence of urogenital implants | CPT/HCPCS: 52310; 81003 ==

== ENCOUNTER 2022-02-21 07:15 | Oncology outpatient (recurring) (ONCR) | payer OTHER, SELFPAY ==
[2022-02-04] MEDS: sodium chloride 0.9% 500 ML 999 ML IV (10:12)
[2022-02-04 10:16] LABS: Basophils % 0.4 %; Hematocrit 40.5 % (42.0-52.0); Hemoglobin 13.8 g/dL (11.7-16.6); Lymphocytes # 1.5 10^3/uL (0.8-4.8); Lymphocytes % 17.1 %; Mean Corpuscular HGB Conc 34.1 g/dL (30.0-36.0); Mean Corpuscular Hemoglobin 30.9 pg (28.0-34.0); Mean Corpuscular Volume 90.8 fl (80-94); Mean Platelet Volume 11.5 fL (7.4-10.4); Monocytes # 0.5 10^3/uL (0.2-0.9); Monocytes % 6.1 %; Neutrophils # 6.27 10^3/uL (1.8-7.7); Neutrophils % 70.6 %; Nucleated Red Blood Cells % 0 %; Platelet Count 134 10^3/cmm (130-400); Red Blood Count 4.46 10^6/uL (4.1-5.3); Red Cell Distribution Width 12.9 % (12.1-15.1); White Blood Count 8.9 10^3/uL (4.0-10.0)
[2022-02-04 10:42] LABS: Albumin Level 2.9 g/dL (3.5-5.2); Alkaline Phosphatase 251 U/L (40-130); Blood Urea Nitrogen 42 mg/dL (8-23); Calcium 10.2 mg/dL (8.5-10.5); Carbon Dioxide 23 mmol/L (22-29); Chloride 99 mmol/L (98-107); Globulin 2.5 g/dL (1.3-4.6); Glucose 112 mg/dL (65-115); Osmolality Calculated 289 mOsm/kg (285-295); Sodium 134 mmol/L (136-145); Total Bilirubin 0.4 mg/dL (0.15-1.2); Total Protein 5.4 g/dL (6.6-8.7)
[2022-02-04 10:45] LABS: Anion Gap 17.3 (5-19); Potassium 5.3 mmol/L (3.5-5.1)
[2022-02-04 10:46] LABS: Alanine Aminotransferase 73 U/L (0-41); Aspartate Amino Transferase 49 U/L (0-40)
[2022-02-04 11:13] LABS: Slide Review Slide Review Perform
[2022-02-04 12:36] VITALS: BP 117/74; PULSE 94; RESP 18; TEMP 36.2; O2SAT 95
[2022-02-04 16:31] VITALS: BP 133/77; PULSE 90; RESP 18; TEMP 36.7; O2SAT 96
--- NOTE | 2022-02-21 07:15 | MR_ITS ---
WS: [id number] MRI THORACIC SPINE WITH CONTRAST TECHNIQUE: Sagittal T1, T2 and STIR imaging. Axial T2 imaging. Post gadolinium imaging was obtained. CLINICAL INFORMATION: Bilateral leg weakness COMPARISON: None. FINDINGS: Mild thoracic curve. Mild thoracic kyphosis. No acute compression. No high grade central canal stenos is. No abnormal gadolinium enhancement. Tiny disc protrusions in the cervical spine at C4-C5 and C5-C6. Tiny shallow central protrusion T6-T7 with slight indentation on the thoracic curve. Spinal canal is patent. Moderate facet arthropathy lo wer thoracic spine. Mild foraminal narrowing RIGHT T9-T10, RIGHT T10 Multiple small enhancing and marrow replacing lesions consistent with metastatic disease. Enhancing l esions at LEFT T7 vertebral body suspicious for metastatic disease. Additional enhancing lesion poste rior T11 vertebral body on the LEFT. Additional bone marrow replacing lesion T1 vertebral body eccent dajuan to the RIGHT involving the pedicle. Enhancing lesion posterior element T3. Additional enhancing l esion RIGHT pedicle T10. Small enhancing lesion anterior T9 vertebral body. Heterogeneous bone marrow signal throughout the thoracic spine. Partially evaluated enhancing lesions in the thoracic ribs. Normal caliber thoracic aorta. Adrenal glands are normal.Partially evaluated subcarinal lymphadenopat hy, retrocrural, and paraesophageal lymphadenopathy at the GE junction. Partially visualized upper ab dominal lymphadenopathy. Splenomegaly. MR/MR thoracic spine wo/w [id number] IMPRESSION: 1. Mild thoracic kyphosis. No acute compression. No high-grade central canal s tenosis. 2. Cord signal is normal. 3. Shallow central disc protrusion T6-T7 with slight indentation on the thorac ic cord. 4. Partially evaluated subcarinal lymphadenopathy, retrocrural, and paraesopha geal lymphadenopathy at the GE junction. 5. Multiple small enhancing or marrow replacing small metastatic lesions descr ibed above. Largest lesions involve the T7 vertebral body measuring 10 mm and R IGHT T1 vertebral body extending into the posterior elements. No epidural or in traspinal disease. 6. Diffuse heterogeneous marrow signal throughout the thoracic bone marrow com patible with history of lymphoma. 7. Faintly visualized nodules/opacities in the lungs. Recommend further evalua tion with chest CT.
--- NOTE | 2022-02-21 08:00 | MR_ITS ---
WS: [id number] MRI LUMBAR SPINE WITH CONTRAST TECHNIQUE: Sagittal T1, T2 and STIR imaging. Axial T1 and T2 imaging. Post gadolinium imaging was obt ained. CLINICAL INFORMATION: Bilateral leg weakness COMPARISON: None. FINDINGS: Diffuse heterogeneous bone marrow signal throughout the bony structures compatible history of lymphom a. Mild disc bulging L3-L4 and L4-L5. No acute compression. No high-grade central canal stenosis. A f ew tiny enhancing metastatic lesions. No evidence of epidural intraspinal disease. L1-L2: Normal. L2-L3: Mild annular bulging. Tiny annular fissure. Mild facet arthropathy. Spinal canal and foramen a re patent. Mild facet arthropathy. L3-L4: Mild annular bulging. RIGHT subarticular protrusion with a tiny annular fissure. Impingement t raversing RIGHT L4 nerve root. Mild RIGHT foraminal narrowing. Mild facet arthropathy. L4-L5: Mild annular bulging eccentric to the LEFT. Impingement traversing LEFT L5 nerve root. Mild LE FT foraminal narrowing. Mild facet arthropathy. L5-S1: Mild annular bulging. Spinal canal and foramen are patent. Moderate RIGHT hydronephrosis. RIGHT ureterectasis. Bilateral renal cysts. Periaortic and retroperito andrez lymphadenopathy. Additional partially visualized metastatic lesions in the upper sacrum and part ially visualized pelvic bony structures. Diffuse abdominal retroperitoneal periaortic and iliac lymph adenopathy. MR/MR lumbar spine wo/w con [id number] IMPRESSION: 1. No high-grade central canal stenosis or epidural disease. 2. Mild clumping of the cauda equina nerve rootlets at the L4 and L5 levels co nsistent with arachnoiditis. 3. Diffuse abdominal and pelvic lymphadenopathy compatible with history of ly mphoma. 4. Moderate RIGHT hydronephrosis with RIGHT ureterectasis was present on the r ecent CT January 27, 2022. 5. A few tiny enhancing bony metastatic lesions most prominent involving the L 3 vertebral body, upper sacrum and RIGHT ilium adjacent to the SI joint. 6. Diffuse heterogeneous bone marrow signal throughout the visualized bony str uctures compatible with history of lymphoma. 7. Impingement RIGHT subarticular recess L3-L4 with mild RIGHT L3-L4 foraminal narrowing. 8. 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
[2022-02-21] MEDS: gadobenate dimeglumine 20 mL vial IV (08:46)
== END 2022-02-22 23:59 | disposition home or self-care (01) ==
LOC: ONCMED 02-24 14:39
PROVIDERS: PCP Family Medicine; Visit Provider Internal Medicine Medical Oncology
DX: C82.18 Follicular lymphoma grade II, lymph nodes of multiple sites (principal)
CPT/HCPCS: 72157; 72158; 80053; 85025; 96365; 96366; 99215; J2430; J7040

== ENCOUNTER 2022-02-23 08:32 | Emergency (ER) | payer OTHER, SELFPAY ==
[2022-02-23] VITALS (53 sets, daily range): BP systolic 48–91; BP diastolic 32–58; PULSE 135–163; RESP 19–31; TEMP 38.2–39.3; O2SAT 91–97; BMI 22.9
--- NOTE | 2022-02-23 08:36 | ECG_ITS ---
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 Measurements Intervals Regan Rate: 137 P: 29 RI: 130 QRS: -5 QRSD: 80 T: 74 QT: 330 QTc: 500 Interpretive Statements SINUS TACHYCARDIA POSSIBLE ANTERIOR MYOCARDIAL INFARCTION , OF INDETERMINATE AGE [30 ms Q WAVE IN V3/V4, OR R < 0.2 mV IN V4] Compared to ECG 02/23/2022 09:00:04 Atrial fibrillation no longer present T-wave abnormality no longer present Possible ischemia no longer present Myocardial infarct finding still present Electronically Signed On 02-24-2022 22:03:34 CDT by Marco Baron M.D. [id number]
[2022-02-23 08:53] LABS: ABG PH Result 7.43 (7.35-7.45); Alveolar-Arterial Oxygen Gradi 3.9 mmHg (5-10); Arterial Blood Gas Hematocrit 33.9 % (42-52); Base Excess ABG -3.5 mmol/L (-2.0-2.0); Blood Gas Operator Identificat AMH; Blood Gas Sample Site Brachial, left; Blood Gas Sample Type Arterial; Carboxyhemoglobin 1.3 %THgb (0.4-20.1); HCO3 ABG 19.9 mmol/L (22-26); HGB O2 Sat 95.1 % (95-100); Ionized Calcium Level - ABG 1.5 mmol/L (1.1-1.4); Methemoglobin 0.8 % (0.4-1.5); Oxygen Device NRB; Oxygen Saturation ABG 97.1; PO2 ABG 81.7 mmHg (80.0-100.0); Potassium Level - ABG 4.8 mmol/L (3.5-5.0); Total Hemoglobin 11.1 g/dL (14-18)
[2022-02-23 09:00] LABS: Basophils # 0.1 10^3/uL (0.0-0.1); Basophils % 0.3 %; Eosinophils # 0.1 10^3/uL (0.0-0.8); Eosinophils % 0.4 %; Hematocrit 32.7 % (42.0-52.0); Hemoglobin 10.4 g/dL (11.7-16.6); Lymphocytes # 9.9 10^3/uL (0.8-4.8); Lymphocytes % 48.9 %; Mean Corpuscular HGB Conc 31.8 g/dL (30.0-36.0); Mean Corpuscular Hemoglobin 30.1 pg (28.0-34.0); Mean Corpuscular Volume 94.8 fl (80-94); Mean Platelet Volume 12.9 fL (7.4-10.4); Monocytes # 1.7 10^3/uL (0.2-0.9); Monocytes % 8.5 %; Neutrophils # 7.78 10^3/uL (1.8-7.7); Neutrophils % 38.4 %; Nucleated Red Blood Cells # 0.2 /100WBC; Nucleated Red Blood Cells % 0.9 %; Platelet Count 79 10^3/cmm (130-400); Red Blood Count 3.45 10^6/uL (4.1-5.3); Red Cell Distribution Width 13.3 % (12.1-15.1); White Blood Count 20.3 10^3/uL (4.0-10.0)
--- NOTE | 2022-02-23 09:00 | ECG_ITS ---
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 Measurements Intervals [place] Rate: 137 P: CO: QRS: -10 QRSD: 72 T: 79 QT: 342 QTc: 517 Interpretive Statements ATRIAL FIBRILLATION WITH RAPID VENTRICULAR RESPONSE POSSIBLE ANTERIOR MYOCARDIAL INFARCTION , OF INDETERMINATE AGE [30 ms Q WAVE IN V3/V4, OR R < 0.2 mV IN V4] MODERATE T-WAVE ABNORMALITY, CONSIDER INFERIOR ISCHEMIA [-0.1+ mV T-WAVE IN II/aVF] Compared to ECG 01/26/2022 17:26:32 Myocardial infarct finding now present Possible ischemia now present Sinus tachycardia no longer present T-wave abnormality still present Electronically Signed On 02-24-2022 22:07:42 CDT by Marco Baron M.D. [id number]
[2022-02-23] MEDS: cefepime 2,000 MG in sodium chloride 0.9% (plus) 50 ML 100 MG IV (09:23)
[2022-02-23 09:28] LABS: Lactic Sepsis W/Reflex 3.7 mmol/L (0.5-2.2)
[2022-02-23 09:29] LABS: Bilirubin Urine Small (Negative); Blood Urine Moderate (Negative); Glucose Urine UA Negative (Normal); Ketones Urine Trace (Negative); Leukocyte Esterase Urine 1+ (Negative); Nitrate Urine Positive; Protein Urine 3+; Specific Gravity, Urine 1.025 (1.005-1.030); Urine Appearance Cloudy (CLEAR); Urobilinogen Urine 0.2 mg/dL (Negative)
[2022-02-23 09:30] LABS: Add Urine Microscopic? YES; Urine Color Yellow (Yellow)
--- NOTE | 2022-02-23 09:31 | PC.NURSE ---
Pt on 15L and sats are 95%, says he does not wear O2 at long term and has no lung problems
[2022-02-23 09:33] LABS: Alanine Aminotransferase 16 U/L (0-41); Alkaline Phosphatase 196 U/L (40-130); Aspartate Amino Transferase 28 U/L (0-40); Blood Urea Nitrogen 51 mg/dL (8-23); Calcium 9.8 mg/dL (8.5-10.5); Carbon Dioxide 20 mmol/L (22-29); Chloride 100 mmol/L (98-107); Globulin 2.1 g/dL (1.3-4.6); Glucose 55 mg/dL (65-115); Lipase 38 U/L (13-60); Magnesium 1.6 mg/dL (1.7-2.3); Osmolality Calculated 287 mOsm/kg (285-295); Sodium 133 mmol/L (136-145); Total Bilirubin 0.4 mg/dL (0.15-1.2); Total Protein 4.1 g/dL (6.6-8.7)
[2022-02-23 09:34] LABS: Glucose Point of Care 60 mg/dL (70-110)
--- NOTE | 2022-02-23 09:38 | XRR_ITS ---
PROCEDURE INFORMATION: Exam: XR Chest Exam date and time: 02/23/2022 10:07 AM Age: 71 years old Clinical indication: Cough and dyspnea; Additional info: Dyspnea/cough TECHNIQUE: Imaging protocol: Radiologic exam of the chest. Views: 1 view. COMPARISON: CR (CHEST, ) 01/26/2022 10:15 AM FINDINGS: Tubes, catheters and devices: A left side central line is present extending into the right atrium. Lungs: Low lung volumes seen. The lungs are otherwise clear the Pleural spaces: Unremarkable. No pleural effusion. No pneumothorax. Heart/Mediastinum: Unremarkable. No cardiomegaly. Bones/joints: Unremarkable. Other findings: There has been no interval change compared to prior XR/XR chest 1V portable [id number] IMPRESSION: 1. No acute findings. 2. Low lung volumes 3. Left central line extends to the right atrium
--- NOTE | 2022-02-23 09:38 | CTR_ITS ---
PROCEDURE INFORMATION: Exam: CT Abdomen And Pelvis With Contrast Exam date and time: 02/23/2022 10:36 AM Age: 71 years old Clinical indication: Abdominal pain; Additional info: Abd pain TECHNIQUE: Imaging protocol: Computed tomography of the abdomen and pelvis with contrast. Radiation optimization: All CT scans at this facility use at least one of these dose optimization techniques: automated exposure control; mA and/or kV adjustment per patient size (includes targeted exams where dose is matched to clinical indication); or iterative reconstruction. Contrast material: OMNI 350; Contrast volume: 80 ml; Contrast route: INTRAVENOUS (IV); COMPARISON: CT kidney stone [id number] 01/27/2022 2:28 PM RADIATION DOSE METRICS: Total DLP (mGy-cm): 872.62 FINDINGS: Lungs: A right lower lobe posterior aspect parenchymal densities are noted which may be pneumonia Heart: Chest: There is heavy coronary artery calcifications Liver: A hepatomegaly is seen. The liver span is 20 cm No mass. Gallbladder and bile ducts: Cholecystectomy Pancreas: Normal. No ductal dilation. Spleen: Normal. No splenomegaly. Adrenal glands: Normal. No mass. Kidneys and ureters: There is right side hydronephrosis, and ureterectasis. The distal portion of the right ureter is not visible. There are benign cyst in the left kidney. Stomach and bowel: Unremarkable. No obstruction. No mucosal thickening. Appendix: No evidence of appendicitis. Intraperitoneal space: Moderate free fluid collection is seen in the lower anterior and right lateral pelvis Vasculature: Unremarkable. No abdominal aortic aneurysm. Lymph nodes: There is diffuse retroperitoneal and mesenteric lymphadenopathy. Diffuse interstitial inflammatory stranding is seen in the retroperitoneum and central portions of the mesentery. The retroperitoneal nodes measure 17.7 mm x 23 mm on the right and 15.8 mm x 16.7 mm on the left several smaller nodes are also seen in this area. The largest mesenteric node has a short axis measurement of 16 mm on the left side Urinary bladder: Decompressed with a Chopra catheter Reproductive: Unremarkable as visualized. Bones/joints: Unremarkable. No acute fracture. Soft tissues: Unremarkable. CT/CT abdomen pelvis w con* [id number] IMPRESSION: 1. There is retroperitoneum and mesenteric lymphadenopathy with diffuse interstitial stranding in the mesenteric fat . 2. Hepatomegaly 3. Right renal hydronephrosis 4. Free fluid is seen in the anterior and right pelvic peritoneum 5. Cholecystectomy. 6. Benign cyst left kidney 7. Heavy coronary artery calcification 8. Right lower lobe posterior pneumonia COMMENTS: Consistent with the [place] [employer]'s Incidental Findings Committee white paper (J Am Víctor Radiol 2018): Any incidental renal lesion less than 1 cm or classified as too small to characterize, or any incidental cystic renal lesion characterized as simple-appearing, is likely benign. No follow-up imaging is recommended for these lesions per consensus recommendations based on imaging criteria.
[2022-02-23 09:52] LABS: Troponin(5th) Baseline 209 ng/L (0-15)
[2022-02-23 09:55] LABS: RBC Urine 15-25 /hpf (0-2); WBC Urine TOO NUMEROUS TO CNT /hpf (0-5)
[2022-02-23 09:56] LABS: Add Urine Culture? Yes; Bacteria Urine 4+ /hpf; Mucus Urine TRACE /hpf
--- NOTE | 2022-02-23 10:05 | W.ED.GENADLT ---
HPI - General Adult General: Chief complaint: Altered Mental Status Stated complaint: LOW BLOOD PRESSURE Time Seen by Provider: 02/23/22 08:34 Source: family and EMS Mode of arrival: EMS History of Present Illness: 71 yo male resents emergency room via [facility] unresponsive. He has a history of lymphoma and a history of atrial fibrillation he is hypoxic hypotensive and poorly responsive with a low-grade fever. No contributions to history history and review of systems per family and EMS Onset (ago): unknown Severity: severe Relieving factors: none Exacerbating factors: none Associated symptoms: Reports confusion, dyspnea, fevers/chills, malaise, palpitations, short of breath and weakness; Deny chest pain, cough, diaphoresis or nausea Treatments prior to arrival: none Review of Systems General: Reports: ROS unobtainable due to mental status (Minimal review of symptoms with spouse) Const: Reports: fatigue and malaise; Denies: fever(s), chills or diaphoresis Card: Reports: palpitations; Denies: chest pain Resp: Reports: dyspnea GI: Denies: nausea Neuro: Reports: confusion PFSH ED PFSH: Medical History Benign prostatic hyperplasia with lower urinary tract symptoms Chronic kidney disease Follicular lymphoma grade 3a GERD (gastroesophageal reflux disease) Hiatal hernia 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 History of follicular lymphoma (2008) grade 1-2 follicular lymphoma History of pulmonary embolism History of recurrent deep vein thrombosis (DVT) Hypogammaglobulinaemia, unspecified Nephrolithiasis Post traumatic stress disorder Primary osteoarthritis of right knee Recurrent bacterial pneumonia Recurrent colitis due to Clostridioides difficile Thrombocytopenia Surgical History H/O abdominal surgery Partial bowel resection per shrapnel injury H/O lymph node biopsy multiple lymph node biopsies History of cataract surgery History of cholecystectomy History of colonoscopy (08/30/21) History of esophagogastroduodenoscopy (08/30/21) History of left knee replacement History of shoulder surgery Port-A-Cath in place (Unknown) Family History Father , AT AGE 49 CAD (coronary artery disease) Mother , AT AGE 79 Dementia Other Cancer Clotting disorder Denies family history of Diabetes Hyperlipidemia Psychiatric illness Chronic kidney disease (CKD) Suicide Anesthesia complication Bleeding disorder Lung disease Hypertension Stroke Social History Smoking and tobacco status: never smoked Alcohol intake: never Lives independently: Yes Household members: spouse Marital status: Current occupational status: retired History of recent travel: No Physical Exam HENMT: COMMON NORMALS: normocephalic, atraumatic and hearing grossly normal bilaterally HEAD & SCALP: normocephalic and atraumatic Resp: COMMON NORMALS: normal respiratory effort, No retractions, No use of accessory muscles and clear to auscultation bilaterally AUSCULTATION: clear to auscultation bilaterally Cardio: COMMON NORMALS: regular rate, regular rhythm and No murmurs present (Cardio) RATE: regular rate RHYTHM: regular rhythm GI: COMMON NORMALS: Soft to palpation and No hepatosplenomegaly present AUSCULTATION: Yes normoactive bowel sounds PALPATION: Yes Soft to palpation, No Tenderness to palpation present (GI), No Guarding due to palpation present (GI) and Yes No hepatosplenomegaly present Extremity: COMMON NORMALS: normal to inspection, capillary refill normal, no clubbing, cyanosis or edema, no calf tenderness and no pedal edema Skin: COMMON NORMALS: no rashes or lesions noted GENERAL SKIN EXAM: no rashes or lesions noted Course Vital Signs: Vital signs: Vital Signs Temperature 102.7 F H 02/23/22 19:31 Pulse Rate 139 H 02/23/22 19:31 Respiratory Rate 31 H 02/23/22 19:31 Blood Pressure 86/57 02/23/22 19:31 Pulse Oximetry 91 02/23/22 19:31 Oxygen Delivery Me thod 02/23/22 08:44 Oxygen Flow Rate 8 02/23/22 08:44 MDM - General Adult Medical Decision Making Ureter occluded likely by mesenteric and retroperitoneal lymph nodes. Patient will need to be transferred to not have urology available. Labs and imaging reviewed discussed with hospitalist transfer via ambulance to [facility]. Medical Records I reviewed the patient's medical records. Lab Data I reviewed the patient's lab results. : 02/23/22 08:51 02/23/22 08:51 Radiology Impressions Abdomen/Pelvis CT 02/23/22 09:38 IMPRESSION: 1. There is retroperitoneum and mesenteric lymphadenopathy with diffuse interstitial stranding in the mesenteric fat . 2. Hepatomegaly 3. Right renal hydronephrosis 4. Free fluid is seen in the anterior and right pelvic peritoneum 5. Cholecystectomy. 6. Benign cyst left kidney 7. Heavy coronary artery calcification 8. Right lower lobe posterior pneumonia COMMENTS: Consistent with the [employer]'s Incidental Findings Committee white paper (J Am Víctor Radiol 2018): Any incidental renal lesion less than 1 cm or classified as too small to characterize, or any incidental cystic renal lesion characterized as simple-appearing, is likely benign. No follow-up imaging is recommended for these lesions per consensus recommendations based on imaging criteria. Chest X-Ray 02/23/22 18:27 IMPRESSION: 1. Satisfactory position of endotracheal tube. 2. Mild right basilar infiltrate or atelectasis. Laboratory Results WBC 20.3 10^3/uL (4.0-10.0) H 02/23/22 08:51 RBC 3.45 10^6/uL (4.1-5.3) L 02/23/22 08:51 Hgb 10.4 g/dL (11.7-16.6) L 02/23/22 08:51 Hct 32.7 % (42.0-52.0) L 02/23/22 08:51 MCV 94.8 fl (80-94) H 02/23/22 08:51 MCH 30.1 pg (28.0-34.0) 02/23/22 08:51 MCHC 31.8 g/dL (30.0-36.0) 02/23/22 08:51 RDW 13.3 % (12.1-15.1) 02/23/22 08:51 Plt Count 79 10^3/cmm (130-400) L 02/23/22 08:51 MPV 12.9 fL (7.4-10.4) H 02/23/22 08:51 Neut % (Auto) 38.4 % 02/23/22 08:51 Lymph % (Auto) 48.9 % 02/23/22 08:51 [place] % (Auto) 8.5 % 02/23/22 08:51 Eos % (Auto) 0.4 % 02/23/22 08:51 Baso % (Auto) 0.3 % 02/23/22 08:51 Neut # (Auto) 7.78 10^3/uL (1.8-7.7) H 02/23/22 08:51 Lymph # (Auto) 9.9 10^3/uL (0.8-4.8) H 02/23/22 08:51 [place] # (Auto) 1.7 10^3/uL (0.2-0.9) H 02/23/22 08:51 Eos # (Auto) 0.1 10^3/uL (0.0-0.8) 02/23/22 08:51 Baso # (Auto) 0.1 10^3/uL (0.0-0.1) 02/23/22 08:51 Nucleated RBC % (auto) 0.9 % 02/23/22 08:51 Nucleated RBCs # 0.2 /100WBC 02/23/22 08:51 Specimen Type Arterial 02/23/22 17:47 Sample Site Brachial, right 02/23/22 17:47 ABG pH 7.33 (7.35-7.45) L 02/23/22 17:47 ABG pCO2 28.7 mmHg (35-45) L 02/23/22 17:47 ABG pO2 70.3 mmHg (80.0-100.0) L 02/23/22 17:47 ABG HCO3 15.0 mmol/L (22-26) L 02/23/22 17:47 ABG O2 Saturation 94.1 02/23/22 17:47 ABG Base Excess -9.8 mmol/L (-2.0-2.0) L 02/23/22 17:47 Kenny Test N/a 02/23/22 17:47 A-a O2 Gradient 26.9 mmHg (5-10) H 02/23/22 17:47 Hematocrit 35.7 % (42-52) L 02/23/22 17:47 Hgb O2 Saturation 92.0 % (95-100) L 02/23/22 17:47 Carboxyhemoglobin 1.1 %THgb (0.4-20.1) 02/23/22 17:47 Methemoglobin 1.1 % (0.4-1.5) 02/23/22 17:47 Total Hemoglobin 11.6 g/dL (14-18) L 02/23/22 17:47 Sodium 130.0 mmol/L (131-143) L 02/23/22 17:47 Potassium 4.5 mmol/L (3.5-5.0) 02/23/22 17:47 Glucose 96.0 mg/dL (70-115) 02/23/22 17:47 Ionized Calcium 1.4 mmol/L (1.1-1.4) 02/23/22 17:47 O2 Delivery Device Nc 02/23/22 17:47 O2 Liters/Min 6.0 % 02/23/22 17:47 FiO2 44.0 % 02/23/22 17:47 Visual Presentation Manager ID Amh 02/23/22 17:47 Sodium 133 mmol/L (136-145) L 02/23/22 08:51 Potassium 5.0 mmol/L (3.5-5.1) 02/23/22 08:51 Chloride 100 mmol/L (98-107) 02/23/22 08:51 Carbon Dioxide 20 mmol/L (22-29) L 02/23/22 08:51 Anion Gap 18.0 (5-19) 02/23/22 08:51 BUN 51 mg/dL (8-23) H 02/23/22 08:51 Creatinine 2.9 mg/dL (0.7-1.2) H 02/23/22 08:51 GFR Calculation Not Reportable 02/23/22 08:51 Glucose 55 mg/dL (65-115) L 02/23/22 08:51 POC Glucose 80 mg/dL (70-110) 02/23/22 11:03 Calculated Osmolality 287 mOsm/kg (285-295) 02/23/22 08:51 Lactic Acid 3.7 mmol/L (0.5-2.2) H 02/23/22 08:51 Lactic Acid (Sepsis) 3.4 mmol/L (0.5-2.2) H 02/23/22 11:31 Calcium 9.8 mg/dL (8.5-10.5) 02/23/22 08:51 Magnesium 1.6 mg/dL (1.7-2.3) L 02/23/22 08:51 Total Bilirubin 0.4 mg/dL (0.15-1.2) 02/23/22 08:51 AST 28 U/L (0-40) 02/23/22 08:51 ALT 16 U/L (0-41) 02/23/22 08:51 Alkaline Phosphatase 196 U/L (40-130) H 02/23/22 08:51 Troponin T Baseline 209 ng/L (0-15) H* 02/23/22 08:51 Troponin T 120 Minute 204.9 ng/L (0-15) H 02/23/22 12:14 Delta Troponin T -4.1 ABS# (0-10) L 02/23/22 12:14 Troponin T Hi Sens 6Hr 212.6 ng/L (0-15) H 02/23/22 15:06 Troponin T Hi Sens 6Hr Delta 3.6 ng/L (0-12) 02/23/22 15:06 Total Protein 4.1 g/dL (6.6-8.7) L 02/23/22 08:51 Albumin 2.0 g/dL (3.5-5.2) L 02/23/22 08:51 Globulin 2.1 g/dL (1.3-4.6) 02/23/22 08:51 Lipase 38 U/L (13-60) 02/23/22 08:51 Urine Color Yellow (Yellow) 02/23/22 09:00 Urine Appearance Cloudy (CLEAR) 02/23/22 09:00 Urine pH 7.0 (5-7) 02/23/22 09:00 Ur Specific [place] 1.025 (1.005-1.030) 02/23/22 09:00 Urine Protein 3+ 02/23/22 09:00 Urine Glucose (UA) Negative (Normal) 02/23/22 09:00 Urine Ketones Trace (Negative) A 02/23/22 09:00 Urine Blood Moderate (Negative) A 02/23/22 09:00 Urine Nitrate Positive 02/23/22 09:00 Urine Bilirubin Small (Negative) 02/23/22 09:00 Urine Urobilinogen 0.2 mg/dL (Negative) 02/23/22 09:00 Ur Leukocyte Esterase 1+ (Negative) A 02/23/22 09:00 Urine RBC 15-25 /hpf (0-2) H 02/23/22 09:00 Urine WBC Too numerous to cnt /hpf (0-5) H 02/23/22 09:00 Ur Squamous Epith Cells None /hpf (0-5) 02/23/22 09:00 Amorphous Sediment Not Reportable 02/23/22 09:00 Urine Bacteria 4+ /hpf (NONE) H 02/23/22 09:00 Urine Mucus Trace /hpf 02/23/22 09:00 SARS-CoV-2 Ag (Rapid) Negative (Negative) 02/23/22 12:34 Discharge Plan Discharge Patient Disposition: Xfer Short-Term Hosp Clinical Impression: Follicular lymphoma grade ii, lymph nodes of multiple sites, Chronic kidney disease, Thrombocytopenia, Generalized weakness, Acute kidney injury, Extrinsic ureteral obstruction, Sepsis Condition: Stable Prescriptions: No Action zinc 50 mg tablet 50 mg PO DAILY timolol 0.5 % drops 1 drp ophthalmic (eye) BID Rx Instructions: right eye latanoprost 0.005 % drops 1 drp ophthalmic (eye) DAILY Rx Instructions: right eye prednisone 5 mg tablet 15 mg PO BID ferrous sulfate [iron] 325 mg (65 mg iron) tablet 325 mg PO EVERY OTHER DAY cholecalciferol (vitamin D3) 25 mcg (1,000 unit) tablet 25 mcg PO DAILY fluconazole 150 mg tablet 150 mg PO DAILY Qty: 10 3RF lansoprazole [Prevacid] 30 mg capsule,delayed release(DR/EC) See Rx Instructions PO BID Rx Instructions: 2 tablets in AM, 1 tablet in PM orally twice a day; nystatin 100,000 unit/mL suspension 5 ml PO QID Qty: 480 0RF Rx Instructions: swish and swallow sulfamethoxazole-trimethoprim [Bactrim DS] 800-160 mg tablet 1 tab PO BID 14 Days Qty: 28 0RF colestipol 1 gram tablet 1 g PO TID aspirin 81 mg Tablet,Delayed Release (Dr/Ec) 81 mg PO DAILY Qty: 30 0RF tamsulosin 0.4 mg Capsule 0.4 mg PO DAILY Qty: 30 0RF oxycodone 5 mg capsule 5 mg PO DAILY PRN (Reason: Pain) Qty: 20 0RF Referrals: Catrina Farley MD [Primary Care Provider] - Coding Level of Care Code ED Christmas Bell Ringer for Chg Fwd Exam Detailed
[2022-02-23] MEDS: dilTIAZem 5 mg/mL SDV 5 mL 10 MG IVP (10:11)
[2022-02-23] MEDS: dextrose 10% 1,000 ML 100 ML IV (10:12)
[2022-02-23 10:13] LABS: Reflex Lactate Order REFLEX LACTIC ORDERD
[2022-02-23] MEDS: iohexol 350 mg/mL 100 mL Btl IV (10:40)
--- NOTE | 2022-02-23 10:59 | ECG_ITS ---
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 Measurements Intervals [place] Rate: 132 P: 28 [place]: 129 QRS: -5 QRSD: 75 T: 95 QT: 332 QTc: 493 Interpretive Statements SINUS TACHYCARDIA POSSIBLE ANTERIOR MYOCARDIAL INFARCTION , PROBABLY OLD [30 ms Q WAVE IN V3/V4, OR R < 0.2 mV IN V4] Compared to ECG 02/23/2022 10:26:22 No significant changes Electronically Signed On 02-24-2022 22:07:27 CDT by Marco Baron M.D. [id number]
[2022-02-23 11:05] LABS: Glucose Point of Care 80 mg/dL (70-110)
[2022-02-23 11:54] LABS: Lactic Acid level (Lactate) 3.4 mmol/L (0.5-2.2)
[2022-02-23 12:53] LABS: Troponin 5 2HR Delta -4.1 ABS# (0-10)
[2022-02-23 12:54] LABS: Troponin 5 2HR 204.9 ng/L (0-15)
--- NOTE | 2022-02-23 13:11 | PC.NURSE ---
Pt taken off nonrebreather and placed on 6L NC, he is staying about 96%
[2022-02-23 13:44] LABS: SARS Covid-2 Antigen Negative (Negative)
[2022-02-23 15:44] LABS: Troponin 5 6HR Delta 3.6 ng/L (0-12)
[2022-02-23 15:46] LABS: Troponin 5 6HR 212.6 ng/L (0-15)
[2022-02-23] MEDS: norepinephrine 8 MG in dextrose 5 % 500 ML 76.2 MG IV (16:20)
[2022-02-23 17:58] LABS: ABG PCO2 28.7 mmHg (35-45); ABG PH Result 7.33 (7.35-7.45); Alveolar-Arterial Oxygen Gradi 26.9 mmHg (5-10); Arterial Blood Gas Hematocrit 35.7 % (42-52); Base Excess ABG -9.8 mmol/L (-2.0-2.0); Blood Gas Operator Identificat AMH; Blood Gas Sample Site Brachial, right; Blood Gas Sample Type Arterial; Carboxyhemoglobin 1.1 %THgb (0.4-20.1); Ionized Calcium Level - ABG 1.4 mmol/L (1.1-1.4); Methemoglobin 1.1 % (0.4-1.5); Oxygen Device NC; Oxygen Saturation ABG 94.1; PO2 ABG 70.3 mmHg (80.0-100.0); Potassium Level - ABG 4.5 mmol/L (3.5-5.0); Total Hemoglobin 11.6 g/dL (14-18)
--- NOTE | 2022-02-23 18:27 | XRR_ITS ---
PROCEDURE INFORMATION: Exam: XR Chest Exam date and time: 02/23/2022 6:29 PM Age: 71 years old Clinical indication: Device placement; Ett placement (vent status); Patient HX: Hypotensive, intubated, ng placement also; Additional info: Intubation TECHNIQUE: Imaging protocol: Radiologic exam of the chest. Views: 1 view. COMPARISON: CR (CHEST, ) 02/23/2022 10:07 AM FINDINGS: Limitations: Pulmonary apices are cut off on this exam. Tubes, catheters and devices: Endotracheal tube is in satisfactory position with its tip approximately 4.9 cm above the issa. Nasogastric tube tip extends into the stomach. External pacemaker lead is seen along the left chest. Infusion port catheter remains in place. Lungs: There is some partial atelectasis or infiltrate at the right lung base. Visualized portions of the left lung are clear. Pleural spaces: Unremarkable. No pleural effusion. No pneumothorax. Heart/Mediastinum: Unremarkable. No cardiomegaly. Bones/joints: Unremarkable. XR/XR chest 1V portable [id number] IMPRESSION: 1. Satisfactory position of endotracheal tube. 2. Mild right basilar infiltrate or atelectasis.
--- NOTE | 2022-02-23 19:18 | PC.NURSE ---
Placed pt on EMS cot for transfer, as they were getting him secured and hooked up to their equipment i noticed the Pt appeared be agnol respirations, he was breathing 6-7 times a minute and had a ashen color. I went and got Dr. Alberto and he came to bedside
--- NOTE | 2022-02-23 19:21 | PC.NURSE ---
Updated report was called to Fracisco allred with pts condition
== END 2022-02-23 19:37 | disposition short-term general hospital (02) ==
PROVIDERS: Emergency Provider Family Medicine; PCP Family Medicine
DX: N13.1 Hydronephrosis with ureteral stricture, not elsewhere classified (principal); A41.9 Sepsis, unspecified organism; C82.18 Follicular lymphoma grade II, lymph nodes of multiple sites; N18.9 Chronic kidney disease, unspecified; N17.9 Acute kidney failure, unspecified; D69.6 Thrombocytopenia, unspecified; Z79.52 Long term (current) use of systemic steroids; Z79.82 Long term (current) use of aspirin
CPT/HCPCS: 36415; 36416; 36600; 51702; 71045; 74177; 80051; 80053; 81001; 82330; 82805; 82962; 83605; 83690; 83735; 84484; 85025; 87040; 87077; 87086; 87186; 87205; 87426; 93005; 96365; 96366; 96367; 96375; 99291; 99292; J0330; J0692; J2250; J3010; J3490; J7030; J7050; Q9967